=== PATIENT | male | born 1930 | race Caucasian/White ===

== ENCOUNTER 2016-05-08 03:44 | Inpatient (IN) | payer BC, OTHER ==
--- NOTE | 2016-05-08 03:56 | PDOC ---
History of Present Illness - General History Source: Patient Exam Limitations: No Limitations - History of Present Illness Initial Comments: 05/08/16 04:12 The patient is an 86 year old male with history of hypertension, hyperlipidemia , CHF, prostate CA, who presents to the ED complaining of chronic left lateral chest pain, worse with positional changes and deep inspiration. He states he has had this worked up in the past and told in was likely arthritis and not related his heart. In the past few days he has had cough and shortness of breath. He was seen by his doctor who started him on a 5 day course of Azithromycin (he has completed 3 days) but he is considered he has pneumonia. He also complains of intermittent suprapubic pain, now worsening. He states his oncologist recently changed his medications because they "were not working". No fever or chills. No midsternal chest pain, lightheadedness, or worsening peripheral edema. No nausea, vomiting, or diarrhea. PCP: Dr. Chava Chavarria Range Manager: Dr. Mishra <Laurie Workman - Last Filed: 05/08/16 06:55> <Oscar Mark - Last Filed: 05/08/16 07:45> <Radha Hall - Last Filed: 05/08/16 08:45> <Cristopher Doss - Last Filed: 05/08/16 09:37> - General Stated Complaint: PAIN Time Seen by Provider: 05/08/16 03:55 Past History <Laurie Workman - Last Filed: 05/08/16 06:55> - Past Medical History Anemia: No Asthma: No Cancer: Yes (prostate & colon) Cardiac Disorders: Yes CVA: No COPD: No CHF: No Dementia: No Diabetes: No GI Disorders: No Disorders: No HTN: Yes Hypercholesterolemia: Yes Liver Disease: No Seizures: No Thyroid Disease: No - Surgical History Abdominal Surgery: Yes (colon resection) Appendectomy: No Cardiac Surgery: Yes (cath) Cholecystectomy: No Lung Surgery: No Neurologic Surgery: No Orthopedic Surgery: No - Immunization History Immunization Up to Date: Yes - Psycho/Social/Smoking Cessation Hx Anxiety: No Suicidal Ideation: No Smoking History: Never smoked Have you smoked in the past 12 months: No Number of Cigarettes Smoked Daily: 0 If you are a former smoker, when did you quit?: 20 years ago Hx Alcohol Use: No Drug/Substance Use Hx: No Substance Use Type: None Hx Substance Use Treatment: No <Oscar Mark - Last Filed: 05/08/16 07:45> <Radha Hall - Last Filed: 05/08/16 08:45> <Cristopher Doss - Last Filed: 05/08/16 09:37> - Past Medical History Allergies/Adverse Reactions: Allergies Allergy/AdvReac Type Severity Reaction Status Date / Time No Known Allergies Allergy Verified 05/08/16 04:21 Home Medications: Ambulatory Orders Aspirin [ASA -] 81 mg PO DAILY 01/17/15 Atorvastatin Ca [Lipitor] 20 mg PO HS 01/17/15 Furosemide [Lasix -] 20 mg PO ASDIR 01/17/15 Tamsulosin HCl [Flomax -] 0.4 mg PO DAILY 01/17/15 Lisinopril [Prinivil] 2.5 mg PO DAILY #30 tablet 01/18/15 Review of Systems - Review of Systems Able to Perform ROS?: Yes Comments:: 05/08/16 04:16 GENERAL/CONSTITUTIONAL: No fever or chills. No weakness. HEAD, EYES, EARS, NOSE AND THROAT: No change in vision. No ear pain or discharge. No sore throat CARDIOVASCULAR: No chest pain or shortness of breath. RESPIRATORY: Left lateral chest wall pain. Cough, SOB. No wheezing, or hemoptysis. GASTROINTESTINAL: No nausea, vomiting, diarrhea or constipation. GENITOURINARY: Intermittent suprapubic pain. No dysuria, frequency, or change in urination. MUSCULOSKELETAL: No joint or muscle swelling or pain. No neck or back pain. SKIN: No rash NEUROLOGIC: No headache, vertigo, loss of consciousness, or change in strength/ sensation. ENDOCRINE: No increased thirst. No abnormal weight change. HEMATOLOGIC/LYMPHATIC: No anemia, easy bleeding, or history of blood clots. ALLERGIC/IMMUNOLOGIC: No hives or skin allergy. <Laurie Workman - Last Filed: 05/08/16 06:55> *Physical Exam - Physical Exam Comments: 05/08/16 04:17 GENERAL: Awake, alert, and fully oriented, in no acute distress HEAD: No signs of trauma EYES: PERRLA, EOMI, sclera anicteric, conjunctiva clear ENT: Auricles normal inspection, hearing grossly normal, nares patent, oropharynx clear without exudates. Moist mucosa NECK: Normal ROM, supple, no lymphadenopathy, JVD, or masses LUNGS: Left anterior chest wall tenderness to palpation. Breath sounds equal, clear to auscultation bilaterally. No wheezes, and no crackles HEART: Regular rate and rhythm, normal S1 and S2, no murmurs, rubs or gallops ABDOMEN: Suprapubic tenderness to palpation. Soft, normoactive bowel sounds. No guarding, no rebound. No masses EXTREMITIES: Normal range of motion, no edema. No clubbing or cyanosis. No cords, erythema, or tenderness NEUROLOGICAL: Cranial nerves II through XII grossly intact. Normal speech, gait deferred. SKIN: Warm, Dry, normal turgor, no rashes or lesions noted. <Laurie Workman - Last Filed: 05/08/16 06:55> - Vital Signs Last Vital Signs Temp Pulse Resp BP Pulse Ox 98.5 F 102 H 22 141/98 97 05/08/16 04:18 05/08/16 04:18 05/08/16 04:18 05/08/16 04:18 05/08/16 04:18 <Radha Hall - Last Filed: 05/08/16 08:45> - Vital Signs Last Vital Signs Temp Pulse Resp BP Pulse Ox 98.5 F 102 H 22 141/98 97 05/08/16 04:18 05/08/16 04:18 05/08/16 04:18 05/08/16 04:18 05/08/16 04:18 <Cristopher Doss - Last Filed: 05/08/16 09:37> Heart Score/ECG Review #1 05/08/16 04:25 EKG obtained 3:56. Sinus tachycardia with 1st degree AV block at 102 bpm. Left bundle branch block. Abnormal EKG> Left bundle branch block is not new, but QRS morphology is different when compared to previous EKGs. <Laurie Workman - Last Filed: 05/08/16 06:55> - History History: Moderately suspicious - Electrocardiogram EKG: Significant ST-depression - Age Age: >/= 65 - Risk Factors Risk Factors Heart Score: Yes Hx Hypercholesterolemia, Yes Hx Hypertension, Yes Positive family hx of cardiac disease Based on the list above the patient has:: >/=3 risk factors or Hx atherosclerotic disease - Troponin Troponin: </= normal limit - Score Heart Score - Total: 7 <Radha Hall - Last Filed: 05/08/16 08:45> ED Treatment Course - LABORATORY CBC & Chemistry Diagram: 05/08/16 04:30 05/08/16 04:30 <Laurie Workman - Last Filed: 05/08/16 06:55> - LABORATORY CBC & Chemistry Diagram: 05/08/16 04:30 05/08/16 04:30 <Oscar Mark - Last Filed: 05/08/16 07:45> - LABORATORY CBC & Chemistry Diagram: 05/08/16 04:30 05/08/16 04:30 - ADDITIONAL ORDERS Additional order review: Laboratory Results 05/08/16 05/08/16 04:30 04:30 INR 1.06 Sodium 140 Potassium 3.7 Chloride 99 Carbon Dioxide 32 Anion Gap 9 BUN 10 Creatinine 0.7 Creat Clearance w eGFR > 60 Random Glucose 162 H D Calcium 8.6 Total Bilirubin 1.0 D AST 22 D ALT 17 Alkaline Phosphatase 121 H Creatine Kinase 125 Troponin I 0.37 H D Total Protein 6.6 Albumin 3.1 L Lipase 72 L 05/08/16 04:30 RBC 4.02 MCV 87.8 MCHC 33.1 RDW 13.0 MPV 10.3 Neutrophils % 88.5 H D Lymphocytes % 4.1 L D Monocytes % 7.0 Eosinophils % 0.2 D Basophils % 0.2 <Radha Hall - Last Filed: 05/08/16 08:45> - LABORATORY CBC & Chemistry Diagram: 05/08/16 04:30 05/08/16 04:30 - ADDITIONAL ORDERS Additional order review: Laboratory Results 05/08/16 05/08/16 04:30 04:30 INR 1.06 Sodium 140 Potassium 3.7 Chloride 99 Carbon Dioxide 32 Anion Gap 9 BUN 10 Creatinine 0.7 Creat Clearance w eGFR > 60 Random Glucose 162 H D Calcium 8.6 Total Bilirubin 1.0 D AST 22 D ALT 17 Alkaline Phosphatase 121 H Creatine Kinase 125 Troponin I 0.37 H D Total Protein 6.6 Albumin 3.1 L Lipase 72 L 05/08/16 04:30 RBC 4.02 MCV 87.8 MCHC 33.1 RDW 13.0 MPV 10.3 Neutrophils % 88.5 H D Lymphocytes % 4.1 L D Monocytes % 7.0 Eosinophils % 0.2 D Basophils % 0.2 - RADIOLOGY Radiograph Interpretation: 05/08/16 09:36 Chest X-Ray Reviewed by: Dr. Isaiah Wise Impression: Motion artifact, large heart, sclerotic knob, prominent nell and there may be some congestive changes with questionable infiltrate at the left base. <Cristopher Doss - Last Filed: 05/08/16 09:37> Medical Decision Making - Medical Decision Making 05/08/16 04:24 Plan: CBC, CMP, PT/INR, Lipase CT chest, abdomen, pelvis EKG reviewed by myself. 05/08/16 06:42 CT of chest, abdomen, and pelvis, reviewed and interpreted by Imaging Engineering Document Control Clerk CHEST No pulmonary embolism. No aortic dissection or aneurysm. Small right greater than left pleural effusions. Nonspecific ground glass densities bilateral lungs. Biapical scarring. Mediastinal lymphadenopathy, indeterminate. Coronary artery disease. Possible chronic compression fractures T10 and T12. ABDOMEN/PELVIS No aortic dissection or aneurysm. No bowel obstruction, colitis, diverticulitis, free fluid or free air. Normal appendix. Unremarkable pancreas. Nodular thickening bilateral adrenal glands. Subcentimeter cortical hypodensities right kidney. Cholelithiasis. Prostatectomy clips versus brachytherapy seeds prostate. Retroperitoneal surgical clips. Small bilateral inguinal region hernias containing fat. THIS DOCUMENT HAS BEEN ELECTRONICALLY SIGNED Chelsy Saez M.D. 05/08/2016 06:35 EST 05/08/16 06:55 Patient noted to have elevated troponin. Placed call to patient's websphere commerce architect, Dr. Mishra at [phone]. Awaiting call back from covering physician Dr. Tamayo. <Laurie Workman - Last Filed: 05/08/16 06:55> - Medical Decision Making 05/08/16 07:45 discussed case with cardiology..... will come evaluate pateient in the ED. <Oscar Mark - Last Filed: 05/08/16 07:45> *DC/Admit/Observation/Transfer - Attestations Scribe Attestion: 01/02/17 04:18 Documentation prepared by Laurie Workman, acting as director medical for Oscar Mark DO. <Laurie Workman - Last Filed: 05/08/16 06:55> - Attestations Physician Attestion: 05/08/16 03:55 I, Dr. Oscar Mark, attest that this document has been prepared under my direction and personally reviewed by me in its entirety. I further attest, that it accurately reflects all work, treatment, procedures and medical decision -making performed by me. <Oscar Mark - Last Filed: 05/08/16 07:45> <Radha Hall - Last Filed: 05/08/16 08:45> <Cristopher Doss - Last Filed: 05/08/16 09:37> Diagnosis at time of Disposition: Elevated troponin, Bilateral pleural effusion, Shoulder blade pain, Chest pain at rest Back pain Qualifiers: Back pain location: thoracic back pain Chronicity: chronic Back pain laterality : left Qualified Code(s): M54.6 - Pain in thoracic spine Abdominal pain Qualifiers: Abdominal location: generalized Qualified Code(s): R10.84 - Generalized abdominal pain - Discharge Dispostion Condition at time of disposition: Stable - Referrals Referrals: Tyron Chavarria MD [Primary Care Provider] -
[2016-05-08 04:21] VITALS: BMI 28.5
[2016-05-08 04:47] LABS: BASOPHIL 0.2 % (0-2.0); EOSINOPHIL 0.2 % (0-4.5); MCHC 33.1 g/dl (32.0-35.9); MEAN CELL VOLUME 87.8 fl (80-96); MEAN PLT VOLUME 10.3 fl (7.5-11.1); NEUTROPHILS 88.5 % (42.8-82.8); PLATELET COUNT 154 K/MM3 (134-434); WHITE BLOOD COUNT 9.8 K/mm3 (4.0-10.0)
[2016-05-08 04:57] LABS: INR 1.06 (0.82-1.09); PROTHROMBIN TIME (PATIENT) 11.7 SEC (9.98-11.88)
[2016-05-08 05:08] LABS: ALBUMIN 3.1 g/dl (3.4-5.0); ANION GAP 9 (8-16); CALCIUM 8.6 mg/dL (8.5-10.1); CO2 32 mmol/L (21-32); CREATININE 0.7 mg/dL (0.7-1.3); GLUCOSE,RANDOM 162 mg/dL (74-106); SGOT/AST 22 U/L (15-37); SGPT/ALT 17 U/L (12-78); TOT PROT 6.6 g/dl (6.4-8.2)
[2016-05-08 05:11] LABS: ALK PHOS 121 U/L (45-117); TROPONIN I 0.37 ng/ml (0.00-0.05)
--- NOTE | 2016-05-08 07:23 | PDOC ---
*Physical Exam - Vital Signs Last Vital Signs Temp Pulse Resp BP Pulse Ox 98.5 F 102 H 22 141/98 97 05/08/16 04:18 05/08/16 04:18 05/08/16 04:18 05/08/16 04:18 05/08/16 04:18 ED Treatment Course - LABORATORY CBC & Chemistry Diagram: 05/08/16 04:30 05/08/16 04:30 - ADDITIONAL ORDERS Additional order review: Laboratory Results 05/08/16 05/08/16 04:30 04:30 INR 1.06 Sodium 140 Potassium 3.7 Chloride 99 Carbon Dioxide 32 Anion Gap 9 BUN 10 Creatinine 0.7 Creat Clearance w eGFR > 60 Random Glucose 162 H D Calcium 8.6 Total Bilirubin 1.0 D AST 22 D ALT 17 Alkaline Phosphatase 121 H Creatine Kinase 125 Troponin I 0.37 H D Total Protein 6.6 Albumin 3.1 L Lipase 72 L 05/08/16 04:30 RBC 4.02 MCV 87.8 MCHC 33.1 RDW 13.0 MPV 10.3 Neutrophils % 88.5 H D Lymphocytes % 4.1 L D Monocytes % 7.0 Eosinophils % 0.2 D Basophils % 0.2 Medical Decision Making - Medical Decision Making 05/08/16 08:[address] Tamayo. Recommended placement on obs, serial Wade. I will admit to hospitalist service. *DC/Admit/Observation/Transfer Diagnosis at time of Disposition: Elevated troponin, Bilateral pleural effusion, Shoulder blade pain, Chest pain at rest Back pain Qualifiers: Back pain location: thoracic back pain Chronicity: chronic Back pain laterality : left Qualified Code(s): M54.6 - Pain in thoracic spine Abdominal pain Qualifiers: Abdominal location: generalized Qualified Code(s): R10.84 - Generalized abdominal pain - Discharge Dispostion Condition at time of disposition: Stable Admit: Yes - Referrals
[2016-05-08] MEDS ORDERED: LOPERAMIDE HCL 2 MG CAPSULE ONE (07:33)
--- NOTE | 2016-05-08 08:48 | HP ---
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 c/o having left sided chest pain that at times he gets sharp pain but had this pain for over one year now. Recently was diagnosed with URI where he was given Zithromax that he is taking currently which helped with his runny nose. Also c/o having lower back pain L10-12 area and having pain suprapubic area with burning sensation. Denies having any fever or chills, Shortness of breath on and off. - Past Medical History Anemia: No Asthma: No Cancer: Yes (prostate & colon) Cardiac Disorders: Yes CVA: No COPD: No CHF: No Dementia: No Diabetes: No GI Disorders: No Disorders: No HTN: Yes Hypercholesterolemia: Yes Liver Disease: No Seizures: No Thyroid Disease: No - Surgical History Abdominal Surgery: Yes (colon resection) Appendectomy: No Cardiac Surgery: Yes (cath) Cholecystectomy: No Lung Surgery: No Neurologic Surgery: No Orthopedic Surgery: No - Immunization History Immunization Up to Date: Yes - Psycho/Social/Smoking Cessation Hx Anxiety: No Suicidal Ideation: No Smoking History: Never smoked Have you smoked in the past 12 months: No Number of Cigarettes Smoked Daily: 0 If you are a former smoker, when did you quit?: 20 years ago Hx Alcohol Use: No Drug/Substance Use Hx: No Substance Use Type: None Hx Substance Use Treatment: No Allergies No Known Allergies Allergy (Verified 05/08/16 04:21) HOME MEDICATIONS: Medication Instructions Recorded Aspirin [ASA -] 81 mg PO DAILY 01/17/15 Atorvastatin Ca [Lipitor] 20 mg PO HS 01/17/15 Furosemide [Lasix -] 20 mg PO ASDIR 01/17/15 Tamsulosin HCl [Flomax -] 0.4 mg PO DAILY 01/17/15 Lisinopril [Prinivil] 2.5 mg PO DAILY #30 tablet 01/18/15 REVIEW OF SYSTEMS CONSTITUTIONAL: Absent: fever, chills, diaphoresis, generalized weakness, malaise, loss of appetite, weight change HEENT: Absent: rhinorrhea, nasal congestion, throat pain, throat swelling, difficulty swallowing, mouth swelling, ear pain, eye pain, visual changes CARDIOVASCULAR: positive for chest pain, absent :syncope, palpitations, irregular heart rate, lightheadedness, peripheral edema RESPIRATORY: shortness of breath, dyspnea with exertion Absent: cough, , orthopnea, wheezing, stridor, hemoptysis GASTROINTESTINAL: positive for abdominal pain ;suprapubic area Absent: , abdominal distension, nausea, vomiting, diarrhea, constipation, melena, hematochezia GENITOURINARY: positive for burning sensation suprapubic area Absent: dysuria, frequency, urgency, hesitancy, hematuria, flank pain, genital pain MUSCULOSKELETAL: positive for back pain Absent: myalgia, arthralgia, joint swelling, , neck pain SKIN: Absent: rash, itching, pallor HEMATOLOGIC/IMMUNOLOGIC: Absent: easy bleeding, easy bruising, lymphadenopathy, frequent infections ENDOCRINE:Absent: unexplained weight gain, unexplained weight loss, heat intolerance, cold intolerance NEUROLOGIC: Absent: headache, focal weakness or paresthesias, dizziness, unsteady gait, seizure, mental status changes, bladder or bowel incontinence PSYCHIATRIC: Absent: anxiety, depression, suicidal or homicidal ideation, hallucinations. PHYSICAL EXAMINATION Vital Signs Temperature 98.5 F 05/08/16 04:18 Pulse Rate 81 05/08/16 10:59 Respiratory Rate 18 05/08/16 10:59 Blood Pressure 125/62 05/08/16 10:59 O2 Sat by Pulse Oximetry (%) 96 05/08/16 10:59 GENERAL: Awake, alert, and fully oriented, in no acute distress. HEAD: Normal with no signs of trauma. EYES: Pupils equal, round and reactive to light, extraocular movements intact, sclera anicteric, conjunctiva clear. No lid lag. EARS, NOSE, THROAT: Ears normal, nares patent, oropharynx clear without exudates. Moist mucous membranes. NECK: Normal range of motion, supple without lymphadenopathy, JVD, or masses. LUNGS: Breath sounds equal, clear to auscultation bilaterally. No wheezes, and no crackles. No accessory muscle use. HEART: Regular rate and rhythm, normal S1 and S2 , A[place]LA[place] 2/6 ABDOMEN: Soft, nontender, not distended, normoactive bowel sounds, no guarding, no rebound, no masses. No hepatomegaly or splenomegaly. MUSCULOSKELETAL: Normal range of motion at all joints. No bony deformities or tenderness. No CVA tenderness. EXTREMITIES: 2+ pulses, warm, well-perfused. No calf tenderness. No peripheral edema. NEUROLOGICAL: Cranial nerves II-XII intact. Normal speech. Normal gait. PSYCHIATRIC: Cooperative. Good eye contact. Appropriate mood and affect. SKIN: Warm, dry, normal turgor, no rashes or lesions noted. CBCD WBC 9.8 K/mm3 (4.0-10.0) D 05/08/16 04:30 RBC 4.02 M/mm3 (4.00-5.60) 05/08/16 04:30 Hgb 11.7 GM/dL (11.7-16.9) 05/08/16 04:30 Hct 35.3 % (35.4-49) L 05/08/16 04:30 MCV 87.8 fl (80-96) 05/08/16 04:30 MCHC 33.1 g/dl (32.0-35.9) 05/08/16 04:30 RDW 13.0 % (11.9-15.9) 05/08/16 04:30 Plt Count 154 K/MM3 (134-434) 05/08/16 04:30 MPV 10.3 fl (7.5-11.1) 05/08/16 04:30 CMP Sodium 140 mmol/L (136-145) 05/08/16 04:30 Potassium 3.7 mmol/L (3.5-5.1) 05/08/16 04:30 Chloride 99 mmol/L (98-107) 05/08/16 04:30 Carbon Dioxide 32 mmol/L (21-32) 05/08/16 04:30 Anion Gap 9 (8-16) 05/08/16 04:30 BUN 10 mg/dL (7-18) 05/08/16 04:30 Creatinine 0.7 mg/dL (0.7-1.3) 05/08/16 04:30 Creat Clearance w eGFR > 60 (>60) 05/08/16 04:30 Random Glucose 162 mg/dL (74-106) H D 05/08/16 04:30 Calcium 8.6 mg/dL (8.5-10.1) 05/08/16 04:30 Total Bilirubin 1.0 mg/dL (0.2-1.0) D 05/08/16 04:30 AST 22 U/L (15-37) D 05/08/16 04:30 ALT 17 U/L (12-78) 05/08/16 04:30 Alkaline Phosphatase 121 U/L (45-117) H 05/08/16 04:30 Total Protein 6.6 g/dl (6.4-8.2) 05/08/16 04:30 Albumin 3.1 g/dl (3.4-5.0) L 05/08/16 04:30 CARDIAC ENZYMES Creatine Kinase 125 IU/L (39-308) 05/08/16 04:30 Troponin I 0.37 ng/ml (0.00-0.05) H D 05/08/16 04:30 Current Medications Generic Name Dose Route Start Last Admin Trade Name Freq PRN Reason Stop Dose Admin Aspirin 81 mg 05/09/16 10:00 Asa - PO DAILY [facility] Atorvastatin Calcium 20 mg 05/08/16 22:00 Lipitor - PO HS [facility] Azithromycin 250 mg 05/08/16 10:30 05/08/16 10:46 Zithromax - PO 250 mg DAILY [facility] Administration Furosemide 20 mg 05/08/16 10:15 Lasix - PO ASDIR [facility] Heparin Sodium (Porcine) 5,000 unit 05/08/16 22:00 Heparin - SQ BID [facility] Lisinopril 2.5 mg 05/08/16 10:15 Prinivil PO DAILY [facility] Tamsulosin HCl 0.4 mg 05/09/16 08:30 Flomax - PO DAILY@0830 [facility] Medication Instructions Recorded Aspirin [ASA -] 81 mg PO DAILY 01/17/15 Atorvastatin Ca [Lipitor] 20 mg PO HS 01/17/15 Furosemide [Lasix -] 20 mg PO ASDIR 01/17/15 Tamsulosin HCl [Flomax -] 0.4 mg PO DAILY 01/17/15 Lisinopril [Prinivil] 2.5 mg PO DAILY #30 tablet 01/18/15 Ekg : LBBB which is chronic CT abd/pelvis with and without Contrast: NO PE, No aortic dissection or aneurysm. small right greater than left pleural effusions. Nonspecific ground glass densities bl lungs. 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 Today noted to have a rise in troponin level. # Elevated troponin: unclear etiology ; pt had a recent cardiac cath x 2 (2014 and 2015) that showed non-obstructive CAD, discussed with . His cardiac enzyme was positive last admission with a higher #, elevated troponin may be related to his chronic valvular heart disease. #Back pain-unclear etiology :pt does have chronic arthritis with cervical CJD with degenerative disc disease; Also CT of abdomen pelvis T10-T12 level positive for chronic compression fractures. # Suprapubic burning sensation with Lower back pain will get US renal and bladder/pelvis to r/o kidney stone also Ct abdomen and pelvis reports Subcentimeter cortical hypodensities right kidney. # SOB-Chronic diastolic HF secondary to Mitral regurgitation, Pulm HTN; cont. home dose Lasix 20mg po every daily cont Lisinopril 2.5mg po qd # HTN : Lisinopril ,lasix # Hx prostate cancer # Hx of urinary retention DVT ppx : Heparin sq Problem List - Problem (1) Abdominal pain Code(s): R10.9 - UNSPECIFIED ABDOMINAL PAIN Qualifiers: Abdominal location: generalized Qualified Code(s): R10.84 - Generalized abdominal pain (2) Back pain Code(s): M54.9 - DORSALGIA, UNSPECIFIED Qualifiers: Back pain location: thoracic back pain Chronicity: chronic Back pain laterality: left Qualified Code(s): M54.6 - Pain in thoracic spine (3) Bilateral pleural effusion Code(s): J90 - PLEURAL EFFUSION, NOT ELSEWHERE CLASSIFIED (4) Chest pain Code(s): R07.9 - CHEST PAIN, UNSPECIFIED Qualifiers: Chest pain type: unspecified Qualified Code(s): R07.9 - Chest pain, unspecified (5) Elevated troponin Code(s): R79.89 - OTHER SPECIFIED ABNORMAL FINDINGS OF BLOOD CHEMISTRY (6) Shortness of breath Code(s): R06.02 - SHORTNESS OF BREATH (7) HTN (hypertension) Code(s): I10 - ESSENTIAL (PRIMARY) HYPERTENSION (8) History of prostate cancer Code(s): Z85.46 - PERSONAL HISTORY OF MALIGNANT NEOPLASM OF PROSTATE (9) Mitral insufficiency Code(s): I34.0 - NONRHEUMATIC MITRAL (VALVE) INSUFFICIENCY (10) Mitral regurgitation and aortic stenosis Code(s): I08.0 - RHEUMATIC DISORDERS OF BOTH MITRAL AND AORTIC VALVES Visit type - Emergency Visit Emergency Visit: Yes ED Registration Date: 05/08/16 Care time: The patient presented to the Emergency Department on the above date and was hospitalized for further evaluation of their emergent condition. - New Patient This patient is new to me today: Yes Date on this admission: 05/08/16 - Critical Care Critical Care patient: No
[2016-05-08] MEDS ORDERED: FUROSEMIDE 40 MG TABLET (FP) PO SCH (10:15)
[2016-05-08] MEDS ORDERED: AZITHROMYCIN 250 MG TABLET (FP) ONE (10:34)
[2016-05-08] MEDS: AZITHROMYCIN 250 MG TABLET (FP) PO SCH (10:46)
[2016-05-08] MEDS: LISINOPRIL 5 MG TABLET (FP) PO SCH (12:14)
[2016-05-08] MEDS ORDERED: FUROSEMIDE 20 MG TABLET (FP) PO ONE (12:19)
[2016-05-08] MEDS ORDERED: FUROSEMIDE 40 MG TABLET (FP) ONE (12:21)
--- NOTE | 2016-05-08 12:41 | CONSULT ---
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 Pt. seen and examined this am in nad. Pt. has trouble communicating exactly what made him come to the ER but does note worsening suprapubic pain and mild worsening sob. Denies any chest pain. no pnd, orthopnea, or LE edema. no lightheadedness, dizziness, syncope, or near syncope. - History Source History Provided By: Patient, Medical Record Limitations to Obtaining History: Poor Historian - Past Medical History Cardio/Vascular: Yes: Aortic Stenosis, CAD (minimal non-obstructive disease), CHF, HTN, Hyperlipdemia, Mitral Insufficiency, Pulmonary Hypertension Gastrointestinal: Yes: Cancer Renal/: Yes: Cancer - Past Surgical History Past Surgical History: Yes: Colectomy - Alcohol/Substance Use Hx Alcohol Use: No - Smoking History Smoking history: Former smoker Have you smoked in the past 12 months: No Aproximately how many cigarettes per day: 0 If you are a former smoker, when did you quit?: 20 years ago - Social History ADL: Independent History of Recent Travel: No Home Medications - Allergies Allergies/Adverse Reactions: Allergies Allergy/AdvReac Type Severity Reaction Status Date / Time No Known Allergies Allergy Verified 05/08/16 04:21 - Home Medications Home Medications: Ambulatory Orders Aspirin [ASA -] 81 mg PO DAILY 01/17/15 Atorvastatin Ca [Lipitor] 20 mg PO HS 01/17/15 Furosemide [Lasix -] 20 mg PO ASDIR 01/17/15 Tamsulosin HCl [Flomax -] 0.4 mg PO DAILY 01/17/15 Lisinopril [Prinivil] 2.5 mg PO DAILY #30 tablet 01/18/15 Family Disease History - Family Disease History Family History: Denies Review of Systems - Review of Systems Constitutional: reports: Weakness. denies: No Symptoms, Chills, Diaphoresis, Fever, Lethargy, Loss of Appetite, Malaise, Night Sweats, Unintentional Wgt. Loss, Other Eyes: denies: No Symptoms, Blind Spots, Blurred Vision, Double Vision, Eye Pain , Floaters, Photophobia, Recent Change in Vision, Other HENT: denies: No Symptoms, Difficult Swallowing, Ear Discharge, Ear Pain, Epistaxis, Gingival Bleeding, Hearing Loss, Mouth Swelling, Nasal Congestion, Ocular Prosthesis, Throat Pain, Toothache, Ringing in Ears, Other Neck: denies: No Symptoms, Decreased ROM, Lumps, Pain on Movement, Stiffness, Swollen Glands, Tenderness, Other Cardiovascular: reports: Shortness of Breath. denies: No Symptoms, Chest Pain, Edema, Palpitations, Other Respiratory: reports: SOB. denies: No Symptoms, Cough, Exercise Intolerance, Hemoptysis, Orthopnea, PND, Snoring, SOB on Exertion, Wheezing, Other Gastrointestinal: reports: Abdominal Pain. denies: No Symptoms, Bloating, Constipation, Diarrhea, Dysphagia, Indigestion, Melena, Nausea, Rectal Bleeding , Vomiting, Vomiting Blood, Other Genitourinary: reports: Pain. denies: No Symptoms, Burning, Discharge, Dysuria , Flank Pain, Frequency, Hematuria, Incontinence, Lesions, Menses, Testicular Mass, Testicular Pain, Testicular Swelling, Urgency, Vaginal Bleeding, Other Breasts: denies: No Symptoms Reported, See HPI, Breast Implants, Discharge from Nipple, Lumps, Pain, Skin Changes, Other Musculoskeletal: reports: Back Pain. denies: No Symptoms, Crepitus, Decreased ROM, Extremity Pain, Joint Pain, Joint Swelling, Muscle Pain, Muscle Cramps, Muscle Weakness, Other Integumentary: denies: No Symptoms, Blister, Bruising, Change in Color, Eczema, Erythema, Incision, Lesions, Lump, Pallor, Pruritis, Rash, Wound, Other Neurological: denies: No Symptoms, Change in LOC, Change in Speech, Confusion, Dizziness, Headache, Incoordination, Numbness, Parasthesia, Pre-Existing Deficit , Seizure, Syncope, Tremors, Unsteady Gait, Weakness, Other Endocrine: denies: No Symptoms, Excessive Sweating, Flushing, Increased Hunger, Increased Thirst, Intolerance to Cold, Intolerance to Heat, Unexplained Weight Gain, Unexplained Weight Loss, Other Hematology/Lymphatic: denies: No Symptoms, Easily Bruised, Excessive Bleeding, Swollen Glands, Other Psychiatric: denies: No Symptoms, Altered Sleep Pattern, Anxiety, Depression, Hallucinations, Panic, Paranoia, Suicidal, Other - Risk Factors Known Risk Factors: Yes: Age, Hypercholesterolemia, Hypertension, Smoking Vital Signs: Vital Signs Temperature 98.5 F 05/08/16 04:18 Pulse Rate 81 05/08/16 10:59 Respiratory Rate 18 05/08/16 10:59 Blood Pressure 125/62 05/08/16 10:59 O2 Sat by Pulse Oximetry (%) 96 05/08/16 11:11 Constitutional: Yes: Well Nourished, No Distress, Anxious Eyes: Yes: WNL, Conjunctiva Clear, EOM Intact, PERRL HENT: Yes: WNL, Atraumatic, Normocephalic Neck: Yes: WNL, Supple, Trachea Midline Respiratory: Yes: Regular, Diminished, Rhonchi Gastrointestinal: Yes: Normal Bowel Sounds, Soft, Tenderness Cardiovascular: Yes: Regular Rate and Rhythm. No: Bradycardia, Tachycardia, Pulse Irregular, Gallop, Rub, Varicosities JVD: No Carotid Bruit: No PMI: Non-Displaced Heart Sounds: Yes: S1, S2. No: Split S2, S3, S4, Clicks, Gallop, Rub, Bruit Murmur: Yes: Systolic Murmur, Grade 3 Musculoskeletal: Yes: Back Pain Extremities: Yes: WNL Edema: No Peripheral Pulses WNL: Yes Peripheral Pulses: 2+ Left Doralis Pedis, 2+ Right Dorsalis Pedis Integumentary: Yes: WNL Neurological: Yes: Alert, Oriented Psychiatric: Yes: Alert, Oriented - Other Data Labs, Other Data: INR, PTT INR 1.06 (0.82-1.09) 05/08/16 04:30 ekg-nsr, LBBB Echo: Report Reviewed Prior Cardiac Procedures: Cardiac Catheterization Imaging - Results Chest X-ray: Report Reviewed, Image Reviewed Cat Scan: Report Reviewed EKG: Report Reviewed, Image Reviewed Other: Report Reviewed, Image Reviewed Problem List - Problems (1) Abdominal pain Code(s): R10.9 - UNSPECIFIED ABDOMINAL PAIN Qualifiers: Abdominal location: generalized Qualified Code(s): R10.84 - Generalized abdominal pain (2) Back pain Code(s): M54.9 - DORSALGIA, UNSPECIFIED Qualifiers: Back pain location: thoracic back pain Chronicity: chronic Back pain laterality: left Qualified Code(s): M54.6 - Pain in thoracic spine (3) Bilateral pleural effusion Code(s): J90 - PLEURAL EFFUSION, NOT ELSEWHERE CLASSIFIED (4) Chest pain Code(s): R07.9 - CHEST PAIN, UNSPECIFIED Qualifiers: Chest pain type: unspecified Qualified Code(s): R07.9 - Chest pain, unspecified (5) Shortness of breath Code(s): R06.02 - SHORTNESS OF BREATH (6) CAD (coronary artery disease) Code(s): I25.10 - ATHSCL HEART DISEASE OF [place] CORONARY ARTERY W/O ANG PCTRS (7) HTN (hypertension) Code(s): I10 - ESSENTIAL (PRIMARY) HYPERTENSION (8) History of prostate cancer Code(s): Z85.46 - PERSONAL HISTORY OF MALIGNANT NEOPLASM OF PROSTATE (9) Aortic stenosis Code(s): Q25.3 - SUPRAVALVULAR AORTIC STENOSIS (10) Hyperlipidemia Code(s): E78.5 - HYPERLIPIDEMIA, UNSPECIFIED (11) Mitral regurgitation and aortic stenosis Code(s): I08.0 - RHEUMATIC DISORDERS OF BOTH MITRAL AND AORTIC VALVES Assessment/Plan 86 year old man with a history of Prostate Ca s/p RT, Colon Ca s/p colectomy, HTN, HLD, Mod to severe MR, Mod , mod PAH, non-obstructive CAD on 2 recent cardiac caths, Chronic diastolic HF, 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 CAD-pt had 2 cardiac caths in the past year which showed non-obstructive CAD -his current presentation is similar to prior admissions -unlikely ACS -no PE and no Aortic dissection seen on CTA chest -slight elevation in troponin likely secondary to his mixed valvular heart disease and chronic diastolic CHF -ekg shows LBBB which is chronic -can monitor on observation, repeat cardiac enzymes -no additional ischemic work up planned at this point -cont home medical regimen ASA 81mg daily SOB-Chronic diastolic HF secondary to mitral regurgitation, aortic stenosis, Pulm HTN -cont lasix, lisinopril -previously on Imdur for PAH, clarify if taking it currently HTN-adequately controlled -cont current medical regimen
--- NOTE | 2016-05-08 13:14 | EKG ---
Test Reason : Blood Pressure : / mmHG Vent. Rate : 084 BPM Atrial Rate : 084 BPM P-R Int : 258 ms QRS Dur : 164 ms QT Int : 426 ms P-R-T Axes : 068 -11 112 degrees QTc Int : 503 ms SINUS RHYTHM WITH 1ST DEGREE A-V BLOCK LEFT BUNDLE BRANCH BLOCK ABNORMAL ECG WHEN COMPARED WITH ECG OF 08-MAY-2016 03:56, NO SIGNIFICANT CHANGE WAS FOUND Confirmed by TAMERA VALDOVINOS MD ([id number]) on 05/08/2016 1:13:27 PM Referred By: Overread By: TAMERA VALDOVINOS MD
[2016-05-08] MEDS ORDERED: amLODIPine BESYLATE 5 MG TABLET (FP) ONE (18:59)
[2016-05-08] MEDS: amLODIPine BESYLATE 10 MG TABLET (FP) PO SCH (19:25)
[2016-05-08] MEDS ORDERED: IBUPROFEN 400 MG TABLET (FP) PO ONE (21:09)
[2016-05-08] MEDS: ATORVASTATIN CA 20 MG TABLET (FP) PO SCH (21:18)
[2016-05-08] MEDS: HEPARIN NA (PORCINE) 5,000 UNITS/ML 1ML VIAL SQ SCH (21:22)
[2016-05-09 08:02] LABS: MAGNESIUM 2.4 mg/dL (1.8-2.4); PHOSPHOROUS 3.6 mg/dL (2.5-4.9)
[2016-05-09] MEDS: TAMSULOSIN HCL 0.4 MG CAP.ER.24H (FP) PO SCH (09:43)
[2016-05-09] MEDS: HEPARIN NA (PORCINE) 5,000 UNITS/ML 1ML VIAL SQ SCH ×2 (09:43→21:43)
[2016-05-09] MEDS: LISINOPRIL 5 MG TABLET (FP) PO SCH (09:43)
[2016-05-09] MEDS: amLODIPine BESYLATE 10 MG TABLET (FP) PO SCH (09:44)
[2016-05-09] MEDS: AZITHROMYCIN 250 MG TABLET (FP) PO SCH ×2 (09:44→21:44)
[2016-05-09] MEDS: ASPIRIN 81 MG CHEWABLE TABLETS PO SCH (09:44)
[2016-05-09] MEDS: FUROSEMIDE 40 MG TABLET (FP) PO SCH (09:44)
--- NOTE | 2016-05-09 10:09 | PN ---
Progress Note, Physician Chief Complaint: no new complaints - Current Medication List Current Medications: Active Medications Amlodipine Besylate (Norvasc -) 10 mg PO DAILY [facility] Last Admin: 05/09/16 09:44 Dose: 10 mg Aspirin (Asa -) 81 mg PO DAILY [facility] Last Admin: 05/09/16 09:44 Dose: 81 mg Atorvastatin Calcium (Lipitor -) 20 mg PO HS [facility] Last Admin: 05/08/16 21:18 Dose: 20 mg Azithromycin (Zithromax -) 250 mg PO DAILY [facility] Last Admin: 05/09/16 09:44 Dose: Not Given Furosemide (Lasix -) 20 mg PO DAILY [facility] Last Admin: 05/09/16 09:44 Dose: 20 mg Heparin Sodium (Porcine) (Heparin -) 5,000 unit SQ BID [facility] Last Admin: 05/09/16 09:43 Dose: 5,000 unit Lisinopril (Prinivil) 2.5 mg PO DAILY [facility] Last Admin: 05/09/16 09:43 Dose: 2.5 mg Non-Formulary Medication (Enzalutamide [Xtandi]) 160 mg PO DAILY [facility] Tamsulosin HCl (Flomax -) 0.4 mg PO DAILY@0830 [facility] Last Admin: 05/09/16 09:43 Dose: 0.4 mg - Objective Vital Signs: Vital Signs Temperature 98.0 F 05/09/16 04:00 Pulse Rate 95 H 05/09/16 05:00 Respiratory Rate 20 05/09/16 05:00 Blood Pressure 135/64 05/09/16 05:00 O2 Sat by Pulse Oximetry (%) 94 L 05/08/16 20:30 Constitutional: Yes: No Distress Eyes: Yes: Conjunctiva Clear Cardiovascular: Yes: Regular Rate and Rhythm Respiratory: Yes: CTA Bilaterally Gastrointestinal: Yes: Soft Edema: No Neurological: Yes: Alert Labs: INR, PTT INR 1.06 (0.82-1.09) 05/08/16 04:30 Laboratory Tests 05/08/16 05/08/16 05/08/16 04:30 04:30 13:05 WBC 9.8 D Hgb 11.7 Plt Count 154 Sodium 140 Potassium 3.7 Creatinine 0.7 Troponin I 0.37 H D 0.38 H 05/08/16 18:47 WBC Hgb Plt Count Sodium Potassium Creatinine Troponin I 0.32 H - ....Imaging EKG: Image Reviewed (TELE: NSR w/ LBBB (chronic)) Assessment/Plan Assessment/Plan 86 year old man with a history of Prostate Ca s/p RT, Colon Ca s/p colectomy, HTN, HLD, Mod to severe MR, Mod , mod PAH, non-obstructive CAD on 2 recent cardiac caths, Chronic diastolic HF, 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 CAD-pt had 2 cardiac caths in the past year which showed non-obstructive CAD -his current presentation is similar to prior admissions -unlikely ACS -no PE and no Aortic dissection seen on CTA chest -slight elevation in troponin likely secondary to his mixed valvular heart disease and chronic diastolic CHF -ekg shows LBBB which is chronic -no additional ischemic work up planned at this point -cont home medical regimen ASA 81mg daily SOB-Chronic diastolic HF secondary to mitral regurgitation, aortic stenosis, Pulm HTN -cont lasix, lisinopril HTN-adequately controlled -cont current medical regimen Chronic left ribcage pain- -?neuropathic -Neuro consult
--- NOTE | 2016-05-09 13:09 | PN ---
Progress Note (short form) - Note Progress Note: Subjective: The patient was seen and examined at the bedside, he has complaints of feeling warm (temp 99.3). He also complains on chronic left flank pain Neurology consulted Current Medications Generic Name Dose Route Start Last Admin Trade Name Robin PRN Reason Stop Dose Admin Amlodipine Besylate 10 mg 05/08/16 17:45 05/09/16 09:44 Norvasc - PO 10 mg DAILY [facility] Administration Aspirin 81 mg 05/09/16 10:00 05/09/16 09:44 Asa - PO 81 mg DAILY [facility] Administration Atorvastatin Calcium 20 mg 05/08/16 22:00 05/08/16 21:18 Lipitor - PO 20 mg HS [facility] Administration Azithromycin 250 mg 05/08/16 10:30 05/09/16 09:44 Zithromax - PO Not Given DAILY [facility] Furosemide 20 mg 05/09/16 10:00 05/09/16 09:44 Lasix - PO 20 mg DAILY [facility] Administration Heparin Sodium (Porcine) 5,000 unit 05/08/16 22:00 05/09/16 09:43 Heparin - SQ 5,000 unit BID [facility] Administration Lisinopril 2.5 mg 05/08/16 10:15 05/09/16 09:43 Prinivil PO 2.5 mg DAILY [facility] Administration Non-Formulary Medication 160 mg 05/08/16 17:45 Enzalutamide [Xtandi] PO DAILY [facility] Tamsulosin HCl 0.4 mg 05/09/16 08:30 05/09/16 09:43 Flomax - PO 0.4 mg DAILY@0830 [facility] Administration Objective: Vital Signs Period Temp Pulse Resp BP Sys/Sanchez Pulse Ox Last 24 Hr 97.4 F-98.1 F 81-109 16-20 120-138/57-81 94-95 Physical Exam: General: NAD, A&Ox3 Lungs: CTA bilaterally Heart: RRR, S1S2 Abd: Soft, non-tender, non-distended. Normoactive bowel sounds Ext: Warm, well-perfused. 2+ DP/PT bilaterally Neuro: CN 2-12 intact CBCD WBC 9.8 K/mm3 (4.0-10.0) D 05/08/16 04:30 RBC 4.02 M/mm3 (4.00-5.60) 05/08/16 04:30 Hgb 11.7 GM/dL (11.7-16.9) 05/08/16 04:30 Hct 35.3 % (35.4-49) L 05/08/16 04:30 MCV 87.8 fl (80-96) 05/08/16 04:30 MCHC 33.1 g/dl (32.0-35.9) 05/08/16 04:30 RDW 13.0 % (11.9-15.9) 05/08/16 04:30 Plt Count 154 K/MM3 (134-434) 05/08/16 04:30 MPV 10.3 fl (7.5-11.1) 05/08/16 04:30 CMP Sodium 140 mmol/L (136-145) 05/08/16 04:30 Potassium 3.7 mmol/L (3.5-5.1) 05/08/16 04:30 Chloride 99 mmol/L (98-107) 05/08/16 04:30 Carbon Dioxide 32 mmol/L (21-32) 05/08/16 04:30 Anion Gap 9 (8-16) 05/08/16 04:30 BUN 10 mg/dL (7-18) 05/08/16 04:30 Creatinine 0.7 mg/dL (0.7-1.3) 05/08/16 04:30 Creat Clearance w eGFR > 60 (>60) 05/08/16 04:30 Random Glucose 162 mg/dL (74-106) H D 05/08/16 04:30 Calcium 8.6 mg/dL (8.5-10.1) 05/08/16 04:30 Total Bilirubin 1.0 mg/dL (0.2-1.0) D 05/08/16 04:30 AST 22 U/L (15-37) D 05/08/16 04:30 ALT 17 U/L (12-78) 05/08/16 04:30 Alkaline Phosphatase 121 U/L (45-117) H 05/08/16 04:30 Total Protein 6.6 g/dl (6.4-8.2) 05/08/16 04:30 Albumin 3.1 g/dl (3.4-5.0) L 05/08/16 04:30 CARDIAC ENZYMES Creatine Kinase 125 IU/L (39-308) 05/08/16 04:30 Troponin I 0.32 ng/ml (0.00-0.05) H 05/08/16 18:47 Assessment: This is an 86 year old male with PMHx of prostate cancer s/p radiation therapy, colon cancer s/p colectomy, HTN, hyperlipidemia, moderate to severe MR, moderate , moderate PAH, non-obstructive CAD with cardiac cath x2, chronic diastolic heart failure, chronic arthritis with cervical spine disc disease, who presented to the ED with harp, left sided chest pain, b/l shoulder pain, back pain, suprapubic pain, and shortness of breath Plan: 1) Cardiology: CAD s/p cardiac cath x2 in the past year - Non-obstructive disease on cardiac caths - Elevation in troponins, trended down. per cardiology unlikely ACS - EKG with chronic LBBB - No additional ischemic workup per cards - Continue ASA Chronic diastolic heart failure - No evidence of heart failure on exam - Continue Lasix - Continue Lisinopril Chest pain - Chest/Abd/Pelvis CTA with no evidence of thoracic or abdominal aortic aneurysm or dissection - Discussed CTA chest with Dr. Schreiber, while PE protocol not followed ( dissection protocol performed), no PE was identified HTN - Continue Norvasc - Continue Lisinopril Hyperlipidemia: - Continue Lipitor 2) ID: Fever - Patient reports taking Azithromycin at home, today is day #4 - Will f/u UA, urine culture, blood cultures - Acetaminophen ordered 3) Neuro: Chronic left back pain - F/u neuro consult 4) Onc: Prostate cancer s/p radiation therapy, colon cancer s/p colectomy - Continue Enzalutamide - Continue Flomax - Brachytherapy seeds noted on CTAP - CT chest with slightly prominent lymph nodes throughout the mediastinal chains. Will need to follow-up with outpatient oncologist 5) F/E/N: - Monitor electrolytes - Sodium controlled diet 6) Prophylaxis: - OOB ambulating - PT - Continue Heparin 5,000u sq bid 7) Dispo: - Once condition improves CODE STATUS: FULL CODE Visit type - Emergency Visit Emergency Visit: Yes ED Registration Date: 05/08/16 Care time: The patient presented to the Emergency Department on the above date and was hospitalized for further evaluation of their emergent condition. - New Patient This patient is new to me today: Yes Date on this admission: 05/09/16 - Critical Care Critical Care patient: No
[2016-05-09] MEDS ORDERED: ACETAMINOPHEN 325 MG TABLET (FP) PO ONE (15:01)
--- NOTE | 2016-05-09 21:31 | CONSULT ---
Consult - text type - Consultation Consultation Note: NEUROLOGY CONSULTATION is greatly appreciated: This 86 yo man claims he does not live with his or 6 children. PMH sig for HTN, Chol, BPH on ASA, tamsulosin, lasix, atorvastatin, amlodipine, lisinopril. Pt c/o 2-3 years of Left side flank pain radiating under the left breast with intermittent dyspnea. Extensive cardiac evaluation apparently has revealed mild valvulopathy, not felt to explain the left chest complaints. Much worst, for the patient, is one year of severe "Burning heat" that arises from the mid- to low back and radiates into both legs, worse at night, making sleep impossible. In fact, patient begs "for a few hours of sleep" and claims that otherwise he "wants to go to [facility]." He denies a suicide plan. Labs sig for mild anemia. H/H+ 11.7/35.3. PAWEL: No bruits. No head trauma. No spinal palpation tenderness. No scoliosis or spinal deformity. Neg SLR> 90. NEURO: Depressed, withdrawn but probably normal MS and Speech. CN II-XII: Normal Motor: No drift or tremor. Normal strength and tone. No cogwheeling. Reduced but symmetrical reflexes. Toes downgoing. Coord: No FTN dystaxia Sensory: Normal. Romberg - Gait: Normal IMP: Essentialy normal neurological exam. Depression. R/O thoracic radiculopathy and myelopathy. Severe insomnia possible related to Restless Legs Syndrome (RLS) as etiology of burning pains at night. Suggest: MRI of thoracic spine (C-). Check B12, ESR, CRP, Fe++, TIBC. Start with amitriptyline 24 mg PO q HS. May benefit from trial of low-dose pramipexole for burning at night. If treatment of depression is desired would start bupropion XL 150 mg PO q AM. Neuro f/u as out patient for EMG/NCS of legs and continued Rx. Thank you very much, Luis A Dubois MD
[2016-05-09] MEDS: AMITRIPTYLINE HCL 25 MG TABLET (FP) PO SCH (21:43)
[2016-05-09] MEDS: ATORVASTATIN CA 20 MG TABLET (FP) PO SCH (21:43)
[2016-05-10] MEDS: IBUPROFEN 600 MG TABLET (FP) PO PRN (06:52)
[2016-05-10 07:45] LABS: MCH 30.1 pg (25.7-33.7); MCHC 34.3 g/dl (32.0-35.9); MEAN CELL VOLUME 87.8 fl (80-96); MEAN PLT VOLUME 10.5 fl (7.5-11.1); PLATELET COUNT 202 K/MM3 (134-434); RDW 12.8 % (11.9-15.9)
[2016-05-10 08:27] LABS: ALBUMIN 2.7 g/dl (3.4-5.0); ANION GAP 4 (8-16); CALCIUM 8.5 mg/dL (8.5-10.1); CO2 30 mmol/L (21-32); GLUCOSE,RANDOM 131 mg/dL (74-106)
[2016-05-10 08:29] LABS: ALK PHOS 113 U/L (45-117); BILIRUBIN,TOTAL 1.1 mg/dL (0.2-1.0); CREATININE 0.6 mg/dL (0.7-1.3); SGOT/AST 17 U/L (15-37); SGPT/ALT 14 U/L (12-78); TOT PROT 6.2 g/dl (6.4-8.2)
[2016-05-10] MEDS ORDERED: POTASSIUM CHLORIDE TABS 20 MEQ TABLET.ER (FP) PO ONE (09:15)
--- NOTE | 2016-05-10 09:33 | PN ---
Progress Note, Physician Chief Complaint: appreciate neuro consult History of Present Illness: TELE: Sinus, sinus tach, LBBB - Current Medication List Current Medications: Active Medications Amitriptyline HCl (Elavil -) 25 mg PO HS [facility] Last Admin: 05/09/16 21:43 Dose: 25 mg Amlodipine Besylate (Norvasc -) 10 mg PO DAILY [facility] Last Admin: 05/09/16 09:44 Dose: 10 mg Aspirin (Asa -) 81 mg PO DAILY [facility] Last Admin: 05/09/16 09:44 Dose: 81 mg Atorvastatin Calcium (Lipitor -) 20 mg PO HS [facility] Last Admin: 05/09/16 21:43 Dose: 20 mg Azithromycin (Zithromax -) 250 mg PO DAILY [facility] Last Admin: 05/09/16 21:44 Dose: 250 mg Furosemide (Lasix -) 20 mg PO DAILY [facility] Last Admin: 05/09/16 09:44 Dose: 20 mg Heparin Sodium (Porcine) (Heparin -) 5,000 unit SQ BID [facility] Last Admin: 05/09/16 21:43 Dose: 5,000 unit Ibuprofen (Motrin -) 600 mg PO Q6H PRN PRN Reason: FEVER Last Admin: 05/10/16 06:52 Dose: 600 mg Lisinopril (Prinivil) 2.5 mg PO DAILY [facility] Last Admin: 05/09/16 09:43 Dose: 2.5 mg Non-Formulary Medication (Enzalutamide [Xtandi]) 160 mg PO DAILY [facility] Tamsulosin HCl (Flomax -) 0.4 mg PO DAILY@0830 [facility] Last Admin: 05/09/16 09:43 Dose: 0.4 mg - Objective Vital Signs: Vital Signs Temperature 98 F 05/10/16 05:00 Pulse Rate 100 H 05/10/16 05:00 Respiratory Rate 20 05/10/16 05:00 Blood Pressure 124/60 05/10/16 05:00 O2 Sat by Pulse Oximetry (%) 96 05/09/16 20:00 Constitutional: Yes: No Distress Eyes: Yes: Conjunctiva Clear Cardiovascular: Yes: Regular Rate and Rhythm Respiratory: Yes: CTA Bilaterally Gastrointestinal: Yes: Soft Edema: No Neurological: Yes: Alert Labs: CBC, BMP 05/10/16 05:35 05/10/16 05:35 INR, PTT INR 1.06 (0.82-1.09) 05/08/16 04:30 Laboratory Tests 05/08/16 05/10/16 05/10/16 04:30 05:35 05:35 WBC 9.0 Hgb 11.6 L Hct 33.8 L Plt Count 202 D INR 1.06 Potassium 3.3 L Creatinine 0.6 L - ....Imaging EKG: Image Reviewed Assessment/Plan Assessment/Plan 86 year old man with a history of Prostate Ca s/p RT, Colon Ca s/p colectomy, HTN, HLD, Mod to severe MR, Mod , mod PAH, non-obstructive CAD on 2 recent cardiac caths, Chronic diastolic HF, 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 CAD-pt had 2 cardiac caths in the past year which showed non-obstructive CAD -his current presentation is similar to prior admissions -unlikely ACS -no PE and no Aortic dissection seen on CTA chest -slight elevation in troponin likely secondary to his mixed valvular heart disease and chronic diastolic CHF -ekg shows LBBB which is chronic -no additional ischemic work up planned at this point -cont home medical regimen ASA 81mg daily -Can d/c tele SOB-Chronic diastolic HF secondary to mitral regurgitation, aortic stenosis, Pulm HTN -cont lasix, lisinopril HTN-adequately controlled -cont current medical regimen Chronic left ribcage pain- -?neuropathic -Neuro consult appreciated
[2016-05-10] MEDS: ASPIRIN 81 MG CHEWABLE TABLETS PO SCH (10:32)
[2016-05-10] MEDS: AZITHROMYCIN 250 MG TABLET (FP) PO SCH (10:32)
[2016-05-10] MEDS: amLODIPine BESYLATE 10 MG TABLET (FP) PO SCH (10:32)
[2016-05-10] MEDS: LISINOPRIL 5 MG TABLET (FP) PO SCH ×2 (10:33→16:02)
[2016-05-10] MEDS: HEPARIN NA (PORCINE) 5,000 UNITS/ML 1ML VIAL SQ SCH ×2 (10:34→22:47)
[2016-05-10] MEDS: TAMSULOSIN HCL 0.4 MG CAP.ER.24H (FP) PO SCH ×3 (10:34→22:46)
[2016-05-10] MEDS: FUROSEMIDE 40 MG TABLET (FP) PO SCH (10:34)
[2016-05-10] MEDS ORDERED: ALPRAZolam 0.25 MG TABLET PO ONE ×2 (11:26→20:49)
[2016-05-10] MEDS: ENZALUTAMIDE PO SCH (15:00)
[2016-05-10 16:08] LABS: CALCIUM 8.3 mg/dL (8.5-10.1); CREATININE 0.7 mg/dL (0.7-1.3)
[2016-05-10] MEDS ORDERED: ALBUTEROL SO4 2.5/IPRATROPIUM 0.5 INH SOL 3 ML VIAL.NEB. NEB SCH (16:30)
[2016-05-10] MEDS ORDERED: methylPREDNISolone NA SUCC 125 MG/2 ML VIAL IVPB SCH (16:30)
--- NOTE | 2016-05-10 16:41 | PN ---
Progress Note (short form) - Note Progress Note: Subjective: The patient was seen and examined at the bedside, he states he does not want to have the MRI because he is claustrophobic. Informed the patient that I have ordered Xanax prior to MRI. The patient is refusing Hyponatremia, recheck this PM Current Medications Generic Name Dose Route Start Last Admin Trade Name Freq PRN Reason Stop Dose Admin Alprazolam 0.5 mg 05/10/16 11:26 Xanax - PO 05/10/16 11:27 ONCE ONE Amitriptyline HCl 25 mg 05/09/16 22:00 05/09/16 21:43 Elavil - PO 25 mg HS THALIA Administration Amlodipine Besylate 10 mg 05/08/16 17:45 05/10/16 10:32 Norvasc - PO 10 mg DAILY THALIA Administration Aspirin 81 mg 05/09/16 10:00 05/10/16 10:32 Asa - PO 81 mg DAILY THALIA Administration Atorvastatin Calcium 20 mg 05/08/16 22:00 05/09/16 21:43 Lipitor - PO 20 mg HS THALIA Administration Azithromycin 250 mg 05/08/16 10:30 05/10/16 10:32 Zithromax - PO 250 mg DAILY THALIA Administration Furosemide 20 mg 05/09/16 10:00 05/10/16 10:34 Lasix - PO 20 mg DAILY THALIA Administration Heparin Sodium (Porcine) 5,000 unit 05/08/16 22:00 05/10/16 10:34 Heparin - SQ 5,000 unit BID THALIA Administration Ibuprofen 600 mg 05/10/16 03:22 05/10/16 06:52 Motrin - PO 600 mg Q6H PRN Administration FEVER Lisinopril 2.5 mg 05/08/16 10:15 05/10/16 10:33 Prinivil PO 2.5 mg DAILY THALIA Administration Enzalutamide [Xtandi 160 mg 05/10/16 13:00 ] 40 Mga Capsule (Pt PO 's Own) DAILY@1300 THALIA Tamsulosin HCl 0.4 mg 05/09/16 08:30 05/10/16 10:34 Flomax - PO 0.4 mg DAILY@0830 THALIA Administration Objective: Vital Signs Period Temp Pulse Resp BP Sys/Sanchez Pulse Ox Last 24 Hr 97.4 F-98.5 F 84-100 20-24 102-144/47-73 96 Physical Exam: General: NAD, A&Ox3 Lungs: CTA bilaterally Heart: RRR, S1S2 Abd: Soft, non-tender, non-distended. Normoactive bowel sounds Ext: Warm, well-perfused. 2+ DP/PT bilaterally Neuro: CN 2-12 intact CBCD WBC 9.0 K/mm3 (4.0-10.0) 05/10/16 05:35 RBC 3.85 M/mm3 (4.00-5.60) L 05/10/16 05:35 Hgb 11.6 GM/dL (11.7-16.9) L 05/10/16 05:35 Hct 33.8 % (35.4-49) L 05/10/16 05:35 MCV 87.8 fl (80-96) 05/10/16 05:35 MCHC 34.3 g/dl (32.0-35.9) 05/10/16 05:35 RDW 12.8 % (11.9-15.9) 05/10/16 05:35 Plt Count 202 K/MM3 (134-434) D 05/10/16 05:35 MPV 10.5 fl (7.5-11.1) 05/10/16 05:35 CMP Sodium 130 mmol/L (136-145) L 05/10/16 05:35 Potassium 3.3 mmol/L (3.5-5.1) L 05/10/16 05:35 Chloride 96 mmol/L (98-107) L 05/10/16 05:35 Carbon Dioxide 30 mmol/L (21-32) 05/10/16 05:35 Anion Gap 4 (8-16) L 05/10/16 05:35 BUN 15 mg/dL (7-18) D 05/10/16 05:35 Creatinine 0.6 mg/dL (0.7-1.3) L 05/10/16 05:35 Creat Clearance w eGFR > 60 (>60) 05/10/16 05:35 Random Glucose 131 mg/dL (74-106) H 05/10/16 05:35 Calcium 8.5 mg/dL (8.5-10.1) 05/10/16 05:35 Total Bilirubin 1.1 mg/dL (0.2-1.0) H 05/10/16 05:35 AST 17 U/L (15-37) D 05/10/16 05:35 ALT 14 U/L (12-78) 05/10/16 05:35 Alkaline Phosphatase 113 U/L (45-117) 05/10/16 05:35 Total Protein 6.2 g/dl (6.4-8.2) L 05/10/16 05:35 Albumin 2.7 g/dl (3.4-5.0) L 05/10/16 05:35 CARDIAC ENZYMES Creatine Kinase 125 IU/L (39-308) 05/08/16 04:30 Troponin I 0.32 ng/ml (0.00-0.05) H 05/08/16 18:47 Assessment: This is an 86 year old male with PMHx of prostate cancer s/p radiation therapy, colon cancer s/p colectomy, HTN, hyperlipidemia, moderate to severe MR, moderate , moderate PAH, non-obstructive CAD with cardiac cath x2, chronic diastolic heart failure, chronic arthritis with cervical spine disc disease, who presented to the ED with harp, left sided chest pain, b/l shoulder pain, back pain, suprapubic pain, and shortness of breath Plan: 1) Cardiology: CAD s/p cardiac cath x2 in the past year - Non-obstructive disease on cardiac caths - Elevation in troponins, trended down. per cardiology unlikely ACS - EKG with chronic LBBB - No additional ischemic workup per cards - Continue ASA Chronic diastolic heart failure - No evidence of heart failure on exam - Continue Lasix - Continue Lisinopril Chest pain - Chest/Abd/Pelvis CTA with no evidence of thoracic or abdominal aortic aneurysm or dissection - Discussed CTA chest with Dr. Schreiber, while PE protocol not followed ( dissection protocol performed), no PE was identified HTN - Continue Norvasc - Continue Lisinopril Hyperlipidemia: - Continue Lipitor 2) Pulmonary: hypoxia, shortness of breath - F/u ABG - Solu-medrol - Duonebs - Discussed with Dr. Chawla, f/u consult 3) ID: Fever - Patient reports taking Azithromycin at home, today is day #5 - Will f/u UA, urine culture, blood cultures - Acetaminophen ordered 4) Neuro: Chronic left back pain - F/u MRI thoracic spine - F/u B12, ESR, CRP, Fe, TIBC - Will need outpatient EMG/NCS of legs - Appreciate neuro consult 5) Onc: Prostate cancer s/p radiation therapy, colon cancer s/p colectomy - Continue Enzalutamide - Continue Flomax - Brachytherapy seeds noted on CTAP - CT chest with slightly prominent lymph nodes throughout the mediastinal chains. Will need to follow-up with outpatient oncologist 6) F/E/N: - Monitor electrolytes - Sodium controlled diet 7) Prophylaxis: - OOB ambulating - PT - Continue Heparin 5,000u sq bid 8) Dispo: - Requires continued inpatient care CODE STATUS: FULL CODE Visit type - Emergency Visit Emergency Visit: Yes ED Registration Date: 05/08/16 Care time: The patient presented to the Emergency Department on the above date and was hospitalized for further evaluation of their emergent condition. - New Patient This patient is new to me today: No - Critical Care Critical Care patient: No
[2016-05-10] MEDS ORDERED: methylPREDNISolone NA SUCC 125 MG/2 ML VIAL IVPB ONE (16:49)
[2016-05-10 16:58] LABS: ARTERIAL BLD GAS O2 SATURATION 79.4 % (90-98.9); ARTERIAL BLOOD GAS BASE EXCESS 3.9 meq/l (-2-2); ARTERIAL BLOOD GAS HCO3 26.3 meq/L (22-26); ARTERIAL BLOOD GAS pH 7.51 (7.35-7.45)
[2016-05-10 16:59] LABS: ALLENS TEST POSITIVE; ART PUNCT SITE RIGHT RADIAL; LPM/O2% ROOM AIR; PT. ON O2? NO
[2016-05-10 17:01] LABS: ARTERIAL BLOOD GAS PO2 43.7 mmHg (68-100)
[2016-05-10] MEDS ORDERED: FUROSEMIDE 40 MG/4 ML INJECTABLE VIAL IVPB ONE (17:27)
--- NOTE | 2016-05-10 17:41 | PN ---
Progress Note (short form) - Note Progress Note: PULMONARY CONSULTATION DICTATED 05/10/16 IMP ACUTE HYPOXEMIC RESPIRATORY FAILURE DECOMPENSATED CHF VALVULAR HD ? PNEUMONIA H/O COLON CA H/O PROSTATE CA PLAN IV LASIX ANTIBIOTICS SUPPLEMENTAL O2 CHEST X-RAY BNP TRANSFER TO TELEMETRY DR ANDREWS Problem List - Problems (1) Bilateral pleural effusion Code(s): J90 - PLEURAL EFFUSION, NOT ELSEWHERE CLASSIFIED (2) Chest pain Code(s): R07.9 - CHEST PAIN, UNSPECIFIED Qualifiers: Chest pain type: unspecified Qualified Code(s): R07.9 - Chest pain, unspecified (3) Chest pain at rest Code(s): R07.9 - CHEST PAIN, UNSPECIFIED (4) Shortness of breath Code(s): R06.02 - SHORTNESS OF BREATH (5) Prostate cancer Code(s): C61 - MALIGNANT NEOPLASM OF PROSTATE (6) HTN (hypertension) Code(s): I10 - ESSENTIAL (PRIMARY) HYPERTENSION (7) History of prostate cancer Code(s): Z85.46 - PERSONAL HISTORY OF MALIGNANT NEOPLASM OF PROSTATE (8) Chest wall pain Code(s): R07.89 - OTHER CHEST PAIN (9) Aortic stenosis Code(s): Q25.3 - SUPRAVALVULAR AORTIC STENOSIS (10) Acute hypoxemic respiratory failure Code(s): J96.01 - ACUTE RESPIRATORY FAILURE WITH HYPOXIA (11) CHF (congestive heart failure) Code(s): I50.9 - HEART FAILURE, UNSPECIFIED
[2016-05-10] MEDS: PIPERACILLIN/TAZOB 3.375 GM/50 ML PRE-DOCKED IVPB SCH (18:26)
--- NOTE | 2016-05-10 18:39 | CONS ---
DATE OF CONSULTATION: 05/10/2016 PULMONARY CONSULTATION REFERRING PHYSICIAN: Kimberly Cyr N.P. HISTORY OF PRESENT ILLNESS: The patient is an 86-year-old white male with past medical history of prostate CA status post RT, colon CA status post colectomy, hypertension, hyperlipidemia, moderate to severe mitral regurgitation, moderate aortic stenosis, moderate pulmonary hypertension, nonobstructive cardiac disease status post recent stent, cardiac catheterizations, chronic diastolic heart failure, arthritis, cervical disk disease, nonsmoker, history of post prior vertebral fractures, admitted to [facility] with complaint of increasing shortness of breath, back pain, suprapubic pain, and bilateral shoulder pain. Patient was admitted with the above. On admission, he underwent an extensive workup which includes CT of the abdomen and chest with contrast. CTA was negative for abdominal aortic aneurysm. There was evidence of cholelithiasis, no acute pathology, and there was cardiomegaly and evidence of chronic lung disease and mild congestion. CT of the chest revealed pulmonary vascular congestion as well as bilateral pleural effusions. Patient apparently today was initially treated with Lasix, with good clinical response. Early this evening apparently when ambulating, patient noted to be markedly hypoxemic. Blood gases performed on room air reveals a pO2 of intermittent 40s at rest. Patient has complaints of back pain throughout the exam, it is very difficult to get a history. He states he occasionally has PND, he does complain of shortness of breath over the past few months with exertion. Denies any fevers, weight loss, or night sweats. Denies any chronic cough or hemoptysis. PAST MEDICAL HISTORY: Again includes diastolic heart failure, moderate severe mitral regurgitation, moderate pulmonary hypertension, prostate CA status post RT, CA status post colectomy, nonobstructive cardiac disease status post catheterization, chronic diastolic CHF, chronic arthritis, bilateral shoulder pain. SOCIAL HISTORY: Born in [place], moved to the [place] in the 50s. 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 Nonsmoker. REVIEW OF SYSTEMS: Positive orthopnea. Positive dyspnea. No cough. Positive back pain. No abdominal pain. No lower extremity edema. PHYSICAL EXAMINATION: General: The patient is a well-developed, well-nourished male awake, alert, dyspneic. Vital signs: Blood pressure is 138/63, respiratory rate 26-28, blood pressure 138/63, O2 saturation is 93 on 4 L, is 80s on room air. HEENT: Head is normocephalic, atraumatic. Neck: Supple. Heart: Tachycardic. Regular. Normal S1, S2. Chest: Bilateral crackles . Abdomen: Soft. Bowel sounds positive. Extremities: No cyanosis, edema. LABORATORY: Sodium 134, BUN 16, creatinine 0.7. Blood gas: pH 7.51, pCO2 of 33, pO2 of 43, bicarbonate of 26, and saturation is 79.4. INR is 1.06. Chest CT as noted earlier shows bilateral pulmonary vascular congestion, small bilateral pleural effusion, no evidence of pulmonary embolism. IMPRESSION: 1. Acute hypoxemic respiratory failure, most likely secondary to mild decompensated congestive heart failure. 2. Valvular heart disease. 3. Pulmonary hypertension. 4. Chronic back pain. 5. History of prostate carcinoma. 6. History of colon carcinoma. PLAN: Transfer telemetry. IV Lasix. Supplemental O2. Stat chest x-ray followed by arterial blood gases. Check . Cardiology followup. ELTON ANDREWS M.D. [id number]
--- NOTE | 2016-05-10 19:18 | PN ---
Progress Note (short form) - Note Progress Note: ID consult dictted imp/reccd hypoxemic respiratory failure possible pneumonia (hap)- completed 5 days zithromax possible chf cultures- blood, sputum legionella urinary antigen influenza screen zosyn vanco one dose d/w Dr Chawla Problem List - Problems (1) Acute hypoxemic respiratory failure Code(s): J96.01 - ACUTE RESPIRATORY FAILURE WITH HYPOXIA (2) Pneumonia Code(s): J18.9 - PNEUMONIA, UNSPECIFIED ORGANISM (3) CHF (congestive heart failure) Code(s): I50.9 - HEART FAILURE, UNSPECIFIED
[2016-05-10] MEDS ORDERED: VANCOMYCIN 1 GRAM (PRE-DOCKED) 250 ML IVPB ONE (20:15)
--- NOTE | 2016-05-10 20:22 | CONS ---
DATE OF CONSULTATION: DATE OF DICTATION: 05/10/2016 INFECTIOUS DISEASE CONSULTATION REQUESTING PHYSICIAN: The hospitalist service CONSULTING PHYSICIAN: Kavin Key M.D. HISTORY OF PRESENT ILLNESS: This is an 86-year-old man who was admitted by the emergency room on May 08. He presented at that time with severe left lateral chest pain and cough and shortness of breath. He had been started on a 5-day course of Zithromax which he was completing. He denied any fevers or chills. He had a CTA of his chest and abdomen done in the emergency room that was negative for aneurysm that revealed cardiomegaly and some chronic lung disease. He was continued on his Zithromax which he completed today. He was seen by cardiology as well as neurology for his pain. Neurology recommended possible thoracic radiculopathy and myelopathy and recommended an MRI which he was not able to have today because he had sudden onset of worsening of shortness of breath. He was seen by pulmonary earlier today and felt to have possible congestive heart failure. Stat ABG was done that revealed hypoxemia. X-ray was done that reveals worsening bilateral infiltrates and appeared to have both air space and interstitial disease right greater than left. To me he reported no productive cough. He has no fevers. He had been transferred to the normal floor from telemetry but was sent back to telemetry this evening. I am asked to see him for possible pneumonia. PAST MEDICAL HISTORY: Notable for history of prostate cancer status post RT. He has a history of colon cancer status post colectomy, coronary artery disease. He has nonobstructive disease. He has had a recent cardiac catheterization. He has moderate to severe MR, moderate aortic stenosis, moderate pulmonary hypertension, chronic diastolic heart failure, chronic arthritis, cervical spine disease. He has had a colon resection in the past. He has no known drug allergies. MEDICATION: Include aspirin, Lipitor, Lasix, Flomax, and Prinivil. He just completed today a 5-day course of Zithromax. SOCIAL HISTORY: He lives at home with his family. He quit smoking 20 years ago. There is no history of any substance use. Born in [place]. Moved to the in the 50s. 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 REVIEW OF SYSTEMS: He continues to complain of his left upper back discomfort, which he has had since admission. He denies any productive cough. He denies nausea, vomiting. He denies any dysuria. PHYSICAL EXAMINATION: Vital signs: His T-max is 100.1 from yesterday. Current temperature is 97.4, pulse of 97, blood pressure 138/69, respiratory rate 26. He is saturating 94% on 4 L. HEENT: Normocephalic. Eyes are anicteric. Neck: Supple. Lungs: Bilateral rhonchi with some crackles at the bases. Heart: Regular rate and rhythm. Abdomen: Soft, nontender. Extremities: Without edema. LABORATORY: His white count is 9000, hemoglobin 11.6, platelets of 202, INR is 1. ABG reveals a pO2 of 43.7. BUN and creatinine are 16 and 0.7. Glucose of 171. Urinalysis is negative. Blood cultures drawn yesterday are negative. Chest x-ray reveals bilateral infiltrates that have markedly worsened. IMPRESSION: In summary, this is an elderly man with hypoxemic respiratory failure, possible pneumonia. I suspect decompensated congestive heart failure, history of colon cancer, history of prostate cancer. Given that he has been in the hospital and that he has completed a course of Zithromax, would suggest we treat him with Zosyn, will give him 1 dose of vancomycin as well for hospital acquired pneumonia. Would suggest repeat blood cultures, legionella urinary antigens, sputum culture, and influenza screen. He has been transferred back to telemetry. The case was discussed with Dr. Chawla. KAVIN KEY M.D. [id number]
[2016-05-10 20:42] LABS: ARTERIAL BLOOD GAS HCO3 24.9 meq/L (22-26); ARTERIAL BLOOD GAS pH 7.47 (7.35-7.45)
[2016-05-10 20:43] LABS: ALLENS TEST POSITIVE; ART PUNCT SITE RIGHT RADIAL; LPM/O2% 4 LPM; PT. ON O2? YES; TYPE OF O2 NASAL CANNULA
[2016-05-10 20:45] LABS: ARTERIAL BLOOD GAS PO2 59.3 mmHg (68-100)
[2016-05-10] MEDS: ATORVASTATIN CA 20 MG TABLET (FP) PO SCH (22:46)
[2016-05-10] MEDS: AMITRIPTYLINE HCL 25 MG TABLET (FP) PO SCH (22:55)
[2016-05-10 23:56] LABS: URINE APPEARANCE CLEAR; URINE BILIRUBIN NEGATIVE (NEGATIVE); URINE BLOOD NEGATIVE (NEGATIVE); URINE COLOR STRAW; URINE GLUCOSE (UA) NEGATIVE (NEGATIVE); URINE KETONE NEGATIVE (NEGATIVE); URINE LEUK ESTERASE NEGATIVE (NEGATIVE); URINE NITRITE NEGATIVE (NEGATIVE); URINE PROTEIN NEGATIVE (NEGATIVE); URINE UROBILINOGEN NEGATIVE E.U./dl (0.2-1.0)
[2016-05-11] MEDS: PIPERACILLIN/TAZOB 3.375 GM/50 ML PRE-DOCKED IVPB SCH ×3 (01:40→17:40)
[2016-05-11] MEDS: IBUPROFEN 600 MG TABLET (FP) PO PRN ×2 (01:50→19:30)
--- NOTE | 2016-05-11 01:56 | HOSP ---
Subjective - Review of Symptoms Events since last encounter: chest pain Subjective: c/o of midsternal dull chest pain, nonradiating, lasted 5 min, resolved when i arrived. mild sob, unchanged from before. no palpitations. Pulmonary: Yes: Dyspnea, Cough Cardiovascular: Yes: Chest Pain Physical Examination Vital Signs: Vital Signs Temperature 98.1 F 05/10/16 21:34 Pulse Rate 102 H 05/10/16 21:34 Respiratory Rate 20 05/10/16 21:34 Blood Pressure 137/65 05/10/16 21:34 O2 Sat by Pulse Oximetry (%) 95 05/10/16 16:10 Constitutional: Yes: Well Nourished, No Distress, Anxious Eyes: Yes: Conjunctiva Clear HENT: Yes: Normocephalic Cardiovascular: Yes: Regular Rate and Rhythm, S1, S2 Respiratory: Yes: Rhonchi (mild bibasilar) Edema: LLE: Trace, RLE: Trace Peripheral Pulses: Left Radial: 2+, Right Radial: 2+ Hospitalist Encounter Assessment: atypical chest pain -likely musculoskeletal from sleeping or coughing -resolved -ekg unchanged -f/u trop Outcome: pain resolved Visit type - Emergency Visit Emergency Visit: No - New Patient This patient is new to me today: Yes Date on this admission: 05/11/16 - Critical Care Critical Care patient: No
[2016-05-11 07:37] LABS: ALBUMIN 2.6 g/dl (3.4-5.0); ANION GAP 10 (8-16); BASOPHIL 0.2 % (0-2.0); BILIRUBIN,TOTAL 0.7 mg/dL (0.2-1.0); CALCIUM 8.8 mg/dL (8.5-10.1); CO2 31 mmol/L (21-32); CREATININE 0.7 mg/dL (0.7-1.3); GLUCOSE,RANDOM 171 mg/dL (74-106); MCH 29.8 pg (25.7-33.7); MCHC 34.1 g/dl (32.0-35.9); MEAN CELL VOLUME 87.3 fl (80-96); MEAN PLT VOLUME 10.3 fl (7.5-11.1); NEUTROPHILS 78.5 % (42.8-82.8); PLATELET COUNT 232 K/MM3 (134-434); RDW 12.9 % (11.9-15.9); SGOT/AST 13 U/L (15-37); SGPT/ALT 14 U/L (12-78); TOT PROT 6.4 g/dl (6.4-8.2); WHITE BLOOD COUNT 5.7 K/mm3 (4.0-10.0)
[2016-05-11 07:44] LABS: ALK PHOS 114 U/L (45-117); C-REACTIVE PROTEIN 18.4 MG/DL (0.00-0.3)
[2016-05-11 08:07] LABS: SERUM IRON 26 ug/dL (38-169); TOTAL IRON BINDING CAPACITY 286 ug/dL (250-450); UIBC 260 ug/dL (111-343)
--- NOTE | 2016-05-11 08:30 | PN ---
[id number] bedside, he denies any shortness of breath today stating he is feeling "much better" Acute hypoxia yesterday, chest x-ray reviewed. Started on Zosyn and given Vancomycin Lasix 40mg IVPB given Solu-medrol ordered Inhaled bronchodilators Transferred to telemetry Had episodes of paroxysmal a.fib, start Eliquis Current Medications Generic Name Dose Route Start Last Admin Trade Name Freq PRN Reason Stop Dose Admin Alprazolam 0.5 mg 05/10/16 11:26 Xanax - PO 05/10/16 11:27 ONCE ONE Amitriptyline HCl 25 mg 05/09/16 22:00 05/10/16 22:55 Elavil - PO 25 mg HS THALIA Administration Amlodipine Besylate 10 mg 05/08/16 17:45 05/11/16 09:44 Norvasc - PO 10 mg DAILY THALIA Administration Apixaban 5 mg 05/11/16 10:00 Eliquis - PO BID THALIA Atorvastatin Calcium 20 mg 05/08/16 22:00 05/10/16 22:46 Lipitor - PO 20 mg HS THALIA Administration Furosemide 40 mg 05/11/16 10:00 05/11/16 09:42 Lasix Injection - IVPB 40 mg DAILY THALIA Administration Ibuprofen 600 mg 05/10/16 03:22 05/11/16 01:50 Motrin - PO 600 mg Q6H PRN Administration FEVER Lisinopril 2.5 mg 05/08/16 10:15 05/11/16 09:44 Prinivil PO 2.5 mg DAILY THALIA Administration Enzalutamide [Xtandi 160 mg 05/10/16 13:00 05/10/16 15:00 ] 40 Mga Capsule (Pt PO Not Given 's Own) DAILY@1300 THALIA Piperacillin Sod/Tazobactam Sod 3.375 gm 05/10/16 18:00 05/11/16 09:41 Zosyn 3.375gm Ivpb (Pre-Docked) IVPB 3.375 gm Q8H-IV THALIA Administration Tamsulosin HCl 0.4 mg 05/10/16 22:00 05/10/16 22:46 Flomax - PO 0.4 mg HS THALIA Administration Objective: Vital Signs Period Temp Pulse Resp BP Sys/Sanchez Pulse Ox Last 24 Hr 97.4 F-98.1 F 88-102 20-32 117-144/51-85 90-95 Physical Exam: General: NAD, A&Ox3 Lungs: Decrease breath sounds b/l Heart: RRR, S1S2 Abd: Soft, non-tender, non-distended. Normoactive bowel sounds Ext: Warm, well-perfused. 2+ DP/PT bilaterally Neuro: CN 2-12 intact CBCD WBC 5.7 K/mm3 (4.0-10.0) D 05/11/16 06:00 RBC 3.95 M/mm3 (4.00-5.60) L 05/11/16 06:00 Hgb 11.8 GM/dL (11.7-16.9) 05/11/16 06:00 Hct 34.5 % (35.4-49) L 05/11/16 06:00 MCV 87.3 fl (80-96) 05/11/16 06:00 MCHC 34.1 g/dl (32.0-35.9) 05/11/16 06:00 RDW 12.9 % (11.9-15.9) 05/11/16 06:00 Plt Count 232 K/MM3 (134-434) 05/11/16 06:00 MPV 10.3 fl (7.5-11.1) 05/11/16 06:00 CMP Sodium 136 mmol/L (136-145) 05/11/16 06:00 Potassium 4.5 mmol/L (3.5-5.1) 05/11/16 06:00 Chloride 95 mmol/L (98-107) L 05/11/16 06:00 Carbon Dioxide 31 mmol/L (21-32) 05/11/16 06:00 Anion Gap 10 (8-16) 05/11/16 06:00 BUN 16 mg/dL (7-18) 05/11/16 06:00 Creatinine 0.7 mg/dL (0.7-1.3) 05/11/16 06:00 Creat Clearance w eGFR > 60 (>60) 05/11/16 06:00 Random Glucose 171 mg/dL (74-106) H 05/11/16 06:00 Calcium 8.8 mg/dL (8.5-10.1) 05/11/16 06:00 Total Bilirubin 0.7 mg/dL (0.2-1.0) D 05/11/16 06:00 AST 13 U/L (15-37) L D 05/11/16 06:00 ALT 14 U/L (12-78) 05/11/16 06:00 Alkaline Phosphatase 114 U/L (45-117) 05/11/16 06:00 Total Protein 6.4 g/dl (6.4-8.2) 05/11/16 06:00 Albumin 2.6 g/dl (3.4-5.0) L 05/11/16 06:00 CARDIAC ENZYMES Creatine Kinase 125 IU/L (39-308) 05/08/16 04:30 Troponin I 0.12 ng/ml (0.00-0.05) H D 05/11/16 02:30 Microbiology 05/10/16 20:00 Nasopharyngeal Swab Influenza Types A,B Antigen (ROCIO) - Final 05/10/16 20:00 Nasopharyngeal Swab - Final 05/09/16 16:15 Blood - Peripheral Venous Blood Culture - Preliminary NO GROWTH OBTAINED AFTER 24 HOURS, INCUBATION TO CONTINUE FOR 4 DAYS. 05/09/16 16:10 Blood - Peripheral Venous Blood Culture - Preliminary NO GROWTH OBTAINED AFTER 24 HOURS, INCUBATION TO CONTINUE FOR 4 DAYS. Assessment: This is an 86 year old male with PMHx of prostate cancer s/p radiation therapy, colon cancer s/p colectomy, HTN, hyperlipidemia, moderate to severe MR, moderate , moderate PAH, non-obstructive CAD with cardiac cath x2, chronic diastolic heart failure, chronic arthritis with cervical spine disc disease, who presented to the ED with harp, left sided chest pain, b/l shoulder pain, back pain, suprapubic pain, and shortness of breath Plan: 1) Pulmonary: Acute hypoxic respiratory failure - Acute diastolic chf vs. worsening pna - ABG with hypoxia - Influenza A&B negative - F/u urine legionella Ag - UA negative, f/u urine culture - Blood culture 05/09 with NGTD - F/u blood culture 05/10 - Had completed course of azithromycin (05/10/16) - Started on Zosyn (05/10) - Given one dose of Vancomycin - Remains afebrile, WBC wnl - Received IV Lasix - Appreciate pulmonary consult - Appreciate ID consult 1) Cardiology: Chest pain, CAD s/p cardiac cath x2 in the past year - Complaints of chest pain last night - Trop 0.12, trended down. Per cardiology unlikely ACS - Chest/Abd/Pelvis CTA with no evidence of thoracic or abdominal aortic aneurysm or dissection - Discussed CTA chest with Dr. Schreiber, while PE protocol not followed ( dissection protocol performed), no PE was identified - Non-obstructive disease on cardiac caths - EKG with chronic LBBB - No additional ischemic workup per cards Paroxysmal a.fib - Start Eliquis - F/u ECHO Acute on chronic diastolic heart failure - Continue Lasix IV - Continue Lisinopril (patient has been refusing because the pills look different, informed patient this medication is on his home medication list) HTN - Continue Norvasc - Continue Lisinopril Hyperlipidemia: - Continue Lipitor 3) ID: Fever - Patient reports taking Azithromycin at home, today is day #5 - Will f/u UA, urine culture, blood cultures - Acetaminophen ordered 4) Neuro: Chronic left back pain - F/u MRI thoracic spine - F/u B12, ESR, CRP, Fe, TIBC - Will need outpatient EMG/NCS of legs - Appreciate neuro consult 5) Onc: Prostate cancer s/p radiation therapy, colon cancer s/p colectomy - Continue Enzalutamide - Continue Flomax - Brachytherapy seeds noted on CTAP - CT chest with slightly prominent lymph nodes throughout the mediastinal chains. Will need to follow-up with outpatient oncologist 6) F/E/N: - Monitor electrolytes - Sodium controlled diet 7) Prophylaxis: - OOB ambulating - PT - Continue Heparin 5,000u sq bid 8) Dispo: - Requires continued inpatient care CODE STATUS: FULL CODE Visit type - Emergency Visit Emergency Visit: Yes ED Registration Date: 05/10/16 Care time: The patient presented to the Emergency Department on the above date and was hospitalized for further evaluation of their emergent condition. - New Patient This patient is new to me today: No - Critical Care Critical Care patient: No
[2016-05-11] MEDS: amLODIPine BESYLATE 10 MG TABLET (FP) PO SCH (09:44)
[2016-05-11] MEDS: HEPARIN NA (PORCINE) 5,000 UNITS/ML 1ML VIAL SQ SCH (09:44)
[2016-05-11] MEDS: ASPIRIN 81 MG CHEWABLE TABLETS PO SCH (09:44)
[2016-05-11] MEDS: LISINOPRIL 5 MG TABLET (FP) PO SCH (09:44)
--- NOTE | 2016-05-11 09:53 | PN ---
Progress Note, Physician Chief Complaint: went into pulmonary edema, transferred back to [facility] Tele: episodes PAF - Current Medication List Current Medications: Active Medications Alprazolam (Xanax -) 0.5 mg PO ONCE ONE Stop: 05/10/16 11:27 Amitriptyline HCl (Elavil -) 25 mg PO HS COUNT INCLUDES [facility] Last Admin: 05/10/16 22:55 Dose: 25 mg Amlodipine Besylate (Norvasc -) 10 mg PO DAILY COUNT INCLUDES [facility] Last Admin: 05/11/16 09:44 Dose: 10 mg Aspirin (Asa -) 81 mg PO DAILY COUNT INCLUDES [facility] Last Admin: 05/11/16 09:44 Dose: 81 mg Atorvastatin Calcium (Lipitor -) 20 mg PO HS COUNT INCLUDES [facility] Last Admin: 05/10/16 22:46 Dose: 20 mg Furosemide (Lasix Injection -) 40 mg IVPB DAILY COUNT INCLUDES [facility] Last Admin: 05/11/16 09:42 Dose: 40 mg Heparin Sodium (Porcine) (Heparin -) 5,000 unit SQ BID COUNT INCLUDES [facility] Last Admin: 05/11/16 09:44 Dose: 5,000 unit Ibuprofen (Motrin -) 600 mg PO Q6H PRN PRN Reason: FEVER Last Admin: 05/11/16 01:50 Dose: 600 mg Lisinopril (Prinivil) 2.5 mg PO DAILY COUNT [facility]CLUDES [facility] Last Admin: 05/11/16 09:44 Dose: 2.5 mg Enzalutamide [Xtandi ] 40 Mga Capsule (Pt 's Own) 160 mg PO DAILY@1300 [facility] Last Admin: 05/10/16 15:00 Dose: Not Given Piperacillin Sod/Tazobactam Sod (Zosyn 3.375gm Ivpb (Pre-Docked)) 3.375 gm IVPB Q8H-IV COUNT INCLUDES [facility] Last Admin: 05/11/16 09:41 Dose: 3.375 gm Tamsulosin HCl (Flomax -) 0.4 mg PO HS COUNT INCLUDES [facility] Last Admin: 05/10/16 22:46 Dose: 0.4 mg - Objective Vital Signs: Vital Signs Temperature 97.9 F 05/11/16 06:00 Pulse Rate 102 H 05/11/16 06:00 Respiratory Rate 20 05/11/16 06:00 Blood Pressure 117/51 05/11/16 06:00 O2 Sat by Pulse Oximetry (%) 90 L 05/10/16 21:00 Constitutional: Yes: No Distress Cardiovascular: Yes: Regular Rate and Rhythm Respiratory: Yes: Other (bibasilar rales) Gastrointestinal: Yes: Soft Edema: Yes Edema: LLE: 1+, RLE: 1+ Neurological: Yes: Alert, Oriented Labs: CBC, BMP 05/11/16 06:00 05/11/16 06:00 INR, PTT INR 1.06 (0.82-1.09) 05/08/16 04:30 Laboratory Tests 05/11/16 05/11/16 06:00 06:00 WBC 5.7 D Hgb 11.8 Plt Count 232 Sodium 136 Chloride 95 L BUN 16 Creatinine 0.7 Assessment/Plan IMP: NICM 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
[2016-05-11] MEDS ORDERED: FUROSEMIDE 40 MG/4 ML INJECTABLE VIAL IVPB SCH (10:00)
[2016-05-11] MEDS: APIXABAN 5 MG TABLET PO SCH ×2 (11:42→22:17)
[2016-05-11] MEDS: ENZALUTAMIDE PO SCH (12:47)
--- NOTE | 2016-05-11 14:16 | PN ---
Progress Note (short form) - Note Progress Note: Breathing feels better today compared to yesterday. No CP. Intake & Output 05/08/16 05/09/16 05/10/16 05/11/16 23:59 23:59 23:59 23:59 Intake Total 550 1010 830 Output Total 840 300 Balance 550 170 530 Weight 177 lb 0.005 oz Last Vital Signs Temp Pulse Resp BP Pulse Ox 98.2 F 56 L 18 127/62 92 L 05/11/16 10:00 05/11/16 10:41 05/11/16 10:00 05/11/16 10:00 05/11/16 10:41 Active Medications Alprazolam (Xanax -) 0.5 mg PO ONCE ONE Stop: 05/10/16 11:27 Amitriptyline HCl (Elavil -) 25 mg PO [facility] Last Admin: 05/10/16 22:55 Dose: 25 mg Amlodipine Besylate (Norvasc -) 10 mg PO DAILY [facility] Last Admin: 05/11/16 09:44 Dose: 10 mg Apixaban (Eliquis -) 5 mg PO BID [facility] Last Admin: 05/11/16 11:42 Dose: 5 mg Atorvastatin Calcium (Lipitor -) 20 mg PO [facility] Last Admin: 05/10/16 22:46 Dose: 20 mg Furosemide (Lasix Injection -) 40 mg IVPB DAILY [facility] Last Admin: 05/11/16 09:42 Dose: 40 mg Ibuprofen (Motrin -) 600 mg PO Q6H PRN PRN Reason: FEVER Last Admin: 05/11/16 01:50 Dose: 600 mg Lisinopril (Prinivil) 2.5 mg PO DAILY [facility] Last Admin: 05/11/16 09:44 Dose: 2.5 mg Enzalutamide [Xtandi ] 40 Mga Capsule (Pt 's Own) 160 mg PO DAILY@1300 [facility] Last Admin: 05/11/16 12:47 Dose: Not Given Piperacillin Sod/Tazobactam Sod (Zosyn 3.375gm Ivpb (Pre-Docked)) 3.375 gm IVPB Q8H-IV [facility] Last Admin: 05/11/16 09:41 Dose: 3.375 gm Tamsulosin HCl (Flomax -) 0.4 mg PO [facility] Last Admin: 05/10/16 22:46 Dose: 0.4 mg Constitutional: Yes: No acute Distress Cardiovascular: Yes: Regular Rate and Rhythm Respiratory: Yes: Bibasilar rales, no wheezing Gastrointestinal: Yes: Soft Edema: Yes Edema: LLE: 1+, RLE: 1+ Neurological: Yes: Alert, Oriented Labs: Laboratory Results - last 24 hr 05/09/16 05/10/16 05/10/16 21:30 15:15 16:47 WBC RBC Hgb Hct MCV MCHC RDW Plt Count MPV Neutrophils % Lymphocytes % Monocytes % Eosinophils % Basophils % ESR Puncture Site Right radial ABG pH 7.51 H ABG pCO2 at Pt Temp 33.4 L ABG pO2 at Pt Temp 43.7 L* ABG HCO3 26.3 H ABG O2 Sat (Measured) 79.4 L ABG O2 Content 15.5 ABG Base Excess 3.9 H Jonathan Test Positive O2 Delivery Device Oxygen Flow Rate Room air PEEP 0.0 Sodium 134 L Potassium 4.0 D Chloride 93 L Carbon Dioxide 31 Anion Gap 10 BUN 16 Creatinine 0.7 Creat Clearance w eGFR Random Glucose 171 H D Calcium 8.3 L Iron 26 L TIBC 286 Iron Saturation 9 L Total Bilirubin AST ALT Alkaline Phosphatase Troponin I C-Reactive Protein Total Protein Albumin Urine Color Urine Appearance Urine pH Ur Specific [place] Urine Protein Urine Glucose (UA) Urine Ketones Urine Blood Urine Nitrite Urine Bilirubin Urine Urobilinogen Ur Leukocyte Esterase 05/10/16 05/10/16 05/11/16 20:32 22:20 02:30 WBC RBC Hgb Hct MCV MCHC RDW Plt Count MPV Neutrophils % Lymphocytes % Monocytes % Eosinophils % Basophils % ESR Puncture Site Right radial ABG pH 7.47 H ABG pCO2 at Pt Temp 34.2 L ABG pO2 at Pt Temp 59.3 L D ABG HCO3 24.9 ABG O2 Sat (Measured) 90.0 ABG O2 Content 14.5 L ABG Base Excess 2.0 Jonathan Test Positive O2 Delivery Device Nasal cannula Oxygen Flow Rate 4 lpm PEEP 0.0 Sodium Potassium Chloride Carbon Dioxide Anion Gap BUN Creatinine Creat Clearance w eGFR Random Glucose Calcium Iron TIBC Iron Saturation Total Bilirubin AST ALT Alkaline Phosphatase Troponin I 0.12 H D C-Reactive Protein Total Protein Albumin Urine Color Straw Urine Appearance Clear Urine pH 5.0 D Ur Specific [place] 1.009 Urine Protein Negative Urine Glucose (UA) Negative Urine Ketones Negative Urine Blood Negative Urine Nitrite Negative Urine Bilirubin Negative Urine Urobilinogen Negative Ur Leukocyte Esterase Negative 05/11/16 05/11/16 05/11/16 06:00 06:00 06:00 WBC 5.7 D RBC 3.95 L Hgb 11.8 Hct 34.5 L MCV 87.3 MCHC 34.1 RDW 12.9 Plt Count 232 MPV 10.3 Neutrophils % 78.5 Lymphocytes % 10.3 D Monocytes % 11.0 H Eosinophils % 0.0 D Basophils % 0.2 ESR 113 H Puncture Site ABG pH ABG pCO2 at Pt Temp ABG pO2 at Pt Temp ABG HCO3 ABG O2 Sat (Measured) ABG O2 Content ABG Base Excess Jonathan Test O2 Delivery Device Oxygen Flow Rate PEEP Sodium 136 Potassium 4.5 Chloride 95 L Carbon Dioxide 31 Anion Gap 10 BUN 16 Creatinine 0.7 Creat Clearance w eGFR > 60 Random Glucose 171 H Calcium 8.8 Iron TIBC Iron Saturation Total Bilirubin 0.7 D AST 13 L D ALT 14 Alkaline Phosphatase 114 Troponin I C-Reactive Protein 18.4 H Total Protein 6.4 Albumin 2.6 L Urine Color Urine Appearance Urine pH Ur Specific [place] Urine Protein Urine Glucose (UA) Urine Ketones Urine Blood Urine Nitrite Urine Bilirubin Urine Urobilinogen Ur Leukocyte Esterase Problem List - Problems (1) Bilateral pleural effusion Code(s): J90 - PLEURAL EFFUSION, NOT ELSEWHERE CLASSIFIED (2) Chest pain Code(s): R07.9 - CHEST PAIN, UNSPECIFIED Qualifiers: Chest pain type: unspecified Qualified Code(s): R07.9 - Chest pain, unspecified (3) Chest pain at rest Code(s): R07.9 - CHEST PAIN, UNSPECIFIED (4) Shortness of breath Code(s): R06.02 - SHORTNESS OF BREATH (5) Prostate cancer Code(s): C61 - MALIGNANT NEOPLASM OF PROSTATE (6) HTN (hypertension) Code(s): I10 - ESSENTIAL (PRIMARY) HYPERTENSION (7) History of prostate cancer Code(s): Z85.46 - PERSONAL HISTORY OF MALIGNANT NEOPLASM OF PROSTATE (8) Chest wall pain Code(s): R07.89 - OTHER CHEST PAIN (9) Aortic stenosis Code(s): Q25.3 - SUPRAVALVULAR AORTIC STENOSIS (10) Acute hypoxemic respiratory failure Code(s): J96.01 - ACUTE RESPIRATORY FAILURE WITH HYPOXIA (11) CHF (congestive heart failure) Code(s): I50.9 - HEART FAILURE, UNSPECIFIED PLAN: Lasix IV ABX per ID for possible HAP O2 as needed If needed -> can order NIPPV, today clinically improved Brooks Muñoz
--- NOTE | 2016-05-11 16:29 | EKG ---
Test Reason : Blood Pressure : / mmHG Vent. Rate : 102 BPM Atrial Rate : 102 BPM P-R Int : 272 ms QRS Dur : 162 ms QT Int : 348 ms P-R-T Axes : 009 -27 117 degrees QTc Int : 453 ms SINUS TACHYCARDIA WITH 1ST DEGREE A-V BLOCK LEFT BUNDLE BRANCH BLOCK ABNORMAL ECG WHEN COMPARED WITH ECG OF 03-DEC-2015 14:55, LA INTERVAL HAS INCREASED VENT. RATE HAS INCREASED BY 45 BPM LEFT BUNDLE BRANCH BLOCK IS NOW PRESENT Confirmed by KUN SCHUMACHER MD ([id number]) on 05/11/2016 4:28:57 PM Referred By: Confirmed By:KUN CSHUMACHER MD
--- NOTE | 2016-05-11 17:06 | PN ---
Progress Note (short form) - Note Progress Note: feels lousy no appetite left side of upper chest pain unchanged breathing unchanged (he looks more comfortable) Vital Signs Period Temp Pulse Resp BP Sys/Sanchez Pulse Ox Last 24 Hr 97.2 F-98.2 F 56-102 18-28 117-138/51-85 90-94 cor-rrr lungs bibasilar crackles abd softlnt ext trace edema CBC, BMP 05/11/16 06:00 05/11/16 06:00 Microbiology 05/09/16 16:15 Blood - Peripheral Venous Blood Culture - Preliminary NO GROWTH OBTAINED AFTER 48 HOURS, INCUBATION TO CONTINUE FOR 3 DAYS. 05/09/16 16:10 Blood - Peripheral Venous Blood Culture - Preliminary NO GROWTH OBTAINED AFTER 48 HOURS, INCUBATION TO CONTINUE FOR 3 DAYS. 05/10/16 20:00 Nasopharyngeal Swab Respiratory Virus Panel - Preliminary 05/10/16 22:20 Urine For Antigen Detection Legionella Antigen - Final 05/10/16 22:20 Urine For Antigen Detection Streptococcus pneumoniae Antigen (M - Final 05/10/16 20:00 Nasopharyngeal Swab Influenza Types A,B Antigen (ROCIO) - Final 05/10/16 20:00 Nasopharyngeal Swab - Final a/p CHF/PAF possible HAP prostate cancer back pain zosyn day #1/diuretics repeat cxray Problem List - Problems (1) Acute hypoxemic respiratory failure Code(s): J96.01 - ACUTE RESPIRATORY FAILURE WITH HYPOXIA (2) Pneumonia Code(s): J18.9 - PNEUMONIA, UNSPECIFIED ORGANISM (3) CHF (congestive heart failure) Code(s): I50.9 - HEART FAILURE, UNSPECIFIED
[2016-05-11] MEDS ORDERED: ALBUTEROL SO4 2.5/IPRATROPIUM 0.5 INH SOL 3 ML VIAL.NEB. NEB ONE (20:20)
[2016-05-11] MEDS ORDERED: ALPRAZolam 0.25 MG TABLET PO ONE (20:22)
--- NOTE | 2016-05-11 20:39 | HOSP ---
Subjective - Review of Symptoms Events since last encounter: patient complaining of pain Subjective: patient agitated, diaphoretic, tachypneic, saying that he feels like he is dying. Afebrile and hemodynamically stable. O2 sat 79% but possibly malfunctioning probe. Known to have anxiety/panic issues Pulmonary: Yes: Dyspnea. No: Cough, Pleuritic Chest Pain, Other Cardiovascular: No: Chest Pain, Palpitations, Orthopnea, Paroxysmal Noc. Dyspnea , Edema, Light Headedness Gastrointestinal: No: Nausea, Vomiting Physical Examination Vital Signs: Vital Signs Temperature 97.9 F 05/11/16 16:30 Pulse Rate 96 H 05/11/16 16:30 Respiratory Rate 22 05/11/16 16:30 Blood Pressure 135/74 05/11/16 16:30 O2 Sat by Pulse Oximetry (%) 92 L 05/11/16 10:41 Findings/Remarks: patient tachycardic low 100's, tachypneic, diahoretic, but able to scream that he is dying. Constitutional: Yes: Well Nourished, Anxious, Diaphoresis, Moderate Distress Eyes: Yes: Conjunctiva Clear, EOM Intact HENT: Yes: Atraumatic, Normocephalic Neck: Yes: Supple Cardiovascular: Yes: Tachycardia, S1, S2, Other (regular rythm) Respiratory: Yes: Wheezes (mild diffuse wheezes) Gastrointestinal: Yes: Normal Bowel Sounds, Soft Labs: CBC, BMP 05/11/16 06:00 05/11/16 06:00 Hospitalist Encounter Assessment: panic attack with subjective respiratory distress vs hypoxia -r/o asthma exacerbation/airway inflammation in setting of PNA, low O2 sat ( real vs malfunction of device) and mild wheezing -nonrebreather mask 50% -albuterol nebs -xanax -change O2 sat probe -reassess in 15 min -if no improvement, get abg. Visit type - Emergency Visit Emergency Visit: No - New Patient This patient is new to me today: No - Critical Care Critical Care patient: No
[2016-05-11] MEDS ORDERED: FUROSEMIDE 40 MG/4 ML INJECTABLE VIAL IVPUSH ONE (21:23)
[2016-05-11] MEDS ORDERED: NITROGLYCERIN 2% OINTMENT - 1GM PACKET TD ONE (21:24)
--- NOTE | 2016-05-11 21:30 | HOSP ---
Subjective - Review of Symptoms Events since last encounter: Called by nurse to see pt. Pt tachycardic, tachypneic despite xanax and nebulizer treatment. Ox sat 96% on NRB now. Was 76% on 4LNC with good pleth waveform. Subjective: Pt c/o sob, denies midsternal chest pain. c/o left lower rib pain and back pain. given motrin without relief. Physical Examination Vital Signs: Vital Signs Temperature 97.9 F 05/11/16 16:30 Pulse Rate 96 H 05/11/16 16:30 Respiratory Rate 22 05/11/16 16:30 Blood Pressure 135/74 05/11/16 16:30 O2 Sat by Pulse Oximetry (%) 92 L 05/11/16 10:41 Constitutional: Yes: Diaphoresis, Moderate Distress Cardiovascular: Yes: Regular Rate and Rhythm, S1, S2. No: Murmur, Rub Respiratory: Yes: Other (crackles 1/[address] way up) Gastrointestinal: Yes: Normal Bowel Sounds, Soft. No: Tenderness Edema: No Labs: CBC, BMP 05/11/16 06:00 05/11/16 06:00 05/11/15 7:59PM: CXR: Impression: Worsening congestion Hospitalist Encounter Assessment: CHF/pulmonary edema - lasix 40mg IVP now - morphine 1mg - NTP 1 inch - reassess in one hour 1120PM: Pt feeling a little better, P104, R22, SPO2 93% on NRB, Attempted to change to 50%venti mask but sat dropped into low 80s. NRB replaced. Pt has not voided since lasix given. Bladder scan with 0mL. Ponce catheter placed. just over 100cc obtained. ABG ordered. Cont FC. Labs ordered: CBC, BMP, cardiac profile. 1150PM: ABG Results 3 ABG pH 7.44 (7.35-7.45) 05/11/16 23:28 ABG pCO2 at Pt Temp 39.0 mmHg (35-45) 05/11/16 23:28 ABG pO2 at Pt Temp 68.6 mmHg (68-100) 05/11/16 23:28 ABG HCO3 26.3 meq/L (22-26) H 05/11/16 23:28 ABG O2 Sat (Measured) 93.1 % (90-98.9) 05/11/16 23:28 ABG O2 Content 14.4 % vol (15-22) L 05/11/16 23:28 ABG Base Excess 2.5 meq/l (-2-2) H 05/11/16 23:28 Awaiting venous labs. Will start bipap given pO2 on 100%NRB. Will order echo for AM. 2AM CBCD 3 WBC 18.3 K/mm3 (4.0-10.0) H D 05/11/16 23:26 RBC 3.93 M/mm3 (4.00-5.60) L 05/11/16 23:26 Hgb 11.2 GM/dL (11.7-16.9) L 05/11/16 23:26 Hct 34.3 % (35.4-49) L 05/11/16 23:26 MCV 87.5 fl (80-96) 05/11/16 23:26 MCHC 32.5 g/dl (32.0-35.9) 05/11/16 23:26 RDW 12.9 % (11.9-15.9) 05/11/16 23:26 Plt Count 336 K/MM3 (134-434) D 05/11/16 23:26 MPV 9.8 fl (7.5-11.1) 05/11/16 23:26 CMP 3 Sodium 134 mmol/L (136-145) L 05/11/16 23:26 Potassium 4.2 mmol/L (3.5-5.1) 05/11/16 23:26 Chloride 92 mmol/L (98-107) L 05/11/16 23:26 Carbon Dioxide 31 mmol/L (21-32) 05/11/16 23:26 Anion Gap 11 (8-16) 05/11/16 23:26 BUN 24 mg/dL (7-18) H D 05/11/16 23:26 Creatinine 1.0 mg/dL (0.7-1.3) D 05/11/16 23:26 Creat Clearance w eGFR > 60 (>60) 05/11/16 06:00 Calcium 8.5 mg/dL (8.5-10.1) 05/11/16 23:26 Total Bilirubin 0.7 mg/dL (0.2-1.0) D 05/11/16 06:00 AST 13 U/L (15-37) L D 05/11/16 06:00 ALT 14 U/L (12-78) 05/11/16 06:00 Alkaline Phosphatase 114 U/L (45-117) 05/11/16 06:00 Total Protein 6.4 g/dl (6.4-8.2) 05/11/16 06:00 Albumin 2.6 g/dl (3.4-5.0) L 05/11/16 06:00 Pt feeling better. Sleeping comfortably on bipap on approach. Ox sat 100%. Will decrease oxygen to 70% and monitor. Cont to decrease oxygen on bipap machine Q hour to maintain oxygen sat above 92.
[2016-05-11] MEDS ORDERED: PT OWN MED DRAWER 7, Y5N ONE (21:41)
[2016-05-11] MEDS ORDERED: morphine CARPU-JECT 2 MG/1 ML DISP.SYRIN IVPUSH ONE (21:45)
[2016-05-11] MEDS ORDERED: ALPRAZolam 0.25 MG TABLET PO PRN (22:00)
[2016-05-11] MEDS: ALBUTEROL SO4 0.083% IH SOL 2.5 MG/3 ML VIAL.NEB. NEB PRN (22:05)
[2016-05-11] MEDS: TAMSULOSIN HCL 0.4 MG CAP.ER.24H (FP) PO SCH (22:17)
[2016-05-11] MEDS: ATORVASTATIN CA 20 MG TABLET (FP) PO SCH (22:17)
[2016-05-11] MEDS: AMITRIPTYLINE HCL 25 MG TABLET (FP) PO SCH (22:18)
[2016-05-11 23:38] LABS: ARTERIAL BLD GAS O2 SATURATION 93.1 % (90-98.9); ARTERIAL BLOOD GAS BASE EXCESS 2.5 meq/l (-2-2); ARTERIAL BLOOD GAS HCO3 26.3 meq/L (22-26); ARTERIAL BLOOD GAS pH 7.44 (7.35-7.45)
[2016-05-11 23:39] LABS: ALLENS TEST POSITIVE; ART PUNCT SITE RIGHT RADIAL; ARTERIAL BLOOD GAS PO2 68.6 mmHg (68-100); LPM/O2% 100%; PT. ON O2? YES; TYPE OF O2 NONREBREATHER MASK
[2016-05-11 23:51] LABS: MCH 28.5 pg (25.7-33.7); MCHC 32.5 g/dl (32.0-35.9); MEAN CELL VOLUME 87.5 fl (80-96); MEAN PLT VOLUME 9.8 fl (7.5-11.1); PLATELET COUNT 336 K/MM3 (134-434); RDW 12.9 % (11.9-15.9); WHITE BLOOD COUNT 18.3 K/mm3 (4.0-10.0)
[2016-05-12 00:17] LABS: CALCIUM 8.5 mg/dL (8.5-10.1)
[2016-05-12 00:27] LABS: TROPONIN I 0.25 ng/ml (0.00-0.05)
[2016-05-12 03:55] LABS: PLATELET ESTIMATE ADEQUATE (NORMAL)
[2016-05-12] MEDS: PIPERACILLIN/TAZOB 3.375 GM/50 ML PRE-DOCKED IVPB SCH ×3 (03:55→17:55)
[2016-05-12 06:46] LABS: CALCIUM 8.2 mg/dL (8.5-10.1); CREATININE 0.8 mg/dL (0.7-1.3)
[2016-05-12 06:47] LABS: MCH 29.5 pg (25.7-33.7); MCHC 33.9 g/dl (32.0-35.9); PLATELET COUNT 302 K/MM3 (134-434); RDW 12.7 % (11.9-15.9); WHITE BLOOD COUNT 13.3 K/mm3 (4.0-10.0)
--- NOTE | 2016-05-12 09:20 | PN ---
Progress Note, Physician Chief Complaint: episode last evening noted Now saying he has blood tinged sputum Comfortable thus AM TELE: no UMM noted - Current Medication List Current Medications: Active Medications Albuterol Sulfate (Ventolin 0.083% Nebulizer Soln -) 1 amp NEB Q4H PRN PRN Reason: SHORT OF BREATH/WHEEZING Last Admin: 05/11/16 22:05 Dose: 1 amp Alprazolam (Xanax -) 0.5 mg PO ONCE ONE Stop: 05/10/16 11:27 Alprazolam (Xanax -) 0.5 mg PO ONCE PRN PRN Reason: ANXIETY Stop: 05/12/16 21:59 Amitriptyline HCl (Elavil -) 25 mg PO [facility] Last Admin: 05/11/16 22:18 Dose: 25 mg Amlodipine Besylate (Norvasc -) 10 mg PO DAILY [facility] Last Admin: 05/11/16 09:44 Dose: 10 mg Apixaban (Eliquis -) 5 mg PO BID [facility] Last Admin: 05/11/16 22:17 Dose: 5 mg Atorvastatin Calcium (Lipitor -) 20 mg PO [facility] Last Admin: 05/11/16 22:17 Dose: 20 mg Furosemide (Lasix Injection -) 40 mg IVPB DAILY [facility] Last Admin: 05/11/16 09:42 Dose: 40 mg Ibuprofen (Motrin -) 600 mg PO Q6H PRN PRN Reason: FEVER Last Admin: 05/11/16 19:30 Dose: 600 mg Lisinopril (Prinivil) 2.5 mg PO DAILY [facility] Last Admin: 05/11/16 09:44 Dose: 2.5 mg Enzalutamide [Xtandi ] 40 Mga Capsule (Pt 's Own) 160 mg PO DAILY@1300 [facility] Last Admin: 05/11/16 12:47 Dose: Not Given Piperacillin Sod/Tazobactam Sod (Zosyn 3.375gm Ivpb (Pre-Docked)) 3.375 gm IVPB Q8H-IV [facility] Last Admin: 05/12/16 03:55 Dose: 3.375 gm Tamsulosin HCl (Flomax -) 0.4 mg PO [facility] Last Admin: 05/11/16 22:17 Dose: 0.4 mg - Objective Vital Signs: Vital Signs Temperature 98.1 F 05/12/16 06:00 Pulse Rate 92 H 05/12/16 06:00 Respiratory Rate 22 05/12/16 06:00 Blood Pressure 132/71 05/12/16 06:00 O2 Sat by Pulse Oximetry (%) 95 05/12/16 06:25 Constitutional: Yes: No Distress Cardiovascular: Yes: Regular Rate and Rhythm Respiratory: Yes: Other (decreased breath sounds at bases) Edema: No Neurological: Yes: Alert Labs: CBC, BMP 05/12/16 05:35 05/12/16 05:35 INR, PTT INR 1.06 (0.82-1.09) 05/08/16 04:30 Laboratory Tests 05/11/16 05/11/16 05/12/16 02:30 23:26 05:35 WBC 13.3 H Hgb 11.0 L Plt Count 302 Sodium Potassium Creatine Kinase 70 Troponin I 0.12 H D 0.25 H D 05/12/16 05:35 WBC Hgb Plt Count Sodium 134 L Potassium 4.0 Creatine Kinase Troponin I - ....Imaging Chest X-ray: Image Reviewed Assessment/Plan Assessment/Plan IMP: NICM 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 Patient having blood tinged sputum, not eric hemoptysis, will monitor. Pulmonary following Repeat echo with moderate LV dysfx, moderate , moderate to severe MR and PHTN. Was cathed twice last year, no sig CAD. Suspect low level TnI from CHF
[2016-05-12] MEDS: amLODIPine BESYLATE 10 MG TABLET (FP) PO SCH (11:06)
[2016-05-12] MEDS: APIXABAN 5 MG TABLET PO SCH ×2 (11:06→21:50)
[2016-05-12] MEDS: FUROSEMIDE 40 MG/4 ML INJECTABLE VIAL IVPUSH SCH ×2 (11:06→15:02)
[2016-05-12] MEDS: LISINOPRIL 5 MG TABLET (FP) PO SCH (11:07)
[2016-05-12] MEDS: ENZALUTAMIDE PO SCH (12:48)
--- NOTE | 2016-05-12 14:23 | PN ---
Progress Note, Physician History of Present Illness: pulmonary alert,feeling better,less dyspneic,less cp. pt will trace hemoptysis - Current Medication List Current Medications: Active Medications Albuterol Sulfate (Ventolin 0.083% Nebulizer Soln -) 1 amp NEB Q4H PRN PRN Reason: SHORT OF BREATH/WHEEZING Last Admin: 05/11/16 22:05 Dose: 1 amp Alprazolam (Xanax -) 0.5 mg PO ONCE ONE Stop: 05/10/16 11:27 Alprazolam (Xanax -) 0.5 mg PO ONCE PRN PRN Reason: ANXIETY Stop: 05/12/16 21:59 Amitriptyline HCl (Elavil -) 25 mg PO [facility] Last Admin: 05/11/16 22:18 Dose: 25 mg Amlodipine Besylate (Norvasc -) 10 mg PO DAILY [facility] Last Admin: 05/12/16 11:06 Dose: 10 mg Apixaban (Eliquis -) 5 mg PO BID [facility] Last Admin: 05/12/16 11:06 Dose: 5 mg Atorvastatin Calcium (Lipitor -) 20 mg PO [facility] Last Admin: 05/11/16 22:17 Dose: 20 mg Furosemide (Lasix Injection -) 40 mg IVPUSH BID@0600,1400 [facility] Last Admin: 05/12/16 11:06 Dose: 40 mg Ibuprofen (Motrin -) 600 mg PO Q6H PRN PRN Reason: FEVER Last Admin: 05/11/16 19:30 Dose: 600 mg Lisinopril (Prinivil) 2.5 mg PO DAILY [facility] Last Admin: 05/12/16 11:07 Dose: 2.5 mg Enzalutamide [Xtandi ] 40 Mga Capsule (Pt 's Own) 160 mg PO DAILY@1300 [facility] Last Admin: 05/12/16 12:48 Dose: Not Given Piperacillin Sod/Tazobactam Sod (Zosyn 3.375gm Ivpb (Pre-Docked)) 3.375 gm IVPB Q8H-IV [facility] Last Admin: 05/12/16 11:07 Dose: 3.375 gm Tamsulosin HCl (Flomax -) 0.4 mg PO [facility] Last Admin: 05/11/16 22:17 Dose: 0.4 mg - Objective Vital Signs: Vital Signs Temperature 98 F 05/12/16 11:28 Pulse Rate 104 H 05/12/16 11:28 Respiratory Rate 20 05/12/16 11:28 Blood Pressure 130/80 05/12/16 11:28 O2 Sat by Pulse Oximetry (%) 99 05/12/16 09:26 Constitutional: Yes: Well Nourished, Calm Eyes: Yes: WNL HENT: Yes: WNL Neck: Yes: WNL Cardiovascular: Yes: Pulse Irregular, S1, S2 Respiratory: Yes: Rales (bilateral rales 1/3 up) Gastrointestinal: Yes: Normal Bowel Sounds, Soft Extremities: Yes: WNL Edema: No Labs: CBC, BMP 05/12/16 05:35 05/12/16 05:35 INR, PTT INR 1.06 (0.82-1.09) 05/08/16 04:30 Problem List - Problems (1) Bilateral pleural effusion Code(s): J90 - PLEURAL EFFUSION, NOT ELSEWHERE CLASSIFIED (2) Chest pain Code(s): R07.9 - CHEST PAIN, UNSPECIFIED Qualifiers: Chest pain type: unspecified Qualified Code(s): R07.9 - Chest pain, unspecified (3) Chest pain at rest Code(s): R07.9 - CHEST PAIN, UNSPECIFIED (4) Shortness of breath Code(s): R06.02 - SHORTNESS OF BREATH (5) Prostate cancer Code(s): C61 - MALIGNANT NEOPLASM OF PROSTATE (6) HTN (hypertension) Code(s): I10 - ESSENTIAL (PRIMARY) HYPERTENSION (7) History of prostate cancer Code(s): Z85.46 - PERSONAL HISTORY OF MALIGNANT NEOPLASM OF PROSTATE (8) Chest wall pain Code(s): R07.89 - OTHER CHEST PAIN (9) Aortic stenosis Code(s): Q25.3 - SUPRAVALVULAR AORTIC STENOSIS (10) Acute hypoxemic respiratory failure Code(s): J96.01 - ACUTE RESPIRATORY FAILURE WITH HYPOXIA (11) CHF (congestive heart failure) Code(s): I50.9 - HEART FAILURE, UNSPECIFIED Assessment/Plan IMP ACUTE HYPOXEMIC RESPIRATORY FAILURE IMOROVING DECOMPENSATED CHF VALVULAR HD ? PNEUMONIA H/O COLON CA H/O PROSTATE CA PLAN CONTINUE IV LASIX ANTIBIOTICS SUPPLEMENTAL O2 CHEST X-RAY AM D/C BABITA ANDREWS Problem List - Problems (1) Bilateral pleural effusion Code(s): J90 - PLEURAL EFFUSION, NOT ELSEWHERE CLASSIFIED (2) Chest pain Code(s): R07.9 - CHEST PAIN, UNSPECIFIED Qualifiers: Chest pain type: unspecified Qualified Code(s): R07.9 - Chest pain, unspecified (3) Chest pain at rest Code(s): R07.9 - CHEST PAIN, UNSPECIFIED (4) Shortness of breath Code(s): R06.02 - SHORTNESS OF BREATH (5) Prostate cancer Code(s): C61 - MALIGNANT NEOPLASM OF PROSTATE (6) HTN (hypertension) Code(s): I10 - ESSENTIAL (PRIMARY) HYPERTENSION (7) History of prostate cancer Code(s): Z85.46 - PERSONAL HISTORY OF MALIGNANT NEOPLASM OF PROSTATE (8) Chest wall pain Code(s): R07.89 - OTHER CHEST PAIN (9) Aortic stenosis Code(s): Q25.3 - SUPRAVALVULAR AORTIC STENOSIS (10) Acute hypoxemic respiratory failure Code(s): J96.01 - ACUTE RESPIRATORY FAILURE WITH HYPOXIA (11) CHF (congestive heart failure) Code(s): I50.9 - HEART FAILURE, UNSPECIFIED
--- NOTE | 2016-05-12 17:56 | PN ---
Progress Note (short form) - Note Progress Note: feels lousy no appetite left side of upper chest pain unchanged had a rough night, now with borrego and increased diuretic Vital Signs Period Temp Pulse Resp BP Sys/Sanchez Pulse Ox Last 24 Hr 98 F-98.1 F 91-108 20-22 110-132/68-83 92-99 cor-rrr lungs decreased bs at bases abd soft,nt ext no edema CBC, BMP 05/12/16 05:35 05/12/16 05:35 cxray bilateral infiltrates a/p CHF/PAF possible HAP prostate cancer back pain zosyn day #2/diuretics repeat cxray unchanged Problem List - Problems (1) Acute hypoxemic respiratory failure Code(s): J96.01 - ACUTE RESPIRATORY FAILURE WITH HYPOXIA (2) Pneumonia Code(s): J18.9 - PNEUMONIA, UNSPECIFIED ORGANISM (3) CHF (congestive heart failure) Code(s): I50.9 - HEART FAILURE, UNSPECIFIED
[2016-05-12] MEDS: TAMSULOSIN HCL 0.4 MG CAP.ER.24H (FP) PO SCH (21:50)
[2016-05-12] MEDS: AMITRIPTYLINE HCL 25 MG TABLET (FP) PO SCH (21:50)
[2016-05-12] MEDS: ATORVASTATIN CA 20 MG TABLET (FP) PO SCH (21:51)
[2016-05-13] MEDS: PIPERACILLIN/TAZOB 3.375 GM/50 ML PRE-DOCKED IVPB SCH ×3 (01:39→18:25)
[2016-05-13] MEDS: FUROSEMIDE 40 MG/4 ML INJECTABLE VIAL IVPUSH SCH ×2 (05:51→14:27)
[2016-05-13 08:34] LABS: MCH 30.1 pg (25.7-33.7); MCHC 34.1 g/dl (32.0-35.9); MEAN CELL VOLUME 88.2 fl (80-96); MEAN PLT VOLUME 9.9 fl (7.5-11.1); PLATELET COUNT 286 K/MM3 (134-434); WHITE BLOOD COUNT 12.1 K/mm3 (4.0-10.0)
[2016-05-13 08:53] LABS: ALBUMIN 2.7 g/dl (3.4-5.0); ANION GAP 7 (8-16); BILIRUBIN,TOTAL 0.9 mg/dL (0.2-1.0); CALCIUM 8.7 mg/dL (8.5-10.1); CO2 36 mmol/L (21-32); CREATININE 0.7 mg/dL (0.7-1.3); GLUCOSE,RANDOM 135 mg/dL (74-106); SGOT/AST 18 U/L (15-37); SGPT/ALT 16 U/L (12-78); TOT PROT 6.3 g/dl (6.4-8.2)
[2016-05-13 08:54] LABS: ALK PHOS 111 U/L (45-117)
--- NOTE | 2016-05-13 09:31 | PN ---
Progress Note, Physician Chief Complaint: nad - Current Medication List Current Medications: Active Medications Albuterol Sulfate (Ventolin 0.083% Nebulizer Soln -) 1 amp NEB Q4H PRN PRN Reason: SHORT OF BREATH/WHEEZING Last Admin: 05/11/16 22:05 Dose: 1 amp Alprazolam (Xanax -) 0.5 mg PO ONCE ONE Stop: 05/10/16 11:27 Amitriptyline HCl (Elavil -) 25 mg PO [facility] Last Admin: 05/12/16 21:50 Dose: 25 mg Amlodipine Besylate (Norvasc -) 10 mg PO DAILY [facility] Last Admin: 05/12/16 11:06 Dose: 10 mg Apixaban (Eliquis -) 5 mg PO BID [facility] Last Admin: 05/12/16 21:50 Dose: 5 mg Atorvastatin Calcium (Lipitor -) 20 mg PO [facility] Last Admin: 05/12/16 21:51 Dose: 20 mg Furosemide (Lasix Injection -) 40 mg IVPUSH BID@0600,1400 [facility] Last Admin: 05/13/16 05:51 Dose: 40 mg Lisinopril (Prinivil) 2.5 mg PO DAILY [facility] Last Admin: 05/12/16 11:07 Dose: 2.5 mg Enzalutamide [Xtandi ] 40 Mga Capsule (Pt 's Own) 160 mg PO DAILY@1300 [facility] Last Admin: 05/12/16 12:48 Dose: Not Given Piperacillin Sod/Tazobactam Sod (Zosyn 3.375gm Ivpb (Pre-Docked)) 3.375 gm IVPB Q8H-IV [facility] Last Admin: 05/13/16 01:39 Dose: 3.375 gm Tamsulosin HCl (Flomax -) 0.4 mg PO [facility] Last Admin: 05/12/16 21:50 Dose: 0.4 mg - Objective Vital Signs: Vital Signs Temperature 97.9 F 05/13/16 06:00 Pulse Rate 91 H 05/13/16 06:00 Respiratory Rate 20 05/13/16 06:00 Blood Pressure 127/59 05/13/16 06:00 O2 Sat by Pulse Oximetry (%) 94 L 05/12/16 21:00 Eyes: Yes: WNL, Conjunctiva Clear, EOM Intact HENT: Yes: WNL, Atraumatic, Normocephalic Neck: Yes: WNL, Supple, Trachea Midline Cardiovascular: Yes: WNL, Regular Rate and Rhythm Respiratory: Yes: WNL, Regular, CTA Bilaterally Gastrointestinal: Yes: WNL, Normal Bowel Sounds Genitourinary: Yes: WNL Musculoskeletal: Yes: WNL Extremities: Yes: WNL Edema: No Integumentary: Yes: WNL Neurological: Yes: WNL, Alert, Oriented ...Motor Strength: WNL Psychiatric: Yes: WNL Labs: CBC, BMP 05/13/16 07:20 05/13/16 07:20 INR, PTT INR 1.06 (0.82-1.09) 05/08/16 04:30 Assessment/Plan IMP: NICM 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 Patient having blood tinged sputum, not eric hemoptysis, will monitor. Pulmonary following Repeat echo with moderate LV dysfx, moderate , moderate to severe MR and PHTN. Was cathed twice last year, no sig CAD. Suspect low level TnI from CHF
[2016-05-13] MEDS: LISINOPRIL 5 MG TABLET (FP) PO SCH (10:02)
[2016-05-13] MEDS: amLODIPine BESYLATE 10 MG TABLET (FP) PO SCH (10:02)
[2016-05-13] MEDS: APIXABAN 5 MG TABLET PO SCH ×2 (10:03→21:39)
--- NOTE | 2016-05-13 11:06 | PN ---
Progress Note, Physician History of Present Illness: pulmonary alert,still dyspneic,+cough (dark heme).+ left sided cp - Current Medication List Current Medications: Active Medications Albuterol Sulfate (Ventolin 0.083% Nebulizer Soln -) 1 amp NEB Q4H PRN PRN Reason: SHORT OF BREATH/WHEEZING Last Admin: 05/11/16 22:05 Dose: 1 amp Alprazolam (Xanax -) 0.5 mg PO ONCE ONE Stop: 05/10/16 11:27 Amitriptyline HCl (Elavil -) 25 mg PO [facility] Last Admin: 05/12/16 21:50 Dose: 25 mg Amlodipine Besylate (Norvasc -) 10 mg PO DAILY [facility] Last Admin: 05/13/16 10:02 Dose: 10 mg Apixaban (Eliquis -) 5 mg PO BID [facility] Last Admin: 05/13/16 10:03 Dose: 5 mg Atorvastatin Calcium (Lipitor -) 20 mg PO [facility] Last Admin: 05/12/16 21:51 Dose: 20 mg Furosemide (Lasix Injection -) 40 mg IVPUSH BID@0600,1400 [facility] Last Admin: 05/13/16 05:51 Dose: 40 mg Lisinopril (Prinivil) 2.5 mg PO DAILY [facility] Last Admin: 05/13/16 10:02 Dose: 2.5 mg Enzalutamide [Xtandi ] 40 Mga Capsule (Pt 's Own) 160 mg PO DAILY@1300 [facility] Last Admin: 05/12/16 12:48 Dose: Not Given Piperacillin Sod/Tazobactam Sod (Zosyn 3.375gm Ivpb (Pre-Docked)) 3.375 gm IVPB Q8H-IV [facility] Last Admin: 05/13/16 10:07 Dose: 3.375 gm Tamsulosin HCl (Flomax -) 0.4 mg PO [facility] Last Admin: 05/12/16 21:50 Dose: 0.4 mg - Objective Vital Signs: Vital Signs Temperature 98.7 F 05/13/16 10:07 Pulse Rate 91 H 05/13/16 10:07 Respiratory Rate 22 05/13/16 10:07 Blood Pressure 132/61 05/13/16 10:07 O2 Sat by Pulse Oximetry (%) 94 L 05/12/16 21:00 Constitutional: Yes: Well Nourished, Calm Eyes: Yes: WNL HENT: Yes: WNL Neck: Yes: WNL Cardiovascular: Yes: Regular Rate and Rhythm, S1, S2 Respiratory: Yes: Rales (bilateral rales1/2 rales) Gastrointestinal: Yes: Normal Bowel Sounds, Soft Extremities: Yes: WNL Edema: No Labs: CBC, BMP 05/13/16 07:20 05/13/16 07:20 INR, PTT INR 1.06 (0.82-1.09) 05/08/16 04:30 Problem List - Problems (1) Bilateral pleural effusion Code(s): J90 - PLEURAL EFFUSION, NOT ELSEWHERE CLASSIFIED (2) Chest pain Code(s): R07.9 - CHEST PAIN, UNSPECIFIED Qualifiers: Chest pain type: unspecified Qualified Code(s): R07.9 - Chest pain, unspecified (3) Chest pain at rest Code(s): R07.9 - CHEST PAIN, UNSPECIFIED (4) Shortness of breath Code(s): R06.02 - SHORTNESS OF BREATH (5) Prostate cancer Code(s): C61 - MALIGNANT NEOPLASM OF PROSTATE (6) HTN (hypertension) Code(s): I10 - ESSENTIAL (PRIMARY) HYPERTENSION (7) History of prostate cancer Code(s): Z85.46 - PERSONAL HISTORY OF MALIGNANT NEOPLASM OF PROSTATE (8) Chest wall pain Code(s): R07.89 - OTHER CHEST PAIN (9) Aortic stenosis Code(s): Q25.3 - SUPRAVALVULAR AORTIC STENOSIS (10) Acute hypoxemic respiratory failure Code(s): J96.01 - ACUTE RESPIRATORY FAILURE WITH HYPOXIA (11) CHF (congestive heart failure) Code(s): I50.9 - HEART FAILURE, UNSPECIFIED Assessment/Plan IMP ACUTE HYPOXEMIC RESPIRATORY FAILURE IMPROVING DECOMPENSATED CHF VALVULAR HD ? PNEUMONIA H/O COLON CA H/O PROSTATE CA PLAN CONTINUE IV LASIX ANTIBIOTICS SUPPLEMENTAL O2 CHEST X-RAY AM D/C BABITA ANDREWS Problem List - Problems (1) Bilateral pleural effusion Code(s): J90 - PLEURAL EFFUSION, NOT ELSEWHERE CLASSIFIED (2) Chest pain Code(s): R07.9 - CHEST PAIN, UNSPECIFIED Qualifiers: Chest pain type: unspecified Qualified Code(s): R07.9 - Chest pain, unspecified (3) Chest pain at rest Code(s): R07.9 - CHEST PAIN, UNSPECIFIED (4) Shortness of breath Code(s): R06.02 - SHORTNESS OF BREATH (5) Prostate cancer Code(s): C61 - MALIGNANT NEOPLASM OF PROSTATE (6) HTN (hypertension) Code(s): I10 - ESSENTIAL (PRIMARY) HYPERTENSION (7) History of prostate cancer Code(s): Z85.46 - PERSONAL HISTORY OF MALIGNANT NEOPLASM OF PROSTATE (8) Chest wall pain Code(s): R07.89 - OTHER CHEST PAIN (9) Aortic stenosis Code(s): Q25.3 - SUPRAVALVULAR AORTIC STENOSIS (10) Acute hypoxemic respiratory failure Code(s): J96.01 - ACUTE RESPIRATORY FAILURE WITH HYPOXIA (11) CHF (congestive heart failure) Code(s): I50.9 - HEART FAILURE, UNSPECIFIED
--- NOTE | 2016-05-13 12:58 | PN ---
Physical Exam: SUBJECTIVE: Patient seen and examined at bedside. Complaining of lower abdominal , left-sided rib and chest, and shoulder pain, all of which is chronic. OBJECTIVE: Vital Signs Period Temp Pulse Resp BP Sys/Sanchez Pulse Ox Last 24 Hr 97.9 F-98.9 F 68-103 20-22 106-132/39-68 93-94 GENERAL: The patient is awake, alert, and fully oriented, in no acute distress. HEAD: Normal with no signs of trauma. EYES: PERRL, extraocular movements intact, sclera anicteric, conjunctiva clear. No ptosis. LUNGS: Bibasilar crackles L>R HEART: Regular rate and rhythm, S1, S2 without murmur, rub or gallop. ABDOMEN: Soft, nontender, nondistended, normoactive bowel sounds, no guarding, no rebound EXTREMITIES: 2+ pulses, warm, well-perfused, no edema. NEUROLOGICAL: Cranial nerves II through XII grossly intact. Normal speech, gait not observed. Laboratory Results - last 24 hr 05/13/16 05/13/16 07:20 07:20 WBC 12.1 H RBC 3.77 L Hgb 11.3 L Hct 33.3 L MCV 88.2 MCHC 34.1 RDW 13.0 Plt Count 286 MPV 9.9 Sodium 137 Potassium 3.9 Chloride 94 L Carbon Dioxide 36 H Anion Gap 7 L BUN 20 H Creatinine 0.7 Creat Clearance w eGFR > 60 Random Glucose 135 H Calcium 8.7 Total Bilirubin 0.9 D AST 18 D ALT 16 Alkaline Phosphatase 111 Total Protein 6.3 L Albumin 2.7 L Active Medications Generic Name Dose Route Start Last Admin Trade Name Rollyq PRN Reason Stop Dose Admin Albuterol Sulfate 1 amp 05/11/16 20:22 05/11/16 22:05 Ventolin 0.083% Nebulizer Soln - NEB 1 amp Q4H PRN Administration SHORT OF BREATH/WHEEZING Alprazolam 0.5 mg 05/10/16 11:26 Xanax - PO 05/10/16 11:27 ONCE ONE Amlodipine Besylate 10 mg 05/08/16 17:45 05/13/16 10:02 Norvasc - PO 10 mg DAILY [facility] Administration Apixaban 5 mg 05/11/16 10:00 05/13/16 10:03 Eliquis - PO 5 mg BID [facility] Administration Atorvastatin Calcium 20 mg 05/08/16 22:00 05/12/16 21:51 Lipitor - PO 20 mg HS [facility] Administration Furosemide 40 mg 05/12/16 10:00 05/13/16 05:51 Lasix Injection - IVPUSH 40 mg BID@0600,1400 [facility] Administration Lisinopril 2.5 mg 05/08/16 10:15 05/13/16 10:02 Prinivil PO 2.5 mg DAILY [facility] Administration Enzalutamide [Xtandi 160 mg 05/10/16 13:00 05/12/16 12:48 ] 40 Mga Capsule (Pt PO Not Given 's Own) DAILY@1300 [facility] Piperacillin Sod/Tazobactam Sod 3.375 gm 05/10/16 18:00 05/13/16 10:07 Zosyn 3.375gm Ivpb (Pre-Docked) IVPB 3.375 gm Q8H-IV [facility] Administration Tamsulosin HCl 0.4 mg 05/10/16 22:00 05/12/16 21:50 Flomax - PO 0.4 mg HS [facility] Administration ASSESSMENT/PLAN 86 year-old male with a PMH of HTN, HLD, CAD, diastolic heart failure, degenerative disc disease, prostate cancer s/p RT presently on chemo, colon cancer s/p colectomy. Chronic diastolic heart failure Pulmonary hypertension --05/11 Echo: LV function moderately reduced, moderate global hypokinesis; RV normal; LAE; moderate to severe MR; moderate TR; pHTN --05/11 CXR: worsening congestion, bilateral crackles on exam --increase Lasix IV 40mg to BID --continue lisinopril, amlodipine CAD --two cardiac caths in past year, unobstructed coronaries --flat trending troponins, unlikely ACS per cardiology --continue lisinopril, amlodipine, Lipitor, ASA Paroxysmal afib --ECG today sinus rhythm @ 98 bpm --rate 90's --continue Eliquis Chest pain --CT Chest/Abd/Pelvis CTA with no evidence of thoracic or abdominal aortic aneurysm or dissection --no PE identified Hypertension --continue lisinopril and amlodipine Hyperlipidemia --continue Lipitor Pneumonia --afebrile, WBC trending down but still elevated 12.1k --continue Zosyn (day #4) --albuterol nebs PRN --cultures negative to date Prostate cancer --continue Enzalutamide; patient has been refusing, discussed with him today , now amenable --continue Flomax --d/c amitriptyline as urinary retention is side effect Degenerative disc disease F/E/N Fluids: PO intake adequate Electrolytes: replete as indicated Nutrition: low sodium DVT prophylaxis: on Eliquis; oob, ambulation Dispo: continues to require inpatient care. Full Code. Visit type - Emergency Visit Emergency Visit: Yes ED Registration Date: 05/10/16 Care time: The patient presented to the Emergency Department on the above date and was hospitalized for further evaluation of their emergent condition. - New Patient This patient is new to me today: Yes Date on this admission: 05/13/16 - Critical Care Critical Care patient: No
[2016-05-13] MEDS ORDERED: PT OWN MED DRAWER 7, Y5N ONE ×2 (13:11→14:29)
[2016-05-13] MEDS: ENZALUTAMIDE PO SCH ×2 (13:22→14:27)
[2016-05-13] MEDS: ASPIRIN COATED 81 MG TABLET.EC PO SCH (21:38)
[2016-05-13] MEDS: TAMSULOSIN HCL 0.4 MG CAP.ER.24H (FP) PO SCH (21:39)
[2016-05-13] MEDS: ATORVASTATIN CA 20 MG TABLET (FP) PO SCH (21:39)
[2016-05-14] MEDS: PIPERACILLIN/TAZOB 3.375 GM/50 ML PRE-DOCKED IVPB SCH ×3 (02:22→17:38)
[2016-05-14] MEDS: FUROSEMIDE 40 MG/4 ML INJECTABLE VIAL IVPUSH SCH ×2 (05:03→14:19)
[2016-05-14] MEDS: ALBUTEROL SO4 0.083% IH SOL 2.5 MG/3 ML VIAL.NEB. NEB PRN ×2 (05:29→12:03)
[2016-05-14 08:59] LABS: BASOPHIL 0.5 % (0-2.0); MCH 29.4 pg (25.7-33.7); MCHC 33.5 g/dl (32.0-35.9); MEAN CELL VOLUME 87.7 fl (80-96); MEAN PLT VOLUME 9.3 fl (7.5-11.1); NEUTROPHILS 85.1 % (42.8-82.8); PLATELET COUNT 331 K/MM3 (134-434)
--- NOTE | 2016-05-14 09:08 | PN ---
Progress Note, Physician Chief Complaint: nad - Current Medication List Current Medications: Active Medications Albuterol Sulfate (Ventolin 0.083% Nebulizer Soln -) 1 amp NEB Q4H PRN PRN Reason: SHORT OF BREATH/WHEEZING Last Admin: 05/14/16 05:29 Dose: 1 amp Alprazolam (Xanax -) 0.5 mg PO ONCE ONE Stop: 05/10/16 11:27 Amlodipine Besylate (Norvasc -) 10 mg PO DAILY [facility] Last Admin: 05/13/16 10:02 Dose: 10 mg Apixaban (Eliquis -) 5 mg PO BID [facility] Last Admin: 05/13/16 21:39 Dose: 5 mg Aspirin (Ecotrin -) 81 mg PO DAILY [facility] Last Admin: 05/13/16 21:38 Dose: 81 mg Atorvastatin Calcium (Lipitor -) 20 mg PO [facility] Last Admin: 05/13/16 21:39 Dose: 20 mg Furosemide (Lasix Injection -) 40 mg IVPUSH BID@0600,1400 [facility] Last Admin: 05/14/16 05:03 Dose: 40 mg Lisinopril (Prinivil) 2.5 mg PO DAILY [facility] Last Admin: 05/13/16 10:02 Dose: 2.5 mg Enzalutamide [Xtandi ] 40 Mga Capsule (Pt 's Own) 160 mg PO DAILY@1300 [facility] Last Admin: 05/13/16 14:27 Dose: 160 mg Piperacillin Sod/Tazobactam Sod (Zosyn 3.375gm Ivpb (Pre-Docked)) 3.375 gm IVPB Q8H-IV [facility] Last Admin: 05/14/16 02:22 Dose: 3.375 gm Tamsulosin HCl (Flomax -) 0.4 mg PO [facility] Last Admin: 05/13/16 21:39 Dose: 0.4 mg - Objective Vital Signs: Vital Signs Temperature 98.2 F 05/14/16 06:00 Pulse Rate 84 05/14/16 06:00 Respiratory Rate 20 05/14/16 06:00 Blood Pressure 104/58 05/14/16 06:00 O2 Sat by Pulse Oximetry (%) 95 05/13/16 21:13 Eyes: Yes: WNL, Conjunctiva Clear, EOM Intact HENT: Yes: WNL, Atraumatic, Normocephalic Neck: Yes: WNL, Supple, Trachea Midline Cardiovascular: Yes: WNL, Regular Rate and Rhythm Respiratory: Yes: WNL, Regular, CTA Bilaterally Gastrointestinal: Yes: WNL, Normal Bowel Sounds Genitourinary: Yes: WNL Musculoskeletal: Yes: WNL Extremities: Yes: WNL Edema: No Integumentary: Yes: WNL Neurological: Yes: WNL, Alert, Oriented ...Motor Strength: WNL Psychiatric: Yes: WNL Labs: CBC, BMP 05/14/16 08:30 INR, PTT INR 1.06 (0.82-1.09) 05/08/16 04:30 Assessment/Plan IMP: NICM 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 Patient having blood tinged sputum, not eric hemoptysis, will monitor. Pulmonary following Repeat echo with moderate LV dysfx, moderate , moderate to severe MR and PHTN. Was cathed twice last year, no sig CAD. Suspect low level TnI from CHF
[2016-05-14 09:19] LABS: ALBUMIN 2.7 g/dl (3.4-5.0); ANION GAP 8 (8-16); CALCIUM 8.9 mg/dL (8.5-10.1); CO2 36 mmol/L (21-32); CREATININE 0.8 mg/dL (0.7-1.3); GLUCOSE,RANDOM 175 mg/dL (74-106); MAGNESIUM 2.6 mg/dL (1.8-2.4); SGOT/AST 14 U/L (15-37); SGPT/ALT 16 U/L (12-78)
[2016-05-14 09:21] LABS: ALK PHOS 117 U/L (45-117); BILIRUBIN,TOTAL 0.6 mg/dL (0.2-1.0); TOT PROT 6.5 g/dl (6.4-8.2)
[2016-05-14] MEDS ORDERED: PT OWN MED DRAWER 7, Y5N ONE ×2 (09:52→18:52)
[2016-05-14] MEDS: LISINOPRIL 5 MG TABLET (FP) PO SCH (10:02)
[2016-05-14] MEDS: amLODIPine BESYLATE 10 MG TABLET (FP) PO SCH (10:02)
[2016-05-14] MEDS: APIXABAN 5 MG TABLET PO SCH ×2 (10:03→21:28)
[2016-05-14] MEDS: ASPIRIN COATED 81 MG TABLET.EC PO SCH (10:03)
--- NOTE | 2016-05-14 11:22 | EKG ---
Test Reason : Blood Pressure : / mmHG Vent. Rate : 098 BPM Atrial Rate : 098 BPM P-R Int : 196 ms QRS Dur : 160 ms QT Int : 406 ms P-R-T Axes : 071 007 165 degrees QTc Int : 518 ms NORMAL SINUS RHYTHM LEFT BUNDLE BRANCH BLOCK ABNORMAL ECG WHEN COMPARED WITH ECG OF 11-MAY-2016 20:56, SINUS RHYTHM HAS REPLACED WIDE QRS TACHYCARDIA Confirmed by ENDY MICHELE, KUN ([id number]) on 05/14/2016 11:21:42 AM Referred By: MIRYAM XIONG Confirmed By:KUN SCHUMACHER MD
--- NOTE | 2016-05-14 11:24 | EKG ---
Test Reason : Blood Pressure : / mmHG Vent. Rate : 131 BPM Atrial Rate : 074 BPM P-R Int : 000 ms QRS Dur : 156 ms QT Int : 366 ms P-R-T Axes : 000 -05 147 degrees QTc Int : 540 ms POOR DATA QUALITY, INTERPRETATION MAY BE ADVERSELY AFFECTED WIDE QRS TACHYCARDIA LEFT BUNDLE BRANCH BLOCK ABNORMAL ECG WHEN COMPARED WITH ECG OF 08-MAY-2016 06:48, WIDE QRS TACHYCARDIA HAS REPLACED SINUS RHYTHM VENT. RATE HAS INCREASED BY 47 BPM Confirmed by KUN SCHUMACHER MD ([id number]) on 05/14/2016 11:23:38 AM Referred By: Confirmed By:KUN SCHUMACHER MD
--- NOTE | 2016-05-14 11:26 | EKG ---
Test Reason : Blood Pressure : / mmHG Vent. Rate : 089 BPM Atrial Rate : 089 BPM P-R Int : 202 ms QRS Dur : 162 ms QT Int : 424 ms P-R-T Axes : 065 031 177 degrees QTc Int : 515 ms NORMAL SINUS RHYTHM POSSIBLE LEFT ATRIAL ENLARGEMENT LEFT BUNDLE BRANCH BLOCK ABNORMAL ECG WHEN COMPARED WITH ECG OF 13-MAY-2016 13:39, NO SIGNIFICANT CHANGE WAS FOUND Confirmed by ENDY MICHELE, KUN ([id number]) on 05/14/2016 11:25:48 AM Referred By: MIRYAM XIONG Confirmed By:KUN SCHUMACHER MD
--- NOTE | 2016-05-14 12:28 | PN ---
Progress Note, Physician History of Present Illness: pulmonary alert,feeling better,less dyspneic - Current Medication List Current Medications: Active Medications Albuterol Sulfate (Ventolin 0.083% Nebulizer Soln -) 1 amp NEB Q4H PRN PRN Reason: SHORT OF BREATH/WHEEZING Last Admin: 05/14/16 12:03 Dose: 1 amp Alprazolam (Xanax -) 0.5 mg PO ONCE ONE Stop: 05/10/16 11:27 Amlodipine Besylate (Norvasc -) 10 mg PO DAILY [facility] Last Admin: 05/14/16 10:02 Dose: 10 mg Apixaban (Eliquis -) 5 mg PO BID [facility] Last Admin: 05/14/16 10:03 Dose: 5 mg Aspirin (Ecotrin -) 81 mg PO DAILY [facility] Last Admin: 05/14/16 10:03 Dose: 81 mg Atorvastatin Calcium (Lipitor -) 20 mg PO [facility] Last Admin: 05/13/16 21:39 Dose: 20 mg Furosemide (Lasix Injection -) 40 mg IVPUSH BID@0600,1400 [facility] Last Admin: 05/14/16 05:03 Dose: 40 mg Lisinopril (Prinivil) 2.5 mg PO DAILY [facility] Last Admin: 05/14/16 10:02 Dose: 2.5 mg Enzalutamide [Xtandi ] 40 Mga Capsule (Pt 's Own) 160 mg PO DAILY@1300 [facility] Last Admin: 05/13/16 14:27 Dose: 160 mg Piperacillin Sod/Tazobactam Sod (Zosyn 3.375gm Ivpb (Pre-Docked)) 3.375 gm IVPB Q8H-IV [facility] Last Admin: 05/14/16 10:02 Dose: 3.375 gm Tamsulosin HCl (Flomax -) 0.4 mg PO HS [facility] Last Admin: 05/13/16 21:39 Dose: 0.4 mg - Objective Vital Signs: Vital Signs Temperature 98.2 F 05/14/16 06:00 Pulse Rate 84 05/14/16 12:02 Respiratory Rate 20 05/14/16 10:08 Blood Pressure 125/55 05/14/16 10:08 O2 Sat by Pulse Oximetry (%) 95 05/14/16 12:02 Constitutional: Yes: Well Nourished, Calm Eyes: Yes: WNL HENT: Yes: WNL, Tonsillar Exudate Cardiovascular: Yes: Pulse Irregular, S1, S2 Respiratory: Yes: Rales (bibasilar rales) Gastrointestinal: Yes: Normal Bowel Sounds, Soft Extremities: Yes: WNL Edema: No Labs: CBC, BMP 05/14/16 08:30 05/14/16 08:30 INR, PTT INR 1.06 (0.82-1.09) 05/08/16 04:30 - ....Imaging Chest X-ray: Report Reviewed, Image Reviewed (less congestion) Problem List - Problems (1) Bilateral pleural effusion Code(s): J90 - PLEURAL EFFUSION, NOT ELSEWHERE CLASSIFIED (2) Chest pain Code(s): R07.9 - CHEST PAIN, UNSPECIFIED Qualifiers: Chest pain type: unspecified Qualified Code(s): R07.9 - Chest pain, unspecified (3) Chest pain at rest Code(s): R07.9 - CHEST PAIN, UNSPECIFIED (4) Shortness of breath Code(s): R06.02 - SHORTNESS OF BREATH (5) Prostate cancer Code(s): C61 - MALIGNANT NEOPLASM OF PROSTATE (6) HTN (hypertension) Code(s): I10 - ESSENTIAL (PRIMARY) HYPERTENSION (7) History of prostate cancer Code(s): Z85.46 - PERSONAL HISTORY OF MALIGNANT NEOPLASM OF PROSTATE (8) Chest wall pain Code(s): R07.89 - OTHER CHEST PAIN (9) Aortic stenosis Code(s): Q25.3 - SUPRAVALVULAR AORTIC STENOSIS (10) Acute hypoxemic respiratory failure Code(s): J96.01 - ACUTE RESPIRATORY FAILURE WITH HYPOXIA (11) CHF (congestive heart failure) Code(s): I50.9 - HEART FAILURE, UNSPECIFIED Assessment/Plan IMP ACUTE HYPOXEMIC RESPIRATORY FAILURE IMPROVING DECOMPENSATED CHF VALVULAR HD ? PNEUMONIA H/O COLON CA H/O PROSTATE CA PLAN CONTINUE IV LASIX ANTIBIOTICS SUPPLEMENTAL O2 CHEST X-RAY D/C BABITA ANDREWS Problem List - Problems (1) Bilateral pleural effusion Code(s): J90 - PLEURAL EFFUSION, NOT ELSEWHERE CLASSIFIED (2) Chest pain Code(s): R07.9 - CHEST PAIN, UNSPECIFIED Qualifiers: Chest pain type: unspecified Qualified Code(s): R07.9 - Chest pain, unspecified (3) Chest pain at rest Code(s): R07.9 - CHEST PAIN, UNSPECIFIED (4) Shortness of breath Code(s): R06.02 - SHORTNESS OF BREATH (5) Prostate cancer Code(s): C61 - MALIGNANT NEOPLASM OF PROSTATE (6) HTN (hypertension) Code(s): I10 - ESSENTIAL (PRIMARY) HYPERTENSION (7) History of prostate cancer Code(s): Z85.46 - PERSONAL HISTORY OF MALIGNANT NEOPLASM OF PROSTATE (8) Chest wall pain Code(s): R07.89 - OTHER CHEST PAIN (9) Aortic stenosis Code(s): Q25.3 - SUPRAVALVULAR AORTIC STENOSIS (10) Acute hypoxemic respiratory failure Code(s): J96.01 - ACUTE RESPIRATORY FAILURE WITH HYPOXIA (11) CHF (congestive heart failure) Code(s): I50.9 - HEART FAILURE, UNSPECIFIED
[2016-05-14] MEDS: ENZALUTAMIDE PO SCH (12:58)
--- NOTE | 2016-05-14 16:53 | PN ---
Physical Exam: SUBJECTIVE: Patient seen and examined. OBJECTIVE: Vital Signs Period Temp Pulse Resp BP Sys/Sanchez Pulse Ox Last 24 Hr 97.3 F-98.7 F 84-93 20-20 104-125/40-58 95-97 GENERAL: The patient is awake, alert, and fully oriented, in no acute distress. HEAD: Normal with no signs of trauma. EYES: PERRL, extraocular movements intact, sclera anicteric, conjunctiva clear. No ptosis. LUNGS: Bibasilar crackles L>R HEART: Regular rate and rhythm, S1, S2 without murmur, rub or gallop. ABDOMEN: Soft, nontender, nondistended, normoactive bowel sounds, no guarding, no rebound EXTREMITIES: 2+ pulses, warm, well-perfused, no edema. NEUROLOGICAL: Cranial nerves II through XII grossly intact. Normal speech, gait not observed. Laboratory Results - last 24 hr 05/14/16 05/14/16 08:30 08:30 WBC 12.0 H RBC 3.77 L Hgb 11.1 L Hct 33.1 L MCV 87.7 MCHC 33.5 RDW 13.0 Plt Count 331 MPV 9.3 Neutrophils % 85.1 H Lymphocytes % 6.1 L D Monocytes % 6.3 Eosinophils % 2.0 D Basophils % 0.5 Sodium 137 Potassium 3.7 Chloride 93 L Carbon Dioxide 36 H Anion Gap 8 BUN 21 H Creatinine 0.8 Creat Clearance w eGFR > 60 Random Glucose 175 H D Calcium 8.9 Magnesium 2.6 H Total Bilirubin 0.6 D AST 14 L D ALT 16 Alkaline Phosphatase 117 Total Protein 6.5 Albumin 2.7 L Active Medications Generic Name Dose Route Start Last Admin Trade Name Freq PRN Reason Stop Dose Admin Albuterol Sulfate 1 amp 05/11/16 20:22 05/14/16 12:03 Ventolin 0.083% Nebulizer Soln - NEB 1 amp Q4H PRN Administration SHORT OF BREATH/WHEEZING Alprazolam 0.5 mg 05/10/16 11:26 Xanax - PO 05/10/16 11:27 ONCE ONE Amlodipine Besylate 10 mg 05/08/16 17:45 05/14/16 10:02 Norvasc - PO 10 mg DAILY [facility] Administration Apixaban 5 mg 05/11/16 10:00 05/14/16 10:03 Eliquis - PO 5 mg BID [facility] Administration Aspirin 81 mg 05/13/16 19:00 05/14/16 10:03 Ecotrin - PO 81 mg DAILY [facility] Administration Atorvastatin Calcium 20 mg 05/08/16 22:00 05/13/16 21:39 Lipitor - PO 20 mg HS [facility] Administration Furosemide 40 mg 05/12/16 10:00 05/14/16 14:19 Lasix Injection - IVPUSH 40 mg BID@0600,1400 [facility] Administration Lisinopril 2.5 mg 05/08/16 10:15 05/14/16 10:02 Prinivil PO 2.5 mg DAILY [facility] Administration Enzalutamide [Xtandi 160 mg 05/10/16 13:00 05/14/16 12:58 ] 40 Mga Capsule (Pt PO 160 mg 's Own) DAILY@1300 [facility] Administration Piperacillin Sod/Tazobactam Sod 3.375 gm 05/10/16 18:00 05/14/16 10:02 Zosyn 3.375gm Ivpb (Pre-Docked) IVPB 3.375 gm Q8H-IV [facility] Administration Tamsulosin HCl 0.4 mg 05/10/16 22:00 05/13/16 21:39 Flomax - PO 0.4 mg HS [facility] Administration ASSESSMENT/PLAN 86 year-old male with a PMH of HTN, HLD, CAD, diastolic heart failure, degenerative disc disease, prostate cancer s/p RT presently on chemo, colon cancer s/p colectomy. Chronic diastolic heart failure Pulmonary hypertension --05/11 Echo: LV function moderately reduced, moderate global hypokinesis; RV normal; LAE; moderate to severe MR; moderate TR; pHTN --05/14 CXR: better aeration, decreased congestion --continue Lasix IV 40mg to BID, Cr stable --continue lisinopril, amlodipine CAD --two cardiac caths in past year, unobstructed coronaries --flat trending troponins, unlikely ACS per cardiology --continue lisinopril, amlodipine, Lipitor, ASA Paroxysmal afib --ECG today sinus rhythm @ 98 bpm --rate 90's --continue Eliquis Chest pain --CT Chest/Abd/Pelvis CTA with no evidence of thoracic or abdominal aortic aneurysm or dissection --no PE identified Hypertension --continue lisinopril and amlodipine Hyperlipidemia --continue Lipitor Pneumonia --afebrile, WBC trending down --continue Zosyn (day #5) --albuterol nebs PRN --cultures negative to date Prostate cancer --continue Enzalutamide; patient has been refusing, discussed with him today , now amenable --continue Flomax --d/c amitriptyline as urinary retention is side effect Degenerative disc disease F/E/N Fluids: PO intake adequate Electrolytes: replete as indicated Nutrition: low sodium DVT prophylaxis: on Eliquis; oob, ambulation Dispo: continues to require inpatient care. Full Code. Visit type - Emergency Visit Emergency Visit: Yes ED Registration Date: 05/10/16 Care time: The patient presented to the Emergency Department on the above date and was hospitalized for further evaluation of their emergent condition. - New Patient This patient is new to me today: No - Critical Care Critical Care patient: No
[2016-05-14] MEDS: ATORVASTATIN CA 20 MG TABLET (FP) PO SCH (21:28)
[2016-05-14] MEDS: TAMSULOSIN HCL 0.4 MG CAP.ER.24H (FP) PO SCH (21:28)
[2016-05-15] MEDS: PIPERACILLIN/TAZOB 3.375 GM/50 ML PRE-DOCKED IVPB SCH ×2 (02:03→09:26)
[2016-05-15] MEDS: FUROSEMIDE 40 MG/4 ML INJECTABLE VIAL IVPUSH SCH ×2 (06:07→14:00)
[2016-05-15] MEDS ORDERED: PT OWN MED DRAWER 7, Y5N ONE (09:20)
[2016-05-15] MEDS: LISINOPRIL 5 MG TABLET (FP) PO SCH (09:26)
[2016-05-15] MEDS: amLODIPine BESYLATE 10 MG TABLET (FP) PO SCH (09:26)
[2016-05-15] MEDS: ASPIRIN COATED 81 MG TABLET.EC PO SCH (09:26)
[2016-05-15] MEDS: APIXABAN 5 MG TABLET PO SCH ×2 (09:26→21:24)
[2016-05-15] MEDS: ALBUTEROL SO4 0.083% IH SOL 2.5 MG/3 ML VIAL.NEB. NEB PRN (11:10)
--- NOTE | 2016-05-15 11:10 | PN ---
Progress Note, Physician History of Present Illness: seen and examined today in nad. still c/o chronic issues, left flank pain, b/l shoulder pain, sob. - Current Medication List Current Medications: Active Medications Albuterol Sulfate (Ventolin 0.083% Nebulizer Soln -) 1 amp NEB Q4H PRN PRN Reason: SHORT OF BREATH/WHEEZING Last Admin: 05/14/16 12:03 Dose: 1 amp Alprazolam (Xanax -) 0.5 mg PO ONCE ONE Stop: 05/10/16 11:27 Amlodipine Besylate (Norvasc -) 10 mg PO DAILY [facility] Last Admin: 05/15/16 09:26 Dose: 10 mg Apixaban (Eliquis -) 5 mg PO BID [facility] Last Admin: 05/15/16 09:26 Dose: 5 mg Aspirin (Ecotrin -) 81 mg PO DAILY [facility] Last Admin: 05/15/16 09:26 Dose: 81 mg Atorvastatin Calcium (Lipitor -) 20 mg PO [facility] Last Admin: 05/14/16 21:28 Dose: 20 mg Furosemide (Lasix Injection -) 40 mg IVPUSH BID@0600,1400 [facility] Last Admin: 05/15/16 06:07 Dose: 40 mg Lisinopril (Prinivil) 2.5 mg PO DAILY [facility] Last Admin: 05/15/16 09:26 Dose: 2.5 mg Enzalutamide [Xtandi ] 40 Mga Capsule (Pt 's Own) 160 mg PO DAILY@1300 [facility] Last Admin: 05/14/16 12:58 Dose: 160 mg Piperacillin Sod/Tazobactam Sod (Zosyn 3.375gm Ivpb (Pre-Docked)) 3.375 gm IVPB Q8H-IV [facility] Last Admin: 05/15/16 09:26 Dose: 3.375 gm Tamsulosin HCl (Flomax -) 0.4 mg PO [facility] Last Admin: 05/14/16 21:28 Dose: 0.4 mg - Objective Vital Signs: Vital Signs Temperature 97.7 F 05/15/16 06:00 Pulse Rate 79 05/15/16 06:00 Respiratory Rate 20 05/15/16 06:00 Blood Pressure 122/62 05/15/16 06:00 O2 Sat by Pulse Oximetry (%) 95 05/14/16 21:00 Constitutional: Yes: Well Nourished, No Distress, Calm Eyes: Yes: WNL, Conjunctiva Clear, EOM Intact, PERRL HENT: Yes: WNL, Atraumatic, Normocephalic Neck: Yes: WNL, Supple, Trachea Midline Cardiovascular: Yes: Regular Rate and Rhythm, Murmur, S1, S2. No: Bradycardia, Tachycardia, Pulse Irregular, Bruit, JVD, Gallop, Rub, S3, S4, Varicosities Respiratory: Yes: Regular, Diminished, On Nasal O2, Rales. No: CTA Bilaterally , Rhonchi, Wheezes Gastrointestinal: Yes: WNL, Normal Bowel Sounds, Soft. No: Distention, Tenderness Musculoskeletal: Yes: Back Pain Extremities: Yes: WNL Edema: No Peripheral Pulses WNL: Yes Peripheral Pulses: Left Doralis Pedis: 2+, Right Dorsalis Pedis: 2+ Integumentary: Yes: WNL Neurological: Yes: WNL, Alert, Oriented, Cran Nerves II-XII Intact Psychiatric: Yes: WNL, Alert, Oriented Labs: CBC, BMP 05/14/16 08:30 05/14/16 08:30 INR, PTT INR 1.06 (0.82-1.09) 05/08/16 04:30 - ....Imaging Chest X-ray: Report Reviewed, Image Reviewed EKG: Report Reviewed, Image Reviewed Other: Report Reviewed, Image Reviewed (tele-nsr, sinus tach, apcs, pvcs, occ vent couplets) Problem List - Problems (1) Abdominal pain Code(s): R10.9 - UNSPECIFIED ABDOMINAL PAIN Qualifiers: Abdominal location: generalized Qualified Code(s): R10.84 - Generalized abdominal pain (2) Back pain Code(s): M54.9 - DORSALGIA, UNSPECIFIED Qualifiers: Back pain location: thoracic back pain Chronicity: chronic Back pain laterality: left Qualified Code(s): M54.6 - Pain in thoracic spine (3) Bilateral pleural effusion Code(s): J90 - PLEURAL EFFUSION, NOT ELSEWHERE CLASSIFIED (4) Chest pain Code(s): R07.9 - CHEST PAIN, UNSPECIFIED Qualifiers: Chest pain type: unspecified Qualified Code(s): R07.9 - Chest pain, unspecified (5) Shortness of breath Code(s): R06.02 - SHORTNESS OF BREATH (6) CAD (coronary artery disease) Code(s): I25.10 - ATHSCL HEART DISEASE OF [place] CORONARY ARTERY W/O ANG PCTRS (7) HTN (hypertension) Code(s): I10 - ESSENTIAL (PRIMARY) HYPERTENSION (8) History of prostate cancer Code(s): Z85.46 - PERSONAL HISTORY OF MALIGNANT NEOPLASM OF PROSTATE (9) Aortic stenosis Code(s): Q25.3 - SUPRAVALVULAR AORTIC STENOSIS (10) Hyperlipidemia Code(s): E78.5 - HYPERLIPIDEMIA, UNSPECIFIED (11) Mitral regurgitation and aortic stenosis Code(s): I08.0 - RHEUMATIC DISORDERS OF BOTH MITRAL AND AORTIC VALVES Assessment/Plan IMP: NICM 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 Pulmonary following Repeat echo showed moderate LV dysfx, moderate , moderate to severe MR and PHTN. Had cardiac cath twice last year, no sig CAD. Suspect low level TnI from CHF, no further ischemic work up planned at this point L flank/rib pain/B/l shoulder pain chronic, not cardiac in origin
--- NOTE | 2016-05-15 11:14 | PN ---
Progress Note (short form) - Note Progress Note: less SOB still eating poorly Vital Signs Period Temp Pulse Resp BP Sys/Sanchez Pulse Ox Last 24 Hr 97.3 F-98.0 F 79-92 20-20 113-131/55-62 95-98 cor-rrr lungs decreased bs at bases abd soft,nt +borrego ext no edema CBC, BMP 05/14/16 08:30 05/14/16 08:30 Microbiology 05/10/16 19:30 Blood - Peripheral Venous Blood Culture - Preliminary NO GROWTH OBTAINED AFTER 96 HOURS, INCUBATION TO CONTINUE FOR 1 DAYS. 05/10/16 19:25 Blood - Peripheral Venous Blood Culture - Preliminary NO GROWTH OBTAINED AFTER 96 HOURS, INCUBATION TO CONTINUE FOR 1 DAYS. 05/09/16 16:15 Blood - Peripheral Venous Blood Culture - Final NO GROWTH AFTER 5 DAYS INCUBATION 05/09/16 16:10 Blood - Peripheral Venous Blood Culture - Final NO GROWTH AFTER 5 DAYS INCUBATION 05/12/16 20:30 Urine - Urine Borrego Urine Culture - Final NO GROWTH OBTAINED 05/11/16 06:00 Sputum - Expectorated Gram Stain - Final 05/11/16 06:00 Sputum - Expectorated Sputum Culture - Final NORMAL RESPIRATORY ROSS 05/10/16 22:20 Urine - Urine Clean Catch Urine Culture - Final Contaminated: Please Repeat 05/10/16 20:00 Nasopharyngeal Swab Respiratory Virus Panel - Preliminary 05/10/16 22:20 Urine For Antigen Detection Legionella Antigen - Final 05/10/16 22:20 Urine For Antigen Detection Streptococcus pneumoniae Antigen (M - Final 05/10/16 20:00 Nasopharyngeal Swab Influenza Types A,B Antigen (ROCIO) - Final 05/10/16 20:00 Nasopharyngeal Swab - Final cxray improved Current Medications Albuterol Sulfate (Ventolin 0.083% Nebulizer Soln -) 1 amp NEB Q4H PRN PRN Reason: SHORT OF BREATH/WHEEZING Last Admin: 05/15/16 11:10 Dose: 1 amp Alprazolam (Xanax -) 0.5 mg PO ONCE ONE Stop: 05/10/16 11:27 Amlodipine Besylate (Norvasc -) 10 mg PO DAILY [facility] Last Admin: 05/15/16 09:26 Dose: 10 mg Apixaban (Eliquis -) 5 mg PO BID [facility] Last Admin: 05/15/16 09:26 Dose: 5 mg Aspirin (Ecotrin -) 81 mg PO DAILY [facility] Last Admin: 05/15/16 09:26 Dose: 81 mg Atorvastatin Calcium (Lipitor -) 20 mg PO [facility] Last Admin: 05/14/16 21:28 Dose: 20 mg Furosemide (Lasix Injection -) 40 mg IVPUSH BID@0600,1400 [facility] Last Admin: 05/15/16 06:07 Dose: 40 mg Lisinopril (Prinivil) 2.5 mg PO DAILY [facility] Last Admin: 05/15/16 09:26 Dose: 2.5 mg Enzalutamide [Xtandi ] 40 Mga Capsule (Pt 's Own) 160 mg PO DAILY@1300 [facility] Last Admin: 05/14/16 12:58 Dose: 160 mg Piperacillin Sod/Tazobactam Sod (Zosyn 3.375gm Ivpb (Pre-Docked)) 3.375 gm IVPB Q8H-IV [facility] Last Admin: 05/15/16 09:26 Dose: 3.375 gm Tamsulosin HCl (Flomax -) 0.4 mg PO [facility] Last Admin: 05/14/16 21:28 Dose: 0.4 mg a/p CHF improved day #5 zosyn- will d/c antibiotics to continue diuresis per cardiology ?d/c borrego catheter d/w hospitalist Problem List - Problems (1) Acute hypoxemic respiratory failure Code(s): J96.01 - ACUTE RESPIRATORY FAILURE WITH HYPOXIA (2) Pneumonia Code(s): J18.9 - PNEUMONIA, UNSPECIFIED ORGANISM (3) CHF (congestive heart failure) Code(s): I50.9 - HEART FAILURE, UNSPECIFIED
--- NOTE | 2016-05-15 11:23 | PN ---
Physical Exam: SUBJECTIVE: Patient seen and examined at bedside. OBJECTIVE: Vital Signs Period Temp Pulse Resp BP Sys/Sanchez Pulse Ox Last 24 Hr 97.3 F-98.0 F 79-92 20-20 113-131/55-62 95-98 GENERAL: The patient is awake, alert, and fully oriented, in no acute distress. HEAD: Normal with no signs of trauma. EYES: PERRL, extraocular movements intact, sclera anicteric, conjunctiva clear. No ptosis. LUNGS: Bibasilar crackles L>R HEART: Regular rate and rhythm, S1, S2 without murmur, rub or gallop. ABDOMEN: Soft, nontender, nondistended, normoactive bowel sounds, no guarding, no rebound EXTREMITIES: 2+ pulses, warm, well-perfused, no edema. NEUROLOGICAL: Cranial nerves II through XII grossly intact. Normal speech, gait not observed. Active Medications Generic Name Dose Route Start Last Admin Trade Name Freq PRN Reason Stop Dose Admin Albuterol Sulfate 1 amp 05/11/16 20:22 05/15/16 11:10 Ventolin 0.083% Nebulizer Soln - NEB 1 amp Q4H PRN Administration SHORT OF BREATH/WHEEZING Alprazolam 0.5 mg 05/10/16 11:26 Xanax - PO 05/10/16 11:27 ONCE ONE Amlodipine Besylate 10 mg 05/08/16 17:45 05/15/16 09:26 Norvasc - PO 10 mg DAILY [facility] Administration Apixaban 5 mg 05/11/16 10:00 05/15/16 09:26 Eliquis - PO 5 mg BID [facility] Administration Aspirin 81 mg 05/13/16 19:00 05/15/16 09:26 Ecotrin - PO 81 mg DAILY [facility] Administration Atorvastatin Calcium 20 mg 05/08/16 22:00 05/14/16 21:28 Lipitor - PO 20 mg HS [facility] Administration Furosemide 40 mg 05/12/16 10:00 05/15/16 06:07 Lasix Injection - IVPUSH 40 mg BID@0600,1400 [facility] Administration Lisinopril 2.5 mg 05/08/16 10:15 05/15/16 09:26 Prinivil PO 2.5 mg DAILY [facility] Administration Enzalutamide [Xtandi 160 mg 05/10/16 13:00 05/14/16 12:58 ] 40 Mga Capsule (Pt PO 160 mg 's Own) DAILY@1300 [facility] Administration Tamsulosin HCl 0.4 mg 05/10/16 22:00 05/14/16 21:28 Flomax - PO 0.4 mg HS [facility] Administration ASSESSMENT/PLAN: 86 year-old male with a PMH of HTN, HLD, CAD, diastolic heart failure, degenerative disc disease, prostate cancer s/p RT presently on chemo, colon cancer s/p colectomy. Chronic diastolic heart failure Pulmonary hypertension --05/11 Echo: LV function moderately reduced, moderate global hypokinesis; RV normal; LAE; moderate to severe MR; moderate TR; pHTN --05/14 CXR: better aeration, decreased congestion --continue Lasix IV 40mg to BID, Cr stable --continue lisinopril, amlodipine --d/c borrego, voiding trial CAD --two cardiac caths in past year, unobstructed coronaries --flat trending troponins, unlikely ACS per cardiology --continue lisinopril, amlodipine, Lipitor, ASA Paroxysmal afib --rate well-controlled --continue Eliquis Chest pain --CT Chest/Abd/Pelvis CTA with no evidence of thoracic or abdominal aortic aneurysm or dissection --no PE identified Hypertension --continue lisinopril and amlodipine Hyperlipidemia --continue Lipitor Pneumonia --afebrile, WBC trending down --cultures negative to date --completed course of Zosyn --albuterol nebs PRN Prostate cancer --continue Enzalutamide; patient has been refusing, discussed with him today , now amenable --continue Flomax --d/c amitriptyline as urinary retention is side effect Degenerative disc disease F/E/N Fluids: PO intake adequate Electrolytes: replete as indicated Nutrition: low sodium DVT prophylaxis: on Eliquis; oob, ambulation Dispo: continues to require inpatient care. Full Code. Visit type - Emergency Visit Emergency Visit: Yes ED Registration Date: 05/10/16 Care time: The patient presented to the Emergency Department on the above date and was hospitalized for further evaluation of their emergent condition. - New Patient This patient is new to me today: No - Critical Care Critical Care patient: No
--- NOTE | 2016-05-15 12:39 | PN ---
Progress Note, Physician History of Present Illness: pulmonary alert,nad,less dyspneic,+left sided cp - Current Medication List Current Medications: Active Medications Albuterol Sulfate (Ventolin 0.083% Nebulizer Soln -) 1 amp NEB Q4H PRN PRN Reason: SHORT OF BREATH/WHEEZING Last Admin: 05/15/16 11:10 Dose: 1 amp Alprazolam (Xanax -) 0.5 mg PO ONCE ONE Stop: 05/10/16 11:27 Amlodipine Besylate (Norvasc -) 10 mg PO DAILY [facility] Last Admin: 05/15/16 09:26 Dose: 10 mg Apixaban (Eliquis -) 5 mg PO BID [facility] Last Admin: 05/15/16 09:26 Dose: 5 mg Aspirin (Ecotrin -) 81 mg PO DAILY [facility] Last Admin: 05/15/16 09:26 Dose: 81 mg Atorvastatin Calcium (Lipitor -) 20 mg PO [facility] Last Admin: 05/14/16 21:28 Dose: 20 mg Furosemide (Lasix Injection -) 40 mg IVPUSH BID@0600,1400 [facility] Last Admin: 05/15/16 06:07 Dose: 40 mg Lisinopril (Prinivil) 2.5 mg PO DAILY [facility] Last Admin: 05/15/16 09:26 Dose: 2.5 mg Enzalutamide [Xtandi ] 40 Mga Capsule (Pt 's Own) 160 mg PO DAILY@1300 [facility] Last Admin: 05/14/16 12:58 Dose: 160 mg Tamsulosin HCl (Flomax -) 0.4 mg PO [facility] Last Admin: 05/14/16 21:28 Dose: 0.4 mg - Objective Vital Signs: Vital Signs Temperature 97.7 F 05/15/16 06:00 Pulse Rate 92 H 05/15/16 11:10 Respiratory Rate 20 05/15/16 06:00 Blood Pressure 122/62 05/15/16 06:00 O2 Sat by Pulse Oximetry (%) 98 05/15/16 11:10 Constitutional: Yes: Well Nourished, Calm Eyes: Yes: WNL HENT: Yes: WNL Neck: Yes: WNL Cardiovascular: Yes: Pulse Irregular, S1, S2 (few bibasilar crackles) Gastrointestinal: Yes: Normal Bowel Sounds, Soft Extremities: Yes: WNL Edema: No Labs: CBC, BMP - ....Imaging Chest X-ray: Report Reviewed, Image Reviewed (less congestion) Problem List - Problems (1) Bilateral pleural effusion Code(s): J90 - PLEURAL EFFUSION, NOT ELSEWHERE CLASSIFIED (2) Chest pain Code(s): R07.9 - CHEST PAIN, UNSPECIFIED Qualifiers: Chest pain type: unspecified Qualified Code(s): R07.9 - Chest pain, unspecified (3) Chest pain at rest Code(s): R07.9 - CHEST PAIN, UNSPECIFIED (4) Shortness of breath Code(s): R06.02 - SHORTNESS OF BREATH (5) Prostate cancer Code(s): C61 - MALIGNANT NEOPLASM OF PROSTATE (6) HTN (hypertension) Code(s): I10 - ESSENTIAL (PRIMARY) HYPERTENSION (7) History of prostate cancer Code(s): Z85.46 - PERSONAL HISTORY OF MALIGNANT NEOPLASM OF PROSTATE (8) Chest wall pain Code(s): R07.89 - OTHER CHEST PAIN (9) Aortic stenosis Code(s): Q25.3 - SUPRAVALVULAR AORTIC STENOSIS (10) Acute hypoxemic respiratory failure Code(s): J96.01 - ACUTE RESPIRATORY FAILURE WITH HYPOXIA (11) CHF (congestive heart failure) Code(s): I50.9 - HEART FAILURE, UNSPECIFIED Assessment/Plan IMP ACUTE HYPOXEMIC RESPIRATORY FAILURE IMPROVING DECOMPENSATED CHF VALVULAR HD ? PNEUMONIA H/O COLON CA H/O PROSTATE CA PLAN CONTINUE LASIX ANTIBIOTICS SUPPLEMENTAL O2 F/U CHEST X-RAYS DR ANDREWS Problem List - Problems (1) Bilateral pleural effusion Code(s): J90 - PLEURAL EFFUSION, NOT ELSEWHERE CLASSIFIED (2) Chest pain Code(s): R07.9 - CHEST PAIN, UNSPECIFIED Qualifiers: Chest pain type: unspecified Qualified Code(s): R07.9 - Chest pain, unspecified (3) Chest pain at rest Code(s): R07.9 - CHEST PAIN, UNSPECIFIED (4) Shortness of breath Code(s): R06.02 - SHORTNESS OF BREATH (5) Prostate cancer Code(s): C61 - MALIGNANT NEOPLASM OF PROSTATE (6) HTN (hypertension) Code(s): I10 - ESSENTIAL (PRIMARY) HYPERTENSION (7) History of prostate cancer Code(s): Z85.46 - PERSONAL HISTORY OF MALIGNANT NEOPLASM OF PROSTATE (8) Chest wall pain Code(s): R07.89 - OTHER CHEST PAIN (9) Aortic stenosis Code(s): Q25.3 - SUPRAVALVULAR AORTIC STENOSIS (10) Acute hypoxemic respiratory failure Code(s): J96.01 - ACUTE RESPIRATORY FAILURE WITH HYPOXIA (11) CHF (congestive heart failure) Code(s): I50.9 - HEART FAILURE, UNSPECIFIED
[2016-05-15] MEDS: ENZALUTAMIDE PO SCH (13:30)
--- NOTE | 2016-05-15 17:06 | EKG ---
Test Reason : Blood Pressure : / mmHG Vent. Rate : 099 BPM Atrial Rate : 099 BPM P-R Int : 196 ms QRS Dur : 160 ms QT Int : 406 ms P-R-T Axes : 052 003 155 degrees QTc Int : 521 ms NORMAL SINUS RHYTHM POSSIBLE LEFT ATRIAL ENLARGEMENT LEFT BUNDLE BRANCH BLOCK ABNORMAL ECG WHEN COMPARED WITH ECG OF 08-MAY-2016 06:48, NO SIGNIFICANT CHANGE WAS FOUND Confirmed by TAMERA VALDOVINOS MD ([id number]) on 05/15/2016 5:05:36 PM Referred By: ROMI Confirmed By:TAMERA VALDOVINOS MD
[2016-05-15] MEDS: ATORVASTATIN CA 20 MG TABLET (FP) PO SCH (21:24)
[2016-05-15] MEDS: TAMSULOSIN HCL 0.4 MG CAP.ER.24H (FP) PO SCH (21:24)
[2016-05-16] MEDS: FUROSEMIDE 40 MG/4 ML INJECTABLE VIAL IVPUSH SCH (06:37)
[2016-05-16 07:28] LABS: BASOPHIL 0.5 % (0-2.0); EOSINOPHIL 3.1 % (0-4.5); MCH 29.7 pg (25.7-33.7); MCHC 33.5 g/dl (32.0-35.9); MEAN CELL VOLUME 88.5 fl (80-96); MEAN PLT VOLUME 9.1 fl (7.5-11.1); NEUTROPHILS 81.9 % (42.8-82.8); PLATELET COUNT 370 K/MM3 (134-434); RDW 12.6 % (11.9-15.9); WHITE BLOOD COUNT 14.1 K/mm3 (4.0-10.0)
[2016-05-16 08:09] LABS: ALBUMIN 2.6 g/dl (3.4-5.0); ALK PHOS 114 U/L (45-117); ANION GAP 7 (8-16); BILIRUBIN,TOTAL 0.5 mg/dL (0.2-1.0); CALCIUM 8.9 mg/dL (8.5-10.1); CO2 36 mmol/L (21-32); CREATININE 0.7 mg/dL (0.7-1.3); GLUCOSE,RANDOM 134 mg/dL (74-106); MAGNESIUM 2.8 mg/dL (1.8-2.4); SGOT/AST 11 U/L (15-37); SGPT/ALT 14 U/L (12-78); TOT PROT 6.2 g/dl (6.4-8.2)
--- NOTE | 2016-05-16 08:19 | PN ---
Physical Exam: SUBJECTIVE: Patient seen and examined OBJECTIVE: Vital Signs Period Temp Pulse Resp BP Sys/Sanchez Pulse Ox Last 24 Hr 97.6 F-98.2 F 77-93 20-20 103-132/53-66 94-100 Laboratory Results - last 24 hr 05/16/16 06:00 WBC 14.1 H RBC 3.45 L Hgb 10.2 L Hct 30.5 L MCV 88.5 MCHC 33.5 RDW 12.6 Plt Count 370 MPV 9.1 Neutrophils % 81.9 Lymphocytes % 7.6 L D Monocytes % 6.9 Eosinophils % 3.1 Basophils % 0.5 Active Medications Generic Name Dose Route Start Last Admin Trade Name Freq PRN Reason Stop Dose Admin Albuterol Sulfate 1 amp 05/11/16 20:22 05/15/16 11:10 Ventolin 0.083% Nebulizer Soln - NEB 1 amp Q4H PRN Administration SHORT OF BREATH/WHEEZING Amlodipine Besylate 10 mg 05/08/16 17:45 05/15/16 09:26 Norvasc - PO 10 mg DAILY [facility] Administration Apixaban 5 mg 05/11/16 10:00 05/15/16 21:24 Eliquis - PO 5 mg BID [facility] Administration Aspirin 81 mg 05/13/16 19:00 05/15/16 09:26 Ecotrin - PO 81 mg DAILY [facility] Administration Atorvastatin Calcium 20 mg 05/08/16 22:00 05/15/16 21:24 Lipitor - PO 20 mg HS [facility] Administration Furosemide 40 mg 05/12/16 10:00 05/16/16 06:37 Lasix Injection - IVPUSH 40 mg BID@0600,1400 [facility] Administration Lisinopril 2.5 mg 05/08/16 10:15 05/15/16 09:26 Prinivil PO 2.5 mg DAILY [facility] Administration Enzalutamide [Xtandi 160 mg 05/10/16 13:00 05/15/16 13:30 ] 40 Mga Capsule (Pt PO 160 mg 's Own) DAILY@1300 [facility] Administration Tamsulosin HCl 0.4 mg 05/10/16 22:00 05/15/16 21:24 Flomax - PO 0.4 mg HS [facility] Administration ASSESSMENT/PLAN:
--- NOTE | 2016-05-16 09:25 | PN ---
Progress Note, Physician Chief Complaint: sitting up eating breakfast no distress According to Is/Os: net negative fluid balance last several days TELE: NSR w/ chronic LBBB - Current Medication List Current Medications: Active Medications Albuterol Sulfate (Ventolin 0.083% Nebulizer Soln -) 1 amp NEB Q4H PRN PRN Reason: SHORT OF BREATH/WHEEZING Last Admin: 05/15/16 11:10 Dose: 1 amp Amlodipine Besylate (Norvasc -) 10 mg PO DAILY [facility] Last Admin: 05/15/16 09:26 Dose: 10 mg Apixaban (Eliquis -) 5 mg PO BID [facility] Last Admin: 05/15/16 21:24 Dose: 5 mg Aspirin (Ecotrin -) 81 mg PO DAILY [facility] Last Admin: 05/15/16 09:26 Dose: 81 mg Atorvastatin Calcium (Lipitor -) 20 mg PO HS [facility] Last Admin: 05/15/16 21:24 Dose: 20 mg Furosemide (Lasix Injection -) 40 mg IVPUSH BID@0600,1400 [facility] Last Admin: 05/16/16 06:37 Dose: 40 mg Lisinopril (Prinivil) 2.5 mg PO DAILY [facility] Last Admin: 05/15/16 09:26 Dose: 2.5 mg Enzalutamide [Xtandi ] 40 Mga Capsule (Pt 's Own) 160 mg PO DAILY@1300 [facility] Last Admin: 05/15/16 13:30 Dose: 160 mg Tamsulosin HCl (Flomax -) 0.[address] [facility] Last Admin: 05/15/16 21:24 Dose: 0.4 mg - Objective Vital Signs: Vital Signs Temperature 97.9 F 05/16/16 06:00 Pulse Rate 80 05/16/16 06:00 Respiratory Rate 20 05/16/16 06:00 Blood Pressure 132/60 05/16/16 06:00 O2 Sat by Pulse Oximetry (%) 100 05/15/16 21:00 Constitutional: Yes: No Distress Eyes: Yes: Conjunctiva Clear Cardiovascular: Yes: Regular Rate and Rhythm Respiratory: Yes: CTA Bilaterally Gastrointestinal: Yes: Soft Edema: No Neurological: Yes: Alert, Oriented ...Motor Strength: WNL Labs: CBC, BMP 05/16/16 06:00 05/16/16 06:00 INR, PTT INR 1.06 (0.82-1.09) 05/08/16 04:30 Laboratory Tests 05/16/16 05/16/16 06:00 06:00 WBC 14.1 H Hgb 10.2 L Plt Count 370 Sodium 138 Potassium 4.8 D BUN 20 H Creatinine 0.7 - ....Imaging EKG: Image Reviewed Assessment/Plan IMP: NICM Moderate AR/MR/ PAF Chronic LBBB Prostate CA REC: Volume status improving cont IV Lasix bid for one more day, then transition to 80mg PO daily (AM) starting tomorrow Monitor I/Os, daily weights, replete electrolytes No sig arrhythmia or afib on tele Cont Eliquis, monitor slight blood tinged sputum. Pulmonary following Repeat echo showed moderate LV dysfx, moderate , moderate to severe MR and PHTN. Had cardiac cath twice last year, no sig CAD. Suspect low level TnI from CHF, no further ischemic work up planned at this point L flank/rib pain/B/l shoulder pain chronic, not cardiac in origin- also chronic and ongoing for several years.
[2016-05-16] MEDS: APIXABAN 5 MG TABLET PO SCH (09:34)
[2016-05-16] MEDS: amLODIPine BESYLATE 10 MG TABLET (FP) PO SCH (09:34)
[2016-05-16] MEDS: ASPIRIN COATED 81 MG TABLET.EC PO SCH (09:34)
[2016-05-16] MEDS: LISINOPRIL 5 MG TABLET (FP) PO SCH (09:34)
[2016-05-16 11:57] VITALS: BP 127/81; TEMP 97.3
[2016-05-16 12:13] VITALS: PULSE 107
--- NOTE | 2016-05-16 12:28 | DS ---
Physical Exam: SUBJECTIVE: Patient seen and examined OBJECTIVE: Vital Signs Period Temp Pulse Resp BP Sys/Sanchez Pulse Ox Last 24 Hr 97.3 F-98.2 F 75-107 20-20 103-132/53-81 94-100 PHYSICAL EXAM GENERAL: The patient is awake, alert, and fully oriented, in no acute distress. HEAD: Normal with no signs of trauma. EYES: PERRL, extraocular movements intact, sclera anicteric, conjunctiva clear. No ptosis. LUNGS: Bibasilar crackles L>R HEART: Regular rate and rhythm, S1, S2 without murmur, rub or gallop. ABDOMEN: Soft, nontender, nondistended, normoactive bowel sounds, no guarding, no rebound EXTREMITIES: 2+ pulses, warm, well-perfused, no edema. NEUROLOGICAL: Cranial nerves II through XII grossly intact. Normal speech, gait not observed. Laboratory Results - last 24 hr 05/16/16 05/16/16 06:00 06:00 WBC 14.1 H RBC 3.45 L Hgb 10.2 L Hct 30.5 L MCV 88.5 MCHC 33.5 RDW 12.6 Plt Count 370 MPV 9.1 Neutrophils % 81.9 Lymphocytes % 7.6 L D Monocytes % 6.9 Eosinophils % 3.1 Basophils % 0.5 Sodium 138 Potassium 4.8 D Chloride 95 L Carbon Dioxide 36 H Anion Gap 7 L BUN 20 H Creatinine 0.7 Creat Clearance w eGFR > 60 Random Glucose 134 H D Calcium 8.9 Magnesium 2.8 H Total Bilirubin 0.5 AST 11 L D ALT 14 Alkaline Phosphatase 114 Total Protein 6.2 L Albumin 2.6 L HOSPITAL COURSE: Date of Admission:05/10/16 Date of Discharge: 05/16/16 86 year-old male with a PMH of HTN, HLD, CAD, diastolic heart failure, degenerative disc disease, prostate cancer s/p RT presently on chemo, colon cancer s/p colectomy. Chronic diastolic heart failure Pulmonary hypertension --05/11 Echo: LV function moderately reduced, moderate global hypokinesis; RV normal; LAE; moderate to severe MR; moderate TR; pHTN --05/14 CXR: better aeration, decreased congestion --continued Lasix IV 40mg to BID, Cr stable --continued lisinopril, amlodipine --d/c borrego, successfully voided CAD --two cardiac caths in past year, unobstructed coronaries --flat trending troponins, unlikely ACS per cardiology --continued lisinopril, amlodipine, Lipitor, ASA Paroxysmal afib --rate well-controlled --continued Eliquis Chest pain --CT Chest/Abd/Pelvis CTA with no evidence of thoracic or abdominal aortic aneurysm or dissection --no PE identified Hypertension --continued lisinopril and amlodipine Hyperlipidemia --continued Lipitor Pneumonia --afebrile, WBC trending down --cultures negative to date --completed course of Zosyn --albuterol nebs PRN Prostate cancer --continue Enzalutamide; patient has been refusing, discussed with him today , now amenable --continue Flomax --d/c amitriptyline as urinary retention is side effect Degenerative disc disease Minutes to complete discharge: 35 Discharge Summary Reason For Visit: ELEVATED TROPONIN, BILATERAL PLUERAL EFFUSION Current Active Problems Abdominal pain (Acute) Acute hypoxemic respiratory failure (Acute) Back pain (Acute) Bilateral pleural effusion (Acute) CHF (congestive heart failure) (Acute) Chest pain (Acute) Chest pain at rest (Acute) Elevated troponin (Acute) Pneumonia (Acute) Shortness of breath (Acute) Shoulder blade pain (Acute) Condition: Improved - Instructions Diet, Activity, Other Instructions: Prescriptions have been sent to your pharmacy for an increased dose of lasix and for potassium supplements. You should take these medications as directed. It is important you follow up with your primary care provider within 72 hours of your discharge to have your blood levels checked. It is also important you follow up with your oncologist, Dr. Salter, in [place]. Return to the emergency department for any new or worsening symptoms. Referrals: Tyron Chavarria MD [Primary Care Provider] - Disposition: HOME - Home Medications Comprehensive Discharge Medication List: Ambulatory Orders Aspirin [ASA -] 81 mg PO DAILY 01/17/15 Atorvastatin Ca [Lipitor] 20 mg PO HS 01/17/15 Tamsulosin HCl [Flomax -] 0.4 mg PO DAILY 01/17/15 Lisinopril [Prinivil] 2.5 mg PO DAILY #30 tablet 01/18/15 Amlodipine Besylate 10 mg PO DAILY 05/08/16 Enzalutamide [Xtandi] 160 mg PO DAILY 05/08/16 Apixaban [Eliquis -] 5 mg PO BID tablet 05/16/16 Aspirin Coated [Ecotrin -] 81 mg PO DAILY tablet.ec 05/16/16 Furosemide [Lasix] 40 mg PO DAILY #30 tablet 05/16/16 Potassium Chloride [K-Dur -] 10 meq PO DAILY #30 tablet.er 05/16/16 This patient is new to me today: No Emergency Visit: No Critical Care patient: No - Discharge Referral Referred to [facility] Med P.C.: No
[2016-05-16] MEDS ORDERED: PT OWN MED DRAWER 7, Y5N ONE (13:24)
[2016-05-16] MEDS: ENZALUTAMIDE PO SCH (13:52)
== END 2016-05-16 13:57 | disposition home or self-care (01) | DRG 193 ==
LOC: SUPCPDRO 03:44 → JER 03:44 → UNDOADMOB 09:25 → JERBED 09:25 → J4W 20:41 → J5S 05-10 09:55 → OBSVTOIN 05-10 16:43 → J4S 05-10 18:43
PROVIDERS: ADMIT Internal Medicine; ATTEND Nurse Practitioner Acute Care
PROC: 3E0F7GC Introduction of Other Therapeutic Substance into Respiratory Tract, Via Natural or Artificial Opening (ICD-10-PCS; principal; 2016-05-08)
PROC: 5A09457 Assistance with Respiratory Ventilation, 24-96 Consecutive Hours, Continuous Positive Airway Pressure (ICD-10-PCS; 2016-05-11)
DX: J18.9 Pneumonia, unspecified organism (principal); J96.01 Acute respiratory failure with hypoxia; I50.33 Acute on chronic diastolic (congestive) heart failure; Q25.3 Supravalvular aortic stenosis; E87.1 Hypo-osmolality and hyponatremia; I42.9 Cardiomyopathy, unspecified; R07.89 Other chest pain; E78.5 Hyperlipidemia, unspecified; I11.0 Hypertensive heart disease with heart failure; Z85.038 Personal history of other malignant neoplasm of large intestine; Z85.46 Personal history of malignant neoplasm of prostate; M54.6 Pain in thoracic spine; Z87.891 Personal history of nicotine dependence; M50.30 Other cervical disc degeneration, unspecified cervical region; I25.10 Atherosclerotic heart disease of native coronary artery without angina pectoris; Z98.61 Coronary angioplasty status; I27.2 Other secondary pulmonary hypertension; M46.92 Unspecified inflammatory spondylopathy, cervical region; F32.9 Major depressive disorder, single episode, unspecified; N40.0 Benign prostatic hyperplasia without lower urinary tract symptoms; D64.9 Anemia, unspecified; G47.00 Insomnia, unspecified; I34.0 Nonrheumatic mitral (valve) insufficiency; I48.0 Paroxysmal atrial fibrillation; I44.7 Left bundle-branch block, unspecified; F41.0 Panic disorder [episodic paroxysmal anxiety]; R00.0 Tachycardia, unspecified; M84.48XS Pathological fracture, other site, sequela
CPT/HCPCS: 36415; 36600; 71010-TC; 71275-TC; 74174-TC; 76775-TC; 76856-TC; 80048; 80053; 81003; 82550; 82607; 82803; 83540; 83550; 83690; 83735; 84100; 84484; 85025; 85027; 85610; 85651; 86140; 87040; 87070; 87086; 87205; 87254; 87804; 87899; 93005; 93010; 93306-TC; 94640; 94660; 94761; 97116-GP; 97163-GP; 99283-25; G0378; J1644

== ENCOUNTER 2016-06-06 14:43 | Inpatient (IN) | payer BC, OTHER ==
[2016-06-06 14:52] VITALS: BMI 24.8
--- NOTE | 2016-06-06 15:32 | PDOC ---
History of Present Illness - General History Source: Patient, Old Records Exam Limitations: No Limitations - History of Present Illness Initial Comments: 06/06/16 16:23 The patient is a 86 year old male, with a significant past medical history of Prostate CA, Colon CA s/p colon resection, chronic AFIB (Eliquis), HTN and HLD, who presents to the emergency department with tarry stool and abnormal lab work. The patient states that he is experiencing generalized weakness along with his tarry stool. The patient denies chest pain, shortness of breath, headache and dizziness. Denies fever, chills, nausea, vomit and constipation. Denies dysuria, frequency , urgency and hematuria. Allergies: None Past surgical history: Colon resection, cardiac catheterization Social history: No alcohol, tobacco or drug use reported PMD: Dr. Chavarria <Cristopher Doss - Last Filed: 06/06/16 16:22> <Rashel Christian - Last Filed: 06/09/16 16:19> - General Chief Complaint: Weakness Stated Complaint: SENT BY PCP Past History <Cristopher Doss - Last Filed: 06/06/16 16:22> - Past Medical History Anemia: No Asthma: No Cancer: Yes (colon , prostate) Cardiac Disorders: Yes (on eliquis ? why) CVA: No COPD: No CHF: No Dementia: No Diabetes: No GI Disorders: No Disorders: No HTN: Yes Hypercholesterolemia: Yes Liver Disease: No Seizures: No Thyroid Disease: No - Surgical History Abdominal Surgery: Yes (colon resection) Appendectomy: No Cardiac Surgery: Yes (cath) Cholecystectomy: No Lung Surgery: No Neurologic Surgery: No Orthopedic Surgery: No - Immunization History Immunization Up to Date: Yes - Psycho/Social/Smoking Cessation Hx Anxiety: No Suicidal Ideation: No Smoking History: Never smoked Have you smoked in the past 12 months: No Number of Cigarettes Smoked Daily: 0 If you are a former smoker, when did you quit?: 20 years ago Information on smoking cessation initiated: No Hx Alcohol Use: No Drug/Substance Use Hx: No Substance Use Type: None Hx Substance Use Treatment: No <Rashel Christian - Last Filed: 06/09/16 16:19> - Past Medical History Allergies/Adverse Reactions: Allergies Allergy/AdvReac Type Severity Reaction Status Date / Time No Known Allergies Allergy Verified 06/06/16 14:46 Home Medications: Ambulatory Orders Aspirin [ASA -] 81 mg PO DAILY 01/17/15 Atorvastatin Ca [Lipitor] 20 mg PO HS 01/17/15 Tamsulosin HCl [Flomax -] 0.4 mg PO DAILY 01/17/15 Lisinopril [Prinivil] 2.5 mg PO DAILY #30 tablet 01/18/15 Amlodipine Besylate 10 mg PO DAILY 05/08/16 Enzalutamide [Xtandi] 160 mg PO DAILY 05/08/16 Apixaban [Eliquis -] 5 mg PO BID tablet 05/16/16 Furosemide [Lasix] 40 mg PO DAILY #30 tablet 05/16/16 FENTANYL 12mcg PATCH [DURAGESIC 12mcg PATCH -] 12 mcg TD Q72H 06/06/16 Review of Systems - Review of Systems Able to Perform ROS?: Yes Comments:: 06/06/16 16:23 GENERAL/CONSTITUTIONAL: +Generalized weakness. No fever or chills. HEAD, EYES, EARS, NOSE AND THROAT: No change in vision. No ear pain or discharge. No sore throat. CARDIOVASCULAR: No chest pain or shortness of breath RESPIRATORY: No cough, wheezing, or hemoptysis. GASTROINTESTINAL: +Tarry stools. No nausea, vomiting, diarrhea or constipation. GENITOURINARY: No dysuria, frequency, or change in urination. MUSCULOSKELETAL: No joint or muscle swelling or pain. No neck or back pain. SKIN: No rash NEUROLOGIC: No headache, vertigo, loss of consciousness, or change in strength/ sensation. ENDOCRINE: No increased thirst. No abnormal weight change HEMATOLOGIC/LYMPHATIC: No anemia, easy bleeding, or history of blood clots. ALLERGIC/IMMUNOLOGIC: No hives or skin allergy. <Cristopher Doss - Last Filed: 06/06/16 16:22> *Physical Exam - Vital Signs Last Vital Signs Temp Pulse Resp BP Pulse Ox 97.6 F 95 H 16 103/47 99 06/06/16 15:32 06/06/16 15:32 06/06/16 15:32 06/06/16 15:32 06/06/16 15:32 - Physical Exam Comments: 06/06/16 16:23 GENERAL: Awake, alert, and fully oriented, in no acute distress HEAD: No signs of trauma, normocephalic, atraumatic EYES: PERRLA, EOMI, sclera anicteric, conjunctiva clear ENT: Auricles normal inspection, hearing grossly normal, nares patent, oropharynx clear without exudates. Moist mucosa NECK: Normal ROM, supple, no lymphadenopathy, JVD, or masses LUNGS: No distress, speaks full sentences, clear to auscultation bilaterally HEART: Regular rate and rhythm, normal S1 and S2, no murmurs, rubs or gallops, peripheral pulses normal and equal bilaterally. ABDOMEN: Soft, nontender, normoactive bowel sounds. No guarding, no rebound. No masses EXTREMITIES: Normal inspection, Normal range of motion, no edema. No clubbing or cyanosis. NEUROLOGICAL: Cranial nerves II through XII grossly intact. Normal speech, no focal sensorimotor deficits SKIN: Warm, Dry, normal turgor, no rashes or lesions noted. <Cristopher Doss - Last Filed: 06/06/16 16:22> - Vital Signs Last Vital Signs Temp Pulse Resp BP Pulse Ox 97.4 F L 132/47 06/06/16 14:46 06/06/16 14:46 <Rashel Christian - Last Filed: 06/09/16 16:19> ED Treatment Course - LABORATORY CBC & Chemistry Diagram: 06/06/16 14:10 06/06/16 14:10 - ADDITIONAL ORDERS Additional order review: Laboratory Results 06/06/16 14:10 Crossmatch See Detail - RADIOLOGY Radiograph Interpretation: 06/06/16 16:24 Chest X-Ray Reviewed by: Dr. Isaiah Arroyo Impression: Cardiomegaly with congestive heart failure and small bibasilar effusions. <Cristopher Doss - Last Filed: 06/06/16 16:22> - LABORATORY CBC & Chemistry Diagram: 06/09/16 06:00 06/09/16 06:00 <Rashel Christian - Last Filed: 06/09/16 16:19> *DC/Admit/Observation/Transfer - Attestations Scribe Attestion: 06/06/16 16:22 Documentation prepared by Cristopher Doss, acting as medical laboratory technicians for Rashel Christian MD. <Cristopher Doss Last Filed: 06/06/16 16:22> - Discharge Dispostion Admit: Yes <Rashel Christian - Last Filed: 06/09/16 16:19> Diagnosis at time of Disposition: Melena, Chronic atrial fibrillation - Discharge Dispostion Condition at time of disposition: Stable
[2016-06-06 16:20] LABS: BASOPHIL 0.6 % (0-2.0); MCH 26.7 pg (25.7-33.7); MCHC 32.2 g/dl (32.0-35.9); MEAN PLT VOLUME 9.8 fl (7.5-11.1); NEUTROPHILS 89.1 % (42.8-82.8); PLATELET COUNT 222 K/MM3 (134-434); RDW 15.1 % (11.9-15.9); WHITE BLOOD COUNT 8.4 K/mm3 (4.0-10.0)
[2016-06-06 16:38] LABS: INR 1.74 (0.82-1.09); PROTHROMBIN TIME (PATIENT) 19.4 SEC (9.98-11.88)
[2016-06-06 16:41] LABS: ACTIVATED PTT 33.8 SECONDS (26.9-34.4)
--- NOTE | 2016-06-06 16:42 | HP ---
CHIEF COMPLAINT: Generalized weakness PCP: Dr. Chavarria Cardiology: Dr. Mishra Oncology: [facility] HISTORY OF PRESENT ILLNESS: 86 year-old male with a PMH of HTN, HLD, CAD, systolic heart failure, degenerative disc disease, prostate cancer s/p RT presently on Enzalutamide, and colon cancer s/p colectomy. Recently hospitalized 1/2-05/16/16 for decompensated heart failure and found to have PAF and started on Eliquis. Outpatient labs yesterday showed drop in Hgb from 10.2-->8.0. 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 Patient reports generalized weakness and tarry stools. ER course was notable for: (1) Hgb 8.0, was 10.2 on 05/16/16 (2) Afebrile, WBC 10.2, BP 104/60, p93 (3) Transfused one unit PRBC, Lasix IV 40mg x 1 Recent Travel: No PAST MEDICAL HISTORY: Hypertension Hyperlipidemia CAD Diastolic heart failure Degenerative disc disease Prostate cancer s/p radiation therapy on Enzalutamide PAST SURGICAL HISTORY: Colon resection Social History: Smoking: quit 20 years ago Alcohol: no Drugs: no Family History: Non-contributory Allergies No Known Allergies Allergy (Verified 06/06/16 14:46) HOME MEDICATIONS: Medication Instructions Recorded Aspirin [ASA -] 81 mg PO DAILY 01/17/15 Atorvastatin Ca [Lipitor] 20 mg PO HS 01/17/15 Tamsulosin HCl [Flomax -] 0.4 mg PO DAILY 01/17/15 Lisinopril [Prinivil] 2.5 mg PO DAILY #30 tablet 01/18/15 Amlodipine Besylate 10 mg PO DAILY 05/08/16 Enzalutamide [Xtandi] 160 mg PO DAILY 05/08/16 Apixaban [Eliquis -] 5 mg PO BID tablet 05/16/16 Furosemide [Lasix] 40 mg PO DAILY #30 tablet 05/16/16 REVIEW OF SYSTEMS CONSTITUTIONAL: Present: generalized weakness Absent: fever, chills, diaphoresis, generalized weakness, malaise, loss of appetite, weight change HEENT: Absent: rhinorrhea, nasal congestion, throat pain, throat swelling, difficulty swallowing, mouth swelling, ear pain, eye pain, visual changes CARDIOVASCULAR: Absent: chest pain, syncope, palpitations, irregular heart rate, lightheadedness , peripheral edema RESPIRATORY: Absent: cough, shortness of breath, dyspnea with exertion, orthopnea, wheezing, stridor, hemoptysis GASTROINTESTINAL: Absent: abdominal pain, abdominal distension, nausea, vomiting, diarrhea, constipation, melena, hematochezia GENITOURINARY: Absent: dysuria, frequency, urgency, hesitancy, hematuria, flank pain, genital pain MUSCULOSKELETAL: Present: severe back pain and left-sided rib/flank pain Absent: myalgia, arthralgia, joint swelling, neck pain SKIN: Absent: rash, itching, pallor HEMATOLOGIC/IMMUNOLOGIC: Absent: easy bleeding, easy bruising, lymphadenopathy, frequent infections ENDOCRINE: Absent: unexplained weight gain, unexplained weight loss, heat intolerance, cold intolerance NEUROLOGIC: Absent: headache, focal weakness or paresthesias, dizziness, unsteady gait, seizure, mental status changes, bladder or bowel incontinence PSYCHIATRIC: Absent: anxiety, depression, suicidal or homicidal ideation, hallucinations. PHYSICAL EXAMINATION Vital Signs - 24 hr 06/06/16 06/06/16 14:46 15:32 Temperature 97.4 F L 97.6 F Pulse Rate [ 95 H Apical] Respiratory 16 Rate Blood Pressure 132/47 Blood Pressure 103/47 [Right] O2 Sat by Pulse 99 Oximetry (%) GENERAL: Awake, alert, and fully oriented; in mild distress secondary to back and left flank/rib pain HEAD: Normal with no signs of trauma. EYES: Pupils equal, round and reactive to light, extraocular movements intact, sclera anicteric, conjunctiva clear. No ptosis. LUNGS: Crackles care home up bilaterally HEART: Regular rate and rhythm, normal S1 and S2 without murmur, rub or gallop. ABDOMEN: Soft, nontender, not distended, normoactive bowel sounds, no guarding, no rebound, no masses. MUSCULOSKELETAL: Normal range of motion at all joints. No bony deformities or tenderness. No CVA tenderness. UPPER EXTREMITIES: 2+ pulses, warm, well-perfused. No cyanosis. No clubbing. Cap refill <2 seconds. No peripheral edema. LOWER EXTREMITIES: 2+ pulses, warm, well-perfused. No calf tenderness. No peripheral edema. NEUROLOGICAL: Cranial nerves II-XII intact. Normal speech. Gait not observed. Laboratory Results - last 24 hr 06/06/16 06/06/16 14:10 14:10 WBC 8.4 D RBC 2.99 L Hgb 8.0 L D Hct 24.8 L D MCV 83.0 MCHC 32.2 RDW 15.1 D Plt Count 222 D MPV 9.8 Neutrophils % 89.1 H Lymphocytes % 5.5 L D Monocytes % 4.8 Eosinophils % 0.0 D Basophils % 0.6 Crossmatch See Detail ASSESSMENT/PLAN: 86 year-old male with a PMH of HTN, HLD, CAD, diastolic heart failure, degenerative disc disease, prostate cancer s/p RT presently on chemo, colon cancer s/p colectomy. Acute blood loss anemia --drop in Hgb on Eliquis --patient reports tarry stools --transfused one unit PRBC in ED followed by Lasix IV 40mg x 1 --stop Eliquis --occult stool pending --GI consult requested Chronic systolic heart failure Pulmonary hypertension --05/11 Echo: LV function moderately reduced, moderate global hypokinesis; RV normal; LAE; moderate to severe MR; moderate TR; pHTN --bilateral crackles on exam --Lasix x 1 after transfusion --hold lisinopril, amlodipine for now --place borrego CAD --two cardiac caths in past year, unobstructed coronaries --hold lisinopril, amlodipine secondary to hypotension, hold ASA secondary to possible bleed --continue Lipitor, ASA Paroxysmal afib --rate well-controlled --hold anti-coagulation Hypertension --hold lisinopril and amlodipine Hyperlipidemia --continue Lipitor Prostate cancer --on fentanyl patch --patient refusing to take Enzalutamide as it causes severe GI distress --hold Flomax Degenerative disc disease F/E/N Fluids: PO intake adequate Electrolytes: replete as indicated Nutrition: low sodium diet DVT prophylaxis: hold chemical prophylaxis due to bleeding issue Dispo: continues to require inpatient care. Full Code. Sons: Elias Abernathy [phone]; Russ Abernathy [phone] (more familiar with father's medical history and wishes). Visit type - Emergency Visit Emergency Visit: Yes ED Registration Date: 06/06/16 Care time: The patient presented to the Emergency Department on the above date and was hospitalized for further evaluation of their emergent condition. - New Patient This patient is new to me today: Yes Date on this admission: 06/09/16 - Critical Care Critical Care patient: No
[2016-06-06] MEDS: SODIUM CHLORIDE 1,000 ML IV SCH (16:48)
[2016-06-06 17:12] LABS: ALBUMIN 3.4 g/dl (3.4-5.0); ANION GAP 14 (8-16); BILIRUBIN,TOTAL 0.7 mg/dL (0.2-1.0); CALCIUM 8.7 mg/dL (8.5-10.1); CO2 26 mmol/L (21-32); CREATININE 0.9 mg/dL (0.7-1.3); GLUCOSE,RANDOM 146 mg/dL (74-106); SGOT/AST 24 U/L (15-37); SGPT/ALT 15 U/L (12-78); TOT PROT 6.6 g/dl (6.4-8.2)
[2016-06-06 17:13] LABS: ALK PHOS 134 U/L (45-117)
--- NOTE | 2016-06-06 18:04 | PDOC ---
*Physical Exam - Vital Signs Last Vital Signs Temp Pulse Resp BP Pulse Ox 98.0 F 93 H 14 104/60 100 06/06/16 17:49 06/06/16 17:49 06/06/16 17:49 06/06/16 17:49 06/06/16 17:49 <Madeline Vance - Last Filed: 06/06/16 18:10> - Vital Signs Last Vital Signs Temp Pulse Resp BP Pulse Ox 98.0 F 93 H 14 104/60 100 06/06/16 17:49 06/06/16 17:49 06/06/16 17:49 06/06/16 17:49 06/06/16 17:49 <Soraya Ackerman - Last Filed: 06/06/16 18:24> ED Treatment Course - LABORATORY CBC & Chemistry Diagram: 06/06/16 14:10 06/06/16 14:10 - ADDITIONAL ORDERS Additional order review: Laboratory Results 06/06/16 06/06/16 06/06/16 14:10 14:10 14:10 INR PTT (Actin FS) Sodium 137 Potassium 4.6 Chloride 97 L Carbon Dioxide 26 D Anion Gap 14 BUN 29 H D Creatinine 0.9 D Creat Clearance w eGFR > 60 Random Glucose 146 H Calcium 8.7 Total Bilirubin 0.7 D AST 24 D ALT 15 Alkaline Phosphatase 134 H Total Protein 6.6 Albumin 3.4 D Blood Type Cancelled O POSITIVE Antibody Screen Cancelled Negative Crossmatch See Detail See Detail Spec Expiration Date Cancelled 06/06/16 14:10 INR 1.74 H D PTT (Actin FS) 33.8 Sodium Potassium Chloride Carbon Dioxide Anion Gap BUN Creatinine Creat Clearance w eGFR Random Glucose Calcium Total Bilirubin AST ALT Alkaline Phosphatase Total Protein Albumin Blood Type Antibody Screen Crossmatch Spec Expiration Date 06/06/16 14:10 RBC 2.99 L MCV 83.0 MCHC 32.2 RDW 15.1 D MPV 9.8 Neutrophils % 89.1 H Lymphocytes % 5.5 L D Monocytes % 4.8 Eosinophils % 0.0 D Basophils % 0.6 <Madeline Vance - Last Filed: 06/06/16 18:10> - LABORATORY CBC & Chemistry Diagram: 06/06/16 14:10 06/06/16 14:10 - ADDITIONAL ORDERS Additional order review: Laboratory Results 06/06/16 06/06/16 06/06/16 14:10 14:10 14:10 INR PTT (Actin FS) Sodium 137 Potassium 4.6 Chloride 97 L Carbon Dioxide 26 D Anion Gap 14 BUN 29 H D Creatinine 0.9 D Creat Clearance w eGFR > 60 Random Glucose 146 H Calcium 8.7 Total Bilirubin 0.7 D AST 24 D ALT 15 Alkaline Phosphatase 134 H Total Protein 6.6 Albumin 3.4 D Blood Type Cancelled O POSITIVE Antibody Screen Cancelled Negative Crossmatch See Detail See Detail Spec Expiration Date Cancelled 06/06/16 14:10 INR 1.74 H D PTT (Actin FS) 33.8 Sodium Potassium Chloride Carbon Dioxide Anion Gap BUN Creatinine Creat Clearance w eGFR Random Glucose Calcium Total Bilirubin AST ALT Alkaline Phosphatase Total Protein Albumin Blood Type Antibody Screen Crossmatch Spec Expiration Date 06/06/16 14:10 RBC 2.99 L MCV 83.0 MCHC 32.2 RDW 15.1 D MPV 9.8 Neutrophils % 89.1 H Lymphocytes % 5.5 L D Monocytes % 4.8 Eosinophils % 0.0 D Basophils % 0.6 <Soraya Ackerman - Last Filed: 06/06/16 18:24> Medical Decision Making - Medical Decision Making 06/06/16 18:10 I have spoke with Dr. Caldwell about this patient who reports discussing the patient's case with Dr. Mishra (Cardiology). Dr. Caldwell reports the patient has CHF as per Dr. Mishra and will require Lasix between blood transfusions. <Madeline Vance - Last Filed: 06/06/16 18:10> *DC/Admit/Observation/Transfer - Attestations Scribe Attestion: 06/06/16 18:12 Documentation prepared by Madeline Vance, acting as biomedical instrument technician for Rashel Christian MD, MD <Madeline Vance - Last Filed: 06/06/16 18:10> - Discharge Dispostion Admit: Yes <Soraya Ackerman - Last Filed: 06/06/16 18:24> Diagnosis at time of Disposition: Melena, Chronic atrial fibrillation - Referrals Referrals: Tyron Chavarria MD [Primary Care Provider] - - Patient Instructions - Post Discharge Activity
[2016-06-06] MEDS ORDERED: FUROSEMIDE 40 MG/4 ML INJECTABLE VIAL IVPUSH ONE ×2 (18:39→22:45)
[2016-06-06] MEDS ORDERED: PANTOPRAZOLE SODIUM 100 ML IVPB ONE (18:53)
[2016-06-06] MEDS ORDERED: PANTOPRAZOLE SODIUM 40 MG VIAL ONE (18:58)
[2016-06-06] MEDS ORDERED: morphine CARPU-JECT 4 MG/1 ML DISP.SYRIN IVPUSH PRN (19:00)
--- NOTE | 2016-06-06 19:38 | PN ---
Progress Note (short form) - Note Progress Note: Cardiology Clinical Summary Sent to ER for admission after outpatient labs yesterday showed new anemia from recent discharge w/ sig. drop in H/H. PMH: Prostate Ca under hormonal Rx Non-obstructive CAD (s/p cath x 2 in 2016) Moderate LV dysfunction with chronic systolic CHF Chronic LBBB PAF Moderate , Moderate MR HTN Recently admitted w. decompensated systolic CHF and found to have PAF, started on Eliquis. Discharged 05/16 w/ Hb 10, now down to 8. Instructed to come to ER. REC: Stop Eliquis. Check stool guaiac. Follow H/H. GI evaluation if stool guaiac +. Consider PRBCs if Hb < 8.
[2016-06-06] MEDS: PANTOPRAZOLE SODIUM 80 MG in SODIUM CHLORIDE 100 ML IVPB SCH (19:46)
[2016-06-06] MEDS ORDERED: morphine CARPU-JECT 2 MG/1 ML DISP.SYRIN ONE (19:48)
[2016-06-06] MEDS: morphine CARPU-JECT 2 MG/1 ML DISP.SYRIN IVPUSH PRN (19:50)
[2016-06-06] MEDS ORDERED: fentaNYL 12mcg/hr PATCH.TD72 TD SCH (20:00)
[2016-06-06] MEDS ORDERED: FENTANYL PATCH WASTE TD PRN (21:31)
[2016-06-06] MEDS ORDERED: morphine CARPU-JECT 2 MG/1 ML DISP.SYRIN IVPUSH ONE (22:20)
--- NOTE | 2016-06-06 23:11 | EKG ---
Test Reason : Blood Pressure : / mmHG Vent. Rate : 093 BPM Atrial Rate : 093 BPM P-R Int : 236 ms QRS Dur : 164 ms QT Int : 414 ms P-R-T Axes : 055 -14 151 degrees QTc Int : 514 ms SINUS RHYTHM WITH 1ST DEGREE A-V BLOCK POSSIBLE LEFT ATRIAL ENLARGEMENT LEFT BUNDLE BRANCH BLOCK ABNORMAL ECG WHEN COMPARED WITH ECG OF 14-MAY-2016 09:31, NO SIGNIFICANT CHANGE WAS FOUND Confirmed by BONIFACIO MICHELE, TAMERA ([id number]) on 06/06/2016 11:10:39 PM Referred By: Confirmed By:TAMERA VALDOVINOS MD
[2016-06-07] MEDS: morphine CARPU-JECT 2 MG/1 ML DISP.SYRIN IVPUSH PRN ×2 (01:34→08:14)
[2016-06-07] MEDS: PANTOPRAZOLE SODIUM 80 MG in SODIUM CHLORIDE 100 ML IVPB SCH (04:19)
[2016-06-07 07:27] LABS: BASOPHIL 0.5 % (0-2.0); EOSINOPHIL 0.3 % (0-4.5); MCH 27.6 pg (25.7-33.7); MCHC 32.9 g/dl (32.0-35.9); MEAN PLT VOLUME 10.2 fl (7.5-11.1); NEUTROPHILS 81.1 % (42.8-82.8); PLATELET COUNT 196 K/MM3 (134-434); RDW 14.7 % (11.9-15.9); WHITE BLOOD COUNT 9.6 K/mm3 (4.0-10.0)
[2016-06-07 07:41] LABS: INR 1.43 (0.82-1.09); PROTHROMBIN TIME (PATIENT) 15.9 SEC (9.98-11.88)
[2016-06-07 07:43] LABS: ACTIVATED PTT 32.5 SECONDS (26.9-34.4)
[2016-06-07 08:07] LABS: ALK PHOS 113 U/L (45-117); ANION GAP 13 (8-16); BILIRUBIN,TOTAL 1.3 mg/dL (0.2-1.0); CALCIUM 8.4 mg/dL (8.5-10.1); CO2 27 mmol/L (21-32); CREATININE 0.9 mg/dL (0.7-1.3); GLUCOSE,RANDOM 119 mg/dL (74-106); MAGNESIUM 2.4 mg/dL (1.8-2.4); SGOT/AST 20 U/L (15-37); SGPT/ALT 12 U/L (12-78); TOT PROT 6.2 g/dl (6.4-8.2)
--- NOTE | 2016-06-07 09:20 | PN ---
Progress Note (short form) - Note Progress Note: Cardiology Consult Dictated 1. Holding Eliquis and ASA -appropriate bump in H/H -Follow H/H -Protonix -GI to evaluate 2. Re. Chronic Left Ribcage parasthesia/pain -Suspect neuropathic -Could this be bone mets? -Have asked for Dr. Dubois to re-evaluate him and specifically if he would benefit from Neurontin or Lyrica as opposed to chronic opiates. 3. 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 -Would benefit from AF standpoint (rate control) and CHF standpoint (re- synchronization)
--- NOTE | 2016-06-07 09:22 | CONS ---
DATE OF CONSULTATION: 06/07/2016 REQUESTING PHYSICIAN: Nino Caldwell MD CHIEF COMPLAINT: Weakness and tarry stools. HISTORY OF PRESENT ILLNESS: The patient is an 86-year-old male, my office patient, that I referred to the emergency department yesterday for admission for new onset of anemia with hemoglobin of 8. The patient had been hospitalized here in early May with acute on chronic systolic CHF at which time he was found to have new onset of paroxysmal atrial fibrillation and was started on Eliquis 5 mg b.i.d. at which time his hemoglobin was 10. Over the subsequent 1 to 2 weeks at home, he describes weight loss, some loss of appetite, generalized weakness, and hemoglobin in the office was 8. In the emergency department yesterday, he endorsed tarry stools for about 1 week. He was transfused 1 unit of blood, with an appropriate increase in his hemoglobin. He denies chest pain but has chronic dyspnea on exertion. He was given IV Lasix after the transfusion. He denies palpitation, syncope, PND, or orthopnea. He has chronic left-sided rib pain for years, it seems to be neuropathic, and he has not been able to derive any relief from outpatient medications, including fentanyl. PAST MEDICAL HISTORY: Moderate aortic stenosis, moderate to severe mitral regurgitation. Moderate chronic LV dysfunction; nonobstructive coronary disease on 2 catheterizations in 2016, chronic left bundle branch block, paroxysmal atrial fibrillation, prostate cancer, receiving hormonal therapy, hypertension. ALLERGIES: None. MEDICATIONS AT HOME: Include: 1. Lasix 80 mg daily. 2. Lisinopril 2.5 daily. 3. Flomax 0.4 daily. 4. Aspirin 81 daily. 5. Lipitor 20 at bedtime. 6. Amlodipine 10 daily. 7. Eliquis 5 b.i.d. 8. Enzalutamide 160 daily. 9. A fentanyl 12-mcg patch every 72 hours. FAMILY HISTORY: Noncontributory. SOCIAL HISTORY: Nonsmoker. PHYSICAL EXAMINATION: Vital Signs: Afebrile, temperature 97.9, pulse 112, blood pressure 106/58, O2 100 on room air. Neck: No bruits. Heart: S1, 2. Regular rate and rhythm. A 2/6 systolic murmur, right sternal border. Chest: With bibasilar rales 1/3 up. Extremities: No edema. LABORATORIES: White count 9.6, hemoglobin 8.9, platelets 196. INR 1.4. Sodium 136, potassium 4.4, BUN 28, creatinine 0.9, calcium 8.4, magnesium 2.4. Chest x-ray showed cardiomegaly and increased interstitial markings. EKG showed sinus, 93 beats per minute, left bundle branch block, chronic. ASSESSMENT:1. Suspected upper gastrointestinal bleed. 2. Paroxysmal atrial fibrillation, was on Eliquis. 3. Moderate mixed valve disease with moderate aortic stenosis and moderate mitral regurgitation. 4. Chronic systolic congestive heart failure with moderate left ventricular dysfunction, nonischemic. 5. Nonobstructive coronary disease. PLAN: 1. Discontinue Eliquis. 2. Hold aspirin. 3. Protonix drip. 4. GI evaluation. 5. Continue Lasix 40 mg IV daily. 6. Continue lisinopril at the lower dose of 2.5 daily with hold parameters. 7. Continue telemetry. 8. Further recommendations regarding future anticoagulation pending clinical course. Michelle [id number]
[2016-06-07] MEDS: FUROSEMIDE 40 MG/4 ML INJECTABLE VIAL IVPB SCH (10:00)
[2016-06-07] MEDS: LISINOPRIL 5 MG TABLET (FP) PO SCH (12:00)
[2016-06-07] MEDS ORDERED: FENTANYL PATCH WASTE TD PRN (12:22)
--- NOTE | 2016-06-07 12:25 | PN ---
Physical Exam: SUBJECTIVE: Patient seen and examined at bedside. Complaining of severe right sided flank pain and back pain; lack of appetite; sleeplessness. No bleeding, melena, no hematuria, no hematochezia OBJECTIVE: Vital Signs Period Temp Pulse Resp BP Sys/Sanchez Pulse Ox Last 24 Hr 97.2 F-97.9 F 99-112 14-20 92-118/47-66 100-100 GENERAL: Awake, alert, and fully oriented; in moderate distress secondary to back and left flank/rib pain HEAD: Normal with no signs of trauma. EYES: Pupils equal, round and reactive to light, extraocular movements intact, sclera anicteric, conjunctiva clear. No ptosis. LUNGS: Crackles prison up bilaterally HEART: Regular rate and rhythm, normal S1 and S2 without murmur, rub or gallop. ABDOMEN: Soft, nontender, not distended, normoactive bowel sounds, no guarding, no rebound, no masses. MUSCULOSKELETAL: Normal range of motion at all joints. No bony deformities or tenderness. No CVA tenderness. UPPER EXTREMITIES: 2+ pulses, warm, well-perfused. No cyanosis. No clubbing. Cap refill <2 seconds. No peripheral edema. LOWER EXTREMITIES: 2+ pulses, warm, well-perfused. No calf tenderness. No peripheral edema. NEUROLOGICAL: Cranial nerves II-XII intact. Normal speech. Gait not observed. Laboratory Results - last 24 hr 06/07/16 06/07/16 06/07/16 05:35 05:35 05:35 WBC 9.6 RBC 3.24 L Hgb 8.9 L D Hct 27.2 L MCV 84.0 MCHC 32.9 RDW 14.7 Plt Count 196 MPV 10.2 Neutrophils % 81.1 Lymphocytes % 10.5 D Monocytes % 7.6 Eosinophils % 0.3 D Basophils % 0.5 INR 1.43 H PTT (Actin FS) 32.5 Sodium 136 Potassium 4.4 Chloride 96 L Carbon Dioxide 27 Anion Gap 13 BUN 28 H Creatinine 0.9 Creat Clearance w eGFR > 60 Random Glucose 119 H Calcium 8.4 L Magnesium 2.4 Total Bilirubin 1.3 H D AST 20 ALT 12 Alkaline Phosphatase 113 Total Protein 6.2 L Albumin 3.0 L Active Medications Generic Name Dose Route Start Last Admin Trade Name Freq PRN Reason Stop Dose Admin Docusate Sodium 300 mg 06/07/16 22:00 Colace - PO HS THALIA Fentanyl 1 patch 06/07/16 12:30 Duragesic 25mcg Patch - TD 06/14/16 12:22 Q72H THALIA Furosemide 40 mg 06/07/16 10:00 Lasix Injection - IVPB DAILY THALIA Hydromorphone HCl 1 mg 06/07/16 12:24 Dilaudid Injection - IVPUSH Q4H PRN PAIN Sodium Chloride 1,000 mls @ 125 mls/hr 06/06/16 15:45 06/06/16 16:48 Normal Saline - IV 125 mls/hr ASDIR THALIA Administration Pantoprazole Sodium 80 mg/ 100 mls @ 10 mls/hr 06/06/16 18:45 06/07/16 04:19 Sodium Chloride IVPB 10 mls/hr Q10H THALIA Administration 8 MG/HR Lisinopril 2.5 mg 06/07/16 10:00 Prinivil PO DAILY THALIA Miscellaneous 1 each 06/06/16 21:31 Duragesic Patch Waste TD PRN PRN Miscellaneous 1 each 06/07/16 12:22 Duragesic Patch Waste MC PRN PRN PAIN Non-Formulary Medication 160 mg 06/07/16 10:00 Enzalutamide [Xtandi] PO DAILY THALIA ASSESSMENT/PLAN: 86 year-old male with a PMH of HTN, HLD, CAD, diastolic heart failure, degenerative disc disease, prostate cancer s/p RT presently on chemo, colon cancer s/p colectomy. Admitted for acute blood loss anemia. Lengthy discussion today with PCP Dr. Ford. Patient has had intractable left chest and back pain for 1 1/2 years. He has undergone extensive workups with no specific findings. There is no obvious lesion, no obvious metastases. He does have cervical and lumbar compression fractures. Patient has not responded to conservative pain management including opioids and gabapentin. The family has an appointment with the Palliative Care team as [place] this week. [phone] #3 (Director: Rachel Rapp RN Elena Saini). Acute blood loss anemia --d/c'd Eliquis --transfused one unit PRBC on 06/06 with good response 8.0-->10.2 --occult stool positive --GI discussed postive occult finding with family, they are discussing goals of care; no intervention at this time Chronic systolic heart failure Pulmonary hypertension, chronic --05/11 Echo: LV function moderately reduced, moderate global hypokinesis; RV normal; LAE; moderate to severe MR; moderate TR; pHTN CAD --two cardiac caths in past year, unobstructed coronaries --tachycardic today to 100s, restart lisinopril --continue Lipitor, ASA Paroxysmal afib --per cardiology hold amlodipine, beta blockers --hold anti-coagulation Hypertension --restart lisinopril Hyperlipidemia --continue Lipitor Prostate cancer Colon cancer --patient refusing to take Enzalutamide as it causes severe GI distress --restart flomax Severe pain --increased fentanyl patch to 25mcg Degenerative disc disease/compression fractures F/E/N Fluids: PO intake adequate Electrolytes: replete as indicated Nutrition: low sodium diet DVT prophylaxis: hold chemical prophylaxis due to bleeding issue Dispo: continues to require inpatient care. Full Code. Sons: Elias Abernathy [phone]; Russ Abernathy [phone] (more familiar with father's medical history and wishes). Palliative care consult requested. Visit type - Emergency Visit Emergency Visit: Yes ED Registration Date: 06/06/16 Care time: The patient presented to the Emergency Department on the above date and was hospitalized for further evaluation of their emergent condition. - New Patient This patient is new to me today: No - Critical Care Critical Care patient: No
[2016-06-07] MEDS: HYDROmorphone HCL CARPU-JECT 1 MG/1 ML DISP.SYRIN IVPUSH PRN ×2 (13:14→18:00)
--- NOTE | 2016-06-07 14:39 | CON.ENT ---
Consult Referred by:: Radha Rice Reason for Consultation:: Blood Loss, Anemia - History of Present Illness Chief Complaint: Black stool History of Present Illness: 86 year old male with pmh of Prostate Cancer s/p Radiation therapy on Enzalutamide, Colon Ca s/p colon ressection 21-22 years ago [facility], chronic AFIB recently started on Eliquis, on ASA, Multiple SBO presented to the ED sent by his gis engineer for low hgb. His hgb on 05/16/16 was 10.2, in the ED it was 8, after 1 unit of PRBC it went up to 8.9. Pt also complained of generalized weakness, black tarry stool for 1 month. No bright red blood per rectum. Pt also complained of pain in left upper chest/flank/back. Pt denies abdominal pain , no change in stool caliber, frequency, no diarrhea or constipation. Denies dizziness, shortness of breath, palpitation, no fever or chills, no n/v, no hemoptysis, hematemesis, no hematuria. his last EGD, colonoscopy is unknown. Pt is a poor historian . - History Source History Provided By: Patient Limitations to Obtaining History: Poor Historian - Past Medical History Cardio/Vascular: Yes: Aortic Stenosis, CAD (minimal non-obstructive disease), CHF, HTN, Hyperlipdemia, Mitral Insufficiency, Pulmonary Hypertension Gastrointestinal: Yes: Cancer Renal/: Yes: Cancer - Past Surgical History Past Surgical History: Yes: Colectomy - Alcohol/Substance Use Hx Alcohol Use: No - Smoking History Smoking history: Never smoked Have you smoked in the past 12 months: No Aproximately how many cigarettes per day: 0 If you are a former smoker, when did you quit?: 20 years ago - Social History ADL: Independent History of Recent Travel: No Home Medications - Allergies Allergies/Adverse Reactions: Allergies Allergy/AdvReac Type Severity Reaction Status Date / Time No Known Allergies Allergy Verified 06/06/16 14:46 - Home Medications Home Medications: Ambulatory Orders Aspirin [ASA -] 81 mg PO DAILY 01/17/15 Atorvastatin Ca [Lipitor] 20 mg PO HS 01/17/15 Tamsulosin HCl [Flomax -] 0.4 mg PO DAILY 01/17/15 Lisinopril [Prinivil] 2.5 mg PO DAILY #30 tablet 01/18/15 Amlodipine Besylate 10 mg PO DAILY 05/08/16 Enzalutamide [Xtandi] 160 mg PO DAILY 05/08/16 Apixaban [Eliquis -] 5 mg PO BID tablet 05/16/16 Furosemide [Lasix] 40 mg PO DAILY #30 tablet 05/16/16 FENTANYL 12mcg PATCH [DURAGESIC 12mcg PATCH -] 12 mcg TD Q72H 06/06/16 Family Disease History - Family Disease History Family History: Unable to Obtain Review of Systems - Review of Systems Cardiovascular: reports: Shortness of Breath Respiratory: reports: SOB Gastrointestinal: reports: Melena Musculoskeletal: reports: Back Pain Physical Exam-ENT Vital Signs: Vital Signs Temperature 97.9 F 06/07/16 04:00 Pulse Rate 112 H 06/07/16 04:00 Respiratory Rate 20 06/07/16 04:00 Blood Pressure 106/58 06/07/16 04:00 O2 Sat by Pulse Oximetry (%) 100 06/06/16 21:30 Constitutional: Yes: Anxious Head: Yes: WNL Respiratory: Yes: Regular, CTA Bilaterally Gastrointestinal: Yes: Normal Bowel Sounds, Soft, Abdomen, Obese Edema: No Neurological: Yes: Alert, Oriented, Confusion
--- NOTE | 2016-06-07 15:22 | CON.GI ---
Consult Referred by:: Radha Rice Reason for Consultation:: Blood loss, Anemia - History of Present Illness Chief Complaint: Black Tarry Stool History of Present Illness: 86 year old male with pmh of Prostate Cancer s/p Radiation therapy on Enzalutamide, Colon Ca s/p colon ressection 21-22 years ago [facility], chronic AFIB recently started on Eliquis, on ASA, Multiple SBO presented to the ED sent by his retirement sales consultant for low hgb. His hgb on 05/16/16 was 10.2, in the ED it was 8, after 1 unit of PRBC it went up to 8.9. Pt also complained of generalized weakness, black tarry stool for 1 month. No bright red blood per rectum. Pt also complained of pain in left upper chest/flank/back. Pt denies abdominal pain , no change in stool caliber, frequency, no diarrhea or constipation. Denies dizziness, shortness of breath, palpitation, no fever or chills, no n/v, no hemoptysis, hematemesis, no hematuria. his last EGD, colonoscopy is unknown. Pt is a poor historian . - History Source History Provided By: Patient Limitations to Obtaining History: Poor Historian - Past Medical History Cardio/Vascular: Yes: Aortic Stenosis, CAD (minimal non-obstructive disease), CHF, HTN, Hyperlipdemia, Mitral Insufficiency, Pulmonary Hypertension Gastrointestinal: Yes: Cancer Renal/: Yes: Cancer - Past Surgical History Past Surgical History: Yes: Colectomy - Alcohol/Substance Use Hx Alcohol Use: No - Smoking History Smoking history: Never smoked Have you smoked in the past 12 months: No Aproximately how many cigarettes per day: 0 If you are a former smoker, when did you quit?: 20 years ago - Social History ADL: Independent History of Recent Travel: No Home Medications - Allergies Allergies/Adverse Reactions: Allergies Allergy/AdvReac Type Severity Reaction Status Date / Time No Known Allergies Allergy Verified 06/06/16 14:46 - Home Medications Home Medications: Ambulatory Orders Aspirin [ASA -] 81 mg PO DAILY 01/17/15 Atorvastatin Ca [Lipitor] 20 mg PO HS 01/17/15 Tamsulosin HCl [Flomax -] 0.4 mg PO DAILY 01/17/15 Lisinopril [Prinivil] 2.5 mg PO DAILY #30 tablet 01/18/15 Amlodipine Besylate 10 mg PO DAILY 05/08/16 Enzalutamide [Xtandi] 160 mg PO DAILY 05/08/16 Apixaban [Eliquis -] 5 mg PO BID tablet 05/16/16 Furosemide [Lasix] 40 mg PO DAILY #30 tablet 05/16/16 FENTANYL 12mcg PATCH [DURAGESIC 12mcg PATCH -] 12 mcg TD Q72H 06/06/16 Family Disease History - Family Disease History Family History: Unable to Obtain Review of Systems - Review of Systems Constitutional: reports: Weakness Eyes: reports: No Symptoms HENT: reports: No Symptoms Gastrointestinal: reports: Melena Genitourinary: reports: Incontinence Musculoskeletal: reports: Back Pain Psychiatric: reports: Anxiety Pain Intensity: 7 (left back/flank pain ) Physical Exam-GI Vital Signs: Vital Signs Temperature 97.9 F 06/07/16 04:00 Pulse Rate 112 H 06/07/16 04:00 Respiratory Rate 20 06/07/16 04:00 Blood Pressure 106/58 06/07/16 04:00 O2 Sat by Pulse Oximetry (%) 100 06/06/16 21:30 Constitutional: Yes: Anxious Eyes: Yes: Conjunctiva Clear HENT: Yes: Atraumatic Neck: Yes: Supple Cardiovascular: Yes: Regular Rate and Rhythm, S1, S2 Respiratory: Yes: Regular, Cough, SOB Gastrointestinal Inspection: Yes: Scars (vertical midline abdominal scar) ...Auscultate: Yes: Normoactive Bowel Sounds ...Palpate: Yes: Soft. No: Tenderness ...Percussion: Yes: Tympanitic ...Rectal Exam: Yes: Guaiac Positive, Guaiac Trace Edema: No Neurological: Yes: Alert, Confusion Labs: CBC, BMP 06/07/16 05:35 06/07/16 05:35 INR, PTT INR 1.43 (0.82-1.09) H 06/07/16 05:35 Assessment/Plan 86 year old male with worsening anemia on Eliquis and Aspirin, who report back stool, not seen on physical exam. Differential diagnoses are numerous but includes PUD, Gastritis, AVM, also should consider recurrence of colon cancer. Left sided and Lower GI bleed such as diverticular, hemorrhoids, fissure are unlikely. Pt would benefit from colonoscopy and upper endoscopy if desired by family and patient Consider avoiding use of anticoagulants/Antiplatelets due to the increased risk of bleeding. Protonix 40mg PO daily Consider reducing IV fluid now that pt has a diet Case was discussed with son, family to decide the next step of action.
[2016-06-07] MEDS: SODIUM CHLORIDE 1,000 ML IV SCH ×2 (16:00→23:14)
--- NOTE | 2016-06-07 16:17 | PN ---
Teaching Attending Note Name of Resident: Dick Apodaca ATTENDING PHYSICIAN STATEMENT I saw and evaluated the patient. I reviewed the resident's note and discussed the case with the resident. I agree with the resident's findings and plan as documented. SUBJECTIVE: 86M admitted for worsening of chronic anemia. s/p 1 U PRBC. Dark bowel movements described No abdominal pain but complains of diffuse body pain OBJECTIVE: P: 116 Agitated at times Anicteric Hrt: tachycardic rate Lungs: diminisjhed at bases with poor insp effort Abd: + deep vertical midline surgical scar, non tender Ext: no LE edema LEONARDO: light brown stool in rectal vault tracely guaiac + ASSESSMENT AND PLAN: 86M with acute on chronic anemia: recently started on AC/ASA and guaiac + on exam Had d/w THERESA Rice. She states that family heading towards palliative care in terms of goals for Mr. Abernathy Had d/w Elias Mr. Abernathy's son. Discussed findings of worsened anemia and guaiac + stool. Discussed options of upper endoscopy / colonscopy to evaluate for a potential source of GI blood loss once cleared from a medical standpoint, including recurrence of colon cancer, given their father's history. We discussed potential risks of the procedures like but not limited to bleeding, perforation requiring surgery to repair infection,sedation medication effects all of which could be potentially life threatening. Elias said that he would be discussing things with Dr. Chavarria and the remainder of his family in terms of the ultimte goals of care for Mr. Abernathy. I explained that if they choose to proceed with the procedures that they call my office. I gave him my office number,
[2016-06-07] MEDS: fentaNYL 25mcg/hr PATCH.TD72 TD SCH (17:00)
[2016-06-07 22:57] LABS: URINE APPEARANCE CLEAR; URINE BILIRUBIN NEGATIVE (NEGATIVE); URINE BLOOD NEGATIVE (NEGATIVE); URINE COLOR YELLOW; URINE GLUCOSE (UA) NEGATIVE (NEGATIVE); URINE KETONE NEGATIVE (NEGATIVE); URINE LEUK ESTERASE 2+ (NEGATIVE); URINE NITRITE NEGATIVE (NEGATIVE); URINE PROTEIN NEGATIVE (NEGATIVE); URINE UROBILINOGEN NEGATIVE E.U./dl (0.2-1.0)
[2016-06-07 23:03] LABS: CALCIUM OXALATE CRYSTALS RARE /hpf (NONE SEEN); URINE MUCUS FEW; URINE RBC 1 /hpf (0-3); URINE WBC 8 /hpf (3-5)
[2016-06-07] MEDS: DOCUSATE SODIUM 100 MG CAPSULE (FP) PO SCH (23:13)
[2016-06-07] MEDS: PRAMIPEXOLE DIHYDROCHLORIDE 0.125 MG TABLET PO SCH (23:14)
[2016-06-08] MEDS: HYDROmorphone HCL CARPU-JECT 1 MG/1 ML DISP.SYRIN IVPUSH PRN (06:43)
[2016-06-08] MEDS: SODIUM CHLORIDE 1,000 ML IV SCH (06:48)
[2016-06-08 07:05] LABS: BASOPHIL 0.3 % (0-2.0); MCH 27.3 pg (25.7-33.7); MCHC 32.7 g/dl (32.0-35.9); MEAN CELL VOLUME 83.4 fl (80-96); MEAN PLT VOLUME 9.9 fl (7.5-11.1); PLATELET COUNT 214 K/MM3 (134-434); RDW 15.4 % (11.9-15.9)
[2016-06-08 07:40] LABS: CALCIUM 8.4 mg/dL (8.5-10.1); MAGNESIUM 2.3 mg/dL (1.8-2.4)
[2016-06-08] MEDS: TAMSULOSIN HCL 0.4 MG CAP.ER.24H (FP) PO SCH (08:36)
[2016-06-08 09:28] LABS: ERYTHROCYTE SEDIMENTATION RATE 85 mm/hr (0-20)
[2016-06-08] MEDS: FUROSEMIDE 40 MG/4 ML INJECTABLE VIAL IVPB SCH (10:12)
[2016-06-08] MEDS: PANTOPRAZOLE 40 MG TABLET (FP) PO SCH (10:12)
[2016-06-08] MEDS: LISINOPRIL 5 MG TABLET (FP) PO SCH (10:12)
--- NOTE | 2016-06-08 10:31 | PN ---
Progress Note, Physician Chief Complaint: still with chronic Left ribcage pain - Current Medication List Current Medications: Active Medications Docusate Sodium (Colace -) 300 mg PO [facility] Last Admin: 06/07/16 23:13 Dose: 300 mg Fentanyl (Duragesic 25mcg Patch -) 1 patch TD Q72H [facility] Stop: 06/14/16 12:22 Last Admin: 06/07/16 17:00 Dose: 1 patch Furosemide (Lasix Injection -) 40 mg IVPB DAILY [facility] Last Admin: 06/08/16 10:12 Dose: 40 mg Hydromorphone HCl (Dilaudid Injection -) 1 mg IVPUSH Q4H PRN PRN Reason: PAIN Last Admin: 06/08/16 06:43 Dose: 1 mg Lisinopril (Prinivil) 2.5 mg PO DAILY [facility] Last Admin: 06/08/16 10:12 Dose: 2.5 mg Lorazepam (Ativan -) 0.5 mg PO Q8H PRN PRN Reason: ANXIETY Miscellaneous (Duragesic Patch Waste) 1 each TD PRN PRN PRN Reason: PAIN Non-Formulary Medication (Enzalutamide [Xtandi]) 160 mg PO DAILY [facility] Pantoprazole Sodium (Protonix -) 40 mg PO DAILY [facility] Last Admin: 06/08/16 10:12 Dose: 40 mg Pramipexole Dihydrochloride (Mirapex -) 0.125 mg PO [facility] Last Admin: 06/07/16 23:14 Dose: 0.125 mg Tamsulosin HCl (Flomax -) 0.4 mg PO DAILY@0830 [facility] Last Admin: 06/08/16 08:36 Dose: 0.4 mg - Objective Vital Signs: Vital Signs Temperature 97.3 F L 06/08/16 09:45 Pulse Rate 106 H 06/08/16 09:45 Respiratory Rate 18 06/08/16 09:45 Blood Pressure 130/70 06/08/16 09:45 O2 Sat by Pulse Oximetry (%) 92 L 06/07/16 21:00 Constitutional: Yes: No Distress Cardiovascular: Yes: Pulse Irregular Respiratory: Yes: Other (rales at bases 1/3 b/l) Gastrointestinal: Yes: Soft Edema: Yes Edema: LLE: 1+, RLE: 1+ Neurological: Yes: Alert Labs: CBC, BMP 06/08/16 06:00 06/08/16 06:00 INR, PTT INR 1.43 (0.82-1.09) H 06/07/16 05:35 Laboratory Tests 06/08/16 06/08/16 06:00 06:00 WBC 12.0 H Hgb 8.8 L Hct 26.9 L Sodium 132 L Potassium 4.4 BUN 37 H D Creatinine 1.0 Magnesium 2.3 Assessment/Plan GI Bleed Chronic systolic CHF, NICM Moderate / MR PAF Chronic pain left flank, ribs REC: 1. Holding Eliquis and ASA -appropriate bump in H/H -Follow H/H -Protonix -GI evaluating for possible EGD. 2. Re. Chronic Left Ribcage parasthesia/pain -Suspect neuropathic -Could this be bone mets? -Discussed with Dr. Dubois, consult pending. 3. 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 -Would benefit from AF standpoint (rate control) and CHF standpoint (re- synchronization)
--- NOTE | 2016-06-08 13:13 | PN ---
Physical Exam: SUBJECTIVE: Patient seen and examined at bedside. States he has been sleeping lightly. He needs dilaudid every 4 hours. OBJECTIVE: Vital Signs Period Temp Pulse Resp BP Sys/Sanchez Pulse Ox Last 24 Hr 97.0 F-97.9 F 99-114 18-20 113-130/56-70 92 GENERAL: Awake, alert, and fully oriented; in no acute distress today. Dozing, easily arousable. Calmer. HEAD: Normal with no signs of trauma. EYES: Pupils equal, round and reactive to light, extraocular movements intact, sclera anicteric, conjunctiva clear. No ptosis. LUNGS: Crackles fci up bilaterally HEART: Regular rate and rhythm, normal S1 and S2 without murmur, rub or gallop. ABDOMEN: Soft, nontender, not distended, normoactive bowel sounds, no guarding, no rebound, no masses. MUSCULOSKELETAL: Normal range of motion at all joints. No bony deformities or tenderness. No CVA tenderness. UPPER EXTREMITIES: 2+ pulses, warm, well-perfused. No cyanosis. No clubbing. Cap refill <2 seconds. No peripheral edema. LOWER EXTREMITIES: 2+ pulses, warm, well-perfused. No calf tenderness. No peripheral edema. NEUROLOGICAL: Cranial nerves II-XII intact. Normal speech. Gait not observed. Laboratory Results - last 24 hr 06/07/16 06/08/16 06/08/16 22:45 06:00 06:00 WBC 12.0 H RBC 3.23 L Hgb 8.8 L Hct 26.9 L MCV 83.4 MCHC 32.7 RDW 15.4 Plt Count 214 MPV 9.9 Neutrophils % 86.0 H Lymphocytes % 6.2 L D Monocytes % 7.5 Eosinophils % 0.0 D Basophils % 0.3 ESR 85 H Sodium 132 L Potassium 4.4 Chloride 94 L Carbon Dioxide 25 Anion Gap 13 BUN 37 H D Creatinine 1.0 Random Glucose 143 H D Calcium 8.4 L Magnesium 2.3 Urine Color Yellow Urine Appearance Clear Urine pH 5.0 Ur Specific Francis 1.014 Urine Protein Negative Urine Glucose (UA) Negative Urine Ketones Negative Urine Blood Negative Urine Nitrite Negative Urine Bilirubin Negative Urine Urobilinogen Negative Ur Leukocyte Esterase 2+ H Urine RBC 1 Urine WBC 8 Calcium Oxalate Crystal Rare Urine Mucus Few Current Medications Generic Name Dose Route Start Last Admin Trade Name Freq PRN Reason Stop Dose Admin Docusate Sodium 300 mg 06/07/16 22:00 06/07/16 23:13 Colace - PO 300 mg HS THALIA Administration Fentanyl 1 patch 06/07/16 12:30 06/07/16 17:00 Duragesic 25mcg Patch - TD 06/14/16 12:22 1 patch Q72H THALIA Administration Furosemide 40 mg 06/07/16 10:00 06/08/16 10:12 Lasix Injection - IVPB 40 mg DAILY THALIA Administration Hydromorphone HCl 1 mg 06/07/16 12:24 06/08/16 06:43 Dilaudid Injection - IVPUSH 1 mg Q4H PRN Administration PAIN Lisinopril 2.5 mg 06/07/16 10:00 06/08/16 10:12 Prinivil PO 2.5 mg DAILY THALIA Administration Lorazepam 0.5 mg 06/07/16 19:03 Ativan - PO Q8H PRN ANXIETY Miscellaneous 1 each 06/07/16 12:22 Duragesic Patch Waste TD PRN PRN PAIN Non-Formulary Medication 160 mg 06/07/16 10:00 Enzalutamide [Xtandi] PO DAILY THALIA Pantoprazole Sodium 40 mg 06/08/16 10:00 06/08/16 10:12 Protonix - PO 40 mg DAILY THALIA Administration Pramipexole Dihydrochloride 0.125 mg 06/07/16 22:00 06/07/16 23:14 Mirapex - PO 0.125 mg HS THALIA Administration Tamsulosin HCl 0.4 mg 06/08/16 08:30 06/08/16 08:36 Flomax - PO 0.4 mg DAILY@0830 THALIA Administration ASSESSMENT/PLAN: 86 year-old male with a PMH of HTN, HLD, CAD, diastolic heart failure, degenerative disc disease, prostate cancer s/p RT presently on chemo, colon cancer s/p colectomy. Admitted for acute blood loss anemia. Lengthy discussion on 06/[address] Ford. Patient has had intractable left chest and back pain for 1 1/2 years. He has undergone extensive workups with no specific findings. There is no obvious lesion, no obvious metastases. He does have cervical and lumbar compression fractures. Patient has not responded to conservative pain management including opioids and gabapentin. Acute blood loss anemia --d/c'd Eliquis --transfused one unit PRBC on 06/06 with good response 8.0-->10.2 --occult stool positive --GI discussed postive occult finding with family, they are discussing goals of care; no intervention at this time Chronic systolic heart failure Pulmonary hypertension, chronic --05/11 Echo: LV function moderately reduced, moderate global hypokinesis; RV normal; LAE; moderate to severe MR; moderate TR; pHTN CAD --two cardiac caths in past year, unobstructed coronaries --tachycardic today to 100s, restart lisinopril --continue Lipitor, ASA Paroxysmal afib --per cardiology hold amlodipine, beta blockers --hold anti-coagulation Hypertension --restart lisinopril Hyperlipidemia --continue Lipitor Prostate cancer Colon cancer --patient refusing to take Enzalutamide as it causes severe GI distress --restart flomax Severe pain --increased fentanyl patch to 25mcg Degenerative disc disease/compression fractures F/E/N Fluids: PO intake adequate Electrolytes: replete as indicated Nutrition: low sodium diet DVT prophylaxis: hold chemical prophylaxis due to bleeding issue Dispo: Family meeting today with Marsha Tate, the patient, sons Elias ) and Russ ([phone]), and daughter Giovana ([phone]). Patient does not want to go to [place]. Decision to send to SNF. DNR/DNI executed. Visit type - Emergency Visit Emergency Visit: Yes ED Registration Date: 06/06/16 Care time: The patient presented to the Emergency Department on the above date and was hospitalized for further evaluation of their emergent condition. - New Patient This patient is new to me today: No - Critical Care Critical Care patient: No
[2016-06-08] MEDS: LORazepam 0.5 MG TABLET PO PRN ×2 (13:29→21:28)
[2016-06-08] MEDS ORDERED: PT OWN MED DRAWER 7, Y5N ONE (21:22)
[2016-06-08] MEDS: PRAMIPEXOLE DIHYDROCHLORIDE 0.125 MG TABLET PO SCH (21:28)
[2016-06-08] MEDS: POLYETHYLENE GLYCOL 3350 119 GM BTL PO SCH ×2 (21:29→21:32)
[2016-06-08] MEDS: DOCUSATE SODIUM 100 MG CAPSULE (FP) PO SCH ×2 (21:29→21:32)
--- NOTE | 2016-06-08 22:48 | CONSULT ---
Consult - text type - Consultation Consultation Note: NEUROLOGY CONSULTATION is greatly appreciated: This 86 yo man with h/o HTN, Chol, ASHD and AFib was recently started on Eliquis. H/O Prostatic Ca and colectomy for Colonic Ca. Maintained on lisinopril, furosamine, pantoprazole, atorvastatin and tamsulosin. Seen by me on 05/09/16 with chronic complaints of burning pains arising in the mid -thoracic region and spreading down into both legs at night interrupting sleep. At that time had H/H of 11.7/35.3. Now readmitted with diffuse weakness and dizziness after one month of dark, melanotic stools with H/H =8/25. S/P transfusion of 1 unit PRBC's but remains anemic with GI w/u in progress. PAWEL: Normal NEURO: Awakened from sleep for the exam. Notes decreased "burning" and improved sleep last night (and so far tonight) after pramipexole. Remains depressed. CN: II-XII: Normal Motor: No drift. Normal strength. No cogwheeling. Depressed reflexes. Coord: No FTN dystaxia Sensory: Normal Gait: deferred. IMP: Normal neurological exam R/O LS and thoracic stenosis. 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 Depression. SUGGEST: Continue eval of anaemia and GI work-up. Check Fe++, TIBC, Ferritin Increase Pramipexole to .25 mg PO qHS. Check orthostatic BP's Begin Bupropion XR 150 mg PO q AM Neuro F/U as outpatient. Thank you very much, Luis A Dubois MD
[2016-06-09 06:06] LABS: SERUM IRON 12 ug/dL (38-169); TOTAL IRON BINDING CAPACITY 408 ug/dL (250-450); UIBC 396 ug/dL (111-343)
[2016-06-09 06:52] LABS: BASOPHIL 0.2 % (0-2.0); EOSINOPHIL 0.9 % (0-4.5); MCH 26.7 pg (25.7-33.7); MCHC 31.9 g/dl (32.0-35.9); MEAN CELL VOLUME 83.8 fl (80-96); MEAN PLT VOLUME 9.4 fl (7.5-11.1); NEUTROPHILS 79.9 % (42.8-82.8); PLATELET COUNT 164 K/MM3 (134-434); RDW 15.6 % (11.9-15.9); WHITE BLOOD COUNT 8.2 K/mm3 (4.0-10.0)
[2016-06-09 07:15] LABS: ALBUMIN 2.7 g/dl (3.4-5.0); ANION GAP 10 (8-16); BILIRUBIN,TOTAL 0.6 mg/dL (0.2-1.0); CALCIUM 8.3 mg/dL (8.5-10.1); CO2 28 mmol/L (21-32); CREATININE 0.8 mg/dL (0.7-1.3); GLUCOSE,RANDOM 108 mg/dL (74-106); MAGNESIUM 2.4 mg/dL (1.8-2.4); PHOSPHOROUS 2.5 mg/dL (2.5-4.9); SGOT/AST 15 U/L (15-37); SGPT/ALT 16 U/L (12-78); TOT PROT 5.4 g/dl (6.4-8.2)
[2016-06-09 07:16] LABS: ALK PHOS 106 U/L (45-117)
[2016-06-09] MEDS: LORazepam 0.5 MG TABLET PO PRN (09:47)
[2016-06-09] MEDS: PANTOPRAZOLE 40 MG TABLET (FP) PO SCH (09:47)
[2016-06-09] MEDS: LISINOPRIL 5 MG TABLET (FP) PO SCH (09:47)
[2016-06-09] MEDS: TAMSULOSIN HCL 0.4 MG CAP.ER.24H (FP) PO SCH (09:47)
[2016-06-09] MEDS: FUROSEMIDE 40 MG/4 ML INJECTABLE VIAL IVPB SCH (09:47)
--- NOTE | 2016-06-09 09:48 | PN ---
Progress Note, Physician History of Present Illness: seen and examined today in nad. remains fixated on his left ribcage pain. difficult to obtain any other history from him regarding other symptoms. denies sob or chest pain. - Current Medication List Current Medications: Active Medications Bupropion HCl (Wellbutrin Xl -) 150 mg PO DAILY [facility] Docusate Sodium (Colace -) 300 mg PO HS [facility] Last Admin: 06/08/16 21:32 Dose: Not Given Fentanyl (Duragesic 25mcg Patch -) 1 patch TD Q72H [facility] Stop: 06/14/16 12:22 Last Admin: 06/07/16 17:00 Dose: 1 patch Furosemide (Lasix Injection -) 40 mg IVPB DAILY [facility] Last Admin: 06/08/16 10:12 Dose: 40 mg Hydromorphone HCl (Dilaudid Injection -) 1 mg IVPUSH Q4H PRN PRN Reason: PAIN Last Admin: 06/08/16 06:43 Dose: 1 mg Lisinopril (Prinivil) 2.5 mg PO DAILY [facility] Last Admin: 06/08/16 10:12 Dose: 2.5 mg Lorazepam (Ativan -) 0.5 mg PO Q8H PRN PRN Reason: ANXIETY Last Admin: 06/08/16 21:28 Dose: 0.5 mg Miscellaneous (Duragesic Patch Waste) 1 each TD PRN PRN PRN Reason: PAIN Pantoprazole Sodium (Protonix -) 40 mg PO DAILY [facility] Last Admin: 06/08/16 10:12 Dose: 40 mg Polyethylene Glycol (Miralax (For Daily Use) -) 17 gm PO BID [facility] Last Admin: 06/08/16 21:32 Dose: Not Given Pramipexole Dihydrochloride (Mirapex -) 0.25 mg PO HS [facility] Tamsulosin HCl (Flomax -) 0.4 mg PO DAILY@0830 [facility] Last Admin: 06/08/16 08:36 Dose: 0.4 mg - Objective Vital Signs: Vital Signs Temperature 97.9 F 06/09/16 05:58 Pulse Rate 92 H 06/09/16 05:58 Respiratory Rate 20 06/09/16 05:58 Blood Pressure 109/61 06/09/16 05:58 O2 Sat by Pulse Oximetry (%) 100 06/08/16 21:00 Constitutional: Yes: Well Nourished, No Distress, Calm Eyes: Yes: WNL, Conjunctiva Clear, EOM Intact, PERRL HENT: Yes: WNL, Atraumatic, Normocephalic Neck: Yes: WNL, Supple, Trachea Midline Cardiovascular: Yes: Pulse Irregular, Murmur, S1, S2. No: Bradycardia, Tachycardia, Bruit, JVD, Gallop, Rub, S3, S4, Varicosities Respiratory: Yes: Regular, Diminished, On Nasal O2. No: Rales, Rhonchi, SOB, Wheezes Gastrointestinal: Yes: Normal Bowel Sounds, Tenderness. No: Distention Musculoskeletal: Yes: Muscle Weakness, Other (Left ribcage pain) Edema: No Peripheral Pulses WNL: Yes Peripheral Pulses: Left Doralis Pedis: 2+, Right Dorsalis Pedis: 2+ Integumentary: Yes: WNL Neurological: Yes: Alert, Oriented Psychiatric: Yes: Alert, Oriented Labs: CBC, BMP 06/09/16 06:00 06/09/16 06:00 INR, PTT INR 1.43 (0.82-1.09) H 06/07/16 05:35 - ....Imaging Chest X-ray: Report Reviewed, Image Reviewed EKG: Report Reviewed, Image Reviewed Other: Report Reviewed, Image Reviewed Problem List - Problems (1) Abdominal pain Code(s): R10.9 - UNSPECIFIED ABDOMINAL PAIN Qualifiers: Abdominal location: generalized Qualified Code(s): R10.84 - Generalized abdominal pain (2) Acute hypoxemic respiratory failure Code(s): J96.01 - ACUTE RESPIRATORY FAILURE WITH HYPOXIA (3) Bilateral pleural effusion Code(s): J90 - PLEURAL EFFUSION, NOT ELSEWHERE CLASSIFIED (4) Chronic atrial fibrillation Code(s): I48.2 - CHRONIC ATRIAL FIBRILLATION (5) Shortness of breath Code(s): R06.02 - SHORTNESS OF BREATH (6) Prostate cancer Code(s): C61 - MALIGNANT NEOPLASM OF PROSTATE (7) CAD (coronary artery disease) Code(s): I25.10 - ATHSCL HEART DISEASE OF [place] CORONARY ARTERY W/O ANG PCTRS (8) HTN (hypertension) Code(s): I10 - ESSENTIAL (PRIMARY) HYPERTENSION (9) Chest wall pain Code(s): R07.89 - OTHER CHEST PAIN (10) Aortic stenosis Code(s): Q25.3 - SUPRAVALVULAR AORTIC STENOSIS (11) Hyperlipidemia Code(s): E78.5 - HYPERLIPIDEMIA, UNSPECIFIED (12) Mitral regurgitation and aortic stenosis Code(s): I08.0 - RHEUMATIC DISORDERS OF BOTH MITRAL AND AORTIC VALVES Assessment/Plan GI Bleed Anemia Acute onChronic systolic CHF, NICM Moderate / MR PAFib Chronic pain left flank, ribs REC: Anemia-GI bleed -Hold Eliquis and ASA -H/H increased with PRBC but trended back down, could be due to further bleed or volume overload -GI evaluation appreciated, as per 06/07 plan was for pts family to consider endoscopy and make a decision on whether or not to proceed, would follow up pts wishes Chronic Left Ribcage parasthesia/pain -unclear etiology, possible neuropathic -neurology consult appreciated -no sign of bone metastatis has been discovered as per Dr. 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 -Would benefit from AF standpoint (rate control) and CHF standpoint (re- synchronization) -close outpatient follow up
[2016-06-09] MEDS: POLYETHYLENE GLYCOL 3350 119 GM BTL PO SCH ×2 (09:59→21:36)
[2016-06-09] MEDS ORDERED: FUROSEMIDE 40 MG/4 ML INJECTABLE VIAL IVPUSH SCH (12:45)
--- NOTE | 2016-06-09 13:46 | PN ---
Progress Note (short form) - Note Progress Note: had long discussion with Mr. Abernathy's 4 children and Mr. Abernathy himself. Apparently the plan is no longer for palliation and he was going to be placed in SNF. Family now wanted to discuss EGD/Colonoscopy. They wanted a summary of my assessment. i explained that there was microscopic blood found in his stool and that I did not note black stool or obvious blood. I explained that since his blood counts seemed to worsen when ASA/Eliquis was initiated, they could have precipitated bleeding from a GI source such as PUD (given the ? h/o black BM's prior to admission), bleeding blood vessels, polyps and cancers of the GI tract such as colon cancer (Mr. Clarke believes that his last colonoscopy was about 4-5 years ago at [facility]). They wanted to discuss options. We discussed performing EGD/Colonoscopy for further evauation. We discussed potential risks of the procedure like but not limited to bleeding, perforation requiring surgery to repair, infection, sedation medication effects all of which could be potentially life threatening. I explained that prior to these procedures, cardiology would have to weight in regarding his cardiac risk / timing of PPM ? prior to invasive testing (PPM mentioned in today's cardiology note) and that they should discuss cardiac risks with Dr. Tamayo / Danica. We also discussed that the option of not doing procedures, taking into consideration his age and multiple other medical problems with stopping of his anticoagulation. I did briefly explain that with history of a. fib off A/C there is an increased risk of stroke and that they should discuss this further with cardiology. After discussion, Mr. Clarke stated that he would think about things although he seems to be apprehensive. Please try to obtain previous endoscopic records from [facility] (patient's family named Dr. Roberson as the telehealth case manager) Monitor H/H and for signs of active GI bleeding PPI
[2016-06-09] MEDS ORDERED: FUROSEMIDE 40 MG/4 ML INJECTABLE VIAL IVPUSH ONE (14:00)
--- NOTE | 2016-06-09 15:02 | PN ---
Physical Exam: SUBJECTIVE: Patient seen and examined at bedside. Walked with PT today. OBJECTIVE: Vital Signs Period Temp Pulse Resp BP Sys/Sanchez Pulse Ox Last 24 Hr 97.4 F-97.9 F 92-102 18-20 91-115/51-71 100 GENERAL: Awake, alert, and fully oriented; in no acute distress today. Sleeping. Easily arousable. HEAD: Normal with no signs of trauma. EYES: Pupils equal, round and reactive to light, extraocular movements intact, sclera anicteric, conjunctiva clear. No ptosis. LUNGS: Crackles [facility] up bilaterally HEART: Regular rate and rhythm, normal S1 and S2 without murmur, rub or gallop. ABDOMEN: Soft, nontender, not distended, normoactive bowel sounds, no guarding, no rebound, no masses. MUSCULOSKELETAL: Normal range of motion at all joints. No bony deformities or tenderness. No CVA tenderness. UPPER EXTREMITIES: 2+ pulses, warm, well-perfused. No cyanosis. No clubbing. Cap refill <2 seconds. No peripheral edema. LOWER EXTREMITIES: 2+ pulses, warm, well-perfused. No calf tenderness. No peripheral edema. NEUROLOGICAL: Cranial nerves II-XII intact. Normal speech. Gait not observed. Laboratory Results - last 24 hr 06/07/16 06/08/16 06/09/16 20:20 06:00 06:00 WBC 8.2 D RBC 2.96 L Hgb 7.9 L D Hct 24.8 L MCV 83.8 MCHC 31.9 L RDW 15.6 Plt Count 164 D MPV 9.4 Neutrophils % 79.9 Lymphocytes % 10.0 D Monocytes % 9.0 Eosinophils % 0.9 D Basophils % 0.2 Sodium Potassium Chloride Carbon Dioxide Anion Gap BUN Creatinine Creat Clearance w eGFR Random Glucose Calcium Phosphorus Magnesium Iron 12 L TIBC 408 Iron Saturation 3 L Total Bilirubin AST ALT Alkaline Phosphatase Total Protein Albumin Prostate Specific Ag 0.60 06/09/16 06:00 WBC RBC Hgb Hct MCV MCHC RDW Plt Count MPV Neutrophils % Lymphocytes % Monocytes % Eosinophils % Basophils % Sodium 133 L Potassium 4.1 Chloride 95 L Carbon Dioxide 28 Anion Gap 10 BUN 34 H Creatinine 0.8 Creat Clearance w eGFR > 60 Random Glucose 108 H D Calcium 8.3 L Phosphorus 2.5 D Magnesium 2.4 Iron TIBC Iron Saturation Total Bilirubin 0.6 D AST 15 D ALT 16 D Alkaline Phosphatase 106 Total Protein 5.4 L Albumin 2.7 L Prostate Specific Ag Active Medications Generic Name Dose Route Start Last Admin Trade Name Freq PRN Reason Stop Dose Admin Bupropion HCl 150 mg 06/09/16 10:00 06/09/16 09:47 Wellbutrin Xl - PO 150 mg DAILY THALIA Administration Docusate Sodium 300 mg 06/07/16 22:00 06/08/16 21:32 Colace - PO Not Given HS THALIA Fentanyl 1 patch 06/07/16 12:30 06/07/16 17:00 Duragesic 25mcg Patch - TD 06/14/16 12:22 1 patch Q72H THALIA Administration Ferrous Sulfate 325 mg 06/09/16 12:30 Feosol - PO BID THALIA Furosemide 40 mg 06/07/16 10:00 06/09/16 09:47 Lasix Injection - IVPB 40 mg DAILY THALIA Administration Hydromorphone HCl 1 mg 06/07/16 12:24 06/08/16 06:43 Dilaudid Injection - IVPUSH 1 mg Q4H PRN Administration PAIN Lisinopril 2.5 mg 06/07/16 10:00 06/09/16 09:47 Prinivil PO 2.5 mg DAILY THALIA Administration Lorazepam 0.5 mg 06/07/16 19:03 06/09/16 09:47 Ativan - PO 0.5 mg Q8H PRN Administration ANXIETY Miscellaneous 1 each 06/07/16 12:22 Duragesic Patch Waste TD PRN PRN PAIN Pantoprazole Sodium 40 mg 06/08/16 10:00 06/09/16 09:47 Protonix - PO 40 mg DAILY THALIA Administration Polyethylene Glycol 17 gm 06/08/16 22:00 06/09/16 09:59 Miralax (For Daily Use) - PO 17 gm BID THALIA Administration Pramipexole Dihydrochloride 0.25 mg 06/09/16 22:00 Mirapex - PO HS THALIA Tamsulosin HCl 0.4 mg 06/08/16 08:30 06/09/16 09:47 Flomax - PO 0.4 mg DAILY@0830 THALIA Administration ASSESSMENT/PLAN: 86 year-old male with a PMH of HTN, HLD, CAD, diastolic heart failure, degenerative disc disease, prostate cancer s/p RT presently on chemo, colon cancer s/p colectomy. Admitted for acute blood loss anemia. Acute blood loss anemia, resolved --hold all anticoagulation --transfused one unit PRBC on 06/06 --Hgb 7.9 today, may be dilutional as I&Os are positive and weight is up 3kg ; stopped IV fluids --no bleeding episodes --GI again discussed EGD/colonoscopy with family, see Dr. Burton's note --patient will need outpatient followup with his private GI provider, Dr. Roberson at [facility] --patient is not medically cleared fro EGD/colonoscopy at this time; needs cardiology intervention prior to any non-emergent invasive procedure (see below) Chronic systolic heart failure Pulmonary hypertension, chronic --05/11 Echo: LV function moderately reduced, moderate global hypokinesis; RV normal; LAE; moderate to severe MR; moderate TR; pHTN --continue Lasix --per cardiology, patient may benefit from BiV pacing and AV node ablation --patient will need outpatient followup with his designer/writer Dr. Mishra Nonobstructive CAD --two cardiac caths in past year, unobstructed coronaries --continue lisinopril, Lipitor, ASA Paroxysmal afib --rate in 's --per cardiology hold amlodipine, beta blockers --hold anti-coagulation Hypertension --continue lisinopril Hyperlipidemia --continue Lipitor Prostate cancer Colon cancer --patient refusing to take Enzalutamide as it causes severe GI distress --continue flomax Severe pain --increased fentanyl patch to 50mcg with very good results; patient has not asked for PRN breakthrough meds for past 24 hours; he is sleeping more, agitation is much improved --low-dose lorazepam PRN Degenerative disc disease/compression fractures F/E/N Fluids: PO intake adequate Electrolytes: replete as indicated Nutrition: low sodium diet DVT prophylaxis: hold chemical prophylaxis due to bleeding issue Dispo: Family meeting yesterday with Marsha Tate. The patient, sons Elias ) and Russ ([phone]), and daughter Giovana ([phone]) were present. I was present in the room when Marsha Tate asked the patient if he wanted to be resuscitated with compressions, or be intubated. I witnessed the patient say clearly and firmly no. Patient was A&Ox3, fully competent. Working on SNF placement. DNR/DNI. Visit type - Emergency Visit Emergency Visit: Yes ED Registration Date: 06/06/16 Care time: The patient presented to the Emergency Department on the above date and was hospitalized for further evaluation of their emergent condition. - New Patient This patient is new to me today: No - Critical Care Critical Care patient: No
--- NOTE | 2016-06-09 18:26 | PN ---
Progress Note (short form) - Note Progress Note: Cardiology Addendum Multiple discussions today with daughter and son- sounds like Mr. Abernathy has now agreed to have EGD and colonoscopy; however, he is not optimized from the CHF standpoint. Case d/w GI Dr. Burton. We have agreed that he should continue to be optimized medically and probably best to have the biV PPM placed in effort to improved his symptoms and volume status. It will also allow for rate control. Plan for transfer to [facility] on Sunday evening or Sunday AM if family agrees. We planned to touch base again on Sunday. He can be seen by GI there as well.
[2016-06-09] MEDS: FERROUS SO4 325 MG TABLET (FP) PO SCH ×2 (19:14→21:34)
[2016-06-09] MEDS ORDERED: PT OWN MED DRAWER 7, Y5N ONE (21:25)
[2016-06-09] MEDS: DOCUSATE SODIUM 100 MG CAPSULE (FP) PO SCH (21:34)
[2016-06-09] MEDS: HYDROmorphone HCL CARPU-JECT 1 MG/1 ML DISP.SYRIN IVPUSH PRN (21:37)
[2016-06-09] MEDS ORDERED: PRAMIPEXOLE DIHYDROCHLORIDE 0.25 MG TABLET PO SCH (22:00)
[2016-06-10] MEDS: LORazepam 0.5 MG TABLET PO PRN (00:31)
[2016-06-10] MEDS: TAMSULOSIN HCL 0.4 MG CAP.ER.24H (FP) PO SCH (08:12)
[2016-06-10] MEDS: PATIENT'S OWN MEDICATION (NON-FORMULARY) (Enzalutamide [Xtandi] 160 MG) PO SCH (08:27)
[2016-06-10] MEDS: PANTOPRAZOLE SODIUM 80 MG in SODIUM CHLORIDE 100 ML IVPB SCH (08:28)
--- NOTE | 2016-06-10 09:49 | PN ---
Progress Note, Physician - Current Medication List Current Medications: Active Medications Bupropion HCl (Wellbutrin Xl -) 150 mg PO DAILY [facility] Last Admin: 06/09/16 09:47 Dose: 150 mg Docusate Sodium (Colace -) 300 mg PO HS [facility] Last Admin: 06/09/16 21:34 Dose: 300 mg Fentanyl (Duragesic 25mcg Patch -) 1 patch TD Q72H [facility] Stop: 06/14/16 12:22 Last Admin: 06/07/16 17:00 Dose: 1 patch Ferrous Sulfate (Feosol -) 325 mg PO BID [facility] Last Admin: 06/09/16 21:34 Dose: 325 mg Furosemide (Lasix Injection -) 40 mg IVPB DAILY [facility] Last Admin: 06/09/16 09:47 Dose: 40 mg Hydromorphone HCl (Dilaudid Injection -) 1 mg IVPUSH Q4H PRN PRN Reason: PAIN Last Admin: 06/09/16 21:37 Dose: 1 mg Lisinopril (Prinivil) 2.5 mg PO DAILY [facility] Last Admin: 06/09/16 09:47 Dose: 2.5 mg Lorazepam (Ativan -) 0.5 mg PO Q8H PRN PRN Reason: ANXIETY Last Admin: 06/10/16 00:31 Dose: 0.5 mg Miscellaneous (Duragesic Patch Waste) 1 each TD PRN PRN PRN Reason: PAIN Pantoprazole Sodium (Protonix -) 40 mg PO DAILY [facility] Last Admin: 06/09/16 09:47 Dose: 40 mg Polyethylene Glycol (Miralax (For Daily Use) -) 17 gm PO BID [facility] Last Admin: 06/09/16 21:36 Dose: 17 gm Pramipexole Dihydrochloride (Mirapex -) 0.25 mg PO HS [facility] Last Admin: 06/09/16 21:35 Dose: 0.25 mg Tamsulosin HCl (Flomax -) 0.4 mg PO DAILY@0830 [facility] Last Admin: 06/10/16 08:12 Dose: 0.4 mg - Objective Vital Signs: Vital Signs Temperature 97.6 F 06/10/16 09:00 Pulse Rate 102 H 06/10/16 09:00 Respiratory Rate 18 06/10/16 09:00 Blood Pressure 111/66 06/10/16 09:00 O2 Sat by Pulse Oximetry (%) 100 06/09/16 21:00 Eyes: Yes: WNL, Conjunctiva Clear, EOM Intact HENT: Yes: WNL, Atraumatic, Normocephalic Neck: Yes: WNL, Supple, Trachea Midline Cardiovascular: Yes: Pulse Irregular Respiratory: Yes: WNL, Regular, CTA Bilaterally Gastrointestinal: Yes: WNL, Normal Bowel Sounds Genitourinary: Yes: WNL Musculoskeletal: Yes: WNL Extremities: Yes: WNL Edema: No Integumentary: Yes: WNL Neurological: Yes: WNL, Alert, Oriented ...Motor Strength: WNL Psychiatric: Yes: WNL Labs: CBC, BMP 06/09/16 06:00 06/09/16 06:00 INR, PTT INR 1.43 (0.82-1.09) H 06/07/16 05:35 Assessment/Plan GI Bleed Anemia Acute onChronic systolic CHF, NICM Moderate / MR PAFib Chronic pain left flank, ribs REC: Anemia-GI bleed -Hold Eliquis and ASA -H/H increased with PRBC but trended back down, could be due to further bleed or volume overload -GI evaluation appreciated, as per 06/07 plan was for pts family to consider endoscopy and make a decision on whether or not to proceed, would follow up pts wishes Chronic Left Ribcage parasthesia/pain -unclear etiology, possible neuropathic -neurology consult appreciated -no sign of bone metastatis has been discovered as per Dr. 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 -Would benefit from AF standpoint (rate control) and CHF standpoint (re- synchronization) -close outpatient follow up awaiting transfer to [facility] for bivipacemaker placement prior to colonoscopy
[2016-06-10] MEDS: HYDROmorphone HCL CARPU-JECT 1 MG/1 ML DISP.SYRIN IVPUSH PRN (10:22)
[2016-06-10] MEDS: PANTOPRAZOLE 40 MG TABLET (FP) PO SCH (10:22)
[2016-06-10] MEDS: FERROUS SO4 325 MG TABLET (FP) PO SCH ×2 (10:22→21:21)
[2016-06-10] MEDS: LISINOPRIL 5 MG TABLET (FP) PO SCH (10:23)
[2016-06-10] MEDS: FUROSEMIDE 40 MG/4 ML INJECTABLE VIAL IVPB SCH (10:24)
[2016-06-10] MEDS: POLYETHYLENE GLYCOL 3350 119 GM BTL PO SCH ×2 (10:24→21:23)
[2016-06-10 11:21] LABS: BASOPHIL 0.2 % (0-2.0); EOSINOPHIL 0.7 % (0-4.5); MCH 26.6 pg (25.7-33.7); MCHC 32.1 g/dl (32.0-35.9); MEAN CELL VOLUME 82.8 fl (80-96); MEAN PLT VOLUME 9.7 fl (7.5-11.1); NEUTROPHILS 84.7 % (42.8-82.8); PLATELET COUNT 196 K/MM3 (134-434); RDW 15.5 % (11.9-15.9); WHITE BLOOD COUNT 7.5 K/mm3 (4.0-10.0)
--- NOTE | 2016-06-10 11:52 | PN ---
Physical Exam: SUBJECTIVE: Patient seen and examined. Feels slightly SOB. OBJECTIVE: Vital Signs Period Temp Pulse Resp BP Sys/Sanchez Pulse Ox Last 24 Hr 97.4 F-98.2 F 96-103 16-20 96-115/40-70 100-100 GENERAL: Awake, alert, and fully oriented; in no acute distress today. Conversational. HEAD: Normal with no signs of trauma. EYES: Pupils equal, round and reactive to light, extraocular movements intact, sclera anicteric, conjunctiva clear. No ptosis. LUNGS: Crackles intermediate up bilaterally; no wheezing, no rhonchi HEART: Regular rate and rhythm, normal S1 and S2 without murmur, rub or gallop. ABDOMEN: Soft, nontender, not distended, normoactive bowel sounds, no guarding, no rebound, no masses. MUSCULOSKELETAL: Normal range of motion at all joints. No bony deformities or tenderness. No CVA tenderness. UPPER EXTREMITIES: 2+ pulses, warm, well-perfused. No cyanosis. No clubbing. Cap refill <2 seconds. No peripheral edema. LOWER EXTREMITIES: 2+ pulses, warm, well-perfused. No calf tenderness. No peripheral edema. NEUROLOGICAL: Cranial nerves II-XII intact. Normal speech. Gait not observed. PSYCH: Depressed. Laboratory Results - last 24 hr 06/10/16 10:55 WBC 7.5 RBC 3.20 L Hgb 8.5 L Hct 26.5 L MCV 82.8 MCHC 32.1 RDW 15.5 Plt Count 196 MPV 9.7 Neutrophils % 84.7 H Lymphocytes % 6.3 L D Monocytes % 8.1 Eosinophils % 0.7 Basophils % 0.2 Active Medications Generic Name Dose Route Start Last Admin Trade Name Rollyq PRN Reason Stop Dose Admin Bupropion HCl 150 mg 06/09/16 10:00 06/10/16 10:22 Wellbutrin Xl - PO 150 mg DAILY [facility] Administration Docusate Sodium 300 mg 06/07/16 22:00 06/09/16 21:34 Colace - PO 300 mg HS [facility] Administration Fentanyl 1 patch 06/07/16 12:30 06/07/16 17:00 Duragesic 25mcg Patch - TD 06/14/16 12:22 1 patch Q72H [facility] Administration Ferrous Sulfate 325 mg 06/09/16 12:30 06/10/16 10:22 Feosol - PO 325 mg BID [facility] Administration Furosemide 40 mg 06/07/16 10:00 06/10/16 10:24 Lasix Injection - IVPB 40 mg DAILY [facility] Administration Hydromorphone HCl 1 mg 06/07/16 12:24 06/10/16 10:22 Dilaudid Injection - IVPUSH 1 mg Q4H PRN Administration PAIN Lisinopril 2.5 mg 06/07/16 10:00 06/10/16 10:23 Prinivil PO 2.5 mg DAILY [facility] Administration Lorazepam 0.5 mg 06/07/16 19:03 06/10/16 00:31 Ativan - PO 0.5 mg Q8H PRN Administration ANXIETY Miscellaneous 1 each 06/07/16 12:22 Duragesic Patch Waste TD PRN PRN PAIN Pantoprazole Sodium 40 mg 06/08/16 10:00 06/10/16 10:22 Protonix - PO 40 mg DAILY [facility] Administration Polyethylene Glycol 17 gm 06/08/16 22:00 06/10/16 10:24 Miralax (For Daily Use) - PO 17 gm BID [facility] Administration Pramipexole Dihydrochloride 0.25 mg 06/09/16 22:00 06/09/16 21:35 Mirapex - PO 0.25 mg HS [facility] Administration Tamsulosin HCl 0.4 mg 06/08/16 08:30 06/10/16 08:12 Flomax - PO 0.4 mg DAILY@0830 [facility] Administration ASSESSMENT/PLAN 86 year-old male with a PMH of HTN, HLD, CAD, diastolic heart failure, degenerative disc disease, prostate cancer s/p RT presently on chemo, colon cancer s/p colectomy. Admitted for acute blood loss anemia. Acute blood loss anemia, resolved --hold all anticoagulation --transfused one unit PRBC on 06/06 --Hgb 8.5 today --no bleeding episodes --GI again discussed EGD/colonoscopy with family, see Dr. Burton's note --patient is not medically cleared for EGD/colonoscopy at this time; needs cardiology intervention prior to any non-emergent invasive procedure (see below) Chronic systolic heart failure Pulmonary hypertension, chronic --05/11 Echo: LV function moderately reduced, moderate global hypokinesis; RV normal; LAE; moderate to severe MR; moderate TR; pHTN --persistent rales and feels mildly SOB, will increase Lasix --per cardiology, patient may benefit from BiV pacing and AV node ablation; plan is to transfer to [facility] on Monday 06/12 Nonobstructive CAD --two cardiac caths in past year, unobstructed coronaries --continue lisinopril, Lipitor, ASA Paroxysmal afib --rate 90's to 100 --per cardiology hold amlodipine, beta blockers --hold anti-coagulation Hypertension --BP is well-controlled --continue lisinopril Hyperlipidemia --continue Lipitor Prostate cancer Colon cancer --patient refusing to take Enzalutamide as it causes severe GI distress --continue flomax Degenerative disc disease/compression fractures Severe pain syndrome Anxiety/agitation --increased fentanyl patch to 50mcg with very good results --low-dose lorazepam PRN --patient is much calmer, less anxious, but remains interactive with staff and family F/E/N Fluids: PO intake adequate Electrolytes: replete as indicated Nutrition: low sodium diet DVT prophylaxis: hold chemical prophylaxis due to bleeding issue Dispo: Discussed goals of care at length today with patient, 1 on . He is fully competent. He understands the difference between opting for hospice and continuing to puruse medical interventions like a pacemaker and a full GI workup. We discussed the risks involved (bleeding, pain, infection, ) but also the possible benefits. We spoke for about 20 minutes. At the end of the conversation he said he wants to go to [facility] to pursue further treatment. He remains DNR/DNI. Visit type - Emergency Visit Emergency Visit: Yes ED Registration Date: 06/06/16 Care time: The patient presented to the Emergency Department on the above date and was hospitalized for further evaluation of their emergent condition. - New Patient This patient is new to me today: No - Critical Care Critical Care patient: No
[2016-06-10 11:54] LABS: ALK PHOS 137 U/L (45-117); ANION GAP 11 (8-16); BILIRUBIN,TOTAL 0.5 mg/dL (0.2-1.0); CALCIUM 8.4 mg/dL (8.5-10.1); CO2 29 mmol/L (21-32); CREATININE 0.7 mg/dL (0.7-1.3); GLUCOSE,RANDOM 160 mg/dL (74-106); MAGNESIUM 2.3 mg/dL (1.8-2.4); SGOT/AST 15 U/L (15-37); SGPT/ALT 20 U/L (12-78); TOT PROT 6.3 g/dl (6.4-8.2)
[2016-06-10] MEDS: fentaNYL 25mcg/hr PATCH.TD72 TD SCH (12:08)
[2016-06-10] MEDS ORDERED: HYDROmorphone HCL CARPU-JECT 1 MG/1 ML DISP.SYRIN IVPB PRN (12:57)
[2016-06-10] MEDS ORDERED: FUROSEMIDE 40 MG/4 ML INJECTABLE VIAL IVPUSH ONE (14:00)
[2016-06-10] MEDS ORDERED: OXYCODONE/APAP 5/325MG COMBO TABLET PO PRN (15:32)
[2016-06-10] MEDS ORDERED: fentaNYL 12mcg/hr PATCH.TD72 TD SCH (15:45)
--- NOTE | 2016-06-10 15:59 | PN ---
Progress Note (short form) - Note Progress Note: NEUROLOGY FOLLOW-UP: Events reviewed, patient examined. Fe++= 12 !!, Fe++ Sat = 3%!! Remains anemic. ESR = 85 mm/hr Pt c/o belly pain, No appetite and No BM. Sleeping better at night but also "all day long." Notes decreased pains in his arms and legs. On fentanyl 25 ug /72 hrs and Dilaudid .5 mg IVP. EXAM: Confused. Ox "in BED". Not [facility] or Feb. CH II- XII: Normal Motor: Normal strength. no muscle palpation tenderness. Coord: No FTN dystaxia Sensory: Normal IMP: Confused today, possibly due to pain meds. Chronic pain is better on current regimen now including Pramipexole for RLS. Severe Iron deficiency will cause and/or increase RLS Elevated ESR. R/O Polymyalgia rheumatica (PMR). SUGGEST: Increase pramipexole to .25 mg after breakfast and .5 after dinner. D/C IV Dilaudid. Try oxycodone/ APAP (5/325) q 6 hrs PRN. Decrease fentanyl to 12 ug q 72 hrs. Repeat ESR and check CRP. Check B12, TSH. Laxative regimen. Mobilize patient OOB to chair and ambulate with assistance. Keep well-hydrated. Consider Iron supplementation (even IV if necessary) which may improve RLS and chronic pain. Thank you very much, Luis A Dubois MD
[2016-06-10] MEDS: FENTANYL PATCH WASTE TD PRN (16:38)
[2016-06-10] MEDS ORDERED: PT OWN MED DRAWER 7, Y5N ONE (21:20)
[2016-06-10] MEDS: DOCUSATE SODIUM 100 MG CAPSULE (FP) PO SCH (21:21)
[2016-06-10] MEDS: PRAMIPEXOLE DIHYDROCHLORIDE 0.25 MG TABLET PO SCH (21:22)
[2016-06-10] MEDS: ACETAMINOPHEN 325 MG TABLET (FP) PO PRN (21:24)
[2016-06-11] MEDS: ACETAMINOPHEN 325 MG TABLET (FP) PO PRN (03:31)
[2016-06-11] MEDS: oxyCODONE HCL 5 MG TABLET PO PRN (03:32)
[2016-06-11] MEDS: PRAMIPEXOLE DIHYDROCHLORIDE 0.25 MG TABLET PO SCH ×3 (06:10→21:09)
[2016-06-11] MEDS: TAMSULOSIN HCL 0.4 MG CAP.ER.24H (FP) PO SCH (09:23)
[2016-06-11] MEDS: FERROUS SO4 325 MG TABLET (FP) PO SCH ×2 (09:23→21:08)
[2016-06-11] MEDS: LISINOPRIL 5 MG TABLET (FP) PO SCH (09:23)
[2016-06-11] MEDS: FUROSEMIDE 40 MG/4 ML INJECTABLE VIAL IVPB SCH (09:23)
[2016-06-11] MEDS: PANTOPRAZOLE 40 MG TABLET (FP) PO SCH (09:23)
[2016-06-11] MEDS: POLYETHYLENE GLYCOL 3350 119 GM BTL PO SCH ×2 (09:24→21:08)
[2016-06-11] MEDS: LORazepam 0.5 MG TABLET PO PRN ×2 (10:10→21:09)
--- NOTE | 2016-06-11 10:48 | PN ---
Progress Note, Physician - Current Medication List Current Medications: Active Medications Acetaminophen (Tylenol -) 325 mg PO Q6H PRN PRN Reason: PAIN Last Admin: 06/11/16 03:31 Dose: 325 mg Bupropion HCl (Wellbutrin Xl -) 150 mg PO DAILY [facility] Last Admin: 06/11/16 09:23 Dose: 150 mg Docusate Sodium (Colace -) 300 mg PO HS [facility] Last Admin: 06/10/16 21:21 Dose: 300 mg Fentanyl (Duragesic 12mcg Patch -) 1 patch TD Q72H [facility] Stop: 06/17/16 15:40 Last Admin: 06/10/16 16:35 Dose: 1 patch Ferrous Sulfate (Feosol -) 325 mg PO BID [facility] Last Admin: 06/11/16 09:23 Dose: 325 mg Furosemide (Lasix Injection -) 40 mg IVPB DAILY [facility] Last Admin: 06/11/16 09:23 Dose: 40 mg Lisinopril (Prinivil) 2.5 mg PO DAILY [facility] Last Admin: 06/11/16 09:23 Dose: 2.5 mg Lorazepam (Ativan -) 0.5 mg PO Q8H PRN PRN Reason: ANXIETY Last Admin: 06/11/16 10:10 Dose: 0.5 mg Miscellaneous (Duragesic Patch Waste) 1 each TD PRN PRN PRN Reason: PAIN Last Admin: 06/10/16 16:38 Dose: 1 each Oxycodone HCl (Roxicodone -) 5 mg PO Q6H PRN PRN Reason: PAIN Last Admin: 06/11/16 03:32 Dose: 5 mg Pantoprazole Sodium (Protonix -) 40 mg PO DAILY [facility] Last Admin: 06/11/16 09:23 Dose: 40 mg Polyethylene Glycol (Miralax (For Daily Use) -) 17 gm PO BID [facility] Last Admin: 06/11/16 09:24 Dose: 17 gm Pramipexole Dihydrochloride (Mirapex -) 0.25 mg PO TID [facility] Last Admin: 06/11/16 06:10 Dose: 0.25 mg Tamsulosin HCl (Flomax -) 0.4 mg PO DAILY@0830 [facility] Last Admin: 06/11/16 09:23 Dose: 0.4 mg - Objective Vital Signs: Vital Signs Temperature 98.0 F 06/11/16 09:47 Pulse Rate 103 H 06/11/16 09:47 Respiratory Rate 20 06/11/16 09:47 Blood Pressure 107/61 06/11/16 09:47 O2 Sat by Pulse Oximetry (%) 100 06/11/16 09:00 Eyes: Yes: WNL, Conjunctiva Clear, EOM Intact HENT: Yes: WNL, Atraumatic, Normocephalic Neck: Yes: WNL, Supple, Trachea Midline Cardiovascular: Yes: WNL, Regular Rate and Rhythm Respiratory: Yes: WNL, Regular, CTA Bilaterally Gastrointestinal: Yes: WNL, Normal Bowel Sounds Genitourinary: Yes: WNL Musculoskeletal: Yes: WNL Extremities: Yes: WNL Edema: No Integumentary: Yes: WNL Neurological: Yes: WNL, Alert, Oriented ...Motor Strength: WNL Psychiatric: Yes: WNL Labs: CBC, BMP 06/10/16 10:55 06/10/16 10:55 INR, PTT INR 1.43 (0.82-1.09) H 06/07/16 05:35 Assessment/Plan GI Bleed Anemia Acute onChronic systolic CHF, NICM Moderate / MR PAFib Chronic pain left flank, ribs REC: Anemia-GI bleed -Hold Eliquis and ASA -H/H increased with PRBC but trended back down, could be due to further bleed or volume overload -GI evaluation appreciated, as per 06/07 plan was for pts family to consider endoscopy and make a decision on whether or not to proceed, would follow up pts wishes Chronic Left Ribcage parasthesia/pain -unclear etiology, possible neuropathic -neurology consult appreciated -no sign of bone metastatis has been discovered as per Dr. 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 -Would benefit from AF standpoint (rate control) and CHF standpoint (re- synchronization) -close outpatient follow up awaiting transfer to [facility] for bivipacemaker placement prior to colonoscopy
[2016-06-11] MEDS ORDERED: FENTANYL PATCH WASTE TD PRN (12:03)
--- NOTE | 2016-06-11 12:10 | PN ---
Physical Exam: SUBJECTIVE: Patient seen and examined at bedside. Daughter Giovana present. Patient is agitated, anxious, saying he can't breath and he's going to . OBJECTIVE: Vital Signs Period Temp Pulse Resp BP Sys/Sanchez Pulse Ox Last 24 Hr 97.4 F-98.6 F 95-103 18-20 107-121/54-94 100-100 GENERAL: The patient is awake, alert, and fully oriented. HEAD: Normal with no signs of trauma. EYES: PERRL, extraocular movements intact, sclera anicteric, conjunctiva clear. No ptosis. LUNGS: Diminished breath sounds at the bases; no wheezing, no rhonchi HEART: Regular rate and rhythm, S1, S2 without murmur, rub or gallop. ABDOMEN: Soft, nontender, nondistended, normoactive bowel sounds, no guarding, no rebound EXTREMITIES: 2+ pulses, warm, well-perfused, no edema NEUROLOGICAL: Cranial nerves II through XII grossly intact. Normal speech, gait not observed. PSYCH: Agitated. Anxious. SKIN: Warm, dry, normal turgor, no rashes or lesions noted Laboratory Results - last 24 hr 06/07/16 06/11/16 06/11/16 22:45 06:00 06:00 ESR 45 H C-Reactive Protein 1.7 H D Vitamin B12 Stool Occult Blood Cancelled 06/11/16 06:00 ESR C-Reactive Protein Vitamin B12 452 D Stool Occult Blood Current Medications Generic Name Dose Route Start Last Admin Trade Name Freq PRN Reason Stop Dose Admin Acetaminophen 325 mg 06/10/16 15:43 06/11/16 03:31 Tylenol - PO 325 mg Q6H PRN Administration PAIN Bupropion HCl 150 mg 06/09/16 10:00 06/11/16 09:23 Wellbutrin Xl - PO 150 mg DAILY [facility] Administration Docusate Sodium 300 mg 06/07/16 22:00 06/10/16 21:21 Colace - PO 300 mg HS [facility] Administration Fentanyl 1 patch 06/10/16 15:45 06/10/16 16:35 Duragesic 12mcg Patch - TD 06/17/16 15:40 1 patch Q72H [facility] Administration Fentanyl 1 patch 06/11/16 12:15 Duragesic 12mcg Patch - TD 06/12/16 12:14 Q72H [facility] Ferrous Sulfate 325 mg 06/09/16 12:30 06/11/16 09:23 Feosol - PO 325 mg BID [facility] Administration Furosemide 40 mg 06/07/16 10:00 06/11/16 09:23 Lasix Injection - IVPB 40 mg DAILY [facility] Administration Lidocaine 1 patch 06/11/16 12:45 Lidoderm Patch - TP DAILY [facility] Lisinopril 2.5 mg 06/07/16 10:00 06/11/16 09:23 Prinivil PO 2.5 mg DAILY [facility] Administration Lorazepam 0.5 mg 06/07/16 19:03 06/11/16 10:10 Ativan - PO 0.5 mg Q8H PRN Administration ANXIETY Miscellaneous 1 each 06/10/16 15:39 06/10/16 16:38 Duragesic Patch Waste TD 1 each PRN PRN Administration PAIN Miscellaneous 1 each 06/11/16 12:03 Duragesic Patch Waste TD PRN PRN PAIN Oxycodone HCl 5 mg 06/10/16 15:43 06/11/16 03:32 Roxicodone - PO 5 mg Q6H PRN Administration PAIN Pantoprazole Sodium 40 mg 06/08/16 10:00 06/11/16 09:23 Protonix - PO 40 mg DAILY [facility] Administration Polyethylene Glycol 17 gm 06/08/16 22:00 06/11/16 09:24 Miralax (For Daily Use) - PO 17 gm BID [facility] Administration Pramipexole Dihydrochloride 0.25 mg 06/10/16 22:00 06/11/16 06:10 Mirapex - PO 0.25 mg TID [facility] Administration Tamsulosin HCl 0.4 mg 06/08/16 08:30 06/11/16 09:23 Flomax - PO 0.4 mg DAILY@0830 [facility] Administration ASSESSMENT/PLAN: 86 year-old male with a PMH of HTN, HLD, CAD, diastolic heart failure, degenerative disc disease, prostate cancer s/p RT presently on chemo, colon cancer s/p colectomy. Admitted for acute blood loss anemia. Acute blood loss anemia, resolved --transfused one unit PRBC on 06/06 and has been stable since then --no bleeding episodes --concensus view of the treating team that patient could benefit from EGD/ colon studies but that he needs to be stabilized from cardiac perspective first (see below) ----hold all anticoagulation Chronic systolic heart failure Pulmonary hypertension, chronic Paroxysmal afib --Dr. Mishra in discussions with family regarding transfer to [facility] for PPM placement and possible ablation --family to decide tomorrow, 06/12 --continue telemetry monitoring --continue Lasix Nonobstructive CAD --two cardiac caths in past year, unobstructed coronaries --continue lisinopril, Lipitor, ASA Paroxysmal afib --rate in 90's --per cardiology hold amlodipine, beta blockers --hold anti-coagulation due to anemia Hypertension --continue lisinopril Hyperlipidemia --continue Lipitor Prostate cancer Colon cancer --patient refusing to take Enzalutamide as it causes severe GI distress --continue flomax Anxiety/agitation --continue pramipexole Severe pain --fentanyl decreased yesterday by neuro to 12mcg; this morning patient agitated, complaining of pain; will place another 12mcg patch for the next 18 hours and then replace with a single 25mcg patch --oxycodone for breakthrough pain PRN --low-dose lorazepam PRN --lidocaine patch to left ribs Degenerative disc disease/compression fractures F/E/N Fluids: PO intake adequate Electrolytes: replete as indicated Nutrition: low sodium diet DVT prophylaxis: hold chemical prophylaxis due to bleeding issue Dispo: Six siblings plan to convene on Sunday, 06/12 to decide on whether to transfer patient to [facility] for PPM and further GI workup. DNR/DNI. Visit type - Emergency Visit Emergency Visit: Yes ED Registration Date: 06/06/16 Care time: The patient presented to the Emergency Department on the above date and was hospitalized for further evaluation of their emergent condition. - New Patient This patient is new to me today: No - Critical Care Critical Care patient: No
[2016-06-11] MEDS ORDERED: fentaNYL 12mcg/hr PATCH.TD72 TD SCH (12:15)
[2016-06-11] MEDS ORDERED: PT OWN MED DRAWER 7, Y5N ONE ×2 (13:37→21:04)
[2016-06-11] MEDS: LIDOCAINE 5% TOPICAL PATCH TP SCH (13:39)
[2016-06-11] MEDS: DOCUSATE SODIUM 100 MG CAPSULE (FP) PO SCH (21:07)
[2016-06-12] MEDS ORDERED: PT OWN MED DRAWER 7, Y5N ONE (05:26)
[2016-06-12] MEDS: oxyCODONE HCL 5 MG TABLET PO PRN ×2 (05:40→12:10)
[2016-06-12] MEDS: ACETAMINOPHEN 325 MG TABLET (FP) PO PRN (05:41)
[2016-06-12] MEDS: PRAMIPEXOLE DIHYDROCHLORIDE 0.25 MG TABLET PO SCH (06:33)
[2016-06-12] MEDS: LORazepam 0.5 MG TABLET PO PRN (06:34)
[2016-06-12] MEDS ORDERED: FENTANYL PATCH WASTE TD PRN (10:14)
[2016-06-12] MEDS ORDERED: fentaNYL 25mcg/hr PATCH.TD72 TD SCH (10:15)
[2016-06-12] MEDS: LIDOCAINE 5% TOPICAL PATCH TP SCH (10:19)
[2016-06-12] MEDS: FUROSEMIDE 40 MG/4 ML INJECTABLE VIAL IVPB SCH (10:26)
[2016-06-12] MEDS: FERROUS SO4 325 MG TABLET (FP) PO SCH (10:26)
[2016-06-12] MEDS: TAMSULOSIN HCL 0.4 MG CAP.ER.24H (FP) PO SCH (10:27)
[2016-06-12] MEDS: LISINOPRIL 5 MG TABLET (FP) PO SCH (10:27)
[2016-06-12] MEDS: POLYETHYLENE GLYCOL 3350 119 GM BTL PO SCH (10:27)
[2016-06-12] MEDS: PANTOPRAZOLE 40 MG TABLET (FP) PO SCH (10:28)
[2016-06-12] MEDS: FENTANYL PATCH WASTE TD PRN (12:56)
--- NOTE | 2016-06-12 13:17 | DS ---
Physical Examination Vital Signs: Vital Signs Temperature 97.5 F L 06/12/16 10:00 Pulse Rate 99 H 06/12/16 10:00 Respiratory Rate 18 06/12/16 10:00 Blood Pressure 104/73 06/12/16 10:00 O2 Sat by Pulse Oximetry (%) 100 06/11/16 21:00 Findings/Remarks: GENERAL: The patient is awake, alert, and fully oriented. HEAD: Normal with no signs of trauma. EYES: PERRL, extraocular movements intact, sclera anicteric, conjunctiva clear. No ptosis. LUNGS: Diminished breath sounds at the bases; no wheezing, no rhonchi HEART: Regular rate and rhythm, S1, S2 without murmur, rub or gallop. ABDOMEN: Soft, nontender, nondistended, normoactive bowel sounds, no guarding, no rebound EXTREMITIES: 2+ pulses, warm, well-perfused, no edema NEUROLOGICAL: Cranial nerves II through XII grossly intact. Normal speech, gait not observed. PSYCH: Agitated. Anxious. SKIN: Warm, dry, normal turgor, no rashes or lesions noted Labs: CBC, BMP 06/10/16 10:55 06/10/16 10:55 Discharge Summary Reason For Visit: CHRONIC ATRIAL FIBRILLATION Current Active Problems Abdominal pain (Acute) Acute hypoxemic respiratory failure (Acute) Back pain (Acute) Bilateral pleural effusion (Acute) CHF (congestive heart failure) (Acute) Chest pain (Acute) Chest pain at rest (Acute) Chronic atrial fibrillation (Acute) Elevated troponin (Acute) Melena (Acute) Pneumonia (Acute) Shortness of breath (Acute) Shoulder blade pain (Acute) Hospital Course: This is an 86 year old male with PMHx of prostate cancer s/p radiation therapy, colon cancer s/p colectomy, HTN, hyperlipidemia, moderate to severe MR, moderate , moderate PAH, non-obstructive CAD with cardiac cath x2, chronic diastolic heart failure, 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 Mishra in discussions with family regarding transfer to [facility] for PPM placement and possible ablation -- for transfer to [facility] today --per cardiology hold amlodipine, beta blockers --hold anti-coagulation due to anemia Nonobstructive CAD --two cardiac caths in past year, unobstructed coronaries --continue lisinopril, Lipitor, ASA Hypertension --continue lisinopril Hyperlipidemia --continue Lipitor 3) Oncology: Prostate cancer Colon cancer --patient refusing to take Enzalutamide as it causes severe GI distress --continue flomax Anxiety/agitation --continue pramipexole Severe pain --Continue Fentanyl patch Degenerative disc disease/compression fractures F/E/N Fluids: PO intake adequate Electrolytes: replete as indicated Nutrition: low sodium diet DVT prophylaxis: hold chemical prophylaxis due to bleeding issue The patient was transferred to [facility] for Bi-V PPM This discharge took 35 minutes to complete. Condition: Stable - Instructions Diet, Activity, Other Instructions: You are being transferred to [facility]. Please follow-up with your discharge instructions from that hospital upon discharge. Hold Eliquis and ASA 2/2 GI bleeding Referrals: Tyron Chavarria MD [Primary Care Provider] - Mohan Tamayo MD [Staff Physician] - Disposition: TRANSFER ACUTE CARE/OTHER HOSP - Home Medications Comprehensive Discharge Medication List: Ambulatory Orders Aspirin [ASA -] 81 mg PO DAILY 01/17/15 Atorvastatin Ca [Lipitor] 20 mg PO HS 01/17/15 Tamsulosin HCl [Flomax -] 0.4 mg PO DAILY 01/17/15 Lisinopril [Prinivil] 2.5 mg PO DAILY #30 tablet 01/18/15 Amlodipine Besylate 10 mg PO DAILY 05/08/16 Enzalutamide [Xtandi] 160 mg PO DAILY 05/08/16 Apixaban [Eliquis -] 5 mg PO BID tablet 05/16/16 Furosemide [Lasix] 40 mg PO DAILY #30 tablet 05/16/16 FENTANYL 12mcg PATCH [DURAGESIC 12mcg PATCH -] 12 mcg TD Q72H 06/06/16 This patient is new to me today: Yes Date on this admission: 06/12/16 Emergency Visit: Yes ED Registration Date: 06/06/16 Care time: The patient presented to the Emergency Department on the above date and was hospitalized for further evaluation of their emergent condition. Critical Care patient: No - Discharge Referral Referred to [facility] Med P.C.: No
--- NOTE | 2016-06-12 13:17 | PN ---
Progress Note, Physician History of Present Illness: seen and examined today in nad. no overnight events. no new complaints. - Current Medication List Current Medications: Active Medications Acetaminophen (Tylenol -) 325 mg PO Q6H PRN PRN Reason: PAIN Last Admin: 06/12/16 05:41 Dose: 325 mg Bupropion HCl (Wellbutrin Xl -) 150 mg PO DAILY [facility] Last Admin: 06/12/16 10:28 Dose: 150 mg Docusate Sodium (Colace -) 300 mg PO HS [facility] Last Admin: 06/11/16 21:07 Dose: 300 mg Fentanyl (Duragesic 25mcg Patch -) 1 patch TD Q72H [facility] Stop: 06/19/16 10:14 Last Admin: 06/12/16 12:11 Dose: 1 patch Ferrous Sulfate (Feosol -) 325 mg PO BID [facility] Last Admin: 06/12/16 10:26 Dose: 325 mg Furosemide (Lasix Injection -) 40 mg IVPB DAILY [facility] Last Admin: 06/12/16 10:26 Dose: 40 mg Lidocaine (Lidoderm Patch -) 1 patch TP DAILY [facility] Last Admin: 06/12/16 10:19 Dose: 1 patch Lisinopril (Prinivil) 2.5 mg PO DAILY [facility] Last Admin: 06/12/16 10:27 Dose: 2.5 mg Lorazepam (Ativan -) 0.5 mg PO Q8H PRN PRN Reason: ANXIETY Last Admin: 06/12/16 06:34 Dose: 0.5 mg Miscellaneous (Duragesic Patch Waste) 1 each TD PRN PRN PRN Reason: PAIN Oxycodone HCl (Roxicodone -) 5 mg PO Q6H PRN PRN Reason: PAIN Last Admin: 06/12/16 12:10 Dose: 5 mg Pantoprazole Sodium (Protonix -) 40 mg PO DAILY [facility] Last Admin: 06/12/16 10:28 Dose: 40 mg Polyethylene Glycol (Miralax (For Daily Use) -) 17 gm PO BID [facility] Last Admin: 06/12/16 10:27 Dose: 17 gm Pramipexole Dihydrochloride (Mirapex -) 0.25 mg PO TID [facility] Last Admin: 06/12/16 06:33 Dose: Not Given Tamsulosin HCl (Flomax -) 0.4 mg PO DAILY@0830 [facility] Last Admin: 06/12/16 10:27 Dose: 0.4 mg - Objective Vital Signs: Vital Signs Temperature 97.5 F L 06/12/16 10:00 Pulse Rate 99 H 06/12/16 10:00 Respiratory Rate 18 06/12/16 10:00 Blood Pressure 104/73 06/12/16 10:00 O2 Sat by Pulse Oximetry (%) 100 06/11/16 21:00 Constitutional: Yes: Well Nourished, No Distress, Anxious Eyes: Yes: WNL, Conjunctiva Clear, EOM Intact, PERRL HENT: Yes: WNL, Atraumatic, Normocephalic Neck: Yes: WNL, Supple, Trachea Midline Cardiovascular: Yes: Pulse Irregular, Murmur, S1, S2. No: Regular Rate and Rhythm, Bradycardia, Tachycardia, Bruit, JVD, Gallop, Rub, S3, S4, Varicosities Respiratory: Yes: Regular, Diminished. No: Rales, Rhonchi, Wheezes Gastrointestinal: Yes: WNL, Normal Bowel Sounds, Soft. No: Distention, Tenderness Musculoskeletal: Yes: WNL Extremities: Yes: WNL Edema: No Peripheral Pulses WNL: Yes Peripheral Pulses: Left Doralis Pedis: 2+, Right Dorsalis Pedis: 2+ Integumentary: Yes: WNL Neurological: Yes: Alert, Oriented Psychiatric: Yes: Alert, Oriented Labs: CBC, BMP 06/10/16 10:55 06/10/16 10:55 INR, PTT INR 1.43 (0.82-1.09) H 06/07/16 05:35 - ....Imaging Chest X-ray: Report Reviewed, Image Reviewed EKG: Report Reviewed, Image Reviewed Other: Report Reviewed, Image Reviewed Problem List - Problems (1) Abdominal pain Code(s): R10.9 - UNSPECIFIED ABDOMINAL PAIN Qualifiers: Abdominal location: generalized Qualified Code(s): R10.84 - Generalized abdominal pain (2) Acute hypoxemic respiratory failure Code(s): J96.01 - ACUTE RESPIRATORY FAILURE WITH HYPOXIA (3) Bilateral pleural effusion Code(s): J90 - PLEURAL EFFUSION, NOT ELSEWHERE CLASSIFIED (4) Chronic atrial fibrillation Code(s): I48.2 - CHRONIC ATRIAL FIBRILLATION (5) Shortness of breath Code(s): R06.02 - SHORTNESS OF BREATH (6) Prostate cancer Code(s): C61 - MALIGNANT NEOPLASM OF PROSTATE (7) CAD (coronary artery disease) Code(s): I25.10 - ATHSCL HEART DISEASE OF [place] CORONARY ARTERY W/O ANG PCTRS (8) HTN (hypertension) Code(s): I10 - ESSENTIAL (PRIMARY) HYPERTENSION (9) Chest wall pain Code(s): R07.89 - OTHER CHEST PAIN (10) Aortic stenosis Code(s): Q25.3 - SUPRAVALVULAR AORTIC STENOSIS (11) Hyperlipidemia Code(s): E78.5 - HYPERLIPIDEMIA, UNSPECIFIED (12) Mitral regurgitation and aortic stenosis Code(s): I08.0 - RHEUMATIC DISORDERS OF BOTH MITRAL AND AORTIC VALVES Assessment/Plan GI Bleed Anemia Acute onChronic systolic CHF, NICM Moderate / MR PAFib Chronic pain left flank, ribs REC: Anemia-GI bleed -Holding Nini -met with family at bedside today, discussed case extensively with them and the patient. they have decided that they wish for transfer to [facility] for EP evaluation, possible AV node ablation and BI-V PPM implantation to allow for better control of AF followed by endoscopy -transfer has been arranged for today Chronic Left Ribcage parasthesia/pain -unclear etiology, possible neuropathic -neurology consult appreciated -no sign of bone metastatis has been discovered as per Dr. Avalos discussion with the Hospitalist Acute on chronic CHF w/ LBBB, PAF, Non-obstx CAD -volume status improving -on discharge transition to a higher po lasix dose -once ppm implantated can start bblocker -plan for BI-V PPM which should benefit from AF standpoint (rate control) and CHF standpoint (re-synchronization) -close outpatient follow up
[2016-06-12 14:42] VITALS: BP 104/66; PULSE 100; TEMP 97.8
[2016-06-12] MEDS ORDERED: PRAMIPEXOLE DIHYDROCHLORIDE 0.5 MG TABLET PO SCH (18:00)
[2016-06-13] MEDS ORDERED: PRAMIPEXOLE DIHYDROCHLORIDE 0.25 MG TABLET PO SCH (08:30)
== END 2016-06-12 15:32 | disposition short-term general hospital (02) | DRG 811 ==
LOC: JER 14:43 → UNDOADMIN 18:19 → JERBED 18:19 → J4W 21:07 → J7W 06-07 19:25
PROVIDERS: ADMIT Internal Medicine; ATTEND Registered Nurse
PROC: 30233N1 Transfusion of Nonautologous Red Blood Cells into Peripheral Vein, Percutaneous Approach (ICD-10-PCS; principal; 2016-06-06)
DX: D62 Acute posthemorrhagic anemia (principal); I50.23 Acute on chronic systolic (congestive) heart failure; M48.52XA Collapsed vertebra, not elsewhere classified, cervical region, initial encounter for fracture; M48.56XA Collapsed vertebra, not elsewhere classified, lumbar region, initial encounter for fracture; K92.2 Gastrointestinal hemorrhage, unspecified; I42.8 Other cardiomyopathies; I48.0 Paroxysmal atrial fibrillation; Z79.01 Long term (current) use of anticoagulants; Z85.038 Personal history of other malignant neoplasm of large intestine; E78.5 Hyperlipidemia, unspecified; I25.10 Atherosclerotic heart disease of native coronary artery without angina pectoris; I11.0 Hypertensive heart disease with heart failure; C61 Malignant neoplasm of prostate; Z87.891 Personal history of nicotine dependence; I27.2 Other secondary pulmonary hypertension; I44.7 Left bundle-branch block, unspecified; I35.0 Nonrheumatic aortic (valve) stenosis; I34.0 Nonrheumatic mitral (valve) insufficiency; F32.9 Major depressive disorder, single episode, unspecified; G89.4 Chronic pain syndrome; F41.9 Anxiety disorder, unspecified
CPT/HCPCS: 36415; 36430; 71010-TC; 80048; 80053; 81003; 81015; 82272; 82607; 83540; 83550; 83735; 84100; 84153; 85025; 85610; 85651; 85730; 86140; 86850; 86900; 86901; 86922; 93005; 93010; 97116-GP; 97161-GP; 99282-25; P9038; P9058

== ENCOUNTER 2016-06-25 15:49 | Inpatient (IN) | payer BC, OTHER ==
--- NOTE | 2016-06-25 16:39 | PDOC ---
History of Present Illness - General History Source: Patient Exam Limitations: No Limitations - History of Present Illness Initial Comments: 06/25/16 18:13 The patient is a 86 year-old male with a PMH of pacemaker implantation 06/16/16 at [facility], HTN, HLD, CAD, systolic heart failure, degenerative disc disease , prostate cancer s/p RT presently on Enzalutamide, and colon cancer s/p colectomy who presents to the ED with back pain and BLE edema. Patient was discharged on Sunday after the pacemaker placement at [facility] 06/16/16. Patient was initially admitted to [facility] for anemia and was transferred out to [facility] for pacemaker placement. Patient reports chronic back pain and degenerative disc disease and notes that he did not have kyphoplasty done because he is high risk. Patient returns to the ED today because he is in pain and his home health aid failed to place his fentanyl patch the right way. He also notes that he has BLE edema since yesterday. PCP - Dr Chavarria Cardiology - Dr Mishra GI - Dr De La Paz <Eulalia Gill - Last Filed: 06/25/16 18:33> <Oscar Mark - Last Filed: 06/25/16 18:52> - General Chief Complaint: Edema Stated Complaint: SWOLLEN FEET Time Seen by Provider: 06/25/16 16:38 Past History <Eulalia Gill - Last Filed: 06/25/16 18:33> - Past Medical History Anemia: No Asthma: No Cancer: Yes (colon , prostate) Cardiac Disorders: Yes (on eliquis ? why) CVA: No COPD: No CHF: No Dementia: No Diabetes: No GI Disorders: No Disorders: No HTN: Yes Hypercholesterolemia: Yes Liver Disease: No Seizures: No Thyroid Disease: No - Surgical History Abdominal Surgery: Yes (colon resection) Appendectomy: No Cardiac Surgery: Yes (cath) Cholecystectomy: No Lung Surgery: No Neurologic Surgery: No Orthopedic Surgery: No - Immunization History Immunization Up to Date: Yes - Psycho/Social/Smoking Cessation Hx Anxiety: No Suicidal Ideation: No Smoking History: Never smoked Have you smoked in the past 12 months: No Number of Cigarettes Smoked Daily: 0 If you are a former smoker, when did you quit?: 20 years ago Information on smoking cessation initiated: No Hx Alcohol Use: No Drug/Substance Use Hx: No Substance Use Type: None Hx Substance Use Treatment: No <DeedeeOscar - Last Filed: 06/25/16 18:52> - Past Medical History Allergies/Adverse Reactions: Allergies Allergy/AdvReac Type Severity Reaction Status Date / Time No Known Allergies Allergy Verified 06/25/16 15:55 Home Medications: Ambulatory Orders Tamsulosin HCl [Flomax -] 0.4 mg PO DAILY 01/17/15 Enzalutamide [Xtandi] 160 mg PO DAILY 05/08/16 Bupropion HCl [Wellbutrin Xl -] 150 mg PO DAILY tab.sr.24h 06/12/16 Docusate Sodium [Colace -] 300 mg PO HS capsule 06/12/16 FENTANYL 25mcg PATCH [DURAGESIC 25mcg PATCH -] 1 patch TD Q72H patch.td72 MDD 25mcg 06/12/16 Ferrous Sulfate [Feosol] 325 mg PO BID ud 06/12/16 Furosemide Injection [Lasix Injection -] 40 mg IVPB DAILY vial 06/12/16 Lidocaine 5% Patch [Lidoderm -] 1 patch TP DAILY patch 06/12/16 Lisinopril [Prinivil] 2.5 mg PO DAILY tablet 06/12/16 Lorazepam [Ativan] 0.5 mg PO Q8H PRN #0 tablet MDD 1.5mg 06/12/16 Pantoprazole Sodium [Protonix -] 40 mg PO DAILY tablet.ec 06/12/16 Polyethylene Glycol 3350 [Miralax 119 gm Btl -] 17 gm PO BID bottle 06/12/16 Pramipexole Dihydrochloride [Mirapex -] 0.25 mg PO DAILY@0830 tablet 06/12/16 Pramipexole Dihydrochloride [Mirapex -] 0.5 mg PO DAILY@1800 tablet 06/12/16 Review of Systems - Review of Systems Able to Perform ROS?: Yes Comments:: 06/25/16 18:15 GENERAL/CONSTITUTIONAL: No fever or chills. No weakness. HEAD, EYES, EARS, NOSE AND THROAT: No change in vision. No ear pain or discharge. No sore throat. CARDIOVASCULAR: No chest pain or shortness of breath. RESPIRATORY: No cough, wheezing, or hemoptysis. GASTROINTESTINAL: No nausea, vomiting, diarrhea or constipation. GENITOURINARY: No dysuria, frequency, or change in urination. MUSCULOSKELETAL: +BLE edema. +back pain. No joint or muscle swelling or pain. No neck. SKIN: No rash NEUROLOGIC: No headache, vertigo, loss of consciousness, or change in strength/ sensation. ENDOCRINE: No increased thirst. No abnormal weight change. HEMATOLOGIC/LYMPHATIC: No anemia, easy bleeding, or history of blood clots. ALLERGIC/IMMUNOLOGIC: No hives or skin allergy. <Eulalia Gill - Last Filed: 06/25/16 18:33> *Physical Exam - Vital Signs Last Vital Signs Temp Pulse Resp BP Pulse Ox 97.8 F 92 H 18 130/63 97 06/25/16 15:50 06/25/16 15:50 06/25/16 15:50 06/25/16 15:50 06/25/16 15:50 - Physical Exam Comments: 06/25/16 18:17 GENERAL: Awake, alert, and fully oriented, in no acute distress HEAD: No signs of trauma EYES: PERRLA, EOMI, sclera anicteric, conjunctiva clear ENT: Auricles normal inspection, hearing grossly normal, nares patent, oropharynx clear without exudates. Moist mucosa NECK: Normal ROM, supple, no lymphadenopathy, JVD, or masses LUNGS: +rales bilaterally. Breath sounds equal. No wheezes, and no crackles HEART: Regular rate and rhythm, normal S1 and S2, no murmurs, rubs or gallops ABDOMEN: Soft, nontender, normoactive bowel sounds. No guarding, no rebound. No masses EXTREMITIES: + 3+ pitting edema BLE. Normal range of motion. No clubbing or cyanosis. No cords, erythema, or tenderness NEUROLOGICAL: Cranial nerves II through XII grossly intact. Normal speech. SKIN: Warm, Dry, normal turgor, no rashes or lesions noted. <Eulalia Gill - Last Filed: 06/25/16 18:33> - Vital Signs Last Vital Signs Temp Pulse Resp BP Pulse Ox 97.8 F 92 H 18 130/63 97 06/25/16 15:50 06/25/16 15:50 06/25/16 15:50 06/25/16 15:50 06/25/16 15:50 <Oscar Mark - Last Filed: 06/25/16 18:52> Heart Score/ECG Review #1 06/25/16 18:33 ECG was reviewed by Dr. Mark Impression: sinus rhythm with requent ventricular paced complexes Possible left atrial enlargement Left bundle branch block Vent rate 81 bpm <Eulalia Gill - Last Filed: 06/25/16 18:33> ED Treatment Course - LABORATORY CBC & Chemistry Diagram: 06/25/16 17:55 06/25/16 17:44 <Eulalia Gill - Last Filed: 06/25/16 18:33> - LABORATORY CBC & Chemistry Diagram: 06/25/16 17:55 06/25/16 17:44 <Oscar Mark - Last Filed: 06/25/16 18:52> Medical Decision Making - Medical Decision Making 06/25/16 17:00 86 year-old male with a PMH of pacemaker implantation 06/16/16 at [facility], HTN , HLD, CAD, systolic heart failure, degenerative disc disease, prostate cancer s /p RT presently on Enzalutamide, and colon cancer s/p colectomy who presents to the ED with back pain and BLE edema. Labs reviewed. Patient will be admitted to hospitalist after case discussed with Dr. Chavarria. 06/25/16 17:43 A call was placed to Dr. Chavarria. Awaiting a call back. 06/25/16 18:[address] Chavarria. Patient will be admitted to the hospitalist. <Eulalia Gill - Last Filed: 06/25/16 18:33> *DC/Admit/Observation/Transfer - Attestations Scribe Attestion: 06/25/16 18:17 Documentation prepared by YOUNG Mckenzie, acting as emergency medical technician for Oscar Mark MD/. <Eulalia Gill - Last Filed: 06/25/16 18:33> - Discharge Dispostion Admit: Yes - Attestations Physician Attestion: 06/25/16 16:39 I, Dr. Oscar Mark, attest that this document has been prepared under my direction and personally reviewed by me in its entirety. I further attest, that it accurately reflects all work, treatment, procedures and medical decision -making performed by me. <Oscar Mark - Last Filed: 06/25/16 18:52> Diagnosis at time of Disposition: Narcotic withdrawal CHF (congestive heart failure) Qualifiers: Congestive heart failure type: combined Congestive heart failure chronicity: acute on chronic Qualified Code(s): I50.43 - Acute on chronic combined systolic (congestive) and diastolic (congestive) heart failure - Discharge Dispostion Condition at time of disposition: Improved - Referrals Referrals: Tyron Chavarria MD [Primary Care Provider] -
[2016-06-25] MEDS ORDERED: ONDANSETRON 4 MG/2 ML VIAL IVPUSH ONE (17:30)
[2016-06-25] MEDS ORDERED: HYDROmorphone HCL CARPU-JECT 2 MG/1 ML DISP.SYRIN IVPUSH ONE (17:30)
[2016-06-25] MEDS ORDERED: HYDROmorphone HCL CARPU-JECT 2 MG/1 ML DISP.SYRIN ONE (18:01)
[2016-06-25] MEDS ORDERED: ONDANSETRON 4 MG/2 ML VIAL ONE (18:02)
[2016-06-25 18:05] LABS: BASOPHIL 0.5 % (0-2.0); EOSINOPHIL 0.1 % (0-4.5); MCH 25.4 pg (25.7-33.7); MCHC 31.7 g/dl (32.0-35.9); MEAN CELL VOLUME 80.2 fl (80-96); NEUTROPHILS 80.8 % (42.8-82.8); RDW 17.7 % (11.9-15.9); WHITE BLOOD COUNT 8.2 K/mm3 (4.0-10.0)
[2016-06-25 18:17] LABS: INR 1.24 (0.82-1.09); PROTHROMBIN TIME (PATIENT) 13.7 SEC (9.98-11.88)
[2016-06-25 18:20] LABS: ACTIVATED PTT 31.8 SECONDS (26.9-34.4)
[2016-06-25 18:29] LABS: MEAN PLT VOLUME 9.8 fl (7.5-11.1); PLATELET COMMENT2 NO CLUMPING NOTED; PLATELET COMMENT3 NO CLOTTING DETECTED; PLATELET COUNT 119 K/MM3 (134-434); PLATELET ESTIMATE SLT DECREASED (NORMAL)
[2016-06-25 18:35] LABS: ALBUMIN 3.2 g/dl (3.4-5.0); ANION GAP 9 (8-16); BILIRUBIN,TOTAL 0.8 mg/dL (0.2-1.0); CALCIUM 7.7 mg/dL (8.5-10.1); CO2 27 mmol/L (21-32); CREATININE 0.7 mg/dL (0.7-1.3); GLUCOSE,RANDOM 94 mg/dL (74-106); SGOT/AST 12 U/L (15-37); SGPT/ALT 16 U/L (12-78); TOT PROT 6.3 g/dl (6.4-8.2)
[2016-06-25 18:50] LABS: ALK PHOS 116 U/L (45-117); TROPONIN I 0.04 ng/ml (0.00-0.05)
--- NOTE | 2016-06-25 19:21 | PN ---
<Jamel Love - Last Filed: 06/25/16 19:21> Teaching Attending Note Name of Resident: Omar Russ ATTENDING PHYSICIAN STATEMENT I saw and evaluated the patient. I reviewed the resident's note and discussed the case with the resident. I agree with the resident's findings and plan as documented. SUBJECTIVE: OBJECTIVE: ASSESSMENT AND PLAN: <Iwona Patel - Last Filed: 06/25/16 21:26> Teaching Attending Note ATTENDING PHYSICIAN STATEMENT I saw and evaluated the patient. I reviewed the resident's note and discussed the case with the resident. I agree with the resident's findings and plan as documented. SUBJECTIVE: Patient is a 86 yo M with a PMHx of pacemaker implantation 06/16/[address] [facility] , HTN, HLD, CAD, systolic heart failure, degenerative disc disease, prostate cancer s/p RT presently on Enzalutamide, and colon cancer s/p colectomy presents with back pain due to his home health aid not placing is fentanyl patch correctly also associated with bilateral lower extremity edema since yesterday. Patient was discharged on Sunday after the pacemaker placement at [facility] 06/16/16. Patient was initially admitted to [facility] for anemia and was transferred out to [facility] for pacemaker placement. Patient returned today due to increased pain and BLE edema that began today. OBJECTIVE: Last Vital Signs Temp Pulse Resp BP Pulse Ox 97.8 F 92 H 18 130/63 97 06/25/16 15:50 06/25/16 15:50 06/25/16 15:50 06/25/16 15:50 06/25/16 15:50 GENERAL: Awake, alert, and fully oriented, in no acute distress HEENT: Atraumatic. PERRLA, EOMI. Moist mucosa. No JVD LUNGS: No distress, speaks full sentences, Decreased breath sounds at bases HEART: Regular rate and rhythm, normal S1 and S2, 4/6 systolic ejection murmur, rubs or gallops, peripheral pulses normal and equal bilaterally. ABDOMEN: Soft, nontender, normoactive bowel sounds. No guarding, no rebound. No masses EXTREMITIES: Normal inspection, Normal range of motion, 3+ pitting edema bilateral LE equal. No clubbing or cyanosis. NEUROLOGICAL: Cranial nerves II through XII grossly intact. Normal speech, normal gait, no focal sensorimotor deficits SKIN: Warm, Dry, normal turgor, no rashes or lesions noted. CBCD WBC 8.2 K/mm3 (4.0-10.0) 06/25/16 17:55 RBC 3.92 M/mm3 (4.00-5.60) L D 06/25/16 17:55 Hgb 9.9 GM/dL (11.7-16.9) L D 06/25/16 17:55 Hct 31.4 % (35.4-49) L D 06/25/16 17:55 MCV 80.2 fl (80-96) 06/25/16 17:55 MCHC 31.7 g/dl (32.0-35.9) L 06/25/16 17:55 RDW 17.7 % (11.9-15.9) H D 06/25/16 17:55 Plt Count 119 K/MM3 (134-434) L D 06/25/16 17:55 MPV 9.8 fl (7.5-11.1) 06/25/16 17:55 CMP Sodium 137 mmol/L (136-145) 06/25/16 17:44 Potassium 4.2 mmol/L (3.5-5.1) 06/25/16 17:44 Chloride 101 mmol/L (98-107) 06/25/16 17:44 Carbon Dioxide 27 mmol/L (21-32) 06/25/16 17:44 Anion Gap 9 (8-16) 06/25/16 17:44 BUN 14 mg/dL (7-18) D 06/25/16 17:44 Creatinine 0.7 mg/dL (0.7-1.3) 06/25/16 17:44 Creat Clearance w eGFR > 60 (>60) 06/25/16 17:44 Calcium 7.7 mg/dL (8.5-10.1) L 06/25/16 17:44 Total Bilirubin 0.8 mg/dL (0.2-1.0) D 06/25/16 17:44 AST 12 U/L (15-37) L 06/25/16 17:44 ALT 16 U/L (12-78) 06/25/16 17:44 Alkaline Phosphatase 116 U/L (45-117) 06/25/16 17:44 Total Protein 6.3 g/dl (6.4-8.2) L 06/25/16 17:44 Albumin 3.2 g/dl (3.4-5.0) L 06/25/16 17:44 Chest X-Ray Impression: Mild congestion ASSESSMENT AND PLAN: Patient is a 86 yo M with a PMHx of pacemaker implantation 06/16/[address] [facility] , HTN, HLD, CAD, systolic heart failure, degenerative disc disease, prostate cancer s/p RT who presents with lower back pain and lower extremity edema. 1.) Chronic lower back pain -Compression fractures -Fentanyl patch 25 ug 2.) Acute on chronic systolic heart failure -Echo : EF 47 with moderate to severe MR, moderate TR, moderate -Lasix 40 IV -Strict Is and Os -Daily weights -Na restricted diet -Continue home meds: HÉCTOR and troperol in AM 3.) Bilateral LE edema -STAT duplex 4.) Normocytic anemia -Had prior transfusion on last hospitalization -Awaiting outpatient endoscopy/colonoscopy. 5.) HTN -Continue home meds 6.) HLD -Continue Lipitor 7.) DVt ppx -Hold for now due to prior GI bleed -SCDs -Admit to med Surg Documentation prepared by Iwona Patel, acting as medical imaging tech for Jamel Love D.O.
[2016-06-25] MEDS ORDERED: ONDANSETRON 4 MG/2 ML VIAL IVPB PRN (20:39)
[2016-06-25] MEDS ORDERED: ALBUTEROL SO4 0.083% IH SOL 2.5 MG/3 ML VIAL.NEB. NEB PRN (20:39)
[2016-06-25] MEDS ORDERED: FUROSEMIDE 40 MG/4 ML INJECTABLE VIAL IVPUSH ONE (20:50)
--- NOTE | 2016-06-25 20:55 | HP ---
CHIEF COMPLAINT:inintractable pain PCP:Dr Chavarria HISTORY OF PRESENT ILLNESS: 86 yo M with significant PMHx s/p pacemaker implantation 06/16/16 at [facility] , who presents to the ED with back pain and BLE edema.Admitted to [facility] for anemia and was transferred out to [facility] for pacemaker placement.Discharged on 06/23/16.Degenerative disc disease but not surgical candidate. Patient presents for intractabe pain because fentanyl patch hadn't been changed. He also notes that he has BLE edema since yesterday. Denies CP, OSCAR, SOB, abd. pain , nausea and vomiting. ER course was notable for: (1)EKG shows NSR with 1st degree block that is old. (2)LE US (-) for DVT (3)Elevated BNP - 40 I V lasix given Recent Travel: Denies PAST MEDICAL HISTORY: HTN, HLD, CAD, SHF, degenerative disc disease, prostate cancer s/p RT , and colon cancer s/p colectomy PAST SURGICAL HISTORY: PPM, Colectomy, cardiac cath. Social History: Smoking: Denies quit 20 yrs ago Alcohol: denies Drugs: denies Family History: Allergies No Known Allergies Allergy (Verified 06/25/16 15:55) HOME MEDICATIONS: Home Medications Medication Instructions Recorded Tamsulosin HCl [Flomax -] 0.4 mg PO DAILY 01/17/15 FENTANYL 25mcg PATCH [DURAGESIC 1 patch TD Q72H patch.td72 MDD 06/12/16 25mcg PATCH -] 25mcg Lidocaine 5% Patch [Lidoderm -] 1 patch TP DAILY patch 06/12/16 Lisinopril [Prinivil] 2.5 mg PO DAILY tablet 06/12/16 Lorazepam [Ativan] 0.5 mg PO Q8H PRN #0 tablet MDD 06/12/16 1.5mg Pantoprazole Sodium [Protonix -] 40 mg PO DAILY tablet.ec 06/12/16 Apixaban [Eliquis] 2.5 mg PO BID 06/25/16 Atorvastatin Ca [Lipitor] 20 mg PO HS 06/25/16 Calcium Carbonate [Calcium] 1,250 mg PO DAILY 06/25/16 Cholecalciferol (Vitamin D3) 2,000 unit PO DAILY 06/25/16 [D-2000] Furosemide [Lasix] 20 mg PO DAILY 06/25/16 Megestrol Acetate Oral Susp 400 mg PO DAILY 06/25/16 [Megace Liquid -] Metoprolol Succinate [Toprol Xl -] 25 mg PO DAILY 06/25/16 Multivitamins [Tab-A-Vit -] 1 tab PO DAILY 06/25/16 Potassium Chloride [Klor-Con] 20 meq PO DAILY 06/25/16 Trazodone HCl 50 mg PO HS 06/25/16 REVIEW OF SYSTEMS CONSTITUTIONAL: Absent: fever, chills, diaphoresis, generalized weakness, malaise, loss of appetite, weight change HEENT: Absent: rhinorrhea, nasal congestion, throat pain, throat swelling, difficulty swallowing, mouth swelling, ear pain, eye pain, visual changes CARDIOVASCULAR: (+)peripheral edema Absent: chest pain, syncope, palpitations, irregular heart rate, lightheadedness , RESPIRATORY: Absent: cough, shortness of breath, dyspnea with exertion, orthopnea, wheezing, stridor, hemoptysis GASTROINTESTINAL: Absent: abdominal pain, abdominal distension, nausea, vomiting, diarrhea, constipation, melena, hematochezia GENITOURINARY: Absent: dysuria, frequency, urgency, hesitancy, hematuria, flank pain, genital pain MUSCULOSKELETAL: (+) back pain Absent: myalgia, arthralgia, joint swelling,, neck pain SKIN:(+) rash coccyx region Absent: rash, itching, pallor HEMATOLOGIC/IMMUNOLOGIC: Absent: easy bleeding, easy bruising, lymphadenopathy, frequent infections ENDOCRINE: Absent: unexplained weight gain, unexplained weight loss, heat intolerance, cold intolerance NEUROLOGIC: Absent: headache, focal weakness or paresthesias, dizziness, unsteady gait, seizure, mental status changes, bladder or bowel incontinence PSYCHIATRIC: Absent: anxiety, depression, suicidal or homicidal ideation, hallucinations. PHYSICAL EXAMINATION GENERAL: Awake, alert, and fully oriented, in no acute distress. HEAD: Normal with no signs of trauma. EYES: Pupils equal, round and reactive to light, extraocular movements intact, sclera anicteric, conjunctiva clear. EARS, NOSE, THROAT: Ears normal, nares patent, oropharynx clear without exudates. Moist mucous membranes. NECK: Normal range of motion, supple without lymphadenopathy, JVD, or masses. LUNGS: Bilateral rhonchi, equal breath sounds. no wheezing HEART: Regular rate and rhythm, normal S1 and S2,2/6 systolic ejection mumur ABDOMEN: Soft, nontender, not distended, normoactive bowel sounds, no guarding, no rebound, no masses. Abdominal surgical scar from pubis to umbillicus. No hepatomegaly or splenomegaly. MUSCULOSKELETAL: Normal range of motion at all joints. No bony deformities or tenderness. No CVA tenderness. UPPER EXTREMITIES: 2+ pulses, warm, well-perfused. No cyanosis. No clubbing. . No peripheral edema. LOWER EXTREMITIES: 2+ pulses, warm, well-perfused. No calf tenderness. 2+ pitting edema. NEUROLOGICAL: Cranial nerves II-XII intact. Normal speech. gait not observed. PSYCHIATRIC: Cooperative. Good eye contact. Appropriate mood and affect. SKIN: Warm, dry, normal turgor, red rash noted on coccyx Laboratory Results - last 24 hr 06/25/16 06/25/16 06/25/16 17:44 17:44 17:55 WBC 8.2 RBC 3.92 L D Hgb 9.9 L D Hct 31.4 L D MCV 80.2 MCHC 31.7 L RDW 17.7 H D Plt Count 119 L D MPV 9.8 Neutrophils % 80.8 Lymphocytes % 7.6 L D Monocytes % 11.0 H Eosinophils % 0.1 D Basophils % 0.5 Differential Comment Slide scanned Platelet Estimate Slt decreased Platelet Comment No clumping noted INR 1.24 H PTT (Actin FS) 31.8 Sodium 137 Potassium 4.2 Chloride 101 Carbon Dioxide 27 Anion Gap 9 BUN 14 D Creatinine 0.7 Creat Clearance w eGFR > 60 Random Glucose 94 D Calcium 7.7 L Total Bilirubin 0.8 D AST 12 L ALT 16 Alkaline Phosphatase 116 Creatine Kinase 37 L Troponin I 0.04 D B-Natriuretic Peptide 50283.52 H Total Protein 6.3 L Albumin 3.2 L ASSESSMENT/PLAN: 86 yo M with significant PMHx HTN, HLD, CAD, Syst.HF, degenerative disc disease , prostate cancer s/p RT , and colon cancer s/p colectomy admitted for intractable pain and acute on chronic systolic HF. Problem List - Problem (1) Acute on chronic systolic (congestive) heart failure Assessment/Plan: * Echo : EF 47 with moderate to severe MR, moderate TR, moderate * Lasix 40mg IV push in ED- restart daily 20mg PO dailly * Daily weights. * Strict I/O's * Sodium restricted diet. * Continue * Lisinopril (Prinivil) 2.5 mg PO DAILY * Metoprolol Succinate (Toprol Xl -) 25 mg PO DAILY * Potassium Chloride (K-Dur -) 20 meq PO DAILY (2) Chronic lower back pain Assessment/Plan: * compression fractures * Pain control - restart Fentanyl patch 25mg TOP (3) Bilateral lower extremity edema Assessment/Plan: * LE duplex negative for DVT * Most likely CHF * continue lasix and monitor urine output. (4) Normocytic anemia Assessment/Plan: * prior transfusion last hospitalization May 2016 * outpatient endoscopy/colonoscopy pending * Anticoagulation held * seen by Dr. De La Paz in past. (5) HTN (hypertension) Assessment/Plan: * Continue * Furosemide (Lasix -) 20 mg PO DAILY * Lisinopril (Prinivil) 2.5 mg PO DAILY * Metoprolol Succinate (Toprol Xl -) 25 mg PO DAILY (6) Hyperlipidemia Assessment/Plan: * Continue Lipitor HS (7) DVT prophylaxis Assessment/Plan: * AC held for recent GIB * Bilat SCD. Visit type - Emergency Visit Emergency Visit: Yes ED Registration Date: 06/25/16 Care time: The patient presented to the Emergency Department on the above date and was hospitalized for further evaluation of their emergent condition. - New Patient This patient is new to me today: Yes Date on this admission: 06/27/16 - Critical Care Critical Care patient: No
[2016-06-25] MEDS ORDERED: FUROSEMIDE 40 MG/4 ML INJECTABLE VIAL ONE (21:18)
[2016-06-25] MEDS ORDERED: fentaNYL 25mcg/hr PATCH.TD72 ONE (21:19)
[2016-06-25] MEDS: fentaNYL 25mcg/hr PATCH.TD72 TD SCH (21:21)
[2016-06-25] MEDS ORDERED: HEPARIN NA (PORCINE) 5,000 UNITS/ML 1ML VIAL SQ SCH (22:00)
[2016-06-25 22:29] LABS: URINE APPEARANCE CLEAR; URINE BILIRUBIN NEGATIVE (NEGATIVE); URINE BLOOD NEGATIVE (NEGATIVE); URINE COLOR LTYELLOW; URINE GLUCOSE (UA) NEGATIVE (NEGATIVE); URINE KETONE NEGATIVE (NEGATIVE); URINE LEUK ESTERASE NEGATIVE (NEGATIVE); URINE NITRITE NEGATIVE (NEGATIVE); URINE PROTEIN NEGATIVE (NEGATIVE); URINE UROBILINOGEN NEGATIVE E.U./dl (0.2-1.0)
[2016-06-25] MEDS: ATORVASTATIN CA 20 MG TABLET (FP) PO SCH (23:29)
[2016-06-25] MEDS: traZODone HCL 50 MG TABLET (FP) PO SCH (23:30)
[2016-06-25 23:46] VITALS: BMI 25.4
[2016-06-25] MEDS: ALBUTEROL SO4 2.5/IPRATROPIUM 0.5 INH SOL 3 ML VIAL.NEB. NEB SCH (23:50)
[2016-06-26] MEDS: ALBUTEROL SO4 2.5/IPRATROPIUM 0.5 INH SOL 3 ML VIAL.NEB. NEB SCH ×3 (07:20→21:56)
[2016-06-26 08:37] LABS: BASOPHIL 0.6 % (0-2.0); EOSINOPHIL 0.7 % (0-4.5); MCH 25.4 pg (25.7-33.7); MCHC 31.5 g/dl (32.0-35.9); MEAN CELL VOLUME 80.7 fl (80-96); MEAN PLT VOLUME 10.2 fl (7.5-11.1); NEUTROPHILS 75.9 % (42.8-82.8); PLATELET COUNT 98 K/MM3 (134-434); RDW 18.2 % (11.9-15.9); WHITE BLOOD COUNT 6.3 K/mm3 (4.0-10.0)
[2016-06-26 09:20] LABS: ALBUMIN 2.8 g/dl (3.4-5.0); ALK PHOS 94 U/L (45-117); ANION GAP 8 (8-16); BILIRUBIN,TOTAL 0.8 mg/dL (0.2-1.0); CALCIUM 7.4 mg/dL (8.5-10.1); CO2 31 mmol/L (21-32); CREATININE 0.7 mg/dL (0.7-1.3); GLUCOSE,RANDOM 83 mg/dL (74-106); MAGNESIUM 2.5 mg/dL (1.8-2.4); PHOSPHOROUS 2.2 mg/dL (2.5-4.9); SGOT/AST 9 U/L (15-37); SGPT/ALT 10 U/L (12-78); TOT PROT 5.5 g/dl (6.4-8.2)
[2016-06-26] MEDS: TAMSULOSIN HCL 0.4 MG CAP.ER.24H (FP) PO SCH (09:55)
[2016-06-26] MEDS: CALCIUM (OYSTER SHELL) 500 MG TABLET (FP) PO SCH (09:55)
[2016-06-26] MEDS: POTASSIUM CHLORIDE TABS 20 MEQ TABLET.ER (FP) PO SCH (09:55)
[2016-06-26] MEDS: MULTIVITAMINS (DAILY MVI) TABLET (FP) PO SCH (09:55)
[2016-06-26] MEDS: CHOLECALCIFEROL (VITAMIN D3) 1,000 UNIT TABLET (FP) PO SCH (09:56)
[2016-06-26] MEDS: PANTOPRAZOLE 40 MG TABLET (FP) PO SCH (09:56)
[2016-06-26] MEDS: LISINOPRIL 5 MG TABLET (FP) PO SCH (09:56)
[2016-06-26] MEDS: LIDOCAINE 5% TOPICAL PATCH TP SCH (09:57)
[2016-06-26] MEDS: METOPROLOL SUCCINATE 25 MG TAB.SR.24H (FP) PO SCH (09:57)
[2016-06-26] MEDS: MEGESTROL ACETATE 400 MG/10 ML UNIT DOSE CUP PO SCH (09:57)
[2016-06-26] MEDS ORDERED: FUROSEMIDE 20 MG TABLET (FP) PO SCH (10:00)
[2016-06-26 15:13] LABS: TROPONIN I 0.03 ng/ml (0.00-0.05)
[2016-06-26] MEDS ORDERED: FUROSEMIDE 40 MG/4 ML INJECTABLE VIAL IVPUSH STA (15:48)
--- NOTE | 2016-06-26 16:20 | EKG ---
Test Reason : Blood Pressure : / mmHG Vent. Rate : 081 BPM Atrial Rate : 081 BPM P-R Int : 202 ms QRS Dur : 158 ms QT Int : 436 ms P-R-T Axes : 010 -21 148 degrees QTc Int : 506 ms Suspect unspecified pacemaker failure SINUS RHYTHM WITH FREQUENT ventricular-paced complexes ABNORMAL ECG WHEN COMPARED WITH ECG OF 06-JUN-2016 15:23, ELECTRONIC VENTRICULAR PACEMAKER Confirmed by TAMERA VALDOVINOS MD ([id number]) on 06/26/2016 4:20:41 PM Referred By: Confirmed By:TAMERA VALDOVINOS MD
--- NOTE | 2016-06-26 16:50 | PN ---
Physical Exam: SUBJECTIVE: Patient seen and examined oob to chair. Pain is well-managed with fentanyl patch and lidoderm patches. Eating better. Animated, conversational, smiling. OBJECTIVE: Vital Signs Period Temp Pulse Resp BP Sys/Sanchez Pulse Ox Last 24 Hr 97.8 F-98.6 F 71-89 18-22 107-128/41-62 96-99 GENERAL: The patient is awake, alert, and fully oriented, in no acute distress. HEAD: Normal with no signs of trauma. EYES: PERRL, extraocular movements intact, sclera anicteric, conjunctiva clear. No ptosis. LUNGS: Bibasilar crackles, no wheezes, no accessory muscle use. HEART: Regular rate and rhythm, S1, S2 without murmur, rub or gallop. ABDOMEN: Soft, nontender, nondistended, normoactive bowel sounds, no guarding, no rebound EXTREMITIES: 2+ pulses, warm, well-perfused, 2+ edema. NEUROLOGICAL: Cranial nerves II through XII grossly intact. Normal speech, gait not observed. Laboratory Results - last 24 hr 06/25/16 06/26/16 06/26/16 19:03 05:40 05:40 WBC 6.3 RBC 3.56 L Hgb 9.0 L Hct 28.7 L MCV 80.7 MCHC 31.5 L RDW 18.2 H Plt Count 98 L MPV 10.2 Neutrophils % 75.9 Lymphocytes % 10.4 D Monocytes % 12.4 H Eosinophils % 0.7 D Basophils % 0.6 Sodium 141 Potassium 4.7 Chloride 102 Carbon Dioxide 31 Anion Gap 8 BUN 15 Creatinine 0.7 Creat Clearance w eGFR > 60 Random Glucose 83 Calcium 7.4 L Phosphorus 2.2 L Magnesium 2.5 H Total Bilirubin 0.8 AST 9 L D ALT 10 L D Alkaline Phosphatase 94 Troponin I 0.03 Total Protein 5.5 L Albumin 2.8 L Urine Color Ltyellow Urine Appearance Clear Urine pH 6.0 Ur Specific Clyde 1.012 Urine Protein Negative Urine Glucose (UA) Negative Urine Ketones Negative Urine Blood Negative Urine Nitrite Negative Urine Bilirubin Negative Urine Urobilinogen Negative Ur Leukocyte Esterase Negative Active Medications Generic Name Dose Route Start Last Admin Trade Name Freq PRN Reason Stop Dose Admin Albuterol Sulfate 1 amp 06/25/16 20:39 Ventolin 0.083% Nebulizer Soln - NEB Q4H PRN SHORT OF BREATH/WHEEZING Albuterol/Ipratropium 1 amp 06/25/16 22:00 06/26/16 14:15 Duoneb - NEB 1 amp TIDR THALIA Administration Atorvastatin Calcium 20 mg 06/25/16 22:00 06/25/16 23:29 Lipitor - PO 20 mg HS THALIA Administration Calcium Carbonate 1,250 mg 06/26/16 10:00 06/26/16 09:55 Os-Abner 500mg - PO 1,250 mg DAILY THALIA Administration Cholecalciferol 2,000 unit 06/26/16 10:00 06/26/16 09:56 Vitamin D3 - PO 2,000 unit DAILY THALIA Administration Fentanyl 1 patch 06/25/16 20:45 06/25/16 21:21 Duragesic 25mcg Patch - TD 1 patch Q72H THALIA Administration Furosemide 20 mg 06/26/16 10:00 06/26/16 09:57 Lasix - PO 20 mg DAILY THALIA Administration Furosemide 40 mg 06/27/16 10:00 Lasix Injection - IVPUSH DAILY THALIA Lidocaine 1 patch 06/26/16 10:00 06/26/16 09:57 Lidoderm Patch - TP 1 patch DAILY THALIA Administration Lisinopril 2.5 mg 06/26/16 10:00 06/26/16 09:56 Prinivil PO 2.5 mg DAILY THALIA Administration Lorazepam 0.5 mg 06/25/16 20:43 Ativan - PO Q8H PRN ANXIETY Megestrol Acetate 400 mg 06/26/16 10:00 06/26/16 09:57 Megace Oral Suspension - PO 400 mg DAILY THALIA Administration Metoprolol Succinate 25 mg 06/26/16 10:00 06/26/16 09:57 Toprol Xl - PO 25 mg DAILY THALIA Administration Miscellaneous 1 each 06/25/16 20:53 Duragesic Patch Waste TD PRN PRN Multivitamins/Minerals/Vitamin C 1 tab 06/26/16 10:00 06/26/16 09:55 Tab-A-Vit - PO 1 tab DAILY THALIA Administration Nystatin 1 applic 06/26/16 21:59 Mycostatin Cream - TP Q6HPO THALIA Ondansetron HCl 4 mg 06/25/16 20:39 Zofran Injection IVPB Q6H PRN NAUSEA Pantoprazole Sodium 40 mg 06/26/16 10:00 06/26/16 09:56 Protonix - PO 40 mg DAILY THALIA Administration Potassium Chloride 20 meq 06/26/16 10:00 06/26/16 09:55 K-Dur - PO 20 meq DAILY THALIA Administration Tamsulosin HCl 0.4 mg 06/26/16 10:00 06/26/16 09:55 Flomax - PO 0.4 mg DAILY THALIA Administration Trazodone HCl 50 mg 06/25/16 22:00 06/25/16 23:30 Desyrel - PO 50 mg HS THALIA Administration ASSESSMENT/PLAN 86 year-old man with a PMH of HTN, HLD, nonobstructive CAD, systolic heart failure, paroxysmal afib, degenerative disc disease, prostate cancer s/p RT, colon cancer s/p colectomy. Recently hospitalized at [facility] 06/06-->06/12 for acute blood loss anemia and pain management. Patient was transferred to [facility] on 06/12 where he received a PPM. He also underwent endoscopy and colonoscopy which found no evidence of bleeding and patient was started on Eliquis. He was discharged from [facility] on 06/23. He was readmitted to [facility] on 06/25 for bilateral lower extremity edema and pain managment. Acute on chronic systolic heart failure s/p PPM Paroxysmal afib Volume overload --[employer] Model #[id number], Serial #[id number], implanted 06/16/16, Dr. Florian Hickman --on this admission, ECG paced rhythm @ 81bpm --signs of volume overload: congestion on CXR and b/l LE edema --IV Lasix 40mg daily --continue Eliquis Nonobstructive CAD --two cardiac caths in past year, unobstructed coronaries --continue lisinopril, Toprol XL, Lipitor Gastritis --per records from [facility]---> --EGD performed and no bleeding found. Duodenitis with scattered erosions , gastritis, submucosal gastric nodules --Colonoscopy found mild diverticulosis, nonbleeding rectal AVM, and internal hemorrhoids --continue protonix Hypertension --BP well-controlled --continue lisinopril, Toprol XL, lasix Hyperlipidemia --continue Lipitor Prostate cancer Colon cancer --patient refusing to take Enzalutamide as it causes severe GI distress --continue flomax Anxiety/agitation --previously on mirapex but now appears to be d/c'd; will check with primary Severe pain --placed on duragesic patch 25mcg with good pain relief and without over- narcotizing effect --lidocaine patch to left ribs Degenerative disc disease/compression fractures F/E/N Fluids: PO intake adequate Electrolytes: replete as indicated Nutrition: low sodium diet DVT prophylaxis: on Eliquis Dispo: plan to discharge tomorrow. Will need coordination with home services: aides, visiting nurse, PT. DNR/DNI. Visit type - Emergency Visit Emergency Visit: Yes ED Registration Date: 06/25/16 Care time: The patient presented to the Emergency Department on the above date and was hospitalized for further evaluation of their emergent condition. - New Patient This patient is new to me today: Yes Date on this admission: 06/26/16 - Critical Care Critical Care patient: No
[2016-06-26] MEDS: ATORVASTATIN CA 20 MG TABLET (FP) PO SCH (21:41)
[2016-06-26] MEDS: APIXABAN 2.5 MG TABLET PO SCH (21:42)
[2016-06-26] MEDS: traZODone HCL 50 MG TABLET (FP) PO SCH (21:42)
[2016-06-27] MEDS: NYSTATIN 100,000 UNIT/GM TOPICAL CREAM 15 GM TUBE TP SCH ×6 (03:03→23:33)
[2016-06-27] MEDS: ALBUTEROL SO4 2.5/IPRATROPIUM 0.5 INH SOL 3 ML VIAL.NEB. NEB SCH ×2 (06:59→22:45)
[2016-06-27 07:22] LABS: BASOPHIL 0.8 % (0-2.0); EOSINOPHIL 1.4 % (0-4.5); MCH 25.7 pg (25.7-33.7); MCHC 32.3 g/dl (32.0-35.9); MEAN CELL VOLUME 79.5 fl (80-96); MEAN PLT VOLUME 10.2 fl (7.5-11.1); NEUTROPHILS 71.6 % (42.8-82.8); PLATELET COUNT 99 K/MM3 (134-434); RDW 18.1 % (11.9-15.9); WHITE BLOOD COUNT 5.4 K/mm3 (4.0-10.0)
[2016-06-27 08:29] LABS: ALBUMIN 2.9 g/dl (3.4-5.0); ALK PHOS 98 U/L (45-117); ANION GAP 8 (8-16); BILIRUBIN,TOTAL 0.8 mg/dL (0.2-1.0); CALCIUM 7.1 mg/dL (8.5-10.1); CO2 30 mmol/L (21-32); CREATININE 0.6 mg/dL (0.7-1.3); GLUCOSE,RANDOM 101 mg/dL (74-106); MAGNESIUM 2.2 mg/dL (1.8-2.4); SGOT/AST 12 U/L (15-37); SGPT/ALT 12 U/L (12-78); TOT PROT 5.9 g/dl (6.4-8.2)
[2016-06-27] MEDS: FUROSEMIDE 40 MG/4 ML INJECTABLE VIAL IVPUSH SCH (09:54)
[2016-06-27] MEDS: LIDOCAINE 5% TOPICAL PATCH TP SCH (09:54)
[2016-06-27] MEDS: CALCIUM (OYSTER SHELL) 500 MG TABLET (FP) PO SCH (09:55)
[2016-06-27] MEDS: PANTOPRAZOLE 40 MG TABLET (FP) PO SCH (09:55)
[2016-06-27] MEDS: POTASSIUM CHLORIDE TABS 20 MEQ TABLET.ER (FP) PO SCH (09:55)
[2016-06-27] MEDS: METOPROLOL SUCCINATE 25 MG TAB.SR.24H (FP) PO SCH (09:57)
[2016-06-27] MEDS: LISINOPRIL 5 MG TABLET (FP) PO SCH (09:57)
[2016-06-27] MEDS: TAMSULOSIN HCL 0.4 MG CAP.ER.24H (FP) PO SCH (09:58)
[2016-06-27] MEDS: MULTIVITAMINS (DAILY MVI) TABLET (FP) PO SCH (09:58)
[2016-06-27] MEDS: CHOLECALCIFEROL (VITAMIN D3) 1,000 UNIT TABLET (FP) PO SCH (09:58)
[2016-06-27] MEDS: APIXABAN 2.5 MG TABLET PO SCH ×2 (09:59→21:30)
[2016-06-27] MEDS: MEGESTROL ACETATE 400 MG/10 ML UNIT DOSE CUP PO SCH (09:59)
--- NOTE | 2016-06-27 14:02 | PN ---
Physical Exam: SUBJECTIVE: Patient seen and examined oob to chair. Complaining of feeling overall weak but did walk 65 feet with PT today. No complaint of pain. OBJECTIVE: Vital Signs Period Temp Pulse Resp BP Sys/Sanchez Pulse Ox Last 24 Hr 98.3 F-99.2 F 75-110 16-20 107-132/41-58 93-99 GENERAL: The patient is awake, alert, and fully oriented, in no acute distress. HEAD: Normal with no signs of trauma. EYES: PERRL, extraocular movements intact, sclera anicteric, conjunctiva clear. No ptosis. LUNGS: Bibasilar crackles, no wheezes, no accessory muscle use. HEART: Regular rate and rhythm, S1, S2 without murmur, rub or gallop. ABDOMEN: Soft, nontender, nondistended, normoactive bowel sounds, no guarding, no rebound EXTREMITIES: 2+ pulses, warm, well-perfused, 2+ edema. NEUROLOGICAL: Cranial nerves II through XII grossly intact. Normal speech, gait not observed. Laboratory Results - last 24 hr 06/26/16 06/27/16 06/27/16 05:40 05:35 08:00 WBC 5.4 RBC 3.55 L Hgb 9.1 L Hct 28.2 L MCV 79.5 L MCHC 32.3 RDW 18.1 H Plt Count 99 L MPV 10.2 Neutrophils % 71.6 Lymphocytes % 14.3 D Monocytes % 11.9 H Eosinophils % 1.4 D Basophils % 0.8 Sodium 138 Potassium 4.0 Chloride 100 Carbon Dioxide 30 Anion Gap 8 BUN 17 Creatinine 0.6 L Creat Clearance w eGFR > 60 Random Glucose 101 D Calcium 7.1 L Magnesium 2.2 Total Bilirubin 0.8 AST 12 L D ALT 12 Alkaline Phosphatase 98 Troponin I 0.03 Total Protein 5.9 L Albumin 2.9 L Active Medications Generic Name Dose Route Start Last Admin Trade Name Freq PRN Reason Stop Dose Admin Albuterol Sulfate 1 amp 06/25/16 20:39 Ventolin 0.083% Nebulizer Soln - NEB Q4H PRN SHORT OF BREATH/WHEEZING Albuterol/Ipratropium 1 amp 06/25/16 22:00 06/27/16 06:59 Duoneb - NEB 1 amp TIDR THALIA Administration Apixaban 2.5 mg 06/26/16 22:00 06/27/16 09:59 Eliquis - PO 2.5 mg BID THALIA Administration Atorvastatin Calcium 20 mg 06/25/16 22:00 06/26/16 21:41 Lipitor - PO 20 mg HS THALIA Administration Calcium Carbonate 1,250 mg 06/26/16 10:00 06/27/16 09:55 Os-Abner 500mg - PO 1,250 mg DAILY THALIA Administration Cholecalciferol 2,000 unit 06/26/16 10:00 06/27/16 09:58 Vitamin D3 - PO 2,000 unit DAILY THALIA Administration Fentanyl 1 patch 06/25/16 20:45 06/25/16 21:21 Duragesic 25mcg Patch - TD 1 patch Q72H THALIA Administration Furosemide 40 mg 06/27/16 10:00 06/27/16 09:54 Lasix Injection - IVPUSH 40 mg DAILY THALIA Administration Lidocaine 1 patch 06/26/16 10:00 06/27/16 09:54 Lidoderm Patch - TP 1 patch DAILY THALIA Administration Lisinopril 2.5 mg 06/26/16 10:00 06/27/16 09:57 Prinivil PO 2.5 mg DAILY THALIA Administration Lorazepam 0.5 mg 06/25/16 20:43 Ativan - PO Q8H PRN ANXIETY Megestrol Acetate 400 mg 06/26/16 10:00 06/27/16 09:59 Megace Oral Suspension - PO 400 mg DAILY THALIA Administration Metoprolol Succinate 25 mg 06/26/16 10:00 06/27/16 09:57 Toprol Xl - PO 25 mg DAILY THALIA Administration Miscellaneous 1 each 06/25/16 20:53 Duragesic Patch Waste TD PRN PRN Multivitamins/Minerals/Vitamin C 1 tab 06/26/16 10:00 06/27/16 09:58 Tab-A-Vit - PO 1 tab DAILY THALIA Administration Nystatin 1 applic 06/26/16 21:59 06/27/16 12:05 Mycostatin Cream - TP 1 applic Q6HPO THALIA Administration Pantoprazole Sodium 40 mg 06/26/16 10:00 06/27/16 09:55 Protonix - PO 40 mg DAILY THALIA Administration Potassium Chloride 20 meq 06/26/16 10:00 06/27/16 09:55 K-Dur - PO 20 meq DAILY THALIA Administration Tamsulosin HCl 0.4 mg 06/26/16 10:00 06/27/16 09:58 Flomax - PO 0.4 mg DAILY THALIA Administration Trazodone HCl 50 mg 06/25/16 22:00 06/26/16 21:42 Desyrel - PO 50 mg HS THALIA Administration ASSESSMENT/PLAN 86 year-old man with a PMH of HTN, HLD, nonobstructive CAD, systolic heart failure, paroxysmal afib, degenerative disc disease, prostate cancer s/p RT, colon cancer s/p colectomy. Recently hospitalized at [facility] 06/06-->06/12 for acute blood loss anemia and pain management. Patient was transferred to [facility] on 06/12 where he received a PPM. He also underwent endoscopy and colonoscopy which found no evidence of bleeding and patient was started on Eliquis. He was discharged from [facility] on 06/23. He was readmitted to [facility] on 06/25 for bilateral lower extremity edema and pain managment. Acute on chronic systolic heart failure s/p PPM Paroxysmal afib Volume overload --[employer] Model #[id number], Serial #[id number], implanted 06/16/16, Dr. Florian Hickman --on this admission, ECG paced rhythm @ 81bpm --CXR today with persistent congestion, pleural effusions, possible infiltrates; ordered CT chest --IV Lasix 40mg daily --continue Eliquis Nonobstructive CAD --two cardiac caths in past year, unobstructed coronaries --continue lisinopril, Toprol XL, Lipitor Gastritis --per records from [facility]---> --EGD performed and no bleeding found. Duodenitis with scattered erosions , gastritis, submucosal gastric nodules --Colonoscopy found mild diverticulosis, nonbleeding rectal AVM, and internal hemorrhoids --continue protonix Hypertension --BP well-controlled --continue lisinopril, Toprol XL, lasix Hyperlipidemia --continue Lipitor Prostate cancer Colon cancer --patient refusing to take Enzalutamide as it causes severe GI distress --continue flomax Anxiety/agitation --previously on mirapex but now appears to be d/c'd; will check with primary Degenerative disc disease/compression fractures Severe pain syndrome, improved --placed on duragesic patch 25mcg with good pain relief and without over- narcotizing effect --lidocaine patch to left ribs F/E/N Fluids: PO intake adequate Electrolytes: replete as indicated Nutrition: low sodium diet DVT prophylaxis: on Eliquis Dispo: plan to discharge tomorrow. Will need coordination with home services: aides, visiting nurse, PT. DNR/DNI. Visit type - Emergency Visit Emergency Visit: Yes ED Registration Date: 06/25/16 Care time: The patient presented to the Emergency Department on the above date and was hospitalized for further evaluation of their emergent condition. - New Patient This patient is new to me today: No - Critical Care Critical Care patient: No
[2016-06-27] MEDS ORDERED: PT OWN MED DRAWER 7, Y5N ONE (21:09)
[2016-06-27] MEDS ORDERED: MAGNESIUM HYDROX 2400MG/30ML ORAL SUSPENSION 30 ML CUP PO STA (21:24)
[2016-06-27] MEDS: traZODone HCL 50 MG TABLET (FP) PO SCH (21:29)
[2016-06-27] MEDS: ATORVASTATIN CA 20 MG TABLET (FP) PO SCH (21:30)
--- NOTE | 2016-06-27 21:44 | HOSP ---
Subjective - Review of Symptoms Events since last encounter: pt reports nausea. Feels abdominal discomfort as if he needs to have a BM. Given MOM with no relief. Gastrointestinal: Yes: Nausea, Abdominal Pain, Constipation Physical Examination Vital Signs: Vital Signs Temperature 98.5 F 06/27/16 19:00 Pulse Rate 74 06/27/16 19:00 Respiratory Rate 20 06/27/16 19:00 Blood Pressure 116/52 06/27/16 19:00 O2 Sat by Pulse Oximetry (%) 93 L 06/27/16 11:00 Constitutional: Yes: Calm Cardiovascular: Yes: WNL Respiratory: Yes: CTA Bilaterally Gastrointestinal: Yes: Other (generalized tenderness, softly distended, hypertympanic) ...Rectal Exam: Yes: Other (+ formed fecal matter in rectal vault) Labs: CBC, BMP 06/27/16 05:35 06/27/16 08:00 Hospitalist Encounter Assessment: 945pm: Received TC from nurse pt c/o constipation and abdominal discomfort. Pt on duragesic patch but no laxatives or stool softeners. Will give MOM x 1 now, start miralax daily, titrate to regular BMs. 3am: pt with no improvement or BM with milk of magnesia. Pt examined. Constipation with nausea - reglan 10mg x 1 for nausea - fleet enema x 1 - miralax now (pt requesting as has worked well for him in past.) - monitor efficacy.
[2016-06-27] MEDS ORDERED: VANCOMYCIN 1 GRAM (PRE-DOCKED) 250 ML IVPB ONE (23:47)
[2016-06-28] MEDS: PIPERACILLIN/TAZOB 3.375 GM/50 ML PRE-DOCKED IVPB SCH ×2 (02:37→08:02)
[2016-06-28] MEDS ORDERED: METOCLOPRAMIDE HCL INJECTION 10 MG/2 ML VIAL IVPB ONE (03:11)
[2016-06-28] MEDS ORDERED: SODIUM PHOSPHATE/NA BIPHOS 133 ML ENEMA PR ONE (03:11)
[2016-06-28] MEDS ORDERED: POLYETHYLENE GLYCOL 3350 119 GM BTL PO ONE (03:11)
[2016-06-28] MEDS: NYSTATIN 100,000 UNIT/GM TOPICAL CREAM 15 GM TUBE TP SCH ×4 (05:50→23:06)
[2016-06-28] MEDS: ALBUTEROL SO4 2.5/IPRATROPIUM 0.5 INH SOL 3 ML VIAL.NEB. NEB SCH ×3 (06:50→22:09)
[2016-06-28] MEDS: LORazepam 0.5 MG TABLET PO PRN (07:59)
[2016-06-28] MEDS ORDERED: TRIMETHOBENZAMIDE HCL 200MG/2ML INJ IM ONE (09:28)
[2016-06-28 09:50] LABS: BASOPHIL 0.8 % (0-2.0); EOSINOPHIL 0.6 % (0-4.5); MCHC 31.1 g/dl (32.0-35.9); MEAN CELL VOLUME 80.4 fl (80-96); MEAN PLT VOLUME 10.2 fl (7.5-11.1); NEUTROPHILS 83.6 % (42.8-82.8); PLATELET COUNT 122 K/MM3 (134-434); RDW 18.7 % (11.9-15.9); WHITE BLOOD COUNT 6.7 K/mm3 (4.0-10.0)
[2016-06-28] MEDS: APIXABAN 2.5 MG TABLET PO SCH ×4 (10:02→22:45)
[2016-06-28] MEDS: FUROSEMIDE 40 MG/4 ML INJECTABLE VIAL IVPUSH SCH ×3 (10:04→10:17)
[2016-06-28] MEDS: POTASSIUM CHLORIDE TABS 20 MEQ TABLET.ER (FP) PO SCH (10:04)
[2016-06-28] MEDS: TAMSULOSIN HCL 0.4 MG CAP.ER.24H (FP) PO SCH ×2 (10:04→12:51)
[2016-06-28] MEDS: MEGESTROL ACETATE 400 MG/10 ML UNIT DOSE CUP PO SCH ×2 (10:05→12:52)
[2016-06-28] MEDS: LISINOPRIL 5 MG TABLET (FP) PO SCH ×2 (10:05→12:51)
[2016-06-28] MEDS: POLYETHYLENE GLYCOL 3350 119 GM BTL PO SCH ×3 (10:05→10:17)
[2016-06-28] MEDS: CALCIUM (OYSTER SHELL) 500 MG TABLET (FP) PO SCH (10:05)
[2016-06-28] MEDS: CHOLECALCIFEROL (VITAMIN D3) 1,000 UNIT TABLET (FP) PO SCH (10:06)
[2016-06-28] MEDS: METOPROLOL SUCCINATE 25 MG TAB.SR.24H (FP) PO SCH (10:06)
[2016-06-28] MEDS: MULTIVITAMINS (DAILY MVI) TABLET (FP) PO SCH (10:06)
[2016-06-28] MEDS: PANTOPRAZOLE 40 MG TABLET (FP) PO SCH (10:06)
[2016-06-28] MEDS: LIDOCAINE 5% TOPICAL PATCH TP SCH (10:09)
[2016-06-28 10:11] LABS: ANION GAP 10 (8-16); BILIRUBIN,TOTAL 0.8 mg/dL (0.2-1.0); CALCIUM 7.4 mg/dL (8.5-10.1); CO2 26 mmol/L (21-32); CREATININE 0.6 mg/dL (0.7-1.3); GLUCOSE,RANDOM 162 mg/dL (74-106); MAGNESIUM 2.4 mg/dL (1.8-2.4); SGOT/AST 14 U/L (15-37); SGPT/ALT 13 U/L (12-78); TOT PROT 6.2 g/dl (6.4-8.2)
[2016-06-28 10:12] LABS: ALK PHOS 108 U/L (45-117)
[2016-06-28] MEDS ORDERED: PT OWN MED DRAWER 7, Y5N ONE ×4 (10:15→22:29)
[2016-06-28] MEDS ORDERED: morphine CARPU-JECT 2 MG/1 ML DISP.SYRIN IVPUSH ONE (12:30)
--- NOTE | 2016-06-28 13:15 | PN ---
Physical Exam: SUBJECTIVE: Patient seen and examined. Complaining of frequent, intermittent, spasmodic type abdominal pain. One episode of vomiting which he associated with pain. Diarrheal movement. OBJECTIVE: Vital Signs Period Temp Pulse Resp BP Sys/Sanchez Pulse Ox Last 24 Hr 97.9 F-98.6 F 73-80 18-20 116-140/52-67 93-99 GENERAL: The patient is awake, alert, and fully oriented, in moderate distress exhibited during intermittent pain episodes HEAD: Normal with no signs of trauma. EYES: PERRL, extraocular movements intact, sclera anicteric, conjunctiva clear. No ptosis. LUNGS: Breath sounds equal, clear to auscultation bilaterally, no wheezes, no crackles, no accessory muscle use. HEART: Regular rate and rhythm, S1, S2 without murmur, rub or gallop. ABDOMEN: No focal areas of tenderness with distraction; active bowel sounds no guarding, no rebounding EXTREMITIES: 2+ bilateral lower extremity edema NEUROLOGICAL: Cranial nerves II through XII grossly intact. Normal speech, gait not observed. Laboratory Results - last 24 hr 06/28/16 06/28/16 08:55 08:55 WBC 6.7 RBC 4.03 Hgb 10.1 L D Hct 32.4 L MCV 80.4 MCHC 31.1 L RDW 18.7 H Plt Count 122 L D MPV 10.2 Neutrophils % 83.6 H Lymphocytes % 7.5 L D Monocytes % 7.5 Eosinophils % 0.6 Basophils % 0.8 Sodium 138 Potassium 4.1 Chloride 102 Carbon Dioxide 26 Anion Gap 10 BUN 12 D Creatinine 0.6 L Creat Clearance w eGFR > 60 Random Glucose 162 H D Calcium 7.4 L Magnesium 2.4 Total Bilirubin 0.8 AST 14 L ALT 13 Alkaline Phosphatase 108 Total Protein 6.2 L Albumin 3.0 L Active Medications Generic Name Dose Route Start Last Admin Trade Name Freq PRN Reason Stop Dose Admin Albuterol Sulfate 1 amp 06/25/16 20:39 Ventolin 0.083% Nebulizer Soln - NEB Q4H PRN SHORT OF BREATH/WHEEZING Albuterol/Ipratropium 1 amp 06/25/16 22:00 06/28/16 13:04 Duoneb - NEB 1 amp TIDR THALIA Administration Apixaban 2.5 mg 06/26/16 22:00 06/28/16 10:17 Eliquis - PO 2.5 mg BID THALIA Administration Atorvastatin Calcium 20 mg 06/25/16 22:00 06/27/16 21:30 Lipitor - PO 20 mg HS THALIA Administration Fentanyl 1 patch 06/25/16 20:45 06/25/16 21:21 Duragesic 25mcg Patch - TD 1 patch Q72H THALIA Administration Furosemide 40 mg 06/27/16 10:00 06/28/16 10:17 Lasix Injection - IVPUSH 40 mg DAILY THALIA Administration Hyoscyamine Sulfate 0.375 mg 06/28/16 12:45 Levbid 0.375mg Er Tab PO BID THALIA Pantoprazole Sodium 40 mg/ 100 mls @ 200 mls/hr 06/28/16 13:15 Sodium Chloride IVPB BID THALIA Lidocaine 1 patch 06/26/16 10:00 06/28/16 10:09 Lidoderm Patch - TP 1 patch DAILY THALIA Administration Lisinopril 2.5 mg 06/26/16 10:00 06/28/16 12:51 Prinivil PO 2.5 mg DAILY THALIA Administration Lorazepam 0.5 mg 06/25/16 20:43 06/28/16 07:59 Ativan - PO 0.5 mg Q8H PRN Administration ANXIETY Megestrol Acetate 400 mg 06/26/16 10:00 06/28/16 12:52 Megace Oral Suspension - PO 400 mg DAILY THALIA Administration Metoprolol Succinate 25 mg 06/26/16 10:00 06/28/16 10:06 Toprol Xl - PO Not Given DAILY THALIA Miscellaneous 1 each 06/25/16 20:53 Duragesic Patch Waste TD PRN PRN Multivitamins/Minerals/Vitamin C 1 tab 06/26/16 10:00 06/28/16 10:06 Tab-A-Vit - PO Not Given DAILY THALIA Nystatin 1 applic 06/26/16 21:59 06/28/16 12:54 Mycostatin Cream - TP 1 applic Q6HPO THALIA Administration Piperacillin Sod/Tazobactam Sod 3.375 gm 06/28/16 18:00 Zosyn 3.375gm Ivpb (Pre-Docked) IVPB 06/29/16 17:59 Q8H-IV THALIA Protocol Polyethylene Glycol 17 gm 06/28/16 10:00 06/28/16 10:17 Miralax (For Daily Use) - PO 17 gm DAILY THALIA Administration Potassium Chloride 20 meq 06/26/16 10:00 06/28/16 10:04 K-Dur - PO Not Given DAILY THALIA Tamsulosin HCl 0.4 mg 06/26/16 10:00 06/28/16 12:51 Flomax - PO 0.4 mg DAILY THALIA Administration Trazodone HCl 50 mg 06/25/16 22:00 06/27/16 21:29 Desyrel - PO 50 mg HS THALIA Administration ASSESSMENT/PLAN 86 year-old man with a PMH of HTN, HLD, nonobstructive CAD, systolic heart failure, paroxysmal afib, compression fractures, prostate cancer s/p RT, colon cancer s/p colectomy. Admitted for bilateral lower extremity edema and pain managment. Acute on chronic systolic heart failure s/p PPM --persistent lower extremity edema --CT chest shows minimal pleural effusions --continue IV Lasix Paroxysmal afib --paced rhythm --continue Eliquis Nonobstructive CAD --two cardiac caths in past year, unobstructed coronaries --continue lisinopril, Toprol XL, Lipitor Gastritis --per records from [facility]---> --EGD performed and no bleeding found. Duodenitis with scattered erosions , gastritis, submucosal gastric nodules --Colonoscopy found mild diverticulosis, nonbleeding rectal AVM, and internal hemorrhoids --switch to IV protonix BID Abdominal pain Diarrhea --concerned for SBO/ileus; prior abdominal surgeries --KUB ordered --c.diff and stool studies ordered --start hycosamine BID for possible IBD Hypertension --BP well-controlled --continue lisinopril, Toprol XL, lasix Hyperlipidemia --continue Lipitor Prostate cancer Colon cancer --patient declines to take Enzalutamide as it causes severe GI distress --continue flomax Anxiety/agitation --low dose lorazepam PRN Degenerative disc disease/compression fractures Severe pain syndrome, improved --placed on duragesic patch 25mcg with good pain relief and without over- narcotizing effect --lidocaine patch PRN F/E/N Fluids: PO intake adequate Electrolytes: replete as indicated Nutrition: low sodium diet DVT prophylaxis: on Eliquis Dispo: continues to require inpatient care. Visit type - Emergency Visit Emergency Visit: Yes ED Registration Date: 06/25/16 Care time: The patient presented to the Emergency Department on the above date and was hospitalized for further evaluation of their emergent condition. - New Patient This patient is new to me today: No - Critical Care Critical Care patient: No
--- NOTE | 2016-06-28 15:07 | CONSULT ---
Consult Consult Specialty:: infectious diseases Reason for Consultation:: pneumonia - History of Present Illness Chief Complaint: abd pain and sob History of Present Illness: 86 yo M with significant PMHx s/p pacemaker implantation 06/16/16 at [facility] , who presents to the ED with back pain and BLE edema.and abd pain Patient cannot speak macedonian,his son in tethe room who gave the history according to the son patient had sever abd pain on sat which became better after he had a bowel movement and he als noticed that his dad had swelling of both legs and appeared to be sob and decided to bring him to the hospital also of note is that patient has scoliosis currently his main complaint is abd apin and as far as i understand from the history patient probably getting constipated from breathing point of view patient is doing well - History Source History Provided By: Family Member Limitations to Obtaining History: Language Barrier - Past Medical History Cardio/Vascular: Yes: Aortic Stenosis, CAD (minimal non-obstructive disease), CHF, HTN, Hyperlipdemia, Mitral Insufficiency, Pulmonary Hypertension Gastrointestinal: Yes: Cancer Renal/: Yes: Cancer - Past Surgical History Past Surgical History: Yes: Colectomy - Alcohol/Substance Use Hx Alcohol Use: No - Smoking History Smoking history: Never smoked Have you smoked in the past 12 months: No Aproximately how many cigarettes per day: 0 If you are a former smoker, when did you quit?: 20 years ago - Social History ADL: Independent History of Recent Travel: No Home Medications - Allergies Allergies/Adverse Reactions: Allergies Allergy/AdvReac Type Severity Reaction Status Date / Time No Known Allergies Allergy Verified 06/25/16 15:55 - Home Medications Home Medications: Ambulatory Orders Tamsulosin HCl [Flomax -] 0.4 mg PO DAILY 01/17/15 FENTANYL 25mcg PATCH [DURAGESIC 25mcg PATCH -] 1 patch TD Q72H patch.td72 MDD 25mcg 06/12/16 Lidocaine 5% Patch [Lidoderm -] 1 patch TP DAILY patch 06/12/16 Lisinopril [Prinivil] 2.5 mg PO DAILY tablet 06/12/16 Lorazepam [Ativan] 0.5 mg PO Q8H PRN #0 tablet MDD 1.5mg 06/12/16 Pantoprazole Sodium [Protonix -] 40 mg PO DAILY tablet.ec 06/12/16 Apixaban [Eliquis] 2.5 mg PO BID 06/25/16 Atorvastatin Ca [Lipitor] 20 mg PO HS 06/25/16 Calcium Carbonate [Calcium] 1,250 mg PO DAILY 06/25/16 Cholecalciferol (Vitamin D3) [D-2000] 2,000 unit PO DAILY 06/25/16 Furosemide [Lasix] 20 mg PO DAILY 06/25/16 Megestrol Acetate Oral Susp [Megace Liquid -] 400 mg PO DAILY 06/25/16 Metoprolol Succinate [Toprol Xl -] 25 mg PO DAILY 06/25/16 Multivitamins [Tab-A-Vit -] 1 tab PO DAILY 06/25/16 Potassium Chloride [Klor-Con] 20 meq PO DAILY 06/25/16 Trazodone HCl 50 mg PO HS 06/25/16 Review of Systems - Review of Systems Constitutional: reports: No Symptoms Eyes: reports: No Symptoms HENT: reports: No Symptoms Neck: reports: No Symptoms Cardiovascular: reports: No Symptoms Respiratory: reports: SOB, SOB on Exertion Gastrointestinal: reports: Abdominal Pain, Constipation Genitourinary: reports: No Symptoms Musculoskeletal: reports: No Symptoms Integumentary: reports: No Symptoms Neurological: reports: No Symptoms Endocrine: reports: No Symptoms Hematology/Lymphatic: reports: No Symptoms Psychiatric: reports: No Symptoms Physical Exam Vital Signs: Vital Signs Temperature 97.7 F 06/28/16 14:46 Pulse Rate 86 06/28/16 14:46 Respiratory Rate 22 06/28/16 14:46 Blood Pressure 129/60 06/28/16 14:46 O2 Sat by Pulse Oximetry (%) 96 06/28/16 13:03 Constitutional: Yes: No Distress, Calm, Thin Eyes: Yes: Conjunctiva Clear HENT: Yes: Atraumatic Neck: Yes: Supple, Trachea Midline Cardiovascular: Yes: Regular Rate and Rhythm, Murmur Respiratory: Yes: Regular, On Nasal O2, Poor Air Entry, Other (crackles at bases ) Gastrointestinal: Yes: Soft, Hypoactive Bowel Sounds Musculoskeletal: Yes: WNL Extremities: Yes: WNL Neurological: Yes: Alert, Oriented Psychiatric: Yes: Alert, Oriented Labs: CBC, BMP 06/28/16 08:55 06/28/16 08:55 Imaging - Results Chest X-ray: Report Reviewed, Image Reviewed Cat Scan: Report Reviewed, Image Reviewed Assessment/Plan after looking at the ct scan and xray i can see some infiltrates but i do not see any pneumonic process at this time patient does have pleural effusion on the rt side patient continues to have this abd problem Problem List - Problem (1) Acute on chronic systolic (congestive) heart failure (2) Chronic lower back pain (3) Bilateral lower extremity edema (4) Normocytic anemia (5) HTN (hypertension) (6) Hyperlipidemia 7 pleural effusion r/o pna plan will not start abx close monitoring patient having repeated abd pain await for xray of abd
[2016-06-28] MEDS: PANTOPRAZOLE SODIUM 40MG/100 ML IVPB SCH ×2 (15:40→22:46)
[2016-06-28] MEDS: HYOSCYAMINE SULFATE 0.375 MG TAB.ER.12H PO SCH ×2 (16:47→22:45)
[2016-06-28] MEDS ORDERED: PIPERACILLIN/TAZOB 3.375 GM/50 ML PRE-DOCKED IVPB SCH (18:00)
--- NOTE | 2016-06-28 18:26 | PROC ---
Procedure Note Procedure: NG Tube placement Pt. agrees to procedure. A 16 Fr catheter was used for ng tube placement. Nose to ear to xiphoid process measures to be 60 cm. Surgilube was placed on the tip of the catheter. The tube was then passed through his R nostril with no barriers , while the pt. swallowed water. The catheter was secured to the face at 60 cm. Gas bubbles were heard with aspiration. Waiting for CXR to confirm placement. Pt. tolerated procedure well.
[2016-06-28] MEDS: DEXTROSE 5%-NORMAL SALINE 1,000 ML IV SCH (18:53)
[2016-06-28] MEDS: fentaNYL 25mcg/hr PATCH.TD72 TD SCH (22:44)
[2016-06-28] MEDS: ATORVASTATIN CA 20 MG TABLET (FP) PO SCH (22:45)
[2016-06-28] MEDS: traZODone HCL 50 MG TABLET (FP) PO SCH (22:45)
[2016-06-29] MEDS: ALBUTEROL SO4 2.5/IPRATROPIUM 0.5 INH SOL 3 ML VIAL.NEB. NEB SCH ×3 (06:00→22:33)
[2016-06-29] MEDS: NYSTATIN 100,000 UNIT/GM TOPICAL CREAM 15 GM TUBE TP SCH ×4 (06:42→23:38)
[2016-06-29] MEDS: FENTANYL PATCH WASTE TD PRN (07:09)
[2016-06-29 07:43] LABS: BASOPHIL 1.1 % (0-2.0); EOSINOPHIL 2.2 % (0-4.5); MCH 25.6 pg (25.7-33.7); MCHC 31.7 g/dl (32.0-35.9); MEAN CELL VOLUME 80.7 fl (80-96); NEUTROPHILS 72.9 % (42.8-82.8); PLATELET COUNT 128 K/MM3 (134-434); RDW 18.6 % (11.9-15.9); WHITE BLOOD COUNT 4.4 K/mm3 (4.0-10.0)
[2016-06-29 07:59] LABS: ALBUMIN 2.8 g/dl (3.4-5.0); ANION GAP 8 (8-16); CALCIUM 7.4 mg/dL (8.5-10.1); CO2 28 mmol/L (21-32); CREATININE 0.5 mg/dL (0.7-1.3); GLUCOSE,RANDOM 112 mg/dL (74-106); MAGNESIUM 2.5 mg/dL (1.8-2.4); PHOSPHOROUS 1.7 mg/dL (2.5-4.9); SGPT/ALT 11 U/L (12-78)
[2016-06-29 08:02] LABS: ALK PHOS 97 U/L (45-117); BILIRUBIN,TOTAL 0.7 mg/dL (0.2-1.0); SGOT/AST 12 U/L (15-37); TOT PROT 5.8 g/dl (6.4-8.2)
[2016-06-29] MEDS: DEXTROSE 5%-NORMAL SALINE 1,000 ML IV SCH ×2 (08:30→17:29)
[2016-06-29] MEDS ORDERED: PT OWN MED DRAWER 7, Y5N ONE (09:54)
--- NOTE | 2016-06-29 10:13 | CONSULT ---
- Consultation REQUESTING PROVIDER: Fatoumata Rice CERTIFIED WELLNESS PROGRAM COORDINATOR CONSULT REQUEST: We have been asked to surgically evaluate this patient for possible sbo vs. ileus(specify). PCP:Radha Rice HISTORY OF PRESENT ILLNESS: CTSP for evaluation and management of possble ileus vs. sbo; patients hx. reviewed and case d/w referring provider; he is getting Fentanyl pathches for pain; he recently underwent PPM insertion; he states he is passing some gas and had this once before. PMHx: reviewed PSHx: partial colectomy # years ago Home Medications Medication Instructions Recorded Tamsulosin HCl [Flomax -] 0.4 mg PO DAILY 01/17/15 FENTANYL 25mcg PATCH [DURAGESIC 1 patch TD Q72H patch.td72 MDD 06/12/16 25mcg PATCH -] 25mcg Lidocaine 5% Patch [Lidoderm -] 1 patch TP DAILY patch 06/12/16 Lisinopril [Prinivil] 2.5 mg PO DAILY tablet 06/12/16 Lorazepam [Ativan] 0.5 mg PO Q8H PRN #0 tablet MDD 06/12/16 1.5mg Pantoprazole Sodium [Protonix -] 40 mg PO DAILY tablet.ec 06/12/16 Apixaban [Eliquis] 2.5 mg PO BID 06/25/16 Atorvastatin Ca [Lipitor] 20 mg PO HS 06/25/16 Calcium Carbonate [Calcium] 1,250 mg PO DAILY 06/25/16 Cholecalciferol (Vitamin D3) 2,000 unit PO DAILY 06/25/16 [D-2000] Furosemide [Lasix] 20 mg PO DAILY 06/25/16 Megestrol Acetate Oral Susp 400 mg PO DAILY 06/25/16 [Megace Liquid -] Metoprolol Succinate [Toprol Xl -] 25 mg PO DAILY 06/25/16 Multivitamins [Tab-A-Vit -] 1 tab PO DAILY 06/25/16 Potassium Chloride [Klor-Con] 20 meq PO DAILY 06/25/16 Trazodone HCl 50 mg PO HS 06/25/16 Allergies Allergy/AdvReac Type Severity Reaction Status Date / Time No Known Allergies Allergy Verified 06/25/16 15:55 REVIEW OF SYSTEMS: CONSTITUTIONAL: Absent: fever, chills, diaphoresis, generalized weakness, malaise, loss of appetite, weight change CARDIOVASCULAR: Absent: chest pain, syncope, palpitations, irregular heart rate, lightheadedness , peripheral edema RESPIRATORY: Absent: cough, shortness of breath, dyspnea with exertion, wheezing, stridor, hemoptysis GASTROINTESTINAL: Present: abdominal distension, nausea, i GENITOURINARY: Absent: dysuria, frequency, urgency, hesitancy, hematuria, flank pain, genital pain MUSCULOSKELETAL: Absent: myalgia, arthralgia, joint swelling, back pain, neck pain SKIN: Absent: rash, itching, pallor HEMATOLOGIC/IMMUNOLOGIC: Absent: easy bleeding, easy bruising, lymphadenopathy NEUROLOGIC: Absent: headache, focal weakness, paresthesias, dizziness, unsteady gait, seizure, mental status changes, bladder or bowel incontinence PSYCHIATRIC: Absent: anxiety, depression, suicidal or homicidal ideation, hallucinations. PHYSICAL EXAM: GENERAL: Awake, alert, and fully oriented, in no acute distress. HEAD: Normal with no signs of trauma. NECK: Normal ROM, supple without lymphadenopathy, JVD, or masses. LUNGS: Clear to auscultation bilat anteriorly. No wheezes, and no crackles. No accessory muscle use. HEART: Regular rate and rhythm. No murmurs ABDOMEN: Soft, nontender, distended, hypoactive bowel sounds, no guarding, no rebound, no masses. No organomegaly. Healed midline incision; no hernia MUSCULOSKELETAL: Normal ROM at all joints. No bony deformities or tenderness. No CVA tenderness. UPPER EXTREMITIES: 2+ pulses, warm, well-perfused. No cyanosis. Cap refill <2 seconds. No peripheral edema. LOWER EXTREMITIES: 2+ pulses, warm, well-perfused. No calf tenderness. No peripheral edema. NEUROLOGICAL: Normal speech, gait not observed. PSYCH: Cooperative. Good eye contact. Appropriate mood and affect. SKIN: Warm, dry, normal turgor, no rashes or lesions noted. Vital Signs Temperature 98.2 F 06/29/16 06:00 Pulse Rate 80 06/29/16 06:00 Respiratory Rate 20 06/29/16 06:00 Blood Pressure 121/58 06/29/16 06:00 O2 Sat by Pulse Oximetry (%) 98 06/28/16 21:00 Lab Results WBC 4.4 K/mm3 (4.0-10.0) D 06/29/16 06:40 RBC 3.66 M/mm3 (4.00-5.60) L 06/29/16 06:40 Hgb 9.4 GM/dL (11.7-16.9) L 06/29/16 06:40 Hct 29.6 % (35.4-49) L 06/29/16 06:40 MCV 80.7 fl (80-96) 06/29/16 06:40 MCHC 31.7 g/dl (32.0-35.9) L 06/29/16 06:40 RDW 18.6 % (11.9-15.9) H 06/29/16 06:40 Plt Count 128 K/MM3 (134-434) L 06/29/16 06:40 Sodium 139 mmol/L (136-145) 06/29/16 06:40 Potassium 4.0 mmol/L (3.5-5.1) 06/29/16 06:40 Chloride 103 mmol/L (98-107) 06/29/16 06:40 Carbon Dioxide 28 mmol/L (21-32) 06/29/16 06:40 Anion Gap 8 (8-16) 06/29/16 06:40 BUN 9 mg/dL (7-18) D 06/29/16 06:40 Creatinine 0.5 mg/dL (0.7-1.3) L 06/29/16 06:40 Random Glucose 112 mg/dL (74-106) H D 06/29/16 06:40 Calcium 7.4 mg/dL (8.5-10.1) L 06/29/16 06:40 INR 1.24 (0.82-1.09) H 06/25/16 17:44 radiology to date reviewed; todays study though limited by lack of an upright film appears slightly improved. IMP;ileus vs. partial sbo PLAN: Continue NPO?IVF/NGT; repeat obstructive series ( flat and upright abdominal films) 06/30/16; will f/u; d/w the referring provider. Gordon Coles MD FACS Visit type - Case Type Case Type: ED Admission - Emergency Emergency Visit: Yes ED Registration Date: 06/25/16 Care time: The patient presented to the Emergency Department on the above date and was hospitalized for further evaluation of their emergent condition. - New patient This patient is new to me today: Yes Date on this admission: 06/29/16 - Critical Care Critical Care patient: No
[2016-06-29] MEDS: LIDOCAINE 5% TOPICAL PATCH TP SCH (10:32)
[2016-06-29] MEDS: FUROSEMIDE 40 MG/4 ML INJECTABLE VIAL IVPUSH SCH (10:34)
[2016-06-29] MEDS: APIXABAN 2.5 MG TABLET PO SCH (10:35)
[2016-06-29] MEDS: HYOSCYAMINE SULFATE 0.375 MG TAB.ER.12H PO SCH ×2 (10:37→21:14)
[2016-06-29] MEDS: TAMSULOSIN HCL 0.4 MG CAP.ER.24H (FP) PO SCH (10:42)
[2016-06-29] MEDS: LORazepam 0.5 MG TABLET PO PRN (10:42)
[2016-06-29] MEDS: POTASSIUM CHLORIDE TABS 20 MEQ TABLET.ER (FP) PO SCH (10:43)
[2016-06-29] MEDS: LISINOPRIL 5 MG TABLET (FP) PO SCH (10:44)
[2016-06-29] MEDS: PANTOPRAZOLE SODIUM 40MG/100 ML IVPB SCH ×2 (10:44→21:15)
[2016-06-29] MEDS: METOPROLOL SUCCINATE 25 MG TAB.SR.24H (FP) PO SCH (10:45)
[2016-06-29] MEDS: POLYETHYLENE GLYCOL 3350 119 GM BTL PO SCH (10:49)
--- NOTE | 2016-06-29 12:59 | PN ---
Physical Exam: SUBJECTIVE: Patient seen and examined. States abdominal pain is gone. Complains of NGT discomfort. OBJECTIVE: Vital Signs Period Temp Pulse Resp BP Sys/Sanchez Pulse Ox Last 24 Hr 97.7 F-98.6 F 80-98 18-86 97-130/53-74 96-98 GENERAL: The patient is awake, alert, and fully oriented, in no apparent distress HEAD: Normal with no signs of trauma. EYES: PERRL, extraocular movements intact, sclera anicteric, conjunctiva clear. No ptosis. LUNGS: Breath sounds equal, clear to auscultation bilaterally, no wheezes, no crackles, no accessory muscle use. HEART: Regular rate and rhythm, S1, S2 without murmur, rub or gallop. ABDOMEN: No focal areas of tenderness with distraction; active bowel sounds no guarding, no rebounding EXTREMITIES: 2+ bilateral lower extremity edema NEUROLOGICAL: Cranial nerves II through XII grossly intact. Normal speech, gait not observed. Laboratory Results - last 24 hr 06/28/16 06/29/16 06/29/16 14:30 06:40 06:40 WBC 4.4 D RBC 3.66 L Hgb 9.4 L Hct 29.6 L MCV 80.7 MCHC 31.7 L RDW 18.6 H Plt Count 128 L MPV 10.0 Neutrophils % 72.9 Lymphocytes % 13.4 D Monocytes % 10.4 H Eosinophils % 2.2 D Basophils % 1.1 Sodium 139 Potassium 4.0 Chloride 103 Carbon Dioxide 28 Anion Gap 8 BUN 9 D Creatinine 0.5 L Creat Clearance w eGFR > 60 Random Glucose 112 H D Calcium 7.4 L Phosphorus 1.7 L D Magnesium 2.5 H Total Bilirubin 0.7 AST 12 L ALT 11 L Alkaline Phosphatase 97 Total Protein 5.8 L Albumin 2.8 L Stool Occult Blood Negative Active Medications Generic Name Dose Route Start Last Admin Trade Name Freq PRN Reason Stop Dose Admin Albuterol Sulfate 1 amp 06/25/16 20:39 Ventolin 0.083% Nebulizer Soln - NEB Q4H PRN SHORT OF BREATH/WHEEZING Albuterol/Ipratropium 1 amp 06/25/16 22:00 06/29/16 06:00 Duoneb - NEB 1 amp TIDR THALIA Administration Apixaban 2.5 mg 06/29/16 12:28 Eliquis - GT BID THALIA Atorvastatin Calcium 20 mg 06/29/16 12:29 Lipitor - NGT HS THALIA Fentanyl 1 patch 06/25/16 20:45 06/28/16 22:44 Duragesic 25mcg Patch - TD 1 patch Q72H THALIA Administration Furosemide 40 mg 06/27/16 10:00 06/29/16 10:34 Lasix Injection - IVPUSH 40 mg DAILY THALIA Administration Hyoscyamine Sulfate 0.375 mg 06/28/16 12:45 06/29/16 10:37 Levbid 0.375mg Er Tab PO 0.375 mg BID THALIA Administration Pantoprazole Sodium 100 mls @ 200 mls/hr 06/28/16 14:15 06/29/16 10:44 Protonix 40mg Ivpb (Pre-Docked) IVPB 200 mls/hr BID THALIA Administration Dextrose/Sodium Chloride 1,000 mls @ 75 mls/hr 06/28/16 17:15 06/29/16 08:30 D5-Ns - IV 75 mls/hr ASDIR THALIA Administration Lidocaine 1 patch 06/26/16 10:00 06/29/16 10:32 Lidoderm Patch - TP 1 patch DAILY THALIA Administration Lisinopril 2.5 mg 06/29/16 12:31 Prinivil NGT DAILY THALIA Lorazepam 0.5 mg 06/29/16 12:31 Ativan - NGT Q8H PRN ANXIETY Metoprolol Succinate 25 mg 06/26/16 10:00 06/29/16 10:45 Toprol Xl - PO 25 mg DAILY THALIA Administration Miscellaneous 1 each 06/25/16 20:53 06/29/16 07:09 Duragesic Patch Waste TD 1 each PRN PRN Administration Nystatin 1 applic 06/26/16 21:59 06/29/16 11:07 Mycostatin Cream - TP 1 applic Q6HPO THALIA Administration Potassium Chloride 20 meq 06/26/16 10:00 06/29/16 10:43 K-Dur - PO 20 meq DAILY THALIA Administration Tamsulosin HCl 0.4 mg 06/26/16 10:00 06/29/16 10:42 Flomax - PO 0.4 mg DAILY THALIA Administration Trazodone HCl 50 mg 06/29/16 12:36 Desyrel - NGT HS THALIA ASSESSMENT/PLAN 86 year-old man with a PMH of HTN, HLD, nonobstructive CAD, systolic heart failure, paroxysmal afib, compression fractures, prostate cancer s/p RT, colon cancer s/p colectomy. Admitted for bilateral lower extremity edema and pain management. Acute on chronic systolic heart failure s/p PPM --persistent lower extremity edema --CT chest shows minimal pleural effusions --continue IV Lasix, Cr is stable Paroxysmal afib --paced rhythm --continue Eliquis Nonobstructive CAD --two cardiac caths in past year, unobstructed coronaries --continue lisinopril, Toprol XL, Lipitor Gastritis --per records from [facility]---> --EGD performed and no bleeding found. Duodenitis with scattered erosions , gastritis, submucosal gastric nodules --Colonoscopy found mild diverticulosis, nonbleeding rectal AVM, and internal hemorrhoids --switch to IV protonix BID Partial SBO v. Ileus --KUB shows partial SBO v. ileus --NGT inserted yesterday with 25cc return --patient reports resolution of colicky abdominal pain --seen and evaluated by surgery Dr. Coles, will continue conservative management for now, repeat KUB flat and upright tomorrow --c.diff negative --continue hycosamine BID Hypertension --BP well-controlled --continue lisinopril, Toprol XL, lasix Hyperlipidemia --continue Lipitor Hypophosphatemia --repleted with IV sodium phosphate --recheck in am Prostate cancer Colon cancer --patient declines to take Enzalutamide as it causes severe GI distress --continue flomax Anxiety/agitation --low dose lorazepam PRN Degenerative disc disease/compression fractures Severe pain syndrome, improved --placed on duragesic patch 25mcg with good pain relief and without over- narcotizing effect --lidocaine patch PRN F/E/N Fluids: PO intake adequate Electrolytes: replete as indicated Nutrition: low sodium diet DVT prophylaxis: on Eliquis Dispo: continues to require inpatient care. Visit type - Emergency Visit Emergency Visit: Yes ED Registration Date: 06/25/16 Care time: The patient presented to the Emergency Department on the above date and was hospitalized for further evaluation of their emergent condition. - New Patient This patient is new to me today: No - Critical Care Critical Care patient: No
[2016-06-29] MEDS ORDERED: SODIUM PHOSPHATE - 30 MM in DEXTROSE 5%-WATER - 500 ML IVPB ONE (14:30)
[2016-06-29] MEDS ORDERED: HYOSCYAMINE SULFATE 0.125 MG *ODT PO PRN (16:31)
[2016-06-29] MEDS: POTASSIUM CHLORIDE 40 MEQ/30 ML UNIT DOSE CUP PO SCH (18:26)
[2016-06-29] MEDS: APIXABAN 2.5 MG TABLET GT SCH (21:13)
[2016-06-29] MEDS: traZODone HCL 50 MG TABLET (FP) NGT SCH (21:13)
[2016-06-29] MEDS: LORazepam 0.5 MG TABLET NGT PRN (21:14)
[2016-06-29] MEDS: ATORVASTATIN CA 20 MG TABLET (FP) NGT SCH (21:14)
--- NOTE | 2016-06-29 22:41 | HOSP ---
Subjective - Review of Symptoms Events since last encounter: Preston called for NG tube replacement, as this one is obstructed patient seen and examined Abd: non tender, no guarding, no rigidity, Bs +, midline scar present. chest b/l aier entry present cvs s1s2 noram NG tube out put in 24 hour 125 ml patient states he is passing flatus plan : remove NG tube, no need for replacment as present as patient is passing flatus, BS +, no vomiting and NG tube out put 125. Get X ray abdomen in morning IF patient vomits than consider reinserting NG tube. Physical Examination Vital Signs: Vital Signs Temperature 97.8 F 06/29/16 18:00 Pulse Rate 71 06/29/16 18:00 Respiratory Rate 18 06/29/16 18:00 Blood Pressure 106/50 06/29/16 18:00 O2 Sat by Pulse Oximetry (%) 92 L 06/29/16 09:00 Labs: CBC, BMP 06/29/16 06:40 06/29/16 06:40 Visit type - Emergency Visit Emergency Visit: Yes ED Registration Date: 06/25/16 Care time: The patient presented to the Emergency Department on the above date and was hospitalized for further evaluation of their emergent condition. - New Patient This patient is new to me today: Yes Date on this admission: 06/29/16 - Critical Care Critical Care patient: No
[2016-06-30] MEDS: ALBUTEROL SO4 2.5/IPRATROPIUM 0.5 INH SOL 3 ML VIAL.NEB. NEB SCH ×3 (05:07→21:41)
[2016-06-30] MEDS: NYSTATIN 100,000 UNIT/GM TOPICAL CREAM 15 GM TUBE TP SCH ×3 (06:08→18:44)
[2016-06-30] MEDS: DEXTROSE 5%-NORMAL SALINE 1,000 ML IV SCH ×2 (06:09→17:15)
[2016-06-30] MEDS ORDERED: PT OWN MED DRAWER 7, Y5N ONE ×3 (06:52→21:52)
[2016-06-30 07:49] LABS: BASOPHIL 1.3 % (0-2.0); EOSINOPHIL 1.6 % (0-4.5); MCH 25.4 pg (25.7-33.7); MCHC 31.6 g/dl (32.0-35.9); MEAN CELL VOLUME 80.4 fl (80-96); MEAN PLT VOLUME 9.4 fl (7.5-11.1); NEUTROPHILS 76.8 % (42.8-82.8); PLATELET COUNT 140 K/MM3 (134-434); RDW 19.2 % (11.9-15.9); WHITE BLOOD COUNT 4.7 K/mm3 (4.0-10.0)
[2016-06-30 08:23] LABS: ALBUMIN 2.8 g/dl (3.4-5.0); ANION GAP 9 (8-16); CALCIUM 7.6 mg/dL (8.5-10.1); CO2 26 mmol/L (21-32); GLUCOSE,RANDOM 110 mg/dL (74-106); MAGNESIUM 2.4 mg/dL (1.8-2.4)
[2016-06-30 08:26] LABS: ALK PHOS 89 U/L (45-117); BILIRUBIN,TOTAL 0.6 mg/dL (0.2-1.0); CREATININE 0.5 mg/dL (0.7-1.3); PHOSPHOROUS 2.5 mg/dL (2.5-4.9); SGOT/AST 14 U/L (15-37); SGPT/ALT 13 U/L (12-78); TOT PROT 5.6 g/dl (6.4-8.2)
--- NOTE | 2016-06-30 09:52 | PN ---
Progress Note (short form) - Note Progress Note: Attending Surgeon Seen in f/u; states he is passing flatus; NGT came out last night; there was minimal output; he has NOC. O/E VSS AF abdomen soft; slightly tympanitic minimally distended; o/w negative. FUAXR's done today show no a/f levels; there is colonic distention. IMP: ileus vs. resolving partial obstruction PLAN; trial of clear liquids; will f/u. Gordon Wells> Sanket MICHELE FACS
--- NOTE | 2016-06-30 10:15 | PN ---
Physical Exam: SUBJECTIVE: Patient seen and examined Pt denies cp, sob, palpitations, abdominal pain,nausea,reports,+ flatus, no BM yet. OBJECTIVE: Vital Signs Period Temp Pulse Resp BP Sys/Sanchez Pulse Ox Last 24 Hr 97.4 F-98.6 F 70-74 18-22 106-139/49-56 95 GENERAL: The patient is awake, alert, and fully oriented, in no acute distress. HEAD: Normal with no signs of trauma. EYES: PERRL, extraocular movements intact, sclera anicteric, conjunctiva clear. No ptosis. ENT: Ears normal, nares patent, oropharynx clear without exudates, moist mucous membranes. NECK: Trachea midline, full range of motion, supple. LUNGS: Breath sounds equal, clear to auscultation bilaterally, no wheezes, no crackles, no accessory muscle use. HEART: Regular rate and rhythm, S1, S2 without murmur, rub or gallop. ABDOMEN: Soft, nontender, nondistended, normoactive bowel sounds, no guarding, no rebound, no hepatosplenomegaly, no masses. EXTREMITIES: 2+ pulses, warm, well-perfused, no edema. NEUROLOGICAL: Cranial nerves II through XII grossly intact. Normal speech, gait not observed. PSYCH: Normal mood, normal affect. SKIN: Warm, dry, normal turgor, no rashes or lesions noted Laboratory Results - last 24 hr 06/30/16 06/30/16 06:30 06:30 WBC 4.7 RBC 3.70 L Hgb 9.4 L Hct 29.8 L MCV 80.4 MCHC 31.6 L RDW 19.2 H Plt Count 140 MPV 9.4 Neutrophils % 76.8 Lymphocytes % 10.2 D Monocytes % 10.1 Eosinophils % 1.6 Basophils % 1.3 Sodium 141 Potassium 3.9 Chloride 106 Carbon Dioxide 26 Anion Gap 9 BUN 10 Creatinine 0.5 L Creat Clearance w eGFR > 60 Random Glucose 110 H Calcium 7.6 L Phosphorus 2.5 D Magnesium 2.4 Total Bilirubin 0.6 AST 14 L ALT 13 Alkaline Phosphatase 89 Total Protein 5.6 L Albumin 2.8 L Active Medications Generic Name Dose Route Start Last Admin Trade Name Freq PRN Reason Stop Dose Admin Albuterol Sulfate 1 amp 06/25/16 20:39 Ventolin 0.083% Nebulizer Soln - NEB Q4H PRN SHORT OF BREATH/WHEEZING Albuterol/Ipratropium 1 amp 06/25/16 22:00 06/30/16 05:07 Duoneb - NEB 1 amp TIDR THALIA Administration Apixaban 2.5 mg 06/29/16 12:28 06/29/16 21:13 Eliquis - GT 2.5 mg BID THALIA Administration Atorvastatin Calcium 20 mg 06/29/16 12:29 06/29/16 21:14 Lipitor - NGT 20 mg HS THALIA Administration Doxazosin Mesylate 4 mg 06/30/16 10:00 Cardura - PO DAILY THALIA Fentanyl 1 patch 06/25/16 20:45 06/28/16 22:44 Duragesic 25mcg Patch - TD 1 patch Q72H THALIA Administration Furosemide 40 mg 06/27/16 10:00 06/29/16 10:34 Lasix Injection - IVPUSH 40 mg DAILY THALIA Administration Hyoscyamine Sulfate 0.375 mg 06/28/16 12:45 06/29/16 21:14 Levbid 0.375mg Er Tab PO 0.375 mg BID THALIA Administration Hyoscyamine Sulfate 0.125 mg 06/29/16 16:31 Levsin Odt - PO Q4H PRN PAIN LEVEL 1-5 Pantoprazole Sodium 100 mls @ 200 mls/hr 06/28/16 14:15 06/29/16 21:15 Protonix 40mg Ivpb (Pre-Docked) IVPB 200 mls/hr BID THALIA Administration Dextrose/Sodium Chloride 1,000 mls @ 75 mls/hr 06/28/16 17:15 06/30/16 06:09 D5-Ns - IV 75 mls/hr ASDIR THALIA Administration Lidocaine 1 patch 06/26/16 10:00 06/29/16 10:32 Lidoderm Patch - TP 1 patch DAILY THALIA Administration Lisinopril 2.5 mg 06/29/16 12:31 Prinivil NGT DAILY THALIA Lorazepam 0.5 mg 06/29/16 12:31 06/29/16 21:14 Ativan - NGT 0.5 mg Q8H PRN Administration ANXIETY Metoprolol Tartrate 25 mg 06/30/16 10:00 Lopressor - PO DAILY THALIA Miscellaneous 1 each 06/25/16 20:53 06/29/16 07:09 Duragesic Patch Waste TD 1 each PRN PRN Administration Nystatin 1 applic 06/26/16 21:59 06/30/16 06:08 Mycostatin Cream - TP 1 applic Q6HPO THALIA Administration Potassium Chloride 20 meq 06/29/16 16:30 06/29/16 18:26 Kcl Oral Solution - PO 20 meq DAILY THALIA Administration Trazodone HCl 50 mg 06/29/16 12:36 06/29/16 21:13 Desyrel - NGT 50 mg HS THALIA Administration ASSESSMENT/PLAN: This is an 86 year-old man with a PMH of HTN, HLD, nonobstructive CAD, systolic heart failure, paroxysmal afib, compression fractures, prostate cancer s/p RT, colon cancer s/p colectomy. Admitted for bilateral lower extremity edema and pain management. *Partial SBO v. Ileus- improving,asymptomatic - sx following, advanced diet to clears, will monitor - NGT out done -c.diff/stool studies negative -will continue Hycosamine BID - Sx following, started on clears - Repeat abdominal X'Ray: partial or incomplete small bowel obstruction *Acute on chronic systolic heart failure s/p PPM- stable -CT chest shows minimal pleural effusions -continue IV Lasix, Cr is stable - BNP 02394 *Hx of Paroxysmal afib,paced rhythm, HR controlled -continue Eliquis *Nonobstructive CAD -two cardiac caths in past year, unobstructed coronaries -will continue lisinopril, Toprol XL, Lipitor *Gastritis -per records from [facility]---> -EGD performed and no bleeding found. Duodenitis with scattered erosions, gastritis, submucosal gastric nodules -Colonoscopy found mild diverticulosis, nonbleeding rectal AVM, and internal hemorrhoids -will cont on IV protonix BID until PO sarath well *Hypertension-BP well-controlled -continue lisinopril, Toprol XL, lasix - will monitor BP closely *Hyperlipidemia -continue Lipitor *Hypophosphatemia- normalized - s/p replacement *Hx of Prostate cancer,Colon cancer patient declines to take Enzalutamide as it causes severe GI distress -continue flomax *Anxiety/agitation - will cont on low dose lorazepam PRN Degenerative disc disease/compression fractures Severe pain syndrome, improved --placed on duragesic patch 25mcg with good pain relief and without over- narcotizing effect --lidocaine patch PRN *F/E/N Fluids: PO intake adequate Electrolytes: replete as indicated Nutrition: low sodium diet DVT prophylaxis: on Eliquis/SCD Dispo: continues to require inpatient care. Visit type - Emergency Visit Emergency Visit: Yes ED Registration Date: 06/25/16 Care time: The patient presented to the Emergency Department on the above date and was hospitalized for further evaluation of their emergent condition. - New Patient This patient is new to me today: Yes Date on this admission: 06/30/16 - Critical Care Critical Care patient: No
[2016-06-30] MEDS: POTASSIUM CHLORIDE 40 MEQ/30 ML UNIT DOSE CUP PO SCH (10:26)
[2016-06-30] MEDS: LISINOPRIL 5 MG TABLET (FP) NGT SCH (10:26)
[2016-06-30] MEDS: METOPROLOL TARTRATE 25 MG TABLET (FP) PO SCH (10:27)
[2016-06-30] MEDS: FUROSEMIDE 40 MG/4 ML INJECTABLE VIAL IVPUSH SCH (10:28)
[2016-06-30] MEDS: APIXABAN 2.5 MG TABLET GT SCH ×2 (10:29→22:11)
[2016-06-30] MEDS: DOXAZOSIN MESYLATE 4 MG TABLET PO SCH (10:29)
[2016-06-30] MEDS: HYOSCYAMINE SULFATE 0.375 MG TAB.ER.12H PO SCH ×2 (10:29→22:11)
[2016-06-30] MEDS: PANTOPRAZOLE SODIUM 40MG/100 ML IVPB SCH ×2 (10:31→22:09)
[2016-06-30] MEDS: LIDOCAINE 5% TOPICAL PATCH TP SCH (10:31)
--- NOTE | 2016-06-30 16:05 | PN ---
Progress Note, Physician History of Present Illness: patient doing well had bowel movement passing gases - Current Medication List Current Medications: Active Medications Albuterol Sulfate (Ventolin 0.083% Nebulizer Soln -) 1 amp NEB Q4H PRN PRN Reason: SHORT OF BREATH/WHEEZING Albuterol/Ipratropium (Duoneb -) 1 amp NEB TIDR [facility] Last Admin: 06/30/16 14:06 Dose: 1 amp Apixaban (Eliquis -) 2.5 mg GT BID [facility] Last Admin: 06/30/16 10:29 Dose: 2.5 mg Atorvastatin Calcium (Lipitor -) 20 mg NGT HS [facility] Last Admin: 06/29/16 21:14 Dose: 20 mg Doxazosin Mesylate (Cardura -) 4 mg PO DAILY [facility] Last Admin: 06/30/16 10:29 Dose: 4 mg Fentanyl (Duragesic 25mcg Patch -) 1 patch TD Q72H [facility] Last Admin: 06/28/16 22:44 Dose: 1 patch Furosemide (Lasix Injection -) 40 mg IVPUSH DAILY [facility] Last Admin: 06/30/16 10:28 Dose: 40 mg Hyoscyamine Sulfate (Levbid 0.375mg Er Tab) 0.375 mg PO BID [facility] Last Admin: 06/30/16 10:29 Dose: 0.375 mg Hyoscyamine Sulfate (Levsin Odt -) 0.125 mg PO Q4H PRN PRN Reason: PAIN LEVEL 1-5 Pantoprazole Sodium (Protonix 40mg Ivpb (Pre-Docked)) 100 mls @ 200 mls/hr IVPB BID [facility] Last Admin: 06/30/16 10:31 Dose: 200 mls/hr Dextrose/Sodium Chloride (D5-Ns -) 1,000 mls @ 75 mls/hr IV ASDIR [facility] Last Admin: 06/30/16 06:09 Dose: 75 mls/hr Lidocaine (Lidoderm Patch -) 1 patch TP DAILY [facility] Last Admin: 06/30/16 10:31 Dose: 1 patch Lisinopril (Prinivil) 2.5 mg NGT DAILY [facility] Last Admin: 06/30/16 10:26 Dose: 2.5 mg Lorazepam (Ativan -) 0.5 mg NGT Q8H PRN PRN Reason: ANXIETY Last Admin: 06/29/16 21:14 Dose: 0.5 mg Metoprolol Tartrate (Lopressor -) 25 mg PO DAILY [facility] Last Admin: 06/30/16 10:27 Dose: 25 mg Miscellaneous (Duragesic Patch Waste) 1 each TD PRN PRN Last Admin: 06/29/16 07:09 Dose: 1 each Nystatin (Mycostatin Cream -) 1 applic TP Q6HPO [facility] Last Admin: 06/30/16 12:49 Dose: 1 applic Potassium Chloride (Kcl Oral Solution -) 20 meq PO DAILY [facility] Last Admin: 06/30/16 10:26 Dose: 20 meq Trazodone HCl (Desyrel -) 50 mg NGT HS [facility] Last Admin: 06/29/16 21:13 Dose: 50 mg - Objective Vital Signs: Vital Signs Temperature 97.3 F L 06/30/16 14:16 Pulse Rate 70 06/30/16 14:16 Respiratory Rate 22 06/30/16 14:16 Blood Pressure 114/51 06/30/16 14:16 O2 Sat by Pulse Oximetry (%) 96 06/30/16 11:00 Constitutional: Yes: No Distress, Calm Eyes: Yes: Conjunctiva Clear Cardiovascular: Yes: Regular Rate and Rhythm, Other Respiratory: Yes: Regular, Poor Air Entry Gastrointestinal: Yes: Normal Bowel Sounds, Soft Musculoskeletal: Yes: WNL Extremities: Yes: WNL Neurological: Yes: Alert, Oriented Psychiatric: Yes: Alert Labs: CBC, BMP 06/30/16 06:30 06/30/16 06:30 INR, PTT INR 1.24 (0.82-1.09) H 06/25/16 17:44 Assessment/Plan Problem List - Problem (1) Acute on chronic systolic (congestive) heart failure (2) Chronic lower back pain (3) Bilateral lower extremity edema (4) Normocytic anemia (5) HTN (hypertension) (6) Hyperlipidemia 7 pleural effusion r/o pna plan conitnue current mgmt abd xray noted
[2016-06-30] MEDS: ATORVASTATIN CA 20 MG TABLET (FP) NGT SCH (22:11)
[2016-06-30] MEDS: traZODone HCL 50 MG TABLET (FP) NGT SCH (22:11)
[2016-07-01] MEDS: NYSTATIN 100,000 UNIT/GM TOPICAL CREAM 15 GM TUBE TP SCH ×4 (00:32→18:06)
[2016-07-01] MEDS: ALBUTEROL SO4 2.5/IPRATROPIUM 0.5 INH SOL 3 ML VIAL.NEB. NEB SCH ×3 (06:43→22:35)
[2016-07-01 08:56] LABS: BASOPHIL 1.1 % (0-2.0); MCH 25.2 pg (25.7-33.7); MCHC 31.1 g/dl (32.0-35.9); MEAN CELL VOLUME 80.9 fl (80-96); MEAN PLT VOLUME 9.2 fl (7.5-11.1); NEUTROPHILS 76.9 % (42.8-82.8); PLATELET COUNT 138 K/MM3 (134-434); RDW 18.4 % (11.9-15.9); WHITE BLOOD COUNT 3.4 K/mm3 (4.0-10.0)
[2016-07-01 09:23] LABS: ALBUMIN 2.9 g/dl (3.4-5.0); ANION GAP 7 (8-16); CALCIUM 7.9 mg/dL (8.5-10.1); CO2 28 mmol/L (21-32); GLUCOSE,RANDOM 152 mg/dL (74-106)
[2016-07-01 09:27] LABS: ALK PHOS 90 U/L (45-117); BILIRUBIN,TOTAL 0.6 mg/dL (0.2-1.0); CREATININE 0.6 mg/dL (0.7-1.3); SGOT/AST 13 U/L (15-37); SGPT/ALT 14 U/L (12-78); TOT PROT 5.7 g/dl (6.4-8.2)
[2016-07-01] MEDS ORDERED: PT OWN MED DRAWER 7, Y5N ONE (09:31)
[2016-07-01] MEDS: METOPROLOL TARTRATE 25 MG TABLET (FP) PO SCH (10:07)
[2016-07-01] MEDS: LISINOPRIL 5 MG TABLET (FP) NGT SCH (10:07)
[2016-07-01] MEDS: POTASSIUM CHLORIDE 40 MEQ/30 ML UNIT DOSE CUP PO SCH ×2 (10:08→11:50)
[2016-07-01] MEDS: DOXAZOSIN MESYLATE 4 MG TABLET PO SCH (10:08)
[2016-07-01] MEDS: FUROSEMIDE 40 MG/4 ML INJECTABLE VIAL IVPUSH SCH (10:08)
[2016-07-01] MEDS: APIXABAN 2.5 MG TABLET GT SCH ×2 (10:09→21:02)
[2016-07-01] MEDS: HYOSCYAMINE SULFATE 0.375 MG TAB.ER.12H PO SCH ×2 (10:10→21:03)
--- NOTE | 2016-07-01 10:38 | PN ---
Physical Exam: SUBJECTIVE: Patient seen and examined. He states he is having some abdominal discomfort but is tolerating his diet. He stated to primary RN that he is having periods of dizziness, headaches. When I went to assess him, he states that he has periods of dizziness that began this morning. He denies any visual defect or any other discomfort and states that the dizziness is intermittent. Head CT ordered. Daughter in room, explained purpose of Head CT to both patient and daughter, pt refusing Head CT. He states he is passing flatus and moving bowels. OBJECTIVE: Vital Signs Period Temp Pulse Resp BP Sys/Sanchez Pulse Ox Last 24 Hr 97.3 F-98.7 F 68-71 16-22 110-121/51-59 96-96 GENERAL: The patient is awake, alert, and fully oriented, in no acute distress. HEAD: Normal with no signs of trauma. EYES: PERRL, extraocular movements intact, sclera anicteric, conjunctiva clear. No ptosis. ENT: Ears normal, nares patent, oropharynx clear without exudates, moist mucous membranes. NECK: Trachea midline, full range of motion, supple. LUNGS: Breath sounds equal, clear to auscultation bilaterally, no wheezes, no crackles, no accessory muscle use. HEART: Regular rate and rhythm, S1, S2 without murmur, rub or gallop. ABDOMEN: abdomen soft, non tender, + bowel sounds EXTREMITIES: 2+ pulses, warm, well-perfused, no edema. NEUROLOGICAL: Normal speech, gait not observed. PSYCH: Normal mood, normal affect. SKIN: Warm, dry, normal turgor, no rashes or lesions noted Laboratory Results - last 24 hr 07/01/16 07/01/16 08:40 08:40 WBC 3.4 L RBC 3.59 L Hgb 9.0 L Hct 29.0 L MCV 80.9 MCHC 31.1 L RDW 18.4 H Plt Count 138 MPV 9.2 Neutrophils % 76.9 Lymphocytes % 11.8 Monocytes % 9.2 Eosinophils % 1.0 Basophils % 1.1 Sodium 140 Potassium 3.9 Chloride 105 Carbon Dioxide 28 Anion Gap 7 L BUN 9 Creatinine 0.6 L Creat Clearance w eGFR > 60 Random Glucose 152 H D Calcium 7.9 L Total Bilirubin 0.6 AST 13 L ALT 14 Alkaline Phosphatase 90 Total Protein 5.7 L Albumin 2.9 L Active Medications Generic Name Dose Route Start Last Admin Trade Name Freq PRN Reason Stop Dose Admin Albuterol Sulfate 1 amp 06/25/16 20:39 Ventolin 0.083% Nebulizer Soln - NEB Q4H PRN SHORT OF BREATH/WHEEZING Albuterol/Ipratropium 1 amp 06/25/16 22:00 07/01/16 06:43 Duoneb - NEB 1 amp TIDR THALIA Administration Apixaban 2.5 mg 06/29/16 12:28 07/01/16 10:09 Eliquis - GT 2.5 mg BID THALIA Administration Atorvastatin Calcium 20 mg 06/29/16 12:29 06/30/16 22:11 Lipitor - NGT Not Given HS THALIA Doxazosin Mesylate 4 mg 06/30/16 10:00 07/01/16 10:08 Cardura - PO 4 mg DAILY THALIA Administration Fentanyl 1 patch 06/25/16 20:45 06/28/16 22:44 Duragesic 25mcg Patch - TD 1 patch Q72H THALIA Administration Furosemide 40 mg 06/27/16 10:00 07/01/16 10:08 Lasix Injection - IVPUSH 40 mg DAILY THALIA Administration Hyoscyamine Sulfate 0.375 mg 06/28/16 12:45 07/01/16 10:10 Levbid 0.375mg Er Tab PO 0.375 mg BID THALIA Administration Hyoscyamine Sulfate 0.125 mg 06/29/16 16:31 Levsin Odt - PO Q4H PRN PAIN LEVEL 1-5 Pantoprazole Sodium 100 mls @ 200 mls/hr 06/28/16 14:15 06/30/16 22:09 Protonix 40mg Ivpb (Pre-Docked) IVPB 200 mls/hr BID THALIA Administration Dextrose/Sodium Chloride 1,000 mls @ 75 mls/hr 06/28/16 17:15 06/30/16 17:15 D5-Ns - IV Not Given ASDIR THALIA Lidocaine 1 patch 06/26/16 10:00 06/30/16 10:31 Lidoderm Patch - TP 1 patch DAILY THALIA Administration Lisinopril 2.5 mg 06/29/16 12:31 07/01/16 10:07 Prinivil NGT 2.5 mg DAILY THALIA Administration Lorazepam 0.5 mg 06/29/16 12:31 06/29/16 21:14 Ativan - NGT 0.5 mg Q8H PRN Administration ANXIETY Metoprolol Tartrate 25 mg 06/30/16 10:00 07/01/16 10:07 Lopressor - PO 25 mg DAILY THALIA Administration Miscellaneous 1 each 06/25/16 20:53 06/29/16 07:09 Duragesic Patch Waste TD 1 each PRN PRN Administration Nystatin 1 applic 06/26/16 21:59 07/01/16 06:32 Mycostatin Cream - TP 1 applic Q6HPO THALIA Administration Potassium Chloride 20 meq 06/29/16 16:30 07/01/16 10:08 Kcl Oral Solution - PO 20 meq DAILY THALIA Administration Trazodone HCl 50 mg 06/29/16 12:36 06/30/16 22:11 Desyrel - NGT Not Given HS THALIA ASSESSMENT/PLAN: Patient is an 86 year old man with a significant past medical history of hypertension, HLD, non obstructive CAD, systolic heart failure, paroxysmal afib , compression fractures, prostate cancer s/p RT and colon cancer s/p colectomy. He was admitted on 06/25/2016 for bilateral lower extremity edema and pain management. On 06/28/2016 an NG tube was placed after patient began to complain of spasmodic abdominal pain and vomiting. On 06/30/2016 NGT became obstructed. Since there was little output on canister and pt was passing flatulus, no vomiting, NGT was not replaced. Imagin06/25/2016 chest xray - CHF, mild degen of pulm vascular congestion, bilateral pleural effusion 06/27/2016 chest xray - large heart, pacemaker, congestive changes, bilateral effusions 06/27/[address] - enlarged mediastinal lymph node - persistent bilateral pleural effusions 06/28/2106 abdominal xray - NGT confirmed placement 06/29/2016 abdominal xray - small bowel or partial SBO 06/30/2015 abdominal xray - dilated loops of bone, partial or incomplete SBO GI: Parial Small bowel obstruction - improving Assessment/Plan. Surgery following, diet advance to full liquids with good tolerance NGT dislodged on 06/30/2016 and not replaced since pt was passing flatulus, no vomiting Tolerating diet, abdomen soft, + bowel sounds on all 4 quadrants, no abdominal pain on exam No nausea/vomiting Gastritis - chronic Assessment/Plan - On IV protonix BID Cardiology: Acute on chronic systolic heart failure - stable Assessment/Plan. CT on 06/27/2016 shows persistent bilateral pleural effusions On IV lasix 40mg daily monitor weight, I&Os and Creatinine Paroxysmal afib - chronic Assessment/Plan - on Eliquis Nonobstructive CAD Assessment/Plan: on Lisinopril, Toprol, Lipitor Hypertension - chronic Assessment/Plan: On Toprol XL Monitor BP Hyperlipidemia - chronic Assessment/Plan: On Lipitor Oncology: History of Prostate cancer and Colon cancer Assessment/Plan: No active treatments currently Muscular/Skeletal Degenerative disc disease/compression fractures/severe pain - controlled Assessment/Plan: on duragesic patch 25mcg, Lidocaine patch Bowel regimen protocol initiated with colace TID, miralax F.E.N. Fluids: PO intake adequate Electrolytes:replete as indicated Nutrition: advance diet as tolerated - on full liquids DVT prophylaxis: on Eliquis, SCD GI: Protonix BID, colace, miralax Dispo: continues to require inpatient care. Full Code. Visit type - Emergency Visit Emergency Visit: Yes ED Registration Date: 06/25/16 Care time: The patient presented to the Emergency Department on the above date and was hospitalized for further evaluation of their emergent condition. - New Patient This patient is new to me today: Yes Date on this admission: 07/01/16 - Critical Care Critical Care patient: No - Discharge Referral Referred to [facility] Med P.C.: No
--- NOTE | 2016-07-01 11:17 | PN ---
Progress Note (short form) - Note Progress Note: Attending Surgeon No c/o; passing flatus and moving bowels on commode VSS AF Abdomen soft/NT flat and non tympanitic IMP:Clinically improved PLAN: Advance diet as tolerated Gordon Coles MD FACS
[2016-07-01] MEDS: PANTOPRAZOLE SODIUM 40MG/100 ML IVPB SCH ×2 (11:55→21:04)
[2016-07-01] MEDS: LIDOCAINE 5% TOPICAL PATCH TP SCH (11:55)
--- NOTE | 2016-07-01 15:02 | PN ---
Progress Note, Physician History of Present Illness: stable doing well abd pain improving - Current Medication List Current Medications: Active Medications Albuterol Sulfate (Ventolin 0.083% Nebulizer Soln -) 1 amp NEB Q4H PRN PRN Reason: SHORT OF BREATH/WHEEZING Albuterol/Ipratropium (Duoneb -) 1 amp NEB TIDR [facility] Last Admin: 07/01/16 14:12 Dose: 1 amp Apixaban (Eliquis -) 2.5 mg GT BID [facility] Last Admin: 07/01/16 10:09 Dose: 2.5 mg Atorvastatin Calcium (Lipitor -) 20 mg NGT HS [facility] Last Admin: 06/30/16 22:11 Dose: Not Given Doxazosin Mesylate (Cardura -) 4 mg PO DAILY [facility] Last Admin: 07/01/16 10:08 Dose: 4 mg Fentanyl (Duragesic 25mcg Patch -) 1 patch TD Q72H [facility] Last Admin: 06/28/16 22:44 Dose: 1 patch Furosemide (Lasix Injection -) 40 mg IVPUSH DAILY [facility] Last Admin: 07/01/16 10:08 Dose: 40 mg Hyoscyamine Sulfate (Levbid 0.375mg Er Tab) 0.375 mg PO BID [facility] Last Admin: 07/01/16 10:10 Dose: 0.375 mg Hyoscyamine Sulfate (Levsin Odt -) 0.125 mg PO Q4H PRN PRN Reason: PAIN LEVEL 1-5 Pantoprazole Sodium (Protonix 40mg Ivpb (Pre-Docked)) 100 mls @ 200 mls/hr IVPB BID [facility] Last Admin: 07/01/16 11:55 Dose: 200 mls/hr Dextrose/Sodium Chloride (D5-Ns -) 1,000 mls @ 75 mls/hr IV ASDIR [facility] Last Admin: 06/30/16 17:15 Dose: Not Given Lidocaine (Lidoderm Patch -) 1 patch TP DAILY [facility] Last Admin: 07/01/16 11:55 Dose: 1 patch Lisinopril (Prinivil) 2.5 mg NGT DAILY [facility] Last Admin: 07/01/16 10:07 Dose: 2.5 mg Lorazepam (Ativan -) 0.5 mg NGT Q8H PRN PRN Reason: ANXIETY Last Admin: 06/29/16 21:14 Dose: 0.5 mg Metoprolol Tartrate (Lopressor -) 25 mg PO DAILY [facility] Last Admin: 07/01/16 10:07 Dose: 25 mg Miscellaneous (Duragesic Patch Waste) 1 each TD PRN PRN Last Admin: 06/29/16 07:09 Dose: 1 each Nystatin (Mycostatin Cream -) 1 applic TP Q6HPO [facility] Last Admin: 07/01/16 11:55 Dose: 1 applic Potassium Chloride (Kcl Oral Solution -) 20 meq PO DAILY [facility] Last Admin: 07/01/16 11:50 Dose: Not Given Trazodone HCl (Desyrel -) 50 mg NGT HS [facility] Last Admin: 06/30/16 22:11 Dose: Not Given - Objective Vital Signs: Vital Signs Temperature 98.6 F 07/01/16 06:00 Pulse Rate 76 07/01/16 13:00 Respiratory Rate 20 07/01/16 13:00 Blood Pressure 114/50 07/01/16 13:00 O2 Sat by Pulse Oximetry (%) 100 07/01/16 09:00 Constitutional: Yes: No Distress, Calm Cardiovascular: Yes: Regular Rate and Rhythm Respiratory: Yes: Regular, CTA Bilaterally Gastrointestinal: Yes: Normal Bowel Sounds, Soft Musculoskeletal: Yes: WNL Extremities: Yes: WNL Neurological: Yes: Alert, Oriented Psychiatric: Yes: Alert Labs: CBC, BMP 07/01/16 08:40 07/01/16 08:40 INR, PTT INR 1.24 (0.82-1.09) H 06/25/16 17:44 Assessment/Plan Problem List - Problem (1) Acute on chronic systolic (congestive) heart failure (2) Chronic lower back pain (3) Bilateral lower extremity edema (4) Normocytic anemia (5) HTN (hypertension) (6) Hyperlipidemia 7 pleural effusion r/o pna plan conitnue current mgmt surgery note noted
[2016-07-01] MEDS: DEXTROSE 5%-NORMAL SALINE 1,000 ML IV SCH ×2 (15:12→17:15)
[2016-07-01] MEDS ORDERED: ARTIFICIAL TEARS (POLYVINYL ALCOHOL 1.4%) OPTH DROPS OU PRN (20:24)
[2016-07-01] MEDS: fentaNYL 25mcg/hr PATCH.TD72 TD SCH (21:01)
[2016-07-01] MEDS: DOCUSATE SODIUM 100 MG CAPSULE (FP) PO SCH (21:01)
[2016-07-01] MEDS: traZODone HCL 50 MG TABLET (FP) NGT SCH (21:02)
[2016-07-01] MEDS: ATORVASTATIN CA 20 MG TABLET (FP) NGT SCH (21:04)
[2016-07-01] MEDS: LORazepam 0.5 MG TABLET NGT PRN (21:06)
[2016-07-01] MEDS: FENTANYL PATCH WASTE TD PRN (23:23)
[2016-07-02] MEDS: NYSTATIN 100,000 UNIT/GM TOPICAL CREAM 15 GM TUBE TP SCH ×4 (00:26→18:53)
[2016-07-02] MEDS: SIMETHICONE 80 MG TAB.CHEW (FP) PO PRN ×2 (02:56→21:11)
[2016-07-02] MEDS: DOCUSATE SODIUM 100 MG CAPSULE (FP) PO SCH ×3 (06:18→21:10)
[2016-07-02] MEDS: ALBUTEROL SO4 2.5/IPRATROPIUM 0.5 INH SOL 3 ML VIAL.NEB. NEB SCH ×3 (06:45→22:25)
[2016-07-02] MEDS ORDERED: PT OWN MED DRAWER 7, Y5N ONE (09:52)
[2016-07-02] MEDS ORDERED: POLYETHYLENE GLYCOL 3350 119 GM BTL PO SCH (10:00)
[2016-07-02] MEDS: PANTOPRAZOLE SODIUM 40MG/100 ML IVPB SCH (10:00)
[2016-07-02] MEDS: APIXABAN 2.5 MG TABLET GT SCH ×2 (10:08→21:10)
[2016-07-02] MEDS: LISINOPRIL 5 MG TABLET (FP) NGT SCH (10:08)
[2016-07-02] MEDS: METOPROLOL TARTRATE 25 MG TABLET (FP) PO SCH (10:08)
[2016-07-02] MEDS: DOXAZOSIN MESYLATE 4 MG TABLET PO SCH (10:09)
[2016-07-02] MEDS: LIDOCAINE 5% TOPICAL PATCH TP SCH (10:10)
[2016-07-02] MEDS: HYOSCYAMINE SULFATE 0.375 MG TAB.ER.12H PO SCH ×2 (10:10→21:23)
[2016-07-02 10:18] LABS: BASOPHIL 0.7 % (0-2.0); EOSINOPHIL 1.3 % (0-4.5); MCH 25.5 pg (25.7-33.7); MCHC 31.6 g/dl (32.0-35.9); MEAN CELL VOLUME 80.7 fl (80-96); MEAN PLT VOLUME 9.8 fl (7.5-11.1); PLATELET COUNT 141 K/MM3 (134-434); RDW 18.9 % (11.9-15.9); WHITE BLOOD COUNT 3.9 K/mm3 (4.0-10.0)
[2016-07-02 10:30] LABS: ALBUMIN 2.8 g/dl (3.4-5.0); ANION GAP 9 (8-16); BILIRUBIN,TOTAL 0.5 mg/dL (0.2-1.0); CALCIUM 7.7 mg/dL (8.5-10.1); CO2 26 mmol/L (21-32); CREATININE 0.7 mg/dL (0.7-1.3); GLUCOSE,RANDOM 179 mg/dL (74-106); SGOT/AST 9 U/L (15-37); SGPT/ALT 14 U/L (12-78)
[2016-07-02 10:32] LABS: ALK PHOS 85 U/L (45-117); TOT PROT 5.8 g/dl (6.4-8.2)
[2016-07-02] MEDS: POTASSIUM CHLORIDE 40 MEQ/30 ML UNIT DOSE CUP PO SCH (11:00)
[2016-07-02] MEDS: FUROSEMIDE 40 MG/4 ML INJECTABLE VIAL IVPUSH SCH (12:01)
[2016-07-02] MEDS: POTASSIUM CHLORIDE TABS 10 MEQ TABLET.ER (FP) PO SCH ×2 (12:30→21:10)
--- NOTE | 2016-07-02 15:14 | PN ---
Physical Exam: SUBJECTIVE: Patient seen and examined oob to chair. OBJECTIVE: Vital Signs Period Temp Pulse Resp BP Sys/Sanchez Pulse Ox Last 24 Hr 98.4 F-98.5 F 68-77 18-20 117-128/46-54 99-100 GENERAL: The patient is awake, alert, and fully oriented, in no apparent distress HEAD: Normal with no signs of trauma. EYES: PERRL, extraocular movements intact, sclera anicteric, conjunctiva clear. No ptosis. LUNGS: Breath sounds equal, clear to auscultation bilaterally, no wheezes, no crackles, no accessory muscle use. HEART: Regular rate and rhythm, S1, S2 without murmur, rub or gallop. ABDOMEN: No focal areas of tenderness with distraction; active bowel sounds no guarding, no rebounding EXTREMITIES: 1+ bilateral lower extremity edema NEUROLOGICAL: Cranial nerves II through XII grossly intact. Normal speech, gait not observed. Laboratory Results - last 24 hr 07/02/16 07/02/16 09:30 09:30 WBC 3.9 L RBC 3.62 L Hgb 9.2 L Hct 29.2 L MCV 80.7 MCHC 31.6 L RDW 18.9 H Plt Count 141 MPV 9.8 Neutrophils % 82.0 Lymphocytes % 8.7 D Monocytes % 7.3 Eosinophils % 1.3 Basophils % 0.7 Sodium 139 Potassium 3.5 Chloride 104 Carbon Dioxide 26 Anion Gap 9 BUN 7 D Creatinine 0.7 Creat Clearance w eGFR > 60 Random Glucose 179 H Calcium 7.7 L Total Bilirubin 0.5 AST 9 L D ALT 14 Alkaline Phosphatase 85 Total Protein 5.8 L Albumin 2.8 L Active Medications Generic Name Dose Route Start Last Admin Trade Name Freq PRN Reason Stop Dose Admin Albuterol Sulfate 1 amp 06/25/16 20:39 Ventolin 0.083% Nebulizer Soln - NEB Q4H PRN SHORT OF BREATH/WHEEZING Albuterol/Ipratropium 1 amp 06/25/16 22:00 07/02/16 14:00 Duoneb - NEB 1 amp TIDR THALIA Administration Apixaban 2.5 mg 06/29/16 12:28 07/02/16 10:08 Eliquis - GT 2.5 mg BID THALIA Administration Artificial Tears 1 drop 07/01/16 20:24 07/01/16 21:09 Artificial Tears OU 1 drp BID PRN Administration DRY EYES Atorvastatin Calcium 20 mg 06/29/16 12:29 07/01/16 21:04 Lipitor - NGT 20 mg HS THALIA Administration Docusate Sodium 100 mg 07/01/16 22:00 07/02/16 13:17 Colace - PO 100 mg TID THALIA Administration Doxazosin Mesylate 4 mg 06/30/16 10:00 07/02/16 10:09 Cardura - PO 4 mg DAILY THALIA Administration Fentanyl 1 patch 06/25/16 20:45 07/01/16 21:01 Duragesic 25mcg Patch - TD 1 patch Q72H THALIA Administration Furosemide 40 mg 06/27/16 10:00 07/02/16 12:01 Lasix Injection - IVPUSH 40 mg DAILY THALIA Administration Hyoscyamine Sulfate 0.375 mg 06/28/16 12:45 07/02/16 10:10 Levbid 0.375mg Er Tab PO 0.375 mg BID THALIA Administration Hyoscyamine Sulfate 0.125 mg 06/29/16 16:31 Levsin Odt - PO Q4H PRN PAIN LEVEL 1-5 Pantoprazole Sodium 100 mls @ 200 mls/hr 06/28/16 14:15 07/02/16 10:00 Protonix 40mg Ivpb (Pre-Docked) IVPB 200 mls/hr BID THALIA Administration Dextrose/Sodium Chloride 1,000 mls @ 75 mls/hr 06/28/16 17:15 07/01/16 17:15 D5-Ns - IV Not Given ASDIR THALIA Lidocaine 1 patch 06/26/16 10:00 07/02/16 10:10 Lidoderm Patch - TP 1 patch DAILY THALIA Administration Lisinopril 2.5 mg 06/29/16 12:31 07/02/16 10:08 Prinivil NGT 2.5 mg DAILY THALIA Administration Lorazepam 0.5 mg 06/29/16 12:31 07/01/16 21:06 Ativan - NGT 0.5 mg Q8H PRN Administration ANXIETY Metoprolol Tartrate 25 mg 06/30/16 10:00 07/02/16 10:08 Lopressor - PO 25 mg DAILY THALIA Administration Miscellaneous 1 each 06/25/16 20:53 07/01/16 23:23 Duragesic Patch Waste TD 1 each PRN PRN Administration Nystatin 1 applic 06/26/16 21:59 07/02/16 12:02 Mycostatin Cream - TP 1 applic Q6HPO THALIA Administration Polyethylene Glycol 17 gm 07/02/16 10:00 07/02/16 10:15 Miralax (For Daily Use) - PO 17 gm DAILY THALIA Administration Potassium Chloride 10 meq 07/02/16 12:00 07/02/16 12:30 K-Dur - PO 10 meq BID THALIA Administration Simethicone 80 mg 07/02/16 02:53 07/02/16 02:56 Mylicon - PO 80 mg Q8H PRN Administration Trazodone HCl 50 mg 06/29/16 12:36 07/01/16 21:02 Desyrel - NGT 50 mg HS THALIA Administration ASSESSMENT/PLAN 86 year-old man with a PMH of HTN, HLD, nonobstructive CAD, systolic heart failure, paroxysmal afib, compression fractures, prostate cancer s/p RT, colon cancer s/p colectomy. Admitted for bilateral lower extremity edema and pain management. Acute on chronic systolic heart failure s/p PPM --persistent lower extremity edema --CT chest shows minimal pleural effusions --continue IV Lasix, Cr is stable Paroxysmal afib --paced rhythm --continue Eliquis Nonobstructive CAD --two cardiac caths in past year, unobstructed coronaries --continue lisinopril, Toprol XL, Lipitor Gastritis --per records from [facility]---> --EGD performed and no bleeding found. Duodenitis with scattered erosions , gastritis, submucosal gastric nodules --Colonoscopy found mild diverticulosis, nonbleeding rectal AVM, and internal hemorrhoids --switch to PO protonix Partial SBO v. Ileus --NGT out, tolerating full liquids --continue hycosamine Hypertension --BP well-controlled --continue lisinopril, Toprol XL, lasix Hyperlipidemia --continue Lipitor Prostate cancer Colon cancer --patient declines to take Enzalutamide as it causes severe GI distress --continue flomax Anxiety/agitation --low dose lorazepam PRN Degenerative disc disease/compression fractures Severe pain syndrome, improved --placed on duragesic patch 25mcg with good pain relief and without over- narcotizing effect --lidocaine patch PRN F/E/N Fluids: PO intake adequate Electrolytes: replete as indicated Nutrition: full liquids, advance as tolerated DVT prophylaxis: on Eliquis Dispo: Plan to discharge tomorrow. Continues to require inpatient care. Visit type - Emergency Visit Emergency Visit: Yes ED Registration Date: 06/25/16 Care time: The patient presented to the Emergency Department on the above date and was hospitalized for further evaluation of their emergent condition. - New Patient This patient is new to me today: No - Critical Care Critical Care patient: No
--- NOTE | 2016-07-02 15:25 | PN ---
Progress Note, Physician History of Present Illness: stable doing well no new events - Current Medication List Current Medications: Active Medications Albuterol Sulfate (Ventolin 0.083% Nebulizer Soln -) 1 amp NEB Q4H PRN PRN Reason: SHORT OF BREATH/WHEEZING Albuterol/Ipratropium (Duoneb -) 1 amp NEB TIDR [facility] Last Admin: 07/02/16 14:00 Dose: 1 amp Apixaban (Eliquis -) 2.5 mg GT BID [facility] Last Admin: 07/02/16 10:08 Dose: 2.5 mg Artificial Tears (Artificial Tears) 1 drop OU BID PRN PRN Reason: DRY EYES Last Admin: 07/01/16 21:09 Dose: 1 drp Atorvastatin Calcium (Lipitor -) 20 mg NGT HS [facility] Last Admin: 07/01/16 21:04 Dose: 20 mg Docusate Sodium (Colace -) 100 mg PO TID [facility] Last Admin: 07/02/16 13:17 Dose: 100 mg Doxazosin Mesylate (Cardura -) 4 mg PO DAILY [facility] Last Admin: 07/02/16 10:09 Dose: 4 mg Fentanyl (Duragesic 25mcg Patch -) 1 patch TD Q72H [facility] Last Admin: 07/01/16 21:01 Dose: 1 patch Furosemide (Lasix Injection -) 40 mg IVPUSH DAILY [facility] Last Admin: 07/02/16 12:01 Dose: 40 mg Hyoscyamine Sulfate (Levbid 0.375mg Er Tab) 0.375 mg PO BID [facility] Last Admin: 07/02/16 10:10 Dose: 0.375 mg Hyoscyamine Sulfate (Levsin Odt -) 0.125 mg PO Q4H PRN PRN Reason: PAIN LEVEL 1-5 Pantoprazole Sodium (Protonix 40mg Ivpb (Pre-Docked)) 100 mls @ 200 mls/hr IVPB BID [facility] Last Admin: 07/02/16 10:00 Dose: 200 mls/hr Dextrose/Sodium Chloride (D5-Ns -) 1,000 mls @ 75 mls/hr IV ASDIR [facility] Last Admin: 07/01/16 17:15 Dose: Not Given Lidocaine (Lidoderm Patch -) 1 patch TP DAILY [facility] Last Admin: 07/02/16 10:10 Dose: 1 patch Lisinopril (Prinivil) 2.5 mg NGT DAILY [facility] Last Admin: 07/02/16 10:08 Dose: 2.5 mg Lorazepam (Ativan -) 0.5 mg NGT Q8H PRN PRN Reason: ANXIETY Last Admin: 07/01/16 21:06 Dose: 0.5 mg Metoprolol Tartrate (Lopressor -) 25 mg PO DAILY [facility] Last Admin: 07/02/16 10:08 Dose: 25 mg Miscellaneous (Duragesic Patch Waste) 1 each TD PRN PRN Last Admin: 07/01/16 23:23 Dose: 1 each Nystatin (Mycostatin Cream -) 1 applic TP Q6HPO [facility] Last Admin: 07/02/16 12:02 Dose: 1 applic Polyethylene Glycol (Miralax (For Daily Use) -) 17 gm PO DAILY [facility] Last Admin: 07/02/16 10:15 Dose: 17 gm Potassium Chloride (K-Dur -) 10 meq PO BID [facility] Last Admin: 07/02/16 12:30 Dose: 10 meq Simethicone (Mylicon -) 80 mg PO Q8H PRN Last Admin: 07/02/16 02:56 Dose: 80 mg Trazodone HCl (Desyrel -) 50 mg NGT HS [facility] Last Admin: 07/01/16 21:02 Dose: 50 mg - Objective Vital Signs: Vital Signs Temperature 98.1 F 07/02/16 15:13 Pulse Rate 71 07/02/16 15:13 Respiratory Rate 20 07/02/16 15:13 Blood Pressure 116/51 07/02/16 15:13 O2 Sat by Pulse Oximetry (%) 100 07/02/16 11:14 Constitutional: Yes: No Distress, Calm HENT: Yes: Atraumatic Cardiovascular: Yes: Other Respiratory: Yes: Regular, CTA Bilaterally Gastrointestinal: Yes: Normal Bowel Sounds, Soft Musculoskeletal: Yes: WNL Extremities: Yes: WNL Neurological: Yes: Alert, Oriented Psychiatric: Yes: Alert Labs: CBC, BMP 07/02/16 09:30 07/02/16 09:30 INR, PTT INR 1.24 (0.82-1.09) H 06/25/16 17:44 Assessment/Plan Problem List - Problem (1) Acute on chronic systolic (congestive) heart failure (2) Chronic lower back pain (3) Bilateral lower extremity edema (4) Normocytic anemia (5) HTN (hypertension) (6) Hyperlipidemia 7 pleural effusion r/o pna plan conitnue current mgmt await for the final plan
[2016-07-02] MEDS: DEXTROSE 5%-NORMAL SALINE 1,000 ML IV SCH (19:58)
[2016-07-02] MEDS: traZODone HCL 50 MG TABLET (FP) NGT SCH (21:10)
[2016-07-02] MEDS: ATORVASTATIN CA 20 MG TABLET (FP) NGT SCH (21:11)
[2016-07-03] MEDS: NYSTATIN 100,000 UNIT/GM TOPICAL CREAM 15 GM TUBE TP SCH ×4 (00:41→17:41)
[2016-07-03] MEDS: LORazepam 0.5 MG TABLET NGT PRN (01:24)
[2016-07-03] MEDS ORDERED: morphine CARPU-JECT 2 MG/1 ML DISP.SYRIN IVPUSH ONE ×2 (01:38→05:08)
[2016-07-03] MEDS ORDERED: METOPROLOL TARTRATE 25 MG TABLET (FP) PO ONE (01:50)
--- NOTE | 2016-07-03 01:59 | HOSP ---
Subjective - Review of Symptoms Events since last encounter: Called by nurse pt heart rate in 140s. Pt seen. Pt reports c/o pain to both shoulders since 1130pm-12a. Reports waking up and having difficulty sleeping due to the pain. Also with some SOB. Denies increased pain with breathing or moving. Reports chest pain left upper chest; reports he has had this pain since his pacemaker was placed 2 weeks ago and the pain has not changed in quality. Pulmonary: Yes: Dyspnea Cardiovascular: Yes: Chest Pain Musculoskeletal: Yes: Back Pain, Other (bilat posterior shoulder pain) Physical Examination Vital Signs: Vital Signs Temperature 97.8 F 07/03/16 01:25 Pulse Rate 146 H 07/03/16 01:25 Respiratory Rate 22 07/03/16 01:25 Blood Pressure 105/61 07/03/16 01:25 O2 Sat by Pulse Oximetry (%) 100 07/02/16 21:00 Constitutional: Yes: Well Nourished, Anxious Cardiovascular: Yes: Tachycardia, Murmur, S1, S2, Other (irregular, left sided chest pain reproducible with palpation of PPM pocket and insertion site) Respiratory: Yes: Rales (1/2 way up) Gastrointestinal: Yes: WNL Musculoskeletal: Yes: Other (pain in shoulders not reproducible) Labs: CBC, BMP 07/02/16 09:30 07/02/16 09:30 ECG: atrial fibrillation with RVR, rate 145, LBBB, + ST/T changes, may be rate related. Hospitalist Encounter Assessment: Atrial fibrillation with RVR - metoprolol 25mg x 1 now po - repeat ECG when rate better controlled shoulder pain, chest pain, ECG changes r/o ACS - stat labs now - morphine 2mg IVP now Anxiety - ativan PRN dose given Addendum: 07/03/16 3am repeat ECG with atrial sensed ventriclar paced rhythm, rate 96, QTC 517, troponin 0.06 likely demand leak. cardiology consult in am. trend troponin transfer to tele when bed available
[2016-07-03 02:08] LABS: BASOPHIL 0.9 % (0-2.0); EOSINOPHIL 2.1 % (0-4.5); MCH 25.3 pg (25.7-33.7); MCHC 31.7 g/dl (32.0-35.9); MEAN PLT VOLUME 9.5 fl (7.5-11.1); NEUTROPHILS 78.3 % (42.8-82.8); PLATELET COUNT 137 K/MM3 (134-434); RDW 18.9 % (11.9-15.9); WHITE BLOOD COUNT 4.5 K/mm3 (4.0-10.0)
[2016-07-03 02:27] LABS: CALCIUM 8.7 mg/dL (8.5-10.1); CREATININE 0.7 mg/dL (0.7-1.3); MAGNESIUM 1.9 mg/dL (1.8-2.4); PHOSPHOROUS 2.8 mg/dL (2.5-4.9)
[2016-07-03 02:30] LABS: TROPONIN I 0.06 ng/ml (0.00-0.05)
--- NOTE | 2016-07-03 04:54 | CONSULT ---
Consult Consult Specialty:: Pulm/CC - History of Present Illness History of Present Illness: Pt is an 86yr old man with PMHx of HTN, HLD, CAD, CHF, recent PPM on 06/16 at [facility], prostate cancer s/p radiation therapy, colon cancer and degenerative disc disease with Fentanyl patch. He presented to the ER at [facility] on 06/25 with CC of BLE and back pain. He was initially on a med-surg unit for management of CHF exacerbation and pain management but had a run of afib with rvr to 140s and was transferred to the ICU for further management. Upon assessment pt denies headache/chest pain/n/v/headache, is very agitated and repeatedly asks when he will get food. 122/61, hr 70s sinus/irregular on tele 100% on 2LNC, RR18 afebrile. - History Source History Provided By: Patient, Medical Record Limitations to Obtaining History: Other (Hard of hearing, language barrier) - Past Medical History Cardio/Vascular: Yes: Aortic Stenosis, CAD (minimal non-obstructive disease), CHF, HTN, Hyperlipdemia, Mitral Insufficiency, Pulmonary Hypertension Gastrointestinal: Yes: Cancer Renal/: Yes: Cancer - Past Surgical History Past Surgical History: Yes: Colectomy - Alcohol/Substance Use Hx Alcohol Use: No - Smoking History Smoking history: Never smoked Have you smoked in the past 12 months: No Aproximately how many cigarettes per day: 0 If you are a former smoker, when did you quit?: 20 years ago - Social History ADL: Independent History of Recent Travel: No Home Medications - Allergies Allergies/Adverse Reactions: Allergies Allergy/AdvReac Type Severity Reaction Status Date / Time No Known Allergies Allergy Verified 06/25/16 15:55 - Home Medications Home Medications: Ambulatory Orders Tamsulosin HCl [Flomax -] 0.4 mg PO DAILY 01/17/15 FENTANYL 25mcg PATCH [DURAGESIC 25mcg PATCH -] 1 patch TD Q72H patch.td72 MDD 25mcg 06/12/16 Lidocaine 5% Patch [Lidoderm -] 1 patch TP DAILY patch 06/12/16 Lisinopril [Prinivil] 2.5 mg PO DAILY tablet 06/12/16 Lorazepam [Ativan] 0.5 mg PO Q8H PRN #0 tablet MDD 1.5mg 06/12/16 Pantoprazole Sodium [Protonix -] 40 mg PO DAILY tablet.ec 06/12/16 Apixaban [Eliquis] 2.5 mg PO BID 06/25/16 Atorvastatin Ca [Lipitor] 20 mg PO HS 06/25/16 Calcium Carbonate [Calcium] 1,250 mg PO DAILY 06/25/16 Cholecalciferol (Vitamin D3) [D-2000] 2,000 unit PO DAILY 06/25/16 Furosemide [Lasix] 20 mg PO DAILY 06/25/16 Megestrol Acetate Oral Susp [Megace Liquid -] 400 mg PO DAILY 06/25/16 Metoprolol Succinate [Toprol Xl -] 25 mg PO DAILY 06/25/16 Multivitamins [Tab-A-Vit -] 1 tab PO DAILY 06/25/16 Potassium Chloride [Klor-Con] 20 meq PO DAILY 06/25/16 Trazodone HCl 50 mg PO HS 06/25/16 Physical Exam Vital Signs: Vital Signs Period Temp Pulse Resp BP Sys/Sanchez Pulse Ox Last 24 Hr 97.5 F-98.5 F 68-700 18-22 92-138/46-70 100-100 Intake & Output 06/30/16 07/01/16 07/02/16 07/03/16 23:59 23:59 23:59 23:59 Intake Total 1865 3680 2915 Output Total 1500 2750 3250 Balance 365 930 -335 Weight 150 lb 0.3 oz 152 lb 0.3 oz 155 lb 0.5 oz Constitutional: Yes: Well Nourished, Anxious Eyes: Yes: WNL HENT: Yes: WNL Neck: Yes: WNL Cardiovascular: Yes: S1, S2 Respiratory: Yes: On Nasal O2. No: Rales, Rhonchi, SOB, Tachypnea, Wheezes Gastrointestinal: Yes: Normal Bowel Sounds, Soft, Distention. No: Tenderness ( diffuse) ...Rectal Exam: Yes: Deferred Renal/: Yes: Other (using urinal with yellow output) Musculoskeletal: Yes: Back Pain (relieved by morphine) Extremities: Yes: WNL Edema: Yes Edema: LLE: 1+, RLE: 1+ Peripheral Pulses WNL: Yes (+2 bilateral pedal pulses ) Integumentary: Yes: WNL Neurological: Yes: WNL Psychiatric: Yes: Agitated Labs: Abnormal Lab Results 07/02/16 07/02/16 07/03/16 09:30 09:30 01:50 WBC 3.9 L RBC 3.62 L 3.71 L Hgb 9.2 L 9.4 L Hct 29.2 L 29.7 L MCHC 31.6 L 31.7 L RDW 18.9 H 18.9 H Random Glucose 179 H Calcium 7.7 L AST 9 L D Creatine Kinase Troponin I Total Protein 5.8 L Albumin 2.8 L 07/03/16 01:50 WBC RBC Hgb Hct MCHC RDW Random Glucose 143 H D Calcium AST Creatine Kinase 38 L Troponin I 0.06 H D Total Protein Albumin Assessment/Plan Pt is an 86yr old man with PMHx of pulm HTN, HTN, HLD, CAD, CHF, recent PPM on 06/16 at [facility], prostate cancer s/p radiation therapy, colon cancer and degenerative disc disease with Fentanyl patch. Now in the ICU s/p run of a-fib with rvr. Pulm: -O2 support prn for sat >94% -Incentive spirometer -Nebulizers -f/u chest xray, rule out continued vascular congestion ID: -f/u cultures -Monitor off antibiotics for now Cardiac: -Consult -f/u repeat enzymes -f/u repeat ekg -Keep K between 4-5 and Mag goal of 2 -BP and rate control -Continue stat -a/c at primary/cardiology discretion Renal: -Continue to monitor BUN/Cr in setting of lasix -Replete electrolytes prn Neuro -Continue pain management Prophylactic -DVT -PPI
[2016-07-03] MEDS ORDERED: ARTIFICIAL TEARS (POLYVINYL ALCOHOL 1.4%) OPTH DROPS OU PRN (04:56)
[2016-07-03] MEDS ORDERED: LORazepam 0.5 MG TABLET PO PRN (04:56)
[2016-07-03] MEDS ORDERED: FENTANYL PATCH WASTE TD PRN ×2 (04:56)
[2016-07-03] MEDS ORDERED: HYOSCYAMINE SULFATE 0.125 MG *ODT PO PRN (04:56)
[2016-07-03] MEDS ORDERED: ALBUTEROL SO4 0.083% IH SOL 2.5 MG/3 ML VIAL.NEB. NEB PRN (04:56)
[2016-07-03] MEDS ORDERED: SIMETHICONE 80 MG TAB.CHEW (FP) PO PRN (04:56)
[2016-07-03] MEDS ORDERED: KCL 10 MEQ IVPB 100 ML IVPB SCH (05:15)
[2016-07-03] MEDS: DOCUSATE SODIUM 100 MG CAPSULE (FP) PO SCH ×3 (05:42→22:18)
[2016-07-03] MEDS ORDERED: ALBUTEROL SO4 2.5/IPRATROPIUM 0.5 INH SOL 3 ML VIAL.NEB. NEB SCH (06:00)
[2016-07-03 08:54] LABS: TROPONIN I 0.2 ng/ml (0.00-0.05)
[2016-07-03] MEDS ORDERED: PT OWN MED DRAWER 7, Y5N ONE (09:43)
[2016-07-03] MEDS ORDERED: ALBUTEROL SO4 0.083% IH SOL 2.5 MG/3 ML VIAL.NEB. NEB SCH (10:00)
[2016-07-03] MEDS ORDERED: FUROSEMIDE 40 MG/4 ML INJECTABLE VIAL IVPUSH SCH (10:00)
[2016-07-03] MEDS ORDERED: PANTOPRAZOLE 40 MG TABLET (FP) PO SCH (10:00)
[2016-07-03] MEDS: DOXAZOSIN MESYLATE 4 MG TABLET PO SCH (10:09)
[2016-07-03] MEDS: LIDOCAINE 5% TOPICAL PATCH TP SCH (10:10)
[2016-07-03] MEDS: METOPROLOL TARTRATE 25 MG TABLET (FP) PO SCH (10:10)
[2016-07-03] MEDS: APIXABAN 2.5 MG TABLET GT SCH ×2 (10:10→22:18)
[2016-07-03] MEDS: HYOSCYAMINE SULFATE 0.375 MG TAB.ER.12H PO SCH ×2 (10:11→22:19)
[2016-07-03] MEDS: LISINOPRIL 5 MG TABLET (FP) PO SCH (10:13)
[2016-07-03] MEDS: PANTOPRAZOLE 40 MG TABLET (FP) PO SCH (10:14)
[2016-07-03] MEDS: POLYETHYLENE GLYCOL 3350 119 GM BTL PO SCH (10:18)
--- NOTE | 2016-07-03 11:39 | PN ---
Teaching Attending Note Name of Resident: Mp Ernst ATTENDING PHYSICIAN STATEMENT I saw and evaluated the patient. I reviewed the resident's note and discussed the case with the resident. I agree with the resident's findings and plan as documented. SUBJECTIVE: Patient seen and examined in the ICU. Awake and alert. Mildly tachypneic at rest. Denies CP. Periods of Rapid AFib. Intake & Output 06/30/16 07/01/16 07/02/16 07/03/16 23:59 23:59 23:59 23:59 Intake Total 1865 3680 2915 350 Output Total 1500 2750 3250 Balance 365 930 -335 350 Weight 150 lb 0.3 oz 152 lb 0.3 oz 155 lb 0.5 oz 157 lb 6.561 oz Last Vital Signs Temp Pulse Resp BP Pulse Ox 97.5 F L 78 18 112/53 97 07/03/16 04:30 07/03/16 10:03 07/03/16 09:00 07/03/16 08:00 07/03/16 10:03 Active Medications Albuterol Sulfate (Ventolin 0.083% Nebulizer Soln -) 1 amp NEB Q4H PRN PRN Reason: SHORT OF BREATH/WHEEZING Apixaban (Eliquis -) 2.5 mg GT BID [facility] Last Admin: 07/03/16 10:10 Dose: 2.5 mg Artificial Tears (Artificial Tears) 1 drop OU BID PRN PRN Reason: DRY EYES Atorvastatin Calcium (Lipitor -) 20 mg PO HS [facility] Docusate Sodium (Colace -) 100 mg PO TID [facility] Last Admin: 07/03/16 05:42 Dose: 100 mg Doxazosin Mesylate (Cardura -) 4 mg PO DAILY [facility] Last Admin: 07/03/16 10:09 Dose: 4 mg Fentanyl (Duragesic 25mcg Patch -) 1 patch TD Q72H [facility] Furosemide (Lasix Injection -) 40 mg IVPUSH BIDLASIX [facility] Hyoscyamine Sulfate (Levbid 0.375mg Er Tab) 0.375 mg PO BID [facility] Last Admin: 07/03/16 10:11 Dose: 0.375 mg Lidocaine (Lidoderm Patch -) 1 patch TP DAILY [facility] Last Admin: 07/03/16 10:10 Dose: 1 patch Lisinopril (Prinivil) 2.5 mg PO DAILY [facility] Last Admin: 07/03/16 10:13 Dose: 2.5 mg Lorazepam (Ativan -) 0.5 mg PO Q8H PRN PRN Reason: ANXIETY Metoprolol Tartrate (Lopressor -) 25 mg PO DAILY [facility] Last Admin: 07/03/16 10:10 Dose: 25 mg Miscellaneous (Duragesic Patch Waste) 1 each TD PRN PRN Miscellaneous (Duragesic Patch Waste) 1 each TD PRN PRN PRN Reason: PAIN Nystatin (Mycostatin Cream -) 1 applic TP Q6HPO [facility] Last Admin: 07/03/16 10:13 Dose: 1 applic Pantoprazole Sodium (Protonix -) 40 mg PO DAILY [facility] Last Admin: 07/03/16 10:14 Dose: 40 mg Polyethylene Glycol (Miralax (For Daily Use) -) 17 gm PO DAILY [facility] Last Admin: 07/03/16 10:18 Dose: 17 grams Potassium Chloride (K-Dur -) 10 meq PO BID [facility] Simethicone (Mylicon -) 80 mg PO Q8H PRN Trazodone HCl (Desyrel -) 50 mg NGT HS [facility] Constitutional: Yes: Awake and alert, NAD Eyes: Yes: WNL HENT: Yes: WNL Neck: Yes: WNL Cardiovascular: Yes: S1, S2 Respiratory: Yes: On Nasal O2, bilateral Rales Gastrointestinal: Yes: Normal Bowel Sounds, Soft, Distention. No: Tenderness ( diffuse) ...Rectal Exam: Yes: Deferred Renal/: Yes: Other Musculoskeletal: Yes: Back Pain Extremities: Yes: WNL Edema: Yes Edema: LLE: 1+, RLE: 1+ Peripheral Pulses WNL: Yes (+2 bilateral pedal pulses ) Integumentary: Yes: WNL Neurological: Yes: WNL Psychiatric: Yes: Agitated Labs: Laboratory Results - last 24 hr 07/03/16 07/03/16 07/03/16 01:50 01:50 07:40 WBC 4.5 RBC 3.71 L Hgb 9.4 L Hct 29.7 L MCV 80.0 MCHC 31.7 L RDW 18.9 H Plt Count 137 MPV 9.5 Neutrophils % 78.3 Lymphocytes % 11.1 D Monocytes % 7.6 Eosinophils % 2.1 Basophils % 0.9 Sodium 141 Potassium 3.7 Chloride 102 Carbon Dioxide 29 Anion Gap 10 BUN 9 D Creatinine 0.7 Random Glucose 143 H D Calcium 8.7 Phosphorus 2.8 Magnesium 1.9 D Creatine Kinase 38 L 35 L Troponin I 0.06 H D 0.20 H D Assessment/Plan Acute CHF Rapid AFib Pulmonary HTN HLD CAD CHF Recent PPM on 06/16 at [facility] Prostate cancer S/P radiation therapy Colon cancer Degenerative disc disease Lasix BID O2 as needed Monitor lytes Daily weight Rate control Eliquis Telemetry monitoring Dr Muñoz [id number]"
[2016-07-03] MEDS: POTASSIUM CHLORIDE TABS 10 MEQ TABLET.ER (FP) PO SCH ×2 (11:48→22:19)
--- NOTE | 2016-07-03 12:04 | PN ---
Progress Note, Physician History of Present Illness: Pt admitted 06/25 for b/l LE edema. consult called today as pt developed Afib with RVR overnight. during this admission was treated for CHF and concerns for possible SBO. Pt. seen and examined today in nad. no overnight events. no new complaints. - Current Medication List Current Medications: Active Medications Albuterol Sulfate (Ventolin 0.083% Nebulizer Soln -) 1 amp NEB Q4H PRN PRN Reason: SHORT OF BREATH/WHEEZING Apixaban (Eliquis -) 2.5 mg GT BID [facility] Last Admin: 07/03/16 10:10 Dose: 2.5 mg Artificial Tears (Artificial Tears) 1 drop OU BID PRN PRN Reason: DRY EYES Atorvastatin Calcium (Lipitor -) 20 mg PO HS [facility] Docusate Sodium (Colace -) 100 mg PO TID [facility] Last Admin: 07/03/16 05:42 Dose: 100 mg Doxazosin Mesylate (Cardura -) 4 mg PO DAILY [facility] Last Admin: 07/03/16 10:09 Dose: 4 mg Fentanyl (Duragesic 25mcg Patch -) 1 patch TD Q72H [facility] Furosemide (Lasix Injection -) 40 mg IVPUSH BIDLASIX [facility] Hyoscyamine Sulfate (Levbid 0.375mg Er Tab) 0.375 mg PO BID [facility] Last Admin: 07/03/16 10:11 Dose: 0.375 mg Lidocaine (Lidoderm Patch -) 1 patch TP DAILY [facility] Last Admin: 07/03/16 10:10 Dose: 1 patch Lisinopril (Prinivil) 2.5 mg PO DAILY [facility] Last Admin: 07/03/16 10:13 Dose: 2.5 mg Lorazepam (Ativan -) 0.5 mg PO Q8H PRN PRN Reason: ANXIETY Metoprolol Tartrate (Lopressor -) 25 mg PO DAILY [facility] Last Admin: 07/03/16 10:10 Dose: 25 mg Miscellaneous (Duragesic Patch Waste) 1 each TD PRN PRN Miscellaneous (Duragesic Patch Waste) 1 each TD PRN PRN PRN Reason: PAIN Nystatin (Mycostatin Cream -) 1 applic TP Q6HPO [facility] Last Admin: 07/03/16 10:13 Dose: 1 applic Pantoprazole Sodium (Protonix -) 40 mg PO DAILY [facility] Last Admin: 07/03/16 10:14 Dose: 40 mg Polyethylene Glycol (Miralax (For Daily Use) -) 17 gm PO DAILY [facility] Last Admin: 07/03/16 10:18 Dose: 17 grams Potassium Chloride (K-Dur -) 10 meq PO BID [facility] Last Admin: 07/03/16 11:48 Dose: 10 meq Simethicone (Mylicon -) 80 mg PO Q8H PRN Trazodone HCl (Desyrel -) 50 mg NGT HS [facility] - Objective Vital Signs: Vital Signs Temperature 97.5 F L 07/03/16 04:30 Pulse Rate 78 07/03/16 10:03 Respiratory Rate 18 07/03/16 09:00 Blood Pressure 112/53 07/03/16 08:00 O2 Sat by Pulse Oximetry (%) 97 07/03/16 10:03 Constitutional: Yes: Well Nourished, No Distress, Calm Eyes: Yes: WNL, Conjunctiva Clear, EOM Intact, PERRL HENT: Yes: WNL, Atraumatic, Normocephalic Neck: Yes: WNL, Supple, Trachea Midline Cardiovascular: Yes: Pulse Irregular, Murmur, S1, S2. No: Bradycardia, Tachycardia, Bruit, JVD, Gallop, Rub, S3, S4, Varicosities Respiratory: Yes: Regular, Diminished. No: Rales, Rhonchi, SOB, Wheezes Gastrointestinal: Yes: Normal Bowel Sounds, Soft. No: Distention, Tenderness Musculoskeletal: Yes: Muscle Weakness Edema: Yes Edema: LLE: Trace, RLE: Trace Peripheral Pulses WNL: Yes Peripheral Pulses: Left Doralis Pedis: 2+, Right Dorsalis Pedis: 2+ Integumentary: Yes: WNL Neurological: Yes: Alert, Oriented Psychiatric: Yes: Alert, Oriented Labs: CBC, BMP 07/03/16 01:50 07/03/16 01:50 INR, PTT INR 1.24 (0.82-1.09) H 06/25/16 17:44 - ....Imaging Chest X-ray: Report Reviewed, Image Reviewed EKG: Report Reviewed, Image Reviewed Other: Report Reviewed, Image Reviewed (tele-Afib, biv paced) Assessment/Plan GI Bleed Anemia Acute onChronic systolic CHF, NICM Moderate / MR PAFib Chronic pain left flank, ribs REC: SOB/Edema-Acute on chronic CHF w/ LBBB, PAF, Non-obstructive CAD -volume overloaded -pt was given Lasix 40mg IV daily since admission until it was increased to bid starting today -I/Os reported as net positive throughout the admission -monitor response to bid dosing of lasix today, if not net negative today will need to increase dose -fluid restrict to <64 ounces x 24 hours Atrial fibrillation-chronic, RVR overnight -s/p [facility] biv ppm, appears to be functioning properly -cont lopressor 25mg, uptitrate to bid dosing if BP allows -if BP does not allow uptitration and further rate control needed can use Digoxin -cont eliquis, clarify why 2.5mg dose is being used -recent GI work up, monitor H/H -cont tele monitoring
--- NOTE | 2016-07-03 12:19 | EKG ---
Test Reason : Blood Pressure : / mmHG Vent. Rate : 096 BPM Atrial Rate : 096 BPM P-R Int : 194 ms QRS Dur : 156 ms QT Int : 410 ms P-R-T Axes : 043 191 026 degrees QTc Int : 517 ms Atrial-sensed ventricular-paced rhythm ABNORMAL ECG WHEN COMPARED WITH ECG OF 03-JUL-2016 01:26, ELECTRONIC VENTRICULAR PACEMAKER HAS REPLACED ATRIAL FIBRILLATION VENT. RATE HAS DECREASED BY 53 BPM Confirmed by SOTERO PAZ MD ([id number]) on 07/03/2016 12:18:50 PM Referred By: MAYDA PICKARD Confirmed By:SOTERO PAZ MD
--- NOTE | 2016-07-03 12:20 | EKG ---
Test Reason : Blood Pressure : / mmHG Vent. Rate : 149 BPM Atrial Rate : 138 BPM P-R Int : 000 ms QRS Dur : 146 ms QT Int : 344 ms P-R-T Axes : 000 -07 166 degrees QTc Int : 541 ms ATRIAL FIBRILLATION WITH RAPID VENTRICULAR RESPONSE ELECTRONIC VENTRICULAR PACEMAKER ABNORMAL ECG WHEN COMPARED WITH ECG OF 25-JUN-2016 18:30, ATRIAL FIBRILLATION WITH ABERRANT CONDUCTION IS NOW SEEN VENT. RATE HAS INCREASED BY 68 BPM Confirmed by SOTERO PAZ MD ([id number]) on 07/03/2016 12:20:12 PM Referred By: Confirmed By:SOTERO PAZ MD
--- NOTE | 2016-07-03 14:14 | PN ---
Physical Exam: SUBJECTIVE: Patient seen and examined at bedside in the ICU. He was upset about his current health condition and complained about being transferred around in the hospital. Patient otherwise stated that he's feeling slightly better. Denies fever, chills , sob, chest pain, urinary or bowel sx. OBJECTIVE: Vital Signs Period Temp Pulse Resp BP Sys/Sanchez Pulse Ox Last 24 Hr 97.5 F-98.1 F 70-700 17-22 92-138/51-70 97-100 GENERAL: On NC 3L and not in any acute respiratory distress EYE: pupils equal and reactive EARS, NOSE, THROAT: Ears normal, nares patent, oropharynx clear without exudates. Moist mucous membranes. LUNGS:bilateral fine crackles HEART: ejection murmur without rub or gallop. ABDOMEN: Soft, nontender, not distended, normoactive bowel sounds, no guarding, no rebound, no masses. No hepatomegaly or splenomegaly. LOWER EXTREMITIES: No calf tenderness. trace edema. SKIN: Warm, dry, normal turgor, no rashes or lesions noted. CBCD WBC 4.5 K/mm3 (4.0-10.0) 07/03/16 01:50 RBC 3.71 M/mm3 (4.00-5.60) L 07/03/16 01:50 Hgb 9.4 GM/dL (11.7-16.9) L 07/03/16 01:50 Hct 29.7 % (35.4-49) L 07/03/16 01:50 MCV 80.0 fl (80-96) 07/03/16 01:50 MCHC 31.7 g/dl (32.0-35.9) L 07/03/16 01:50 RDW 18.9 % (11.9-15.9) H 07/03/16 01:50 Plt Count 137 K/MM3 (134-434) 07/03/16 01:50 MPV 9.5 fl (7.5-11.1) 07/03/16 01:50 CMP Sodium 141 mmol/L (136-145) 07/03/16 01:50 Potassium 3.7 mmol/L (3.5-5.1) 07/03/16 01:50 Chloride 102 mmol/L (98-107) 07/03/16 01:50 Carbon Dioxide 29 mmol/L (21-32) 07/03/16 01:50 Anion Gap 10 (8-16) 07/03/16 01:50 BUN 9 mg/dL (7-18) D 07/03/16 01:50 Creatinine 0.7 mg/dL (0.7-1.3) 07/03/16 01:50 Creat Clearance w eGFR > 60 (>60) 07/02/16 09:30 Calcium 8.7 mg/dL (8.5-10.1) 07/03/16 01:50 Total Bilirubin 0.5 mg/dL (0.2-1.0) 07/02/16 09:30 AST 9 U/L (15-37) L D 07/02/16 09:30 ALT 14 U/L (12-78) 07/02/16 09:30 Alkaline Phosphatase 85 U/L (45-117) 07/02/16 09:30 Total Protein 5.8 g/dl (6.4-8.2) L 07/02/16 09:30 Albumin 2.8 g/dl (3.4-5.0) L 07/02/16 09:30 Intake & Output 06/30/16 07/01/16 07/02/16 07/03/16 23:59 23:59 23:59 23:59 Intake Total 1865 3680 2915 350 Output Total 1500 2750 3250 Balance 365 930 -335 350 Weight 68.047 kg 68.955 kg 70.321 kg 71.4 kg Active Medications Generic Name Dose Route Start Last Admin Trade Name Freq PRN Reason Stop Dose Admin Albuterol Sulfate 1 amp 07/03/16 04:56 Ventolin 0.083% Nebulizer Soln - NEB Q4H PRN SHORT OF BREATH/WHEEZING Apixaban 2.5 mg 07/03/16 10:00 07/03/16 10:10 Eliquis - GT 2.5 mg BID [facility] Administration Artificial Tears 1 drop 07/03/16 04:56 Artificial Tears OU BID PRN DRY EYES Atorvastatin Calcium 20 mg 07/03/16 22:00 Lipitor - PO HS [facility] Docusate Sodium 100 mg 07/03/16 06:00 07/03/16 05:42 Colace - PO 100 mg TID [facility] Administration Doxazosin Mesylate 4 mg 07/03/16 10:00 07/03/16 10:09 Cardura - PO 4 mg DAILY [facility] Administration Fentanyl 1 patch 07/04/16 20:45 Duragesic 25mcg Patch - TD Q72H [facility] Furosemide 40 mg 07/03/16 14:00 Lasix Injection - IVPUSH BIDLASIX [facility] Hyoscyamine Sulfate 0.375 mg 07/03/16 10:00 07/03/16 10:11 Levbid 0.375mg Er Tab PO 0.375 mg BID [facility] Administration Lidocaine 1 patch 07/03/16 10:00 07/03/16 10:10 Lidoderm Patch - TP 1 patch DAILY [facility] Administration Lisinopril 2.5 mg 07/03/16 10:00 07/03/16 10:13 Prinivil PO 2.5 mg DAILY [facility] Administration Lorazepam 0.5 mg 07/03/16 04:56 Ativan - PO Q8H PRN ANXIETY Metoprolol Tartrate 25 mg 07/03/16 10:00 07/03/16 10:10 Lopressor - PO 25 mg DAILY [facility] Administration Miscellaneous 1 each 07/03/16 04:56 Duragesic Patch Waste TD PRN PRN Miscellaneous 1 each 07/03/16 04:56 Duragesic Patch Waste TD PRN PRN PAIN Nystatin 1 applic 07/03/16 06:00 07/03/16 10:13 Mycostatin Cream - TP 1 applic Q6HPO [facility] Administration Pantoprazole Sodium 40 mg 07/03/16 10:00 07/03/16 10:14 Protonix - PO 40 mg DAILY [facility] Administration Polyethylene Glycol 17 gm 07/03/16 10:00 07/03/16 10:18 Miralax (For Daily Use) - PO 17 grams DAILY [facility] Administration Potassium Chloride 10 meq 07/03/16 10:00 07/03/16 11:48 K-Dur - PO 10 meq BID [facility] Administration Simethicone 80 mg 07/03/16 04:56 Mylicon - PO Q8H PRN Trazodone HCl 50 mg 07/03/16 22:00 Desyrel - NGT [facility] Microbiology 06/28/16 09:05 Blood - Peripheral Venous Blood Culture - Final NO GROWTH AFTER 5 DAYS INCUBATION 06/28/16 08:55 Blood - Peripheral Venous Blood Culture - Final NO GROWTH AFTER 5 DAYS INCUBATION 06/28/16 14:30 Stool Salmonella/Shigella Culture - Final NO GROWTH OF SALMONELLA OR SHIGELLA SPECIES OBTAINED 06/28/16 14:30 Stool Campylobacter Culture - Final NO GROWTH OF CAMPYLOBACTER SPECIES OBTAINED 06/28/16 14:30 Stool Yersinia Culture - Final NO GROWTH OF YERSINIA SPECIES OBTAINED 06/28/16 14:30 Stool Vibrio Culture - Final NO GROWTH OF VIBRIO SPECIES OBTAINED 06/28/16 14:30 Stool Escherichia coli 0157 Culture - Final NO GROWTH OF E COLI 0157 OBTAINED Imaging CXR on 07/03: b/l pneumonia and/or CHF ASSESSMENT/PLAN: 86 yo M w/ h/o Pt is an 86yr old man with PMHx of pulmonary HTN, HTN, HLD, CAD, CHF, PPM placement on 06/16, prostate cancer s/p radiation therapy, colon cancer admitted to the ICU for a run a rapid A-fib. Cardiac: Afib with RVR - [id number] = 4 on aliquis 2.5 mg BID - Cont Lopressor 25mg - consider digoxin if BP is too low to go up on lopressor per cardio - Clinically volume overloaded - Increased Lasix to BID - Strict I/O and daily weight Pulm: Acute respiratory distress 2/2 CHF exacerbation; Pneumonia -Supplemental O2 to maintain sat > 88% -Incentive spirometer -Nebulizers -Afrebile and normal WBC - observe off abx FEN - No IVF due to fluid overload - Normal electrolytes - Full liquid diet - Prophylaxis - DVT: heparin - GI: PPI Disposition - Transfer to telemetry Code status - Full code Visit type - Emergency Visit Emergency Visit: No - New Patient This patient is new to me today: Yes Date on this admission: 07/03/16 - Critical Care Critical Care patient: Yes Total Critical Care Time (in minutes): 35 Critical Care Statement: The care of this patient involved high complexity decision making to prevent further life threatening deterioration of the patient 's condition and/or to evalute & treat vital organ system(s) failure or risk of failure.
[2016-07-03] MEDS: FUROSEMIDE 40 MG/4 ML INJECTABLE VIAL IVPUSH SCH (14:17)
--- NOTE | 2016-07-03 14:37 | PN ---
Physical Exam: SUBJECTIVE: Patient seen and examined. OBJECTIVE: Vital Signs Period Temp Pulse Resp BP Sys/Sanchez Pulse Ox Last 24 Hr 97.5 F-98.1 F 70-700 17-22 92-138/51-70 97-100 GENERAL: The patient is awake, alert, and fully oriented, in no apparent distress HEAD: Normal with no signs of trauma. EYES: PERRL, extraocular movements intact, sclera anicteric, conjunctiva clear. No ptosis. LUNGS: Breath sounds equal, clear to auscultation bilaterally, no wheezes, no crackles, no accessory muscle use. HEART: Regular rate and rhythm, S1, S2 without murmur, rub or gallop. ABDOMEN: No focal areas of tenderness with distraction; active bowel sounds no guarding, no rebounding EXTREMITIES: 1+ bilateral lower extremity edema NEUROLOGICAL: Cranial nerves II through XII grossly intact. Normal speech, gait not observed. Laboratory Results - last 24 hr 07/03/16 07/03/16 07/03/16 01:50 01:50 07:40 WBC 4.5 RBC 3.71 L Hgb 9.4 L Hct 29.7 L MCV 80.0 MCHC 31.7 L RDW 18.9 H Plt Count 137 MPV 9.5 Neutrophils % 78.3 Lymphocytes % 11.1 D Monocytes % 7.6 Eosinophils % 2.1 Basophils % 0.9 Sodium 141 Potassium 3.7 Chloride 102 Carbon Dioxide 29 Anion Gap 10 BUN 9 D Creatinine 0.7 Random Glucose 143 H D Calcium 8.7 Phosphorus 2.8 Magnesium 1.9 D Creatine Kinase 38 L 35 L Troponin I 0.06 H D 0.20 H D Active Medications Generic Name Dose Route Start Last Admin Trade Name Freq PRN Reason Stop Dose Admin Albuterol Sulfate 1 amp 07/03/16 04:56 Ventolin 0.083% Nebulizer Soln - NEB Q4H PRN SHORT OF BREATH/WHEEZING Apixaban 2.5 mg 07/03/16 10:00 07/03/16 10:10 Eliquis - GT 2.5 mg BID [facility] Administration Artificial Tears 1 drop 07/03/16 04:56 Artificial Tears OU BID PRN DRY EYES Atorvastatin Calcium 20 mg 07/03/16 22:00 Lipitor - PO HS [facility] Docusate Sodium 100 mg 07/03/16 06:00 07/03/16 14:17 Colace - PO 100 mg TID [facility] Administration Doxazosin Mesylate 4 mg 07/03/16 10:00 07/03/16 10:09 Cardura - PO 4 mg DAILY [facility] Administration Fentanyl 1 patch 07/04/16 20:45 Duragesic 25mcg Patch - TD Q72H [facility] Furosemide 40 mg 07/03/16 14:00 07/03/16 14:17 Lasix Injection - IVPUSH 40 mg BIDLASIX [facility] Administration Hyoscyamine Sulfate 0.375 mg 07/03/16 10:00 07/03/16 10:11 Levbid 0.375mg Er Tab PO 0.375 mg BID [facility] Administration Lidocaine 1 patch 07/03/16 10:00 07/03/16 10:10 Lidoderm Patch - TP 1 patch DAILY [facility] Administration Lisinopril 2.5 mg 07/03/16 10:00 07/03/16 10:13 Prinivil PO 2.5 mg DAILY [facility] Administration Lorazepam 0.5 mg 07/03/16 04:56 Ativan - PO Q8H PRN ANXIETY Metoprolol Tartrate 25 mg 07/03/16 10:00 07/03/16 10:10 Lopressor - PO 25 mg DAILY [facility] Administration Miscellaneous 1 each 07/03/16 04:56 Duragesic Patch Waste TD PRN PRN Miscellaneous 1 each 07/03/16 04:56 Duragesic Patch Waste TD PRN PRN PAIN Nystatin 1 applic 07/03/16 06:00 07/03/16 14:15 Mycostatin Cream - TP Not Given Q6HPO [facility] Pantoprazole Sodium 40 mg 07/03/16 10:00 07/03/16 10:14 Protonix - PO 40 mg DAILY [facility] Administration Polyethylene Glycol 17 gm 07/03/16 10:00 07/03/16 10:18 Miralax (For Daily Use) - PO 17 grams DAILY [facility] Administration Potassium Chloride 10 meq 07/03/16 10:00 07/03/16 11:48 K-Dur - PO 10 meq BID [facility] Administration Simethicone 80 mg 07/03/16 04:56 Mylicon - PO Q8H PRN Trazodone HCl 50 mg 07/03/16 22:00 Desyrel - NGT HS [facility] ASSESSMENT/PLAN 86 year-old man with a PMH of HTN, HLD, nonobstructive CAD, systolic heart failure, paroxysmal afib, compression fractures, prostate cancer s/p RT, colon cancer s/p colectomy. Admitted for bilateral lower extremity edema and pain management. Acute on chronic systolic heart failure s/p PPM --persistent lower extremity edema --CT chest shows minimal pleural effusions --increase Lasix to BID; goal negative fluid balance --fluid restrict 1L Paroxysmal afib with RVR --overnight rate went to 140s --continue metoprolol; titrate if BP will allow --continue Eliquis; was discharged from [facility] on 2.5mg BID following PPM insertion; discussed with cardiology Nonobstructive CAD --two cardiac caths in past year, unobstructed coronaries --continue lisinopril, Toprol XL, Lipitor Gastritis --per records from [facility]---> --EGD performed and no bleeding found. Duodenitis with scattered erosions , gastritis, submucosal gastric nodules --Colonoscopy found mild diverticulosis, nonbleeding rectal AVM, and internal hemorrhoids --switch to PO protonix Partial SBO v. Ileus --NGT out, tolerating full liquids; advance diet --continue hycosamine Hypertension --BP well-controlled --continue lisinopril, Toprol XL, lasix Hyperlipidemia --continue Lipitor Prostate cancer Colon cancer --patient declines to take Enzalutamide as it causes severe GI distress --continue flomax Anxiety/agitation --low dose lorazepam PRN Degenerative disc disease/compression fractures Severe pain syndrome, improved --placed on duragesic patch 25mcg with good pain relief and without over- narcotizing effect --lidocaine patch PRN F/E/N Fluids: PO intake adequate Electrolytes: replete as indicated Nutrition: soft diet DVT prophylaxis: on Eliquis Dispo: Plan to discharge tomorrow. Continues to require inpatient care. Visit type - Emergency Visit Emergency Visit: Yes ED Registration Date: 06/25/16 Care time: The patient presented to the Emergency Department on the above date and was hospitalized for further evaluation of their emergent condition. - New Patient This patient is new to me today: No - Critical Care Critical Care patient: No
--- NOTE | 2016-07-03 15:56 | PN ---
Progress Note, Physician History of Present Illness: events noted from today patient heart rate changed icu to floor - Current Medication List Current Medications: Active Medications Albuterol Sulfate (Ventolin 0.083% Nebulizer Soln -) 1 amp NEB Q4H PRN PRN Reason: SHORT OF BREATH/WHEEZING Apixaban (Eliquis -) 2.5 mg GT BID [facility] Last Admin: 07/03/16 10:10 Dose: 2.5 mg Artificial Tears (Artificial Tears) 1 drop OU BID PRN PRN Reason: DRY EYES Atorvastatin Calcium (Lipitor -) 20 mg PO HS [facility] Docusate Sodium (Colace -) 100 mg PO TID [facility] Last Admin: 07/03/16 14:17 Dose: 100 mg Doxazosin Mesylate (Cardura -) 4 mg PO DAILY [facility] Last Admin: 07/03/16 10:09 Dose: 4 mg Fentanyl (Duragesic 25mcg Patch -) 1 patch TD Q72H [facility] Furosemide (Lasix Injection -) 40 mg IVPUSH BIDLASIX [facility] Last Admin: 07/03/16 14:17 Dose: 40 mg Hyoscyamine Sulfate (Levbid 0.375mg Er Tab) 0.375 mg PO BID [facility] Last Admin: 07/03/16 10:11 Dose: 0.375 mg Lidocaine (Lidoderm Patch -) 1 patch TP DAILY [facility] Last Admin: 07/03/16 10:10 Dose: 1 patch Lisinopril (Prinivil) 2.5 mg PO DAILY [facility] Last Admin: 07/03/16 10:13 Dose: 2.5 mg Lorazepam (Ativan -) 0.5 mg PO Q8H PRN PRN Reason: ANXIETY Metoprolol Tartrate (Lopressor -) 25 mg PO DAILY [facility] Last Admin: 07/03/16 10:10 Dose: 25 mg Miscellaneous (Duragesic Patch Waste) 1 each TD PRN PRN Miscellaneous (Duragesic Patch Waste) 1 each TD PRN PRN PRN Reason: PAIN Nystatin (Mycostatin Cream -) 1 applic TP Q6HPO [facility] Last Admin: 07/03/16 14:15 Dose: Not Given Pantoprazole Sodium (Protonix -) 40 mg PO DAILY [facility] Last Admin: 07/03/16 10:14 Dose: 40 mg Polyethylene Glycol (Miralax (For Daily Use) -) 17 gm PO DAILY [facility] Last Admin: 07/03/16 10:18 Dose: 17 grams Potassium Chloride (K-Dur -) 10 meq PO BID [facility] Last Admin: 07/03/16 11:48 Dose: 10 meq Simethicone (Mylicon -) 80 mg PO Q8H PRN Trazodone HCl (Desyrel -) 50 mg NGT HS [facility] - Objective Vital Signs: Vital Signs Temperature 97.8 F 07/03/16 15:36 Pulse Rate 78 07/03/16 15:36 Respiratory Rate 20 07/03/16 15:36 Blood Pressure 120/58 07/03/16 15:36 O2 Sat by Pulse Oximetry (%) 97 07/03/16 10:03 Constitutional: Yes: No Distress, Calm Cardiovascular: Yes: Regular Rate and Rhythm Respiratory: Yes: Regular, CTA Bilaterally Gastrointestinal: Yes: Normal Bowel Sounds, Soft Musculoskeletal: Yes: WNL Extremities: Yes: WNL Neurological: Yes: Alert, Oriented Labs: CBC, BMP 07/03/16 01:50 07/03/16 01:50 INR, PTT INR 1.24 (0.82-1.09) H 06/25/16 17:44 Assessment/Plan Problem List - Problem (1) Acute on chronic systolic (congestive) heart failure (2) Chronic lower back pain (3) Bilateral lower extremity edema (4) Normocytic anemia (5) HTN (hypertension) (6) Hyperlipidemia 7 pleural effusion r/o pna plan conitnue current mgmt await for the final plan eventys noted patient stable
[2016-07-03 16:35] LABS: TROPONIN I 0.17 ng/ml (0.00-0.05)
[2016-07-03] MEDS ORDERED: SODIUM CHLORIDE NASAL SPRAY 44 ML BOTTLE NS PRN (21:14)
[2016-07-03] MEDS ORDERED: traZODone HCL 50 MG TABLET (FP) NGT SCH (22:00)
[2016-07-03] MEDS ORDERED: ATORVASTATIN CA 20 MG TABLET (FP) PO SCH (22:00)
[2016-07-04] MEDS: NYSTATIN 100,000 UNIT/GM TOPICAL CREAM 15 GM TUBE TP SCH ×2 (00:30→13:00)
[2016-07-04] MEDS: FUROSEMIDE 40 MG/4 ML INJECTABLE VIAL IVPUSH SCH (06:30)
[2016-07-04] MEDS: DOCUSATE SODIUM 100 MG CAPSULE (FP) PO SCH ×2 (06:30→14:42)
[2016-07-04] MEDS: APIXABAN 2.5 MG TABLET GT SCH (09:23)
[2016-07-04] MEDS: PANTOPRAZOLE 40 MG TABLET (FP) PO SCH (09:23)
[2016-07-04] MEDS: LISINOPRIL 5 MG TABLET (FP) PO SCH (09:23)
[2016-07-04] MEDS: POTASSIUM CHLORIDE TABS 10 MEQ TABLET.ER (FP) PO SCH (09:24)
[2016-07-04] MEDS: METOPROLOL TARTRATE 25 MG TABLET (FP) PO SCH (09:27)
[2016-07-04] MEDS: LIDOCAINE 5% TOPICAL PATCH TP SCH (09:27)
[2016-07-04] MEDS: HYOSCYAMINE SULFATE 0.375 MG TAB.ER.12H PO SCH (09:32)
[2016-07-04] MEDS: DOXAZOSIN MESYLATE 4 MG TABLET PO SCH (09:33)
[2016-07-04] MEDS: POLYETHYLENE GLYCOL 3350 119 GM BTL PO SCH (09:37)
[2016-07-04] MEDS ORDERED: METOPROLOL TARTRATE 25 MG TABLET (FP) PO SCH (09:40)
--- NOTE | 2016-07-04 10:41 | PN ---
Progress Note, Physician History of Present Illness: seen and examined today in nad. feeling better. no overnight events. no new complaints. - Current Medication List Current Medications: Active Medications Albuterol Sulfate (Ventolin 0.083% Nebulizer Soln -) 1 amp NEB Q4H PRN PRN Reason: SHORT OF BREATH/WHEEZING Apixaban (Eliquis -) 2.5 mg GT BID [facility] Last Admin: 07/04/16 09:23 Dose: 2.5 mg Artificial Tears (Artificial Tears) 1 drop OU BID PRN PRN Reason: DRY EYES Atorvastatin Calcium (Lipitor -) 20 mg PO HS [facility] Last Admin: 07/03/16 22:19 Dose: 20 mg Docusate Sodium (Colace -) 100 mg PO TID [facility] Last Admin: 07/04/16 06:30 Dose: 100 mg Doxazosin Mesylate (Cardura -) 4 mg PO DAILY [facility] Last Admin: 07/04/16 09:33 Dose: 4 mg Fentanyl (Duragesic 25mcg Patch -) 1 patch TD Q72H [facility] Furosemide (Lasix Injection -) 40 mg IVPUSH BIDLASIX [facility] Last Admin: 07/04/16 06:30 Dose: 40 mg Hyoscyamine Sulfate (Levbid 0.375mg Er Tab) 0.375 mg PO BID [facility] Last Admin: 07/04/16 09:32 Dose: 0.375 mg Lidocaine (Lidoderm Patch -) 1 patch TP DAILY [facility] Last Admin: 07/04/16 09:27 Dose: 1 patch Lisinopril (Prinivil) 2.5 mg PO DAILY [facility] Last Admin: 07/04/16 09:23 Dose: 2.5 mg Lorazepam (Ativan -) 0.5 mg PO Q8H PRN PRN Reason: ANXIETY Metoprolol Tartrate (Lopressor -) 50 mg PO DAILY [facility] Miscellaneous (Duragesic Patch Waste) 1 each TD PRN PRN Miscellaneous (Duragesic Patch Waste) 1 each TD PRN PRN PRN Reason: PAIN Nystatin (Mycostatin Cream -) 1 applic TP Q6HPO [facility] Last Admin: 07/04/16 00:30 Dose: Not Given Pantoprazole Sodium (Protonix -) 40 mg PO DAILY [facility] Last Admin: 07/04/16 09:23 Dose: 40 mg Polyethylene Glycol (Miralax (For Daily Use) -) 17 gm PO DAILY [facility] Last Admin: 07/04/16 09:37 Dose: 17 grams Potassium Chloride (K-Dur -) 10 meq PO BID [facility] Last Admin: 07/04/16 09:24 Dose: 10 meq Simethicone (Mylicon -) 80 mg PO Q8H PRN Sodium Chloride ([place] Nasal [place] -) 2 spray NS BID PRN PRN Reason: NASAL CONGESTION Last Admin: 07/04/16 09:38 Dose: 2 spray Trazodone HCl (Desyrel -) 50 mg NGT HS [facility] Last Admin: 07/03/16 22:18 Dose: 50 mg - Objective Vital Signs: Vital Signs Temperature 97.6 F 07/04/16 07:51 Pulse Rate 77 07/04/16 07:51 Respiratory Rate 22 07/04/16 07:51 Blood Pressure 132/77 07/04/16 07:51 O2 Sat by Pulse Oximetry (%) 100 07/03/16 21:00 Constitutional: Yes: Well Nourished, No Distress, Calm Eyes: Yes: WNL, Conjunctiva Clear, EOM Intact, PERRL HENT: Yes: WNL, Atraumatic, Normocephalic Neck: Yes: WNL, Supple, Trachea Midline Cardiovascular: Yes: Regular Rate and Rhythm, Murmur, S1, S2. No: Bradycardia, Tachycardia, Pulse Irregular, Bruit, JVD, Gallop, Rub, S3, S4, Varicosities Respiratory: Yes: Regular. No: Rales, Rhonchi, Wheezes Gastrointestinal: Yes: WNL, Normal Bowel Sounds, Soft. No: Distention, Tenderness Musculoskeletal: Yes: WNL Extremities: Yes: WNL Edema: No Peripheral Pulses WNL: Yes Peripheral Pulses: Left Doralis Pedis: 2+, Right Dorsalis Pedis: 2+ Integumentary: Yes: WNL Neurological: Yes: Alert, Oriented Psychiatric: Yes: Alert, Oriented Labs: CBC, BMP 07/03/16 01:50 07/03/16 01:50 INR, PTT INR 1.24 (0.82-1.09) H 06/25/16 17:44 - ....Imaging Chest X-ray: Report Reviewed, Image Reviewed EKG: Report Reviewed, Image Reviewed Other: Report Reviewed, Image Reviewed (tele-AV paced, pvcs) Assessment/Plan GI Bleed Anemia Acute onChronic systolic CHF, NICM Moderate / MR PAFib Chronic pain left flank, ribs REC: SOB/Edema-Acute on chronic CHF w/ LBBB, PAF, Non-obstructive CAD -currently euvolemic -can transition to po Lasix change to 40mg po bid -fluid restrict to <64 ounces x 24 hours -ok for discharge from a cardiac standpoint with close outpatient follow up Atrial fibrillation-chronic, RVR overnight -s/p [facility] biv ppm, appears to be functioning properly -cont lopressor 25mg, uptitrate to bid dosing if BP allows -if BP does not allow uptitration and further rate control needed can use Digoxin -reviewed admission at [facility], eliquis was stopped and decision was made to take off full AC due to recent GI bleed -stop eliquis, start ASA 81mg daily -recent GI work up, monitor H/H -ok to dc tele
[2016-07-04] MEDS ORDERED: FUROSEMIDE 40 MG TABLET (FP) PO SCH (14:00)
--- NOTE | 2016-07-04 14:06 | PN ---
Progress Note, Physician History of Present Illness: stable no new events - Current Medication List Current Medications: Active Medications Albuterol Sulfate (Ventolin 0.083% Nebulizer Soln -) 1 amp NEB Q4H PRN PRN Reason: SHORT OF BREATH/WHEEZING Artificial Tears (Artificial Tears) 1 drop OU BID PRN PRN Reason: DRY EYES Aspirin (Asa -) 81 mg PO DAILY [facility] Atorvastatin Calcium (Lipitor -) 20 mg PO HS [facility] Last Admin: 07/03/16 22:19 Dose: 20 mg Docusate Sodium (Colace -) 100 mg PO TID [facility] Last Admin: 07/04/16 06:30 Dose: 100 mg Doxazosin Mesylate (Cardura -) 4 mg PO DAILY [facility] Last Admin: 07/04/16 09:33 Dose: 4 mg Fentanyl (Duragesic 25mcg Patch -) 1 patch TD Q72H [facility] Furosemide (Lasix -) 40 mg PO BID@0600,1400 [facility] Hyoscyamine Sulfate (Levbid 0.375mg Er Tab) 0.375 mg PO BID [facility] Last Admin: 07/04/16 09:32 Dose: 0.375 mg Lidocaine (Lidoderm Patch -) 1 patch TP DAILY [facility] Last Admin: 07/04/16 09:27 Dose: 1 patch Lisinopril (Prinivil) 2.5 mg PO DAILY [facility] Last Admin: 07/04/16 09:23 Dose: 2.5 mg Lorazepam (Ativan -) 0.5 mg PO Q8H PRN PRN Reason: ANXIETY Metoprolol Tartrate (Lopressor -) 50 mg PO DAILY [facility] Last Admin: 07/04/16 12:21 Dose: 25 mg Miscellaneous (Duragesic Patch Waste) 1 each TD PRN PRN Miscellaneous (Duragesic Patch Waste) 1 each TD PRN PRN PRN Reason: PAIN Nystatin (Mycostatin Cream -) 1 applic TP Q6HPO [facility] Last Admin: 07/04/16 00:30 Dose: Not Given Pantoprazole Sodium (Protonix -) 40 mg PO DAILY [facility] Last Admin: 07/04/16 09:23 Dose: 40 mg Polyethylene Glycol (Miralax (For Daily Use) -) 17 gm PO DAILY [facility] Last Admin: 07/04/16 09:37 Dose: 17 grams Potassium Chloride (K-Dur -) 10 meq PO BID [facility] Last Admin: 07/04/16 09:24 Dose: 10 meq Simethicone (Mylicon -) 80 mg PO Q8H PRN Sodium Chloride ([place] Nasal [place] -) 2 spray NS BID PRN PRN Reason: NASAL CONGESTION Last Admin: 07/04/16 09:38 Dose: 2 spray Trazodone HCl (Desyrel -) 50 mg NGT HS [facility] Last Admin: 07/03/16 22:18 Dose: 50 mg - Objective Vital Signs: Vital Signs Temperature 97.6 F 07/04/16 07:51 Pulse Rate 77 07/04/16 07:51 Respiratory Rate 22 07/04/16 08:00 Blood Pressure 132/77 07/04/16 07:51 O2 Sat by Pulse Oximetry (%) 92 L 07/04/16 08:00 Constitutional: Yes: No Distress, Calm Cardiovascular: Yes: Regular Rate and Rhythm Respiratory: Yes: Regular, CTA Bilaterally Gastrointestinal: Yes: Normal Bowel Sounds, Soft Musculoskeletal: Yes: WNL Extremities: Yes: WNL Neurological: Yes: Alert, Oriented Psychiatric: Yes: Alert Labs: CBC, BMP 07/03/16 01:50 07/03/16 01:50 INR, PTT INR 1.24 (0.82-1.09) H 06/25/16 17:44 Assessment/Plan Problem List - Problem (1) Acute on chronic systolic (congestive) heart failure (2) Chronic lower back pain (3) Bilateral lower extremity edema (4) Normocytic anemia (5) HTN (hypertension) (6) Hyperlipidemia 7 pleural effusion r/o pna plan conitnue current mgmt patient stable
--- NOTE | 2016-07-04 15:24 | EKG ---
Test Reason : Blood Pressure : / mmHG Vent. Rate : 080 BPM Atrial Rate : 080 BPM P-R Int : 208 ms QRS Dur : 106 ms QT Int : 372 ms P-R-T Axes : 052 117 -16 degrees QTc Int : 429 ms Atrial-sensed ventricular-paced rhythm ABNORMAL ECG WHEN COMPARED WITH ECG OF 03-JUL-2016 02:52, VENT. RATE HAS DECREASED BY 16 BPM Confirmed by TAMERA VALDOVINOS MD ([id number]) on 07/04/2016 3:24:06 PM Referred By: MARIEL JACINTO Confirmed By:TAMERA VALDOVINOS MD
[2016-07-04 16:06] VITALS: BP 130/63; PULSE 76; TEMP 97.7
[2016-07-04] MEDS ORDERED: fentaNYL 25mcg/hr PATCH.TD72 TD SCH (20:45)
[2016-07-05] MEDS ORDERED: ASPIRIN 81 MG CHEWABLE TABLETS PO SCH (10:00)
--- NOTE | 2016-09-05 15:21 | DS ---
Physical Exam: SUBJECTIVE: Patient seen and examined OBJECTIVE: Vital Signs Temperature 97.7 F 07/04/16 16:02 Pulse Rate 76 07/04/16 16:02 Respiratory Rate 22 07/04/16 16:02 Blood Pressure 130/63 07/04/16 16:02 O2 Sat by Pulse Oximetry (%) 92 L 07/04/16 08:00 PHYSICAL EXAM GENERAL: The patient is awake, alert, and fully oriented, in no apparent distress HEAD: Normal with no signs of trauma. EYES: PERRL, extraocular movements intact, sclera anicteric, conjunctiva clear. No ptosis. LUNGS: Breath sounds equal, clear to auscultation bilaterally, no wheezes, no crackles, no accessory muscle use. HEART: Regular rate and rhythm, S1, S2 without murmur, rub or gallop. ABDOMEN: No focal areas of tenderness with distraction; active bowel sounds no guarding, no rebounding EXTREMITIES: 1+ bilateral lower extremity edema NEUROLOGICAL: Cranial nerves II through XII grossly intact. Normal speech, gait not observed. LABS CBCD WBC 4.5 K/mm3 (4.0-10.0) 07/03/16 01:50 RBC 3.71 M/mm3 (4.00-5.60) L 07/03/16 01:50 Hgb 9.4 GM/dL (11.7-16.9) L 07/03/16 01:50 Hct 29.7 % (35.4-49) L 07/03/16 01:50 MCV 80.0 fl (80-96) 07/03/16 01:50 MCHC 31.7 g/dl (32.0-35.9) L 07/03/16 01:50 RDW 18.9 % (11.9-15.9) H 07/03/16 01:50 Plt Count 137 K/MM3 (134-434) 07/03/16 01:50 MPV 9.5 fl (7.5-11.1) 07/03/16 01:50 CMP Sodium 141 mmol/L (136-145) 07/03/16 01:50 Potassium 3.7 mmol/L (3.5-5.1) 07/03/16 01:50 Chloride 102 mmol/L (98-107) 07/03/16 01:50 Carbon Dioxide 29 mmol/L (21-32) 07/03/16 01:50 Anion Gap 10 (8-16) 07/03/16 01:50 BUN 9 mg/dL (7-18) D 07/03/16 01:50 Creatinine 0.7 mg/dL (0.7-1.3) 07/03/16 01:50 Creat Clearance w eGFR > 60 (>60) 07/02/16 09:30 Calcium 8.7 mg/dL (8.5-10.1) 07/03/16 01:50 Total Bilirubin 0.5 mg/dL (0.2-1.0) 07/02/16 09:30 AST 9 U/L (15-37) L D 07/02/16 09:30 ALT 14 U/L (12-78) 07/02/16 09:30 Alkaline Phosphatase 85 U/L (45-117) 07/02/16 09:30 Total Protein 5.8 g/dl (6.4-8.2) L 07/02/16 09:30 Albumin 2.8 g/dl (3.4-5.0) L 07/02/16 09:30 HOSPITAL COURSE: Date of Admission:06/25/16 Date of Discharge: 07/04/16 86 year-old man with a PMH of HTN, HLD, nonobstructive CAD, systolic heart failure, paroxysmal afib, compression fractures, prostate cancer s/p RT, colon cancer s/p colectomy. Admitted for bilateral lower extremity edema and pain management. Acute on chronic systolic heart failure s/p PPM --persistent lower extremity edema --CT chest showed minimal pleural effusions --increased Lasix to BID; goal negative fluid balance --fluid restricted 1L Paroxysmal afib with RVR --continued metoprolol --continue Eliquis; was discharged from [facility] on 2.5mg BID following PPM insertion; discussed with cardiology Nonobstructive CAD --two cardiac caths in past year, unobstructed coronaries --continued lisinopril, Toprol XL, Lipitor Gastritis --per records from [facility]---> --EGD performed and no bleeding found. Duodenitis with scattered erosions , gastritis, submucosal gastric nodules --Colonoscopy found mild diverticulosis, nonbleeding rectal AVM, and internal hemorrhoids --switched to PO protonix Partial SBO v. Ileus --NGT out, tolerating full liquids; advance diet --continued hycosamine Hypertension --BP well-controlled --continued lisinopril, Toprol XL, lasix Hyperlipidemia --continued Lipitor Prostate cancer Colon cancer --patient declines to take Enzalutamide as it causes severe GI distress --continued flomax Anxiety/agitation --low dose lorazepam PRN Degenerative disc disease/compression fractures Severe pain syndrome, improved --placed on duragesic patch 25mcg with good pain relief and without over- narcotizing effect --lidocaine patch PRN Minutes to complete discharge: 35 Discharge Summary Reason For Visit: OPIOD WITHDRAWAL / CONGESTIVE HEART FAILURE Current Active Problems Abdominal pain (Acute) Acute hypoxemic respiratory failure (Acute) Back pain (Acute) Bilateral pleural effusion (Acute) Chest pain (Acute) Chest pain at rest (Acute) Elevated troponin (Acute) Pneumonia (Acute) Shortness of breath (Acute) Shoulder blade pain (Acute) Condition: Improved - Instructions Diet, Activity, Other Instructions: Prescriptions have been sent to your pharmacy. Take these medications as directed. Be sure to follow up with Dr. Ford and Dr. Mishra within one week of your discharge. Referrals: Tyron Chavarria MD [Primary Care Provider] - 1 Week Rashel Mishra MD [Staff Physician] - 1 Week Disposition: HOME - Home Medications Comprehensive Discharge Medication List: Ambulatory Orders Tamsulosin HCl [Flomax -] 0.4 mg PO DAILY 01/17/15 FENTANYL 25mcg PATCH [DURAGESIC 25mcg PATCH -] 1 patch TD Q72H patch.td72 MDD 25mcg 06/12/16 Lidocaine 5% Patch [Lidoderm -] 1 patch TP DAILY patch 06/12/16 Lisinopril [Prinivil] 2.5 mg PO DAILY tablet 06/12/16 Lorazepam [Ativan] 0.5 mg PO Q8H PRN #0 tablet MDD 1.5mg 06/12/16 Pantoprazole Sodium [Protonix -] 40 mg PO DAILY tablet.ec 06/12/16 Apixaban [Eliquis] 2.5 mg PO BID 06/25/16 Atorvastatin Ca [Lipitor] 20 mg PO HS 06/25/16 Calcium Carbonate [Calcium] 1,250 mg PO DAILY 06/25/16 Cholecalciferol (Vitamin D3) [D3-2000] 2,000 unit PO DAILY 06/25/16 Metoprolol Succinate [Toprol XL -] 25 mg PO DAILY 06/25/16 Multivitamins [Multivit ([facility] Formulary)] 1 tab PO DAILY 06/25/16 Potassium Chloride [Klor-Con] 20 meq PO DAILY 06/25/16 Trazodone HCl 50 mg PO HS 06/25/16 Aspirin [ASA -] 81 mg PO DAILY tab.chew 07/04/16 Docusate Sodium [Colace -] 100 mg PO TID capsule 07/04/16 Fentanyl Patch Waste [Duragesic Patch Waste] 1 each TD PRN PRN #0 each 07/04/16 Furosemide [Lasix] 40 mg PO BID #60 tablet 07/04/16 Hyoscyamine Sulfate [Levbid] 0.375 mg PO BID #60 tab.er.12h 07/04/16 Polyethylene Glycol 3350 [Miralax 119 gm Btl -] 17 gm PO BID #1 bottle 07/04/16 Sodium Chloride Nasal [place] [[place] Nasal [place] -] 2 spray NS BID PRN #1 bottle 07/04/16 This patient is new to me today: No Emergency Visit: Yes ED Registration Date: 06/25/16 Care time: The patient presented to the Emergency Department on the above date and was hospitalized for further evaluation of their emergent condition. Critical Care patient: No - Discharge Referral Referred to [facility] Med P.C.: No
== END 2016-07-04 17:27 | disposition home or self-care (01) | DRG 292 ==
LOC: JER 15:49 → JERBED 18:52 → UNDOADMIN 19:10 → J5S 22:13 → JICU 07-03 04:39 → J4W 07-03 08:54 → JICU 07-03 09:27 → J4W 07-03 11:43
PROVIDERS: ADMIT Internal Medicine; ATTEND Nurse Practitioner Acute Care
PROC: 0D9670Z Drainage of Stomach with Drainage Device, Via Natural or Artificial Opening (ICD-10-PCS; principal; 2016-06-28)
DX: I11.0 Hypertensive heart disease with heart failure (principal); K56.69 Other intestinal obstruction; I50.23 Acute on chronic systolic (congestive) heart failure; I10 Essential (primary) hypertension; I48.0 Paroxysmal atrial fibrillation; M54.5 Low back pain; D64.9 Anemia, unspecified; E83.39 Other disorders of phosphorus metabolism; E78.5 Hyperlipidemia, unspecified; K57.30 Diverticulosis of large intestine without perforation or abscess without bleeding; Q27.33 Arteriovenous malformation of digestive system vessel; K29.60 Other gastritis without bleeding; F41.8 Other specified anxiety disorders; M51.37 Other intervertebral disc degeneration, lumbosacral region; I34.0 Nonrheumatic mitral (valve) insufficiency; I35.0 Nonrheumatic aortic (valve) stenosis; R45.1 Restlessness and agitation; I44.7 Left bundle-branch block, unspecified; Z85.038 Personal history of other malignant neoplasm of large intestine; Z85.46 Personal history of malignant neoplasm of prostate; Z95.0 Presence of cardiac pacemaker
CPT/HCPCS: 36415; 71010-TC; 71250-TC; 74000-TC; 74020-TC; 80048; 80053; 81003; 82272; 82550; 83735; 83880; 84100; 84484; 85025; 85610; 85730; 87040; 87045; 87046; 87086; 87186; 87324; 87449; 93005; 93010; 93970-TC; 94010; 94640; 94761; 97116-GP; 97161-GP; 99284-25

== ENCOUNTER 2017-10-20 16:12 | Inpatient (IN) | payer BC, OTHER ==
--- NOTE | 2017-10-20 16:45 | PDOC ---
History of Present Illness - General Chief Complaint: Shortness of Breath Stated Complaint: SHORTNESS OF BREATH Time Seen by Provider: 10/20/17 16:27 - History of Present Illness Initial Comments: 10/20/17 16:40 86 yo M h/o HTN, HLD, CAD, A-fib, systolic CHF, pacemaker implantation 06/16/[address] [facility], degenerative disc disease, prostate cancer s/p RT, and colon cancer s/p colectomy who p/w SOB. Patient reports 2 days of SOB and [place], with no identifiable triggers or alleviators. Patient also reports chronic, left sided, intractable back pain managed with Fentanyl patch. States that patch "needs to be changed". Endorses chronic left upper extremity arm "tightness" improved with stretching exercises, evaluated by Dr. Pascual as MSK related. No home O2 requirements or duoneb use. Denies F/C, N/V,orthopnea, PND, Palpitations, leg swelling/pain, CP, SOB, abdominal pain, diarrhea, constipation, urinary complaints, weakness, lightheadedness, sensory changes. PMHx: as noted above. Denies h/o PE/DVT, NM. Denies stent placement, CABG. Does not recall previous stress testing. Pacemaker interrogated 3 months ago. ROS: as noted above SHx: Denies Etoh, IVDA., Distant tobacco use, with smoking cessation age 49's. Allergies: NKDA PMD: Tyron Chavarria. Cardiology [place]. Past History - Past Medical History Allergies/Adverse Reactions: Allergies Allergy/AdvReac Type Severity Reaction Status Date / Time No Known Allergies Allergy Verified 10/20/17 16:17 Home Medications: Ambulatory Orders Tamsulosin HCl [Flomax -] 0.4 mg PO DAILY 01/17/15 FENTANYL 25mcg PATCH [DURAGESIC 25mcg PATCH -] 1 patch TD Q72H patch.td72 MDD 25mcg 06/12/16 LORazepam [Ativan] 0.5 mg PO Q8H PRN #0 tablet MDD 1.5mg 06/12/16 Lidocaine 5% Patch [Lidoderm -] 1 patch TP DAILY patch 06/12/16 Lisinopril [Prinivil] 2.5 mg PO DAILY tablet 06/12/16 Pantoprazole Sodium [Protonix -] 40 mg PO DAILY tablet.ec 06/12/16 Apixaban [Eliquis] 2.5 mg PO BID 06/25/16 Atorvastatin Ca [Lipitor] 20 mg PO HS 06/25/16 Calcium Carbonate [Calcium] 1,250 mg PO DAILY 06/25/16 Cholecalciferol (Vitamin D3) [D3-2000] 2,000 unit PO DAILY 06/25/16 Metoprolol Succinate [Toprol XL -] 25 mg PO DAILY 06/25/16 Multivitamins [Multivit ([facility] Formulary)] 1 tab PO DAILY 06/25/16 Potassium Chloride [Klor-Con] 20 meq PO DAILY 06/25/16 Trazodone HCl 50 mg PO HS 06/25/16 Aspirin [ASA -] 81 mg PO DAILY tab.chew 07/04/16 Docusate Sodium [Colace -] 100 mg PO TID capsule 07/04/16 Fentanyl Patch Waste [Duragesic Patch Waste] 1 each TD PRN PRN #0 each 07/04/16 Furosemide [Lasix] 40 mg PO BID #60 tablet 07/04/16 Hyoscyamine Sulfate [Levbid] 0.375 mg PO BID #60 tab.er.12h 07/04/16 Polyethylene Glycol 3350 [Miralax 119 gm Btl -] 17 gm PO BID #1 bottle 07/04/16 Sodium Chloride Nasal [place] [[place] Nasal [place] -] 2 spray NS BID PRN #1 bottle 07/04/16 Unobtainable 10/20/17 Anemia: Yes Asthma: No Cancer: Yes (colon , prostate) Cardiac Disorders: Yes (on eliquis ? why) CVA: No COPD: No CHF: No Dementia: No Diabetes: No GI Disorders: Yes (colon ca, colectomy) Disorders: No HTN: Yes Hypercholesterolemia: Yes Liver Disease: No Seizures: No Thyroid Disease: No - Surgical History Abdominal Surgery: Yes (colon resection) Appendectomy: No Cardiac Surgery: Yes (cath) Cholecystectomy: No Lung Surgery: No Neurologic Surgery: No Orthopedic Surgery: No - Immunization History Immunization Up to Date: Yes - Suicide/Smoking/Psychosocial Hx Smoking History: Never smoked Have you smoked in the past 12 months: No Number of Cigarettes Smoked Daily: 0 If you are a former smoker, when did you quit?: 20 years ago Hx Alcohol Use: No Drug/Substance Use Hx: No Substance Use Type: None Hx Substance Use Treatment: No Review of Systems - Review of Systems Comments:: 10/20/17 17:09 GENERAL/CONSTITUTIONAL: No fever or chills. No weakness. HEAD, EYES, EARS, NOSE AND THROAT: No change in vision. No ear pain or discharge. No sore throat. CARDIOVASCULAR:+SOB. No chest pain. RESPIRATORY: No cough, wheezing, or hemoptysis. GASTROINTESTINAL: No nausea, vomiting, diarrhea or constipation. GENITOURINARY: No dysuria, frequency, or change in urination. MUSCULOSKELETAL: No joint or muscle swelling or pain. No neck or back pain. SKIN: No rash NEUROLOGIC: No headache, vertigo, loss of consciousness, or change in strength/ sensation. ENDOCRINE: No increased thirst. No abnormal weight change HEMATOLOGIC/LYMPHATIC: No anemia, easy bleeding, or history of blood clots. ALLERGIC/IMMUNOLOGIC: No hives or skin allergy. *Physical Exam - Vital Signs Last Vital Signs Temp Pulse Resp BP Pulse Ox 98 F 76 18 128/66 99 10/20/17 16:14 10/20/17 16:14 10/20/17 16:14 10/20/17 16:14 10/20/17 16:14 - Physical Exam Comments: 10/20/17 17:09 GENERAL: Awake, alert, and fully oriented, in no acute distress HEAD: No signs of trauma, normocephalic, atraumatic EYES: PERRLA, EOMI, sclera anicteric, conjunctiva clear ENT: Hearing grossly normal, nares patent, oropharynx clear without exudates. Moist mucosa NECK: Normal ROM, supple, no lymphadenopathy, JVD, or masses LUNGS: No distress, speaks full sentences, clear to auscultation bilaterally HEART: Regular rate and rhythm, normal S1 and S2, no murmurs, rubs or gallops, peripheral pulses normal and equal bilaterally. ABDOMEN: Soft, nontender, normoactive bowel sounds. No guarding, no rebound. No masses EXTREMITIES : Normal inspection, Normal range of motion, no edema. No clubbing or cyanosis. SKIN: Warm, Dry, normal turgor, no rashes or lesions noted ED Treatment Course - LABORATORY CBC & Chemistry Diagram: 10/20/17 17:01 10/20/17 17:01 - RADIOLOGY Radiology Studies Ordered: Category Date Time Status CXRPORT [CHEST X-RAY PORTABLE*] [RAD] Stat Radiology 10/20/17 16:30 Ordered Medical Decision Making - Medical Decision Making 10/20/17 17:11 87 yo M h/o HTN, HLD, CAD, A-fib, systolic CHF, pacemaker implantation 06/16/[address] [facility], degenerative disc disease, prostate cancer s/p RT, and colon cancer s/p colectomy who p/w SOB. ACS/NM r/o. R/o PNA vs. COPD exaccerbation. Low risk PE Weils Criteria. Will also consider CHF exacerbation. Low suspicion AAA, Ao dissection, pancreatitis, pyelonephritis. ED Course: CBC, CMP, BNP, Cardiac Pr. EKG, CXR 10/20/17 17:16 EKG: AV dual paced rhythm with prolonged AV conduction. 10/20/17 18:46 BNP: [id number] Trop: Neg CBC: Unremarkable Answering service contacted for Dr. Garner. Dr. Gordon propagation manager. Awaiting call back. 10/20/17 18:[address] Damon patient should be placed on tele/obs and recs 40 IV Lasix. Patient accepted to tele/obs Dr. Calloway. *DC/Admit/Observation/Transfer Diagnosis at time of Disposition: Acute on chronic systolic (congestive) heart failure - Discharge Dispostion Decision to Admit order: Yes - Referrals Referrals: Tyron Chavarria MD [Primary Care Provider] - - Patient Instructions - Post Discharge Activity
[2017-10-20] MEDS ORDERED: IBUPROFEN 600 MG TABLET (FP) PO ONE ×2 (17:10→17:19)
[2017-10-20 17:13] LABS: BASO % 0.5 % (0-2.0); EOS % 0.4 % (0-4.5); HEMATOCRIT 34.6 % (35.4-49); HEMOGLOBIN 11.3 GM/dL (11.7-16.9); LYMPH % 10.7 % (8-40); MCH 27.6 pg (25.7-33.7); MCHC 32.7 g/dl (32.0-35.9); MEAN CELL VOLUME 84.4 fl (80-96); MEAN PLT VOLUME 10.4 fl (7.5-11.1); MONO % 7.9 % (3.8-10.2); NEUT % 80.5 % (42.8-82.8); PLATELET COUNT 170 K/MM3 (134-434); WHITE BLOOD COUNT 7.4 K/mm3 (4.0-10.0)
[2017-10-20 17:26] LABS: INR 1.19 (0.82-1.09); PROTHROMBIN TIME (PATIENT) 13.4 SEC (9.7-13.0)
[2017-10-20 17:40] LABS: ALBUMIN 3.7 g/dl (3.4-5.0); ANION GAP 6 (8-16); BILIRUBIN,TOTAL 0.7 mg/dL (0.2-1.0); BLOOD UREA NITROGEN 17 mg/dL (7-18); CHLORIDE 98 mmol/L (98-107); CO2 30 mmol/L (21-32); CREATININE 0.9 mg/dL (0.7-1.3); GLUCOSE,RANDOM 116 mg/dL (74-106); POTASSIUM 4.7 mmol/L (3.5-5.1); SGOT/AST 19 U/L (15-37); SGPT/ALT 21 U/L (12-78); SODIUM 134 mmol/L (136-145); TOT PROT 7.6 g/dl (6.4-8.2)
[2017-10-20 17:41] LABS: ALK PHOS 118 U/L (45-117)
[2017-10-20 17:45] LABS: N-TERMINAL BNP 15671.43 pg/ml (5-450)
[2017-10-20 17:59] LABS: URINE APPEARANCE CLEAR; URINE BILIRUBIN NEGATIVE (<2.0 mg/dL); URINE COLOR YELLOW; URINE GLUCOSE (UA) NEGATIVE (NEGATIVE); URINE KETONE NEGATIVE (NEGATIVE); URINE LEUK ESTERASE NEGATIVE (NEGATIVE); URINE NITRITE NEGATIVE (NEGATIVE); URINE PROTEIN NEGATIVE (NEGATIVE); URINE UROBILINOGEN NEGATIVE mg/dL (0.2-1.0)
--- NOTE | 2017-10-20 18:49 | CON.CARD ---
Consult Consult Specialty:: Cardiology for dr. Mishra - History of Present Illness Chief Complaint: sob History of Present Illness: 86 yo M h/o HTN, HLD, CAD, A-fib, systolic CHF, pacemaker implantation 06/16/16 at [facility], degenerative disc disease, prostate cancer s/p RT, and colon cancer s/p colectomy who p/w SOB. Patient reports 2 days of SOB and Hays, with no identifiable triggers or alleviators. Patient also reports chronic, left sided, intractable back pain managed with Fentanyl patch. States that patch "needs to be changed". Endorses chronic left upper extremity arm "tightness" improved with stretching exercises, evaluated by Dr. Pascual as MSK related. No home O2 requirements or duoneb use. Denies F/C, N/V,orthopnea, PND, Palpitations, leg swelling/pain, CP, SOB, abdominal pain, diarrhea, constipation, urinary complaints, weakness, lightheadedness, sensory changes. PMHx: as noted above. Denies h/o PE/DVT, PA. Denies stent placement, CABG. Does not recall previous stress testing. Pacemaker interrogated 3 months ago. ROS: as noted above SHx: Denies Etoh, IVDA., Distant tobacco use, with smoking cessation age 49's. Allergies: NKDA PMD: Tyron Chavarria. Cardiology Patsy. - History Source History Provided By: Patient, Medical Record - Past Medical History Cardio/Vascular: Yes: Aortic Stenosis, CAD (minimal non-obstructive disease), CHF, HTN, Hyperlipdemia, Mitral Insufficiency, Pulmonary Hypertension Gastrointestinal: Yes: Cancer Renal/: Yes: Cancer - Past Surgical History Past Surgical History: Yes: Colectomy - Alcohol/Substance Use Hx Alcohol Use: No - Smoking History Smoking history: Never smoked Have you smoked in the past 12 months: No Aproximately how many cigarettes per day: 0 If you are a former smoker, when did you quit?: 20 years ago - Social History ADL: Independent History of Recent Travel: No Home Medications - Allergies Allergies/Adverse Reactions: Allergies Allergy/AdvReac Type Severity Reaction Status Date / Time No Known Allergies Allergy Verified 10/20/17 16:17 - Home Medications Home Medications: Ambulatory Orders Tamsulosin HCl [Flomax -] 0.4 mg PO DAILY 01/17/15 FENTANYL 25mcg PATCH [DURAGESIC 25mcg PATCH -] 1 patch TD Q72H patch.td72 MDD 25mcg 06/12/16 LORazepam [Ativan] 0.5 mg PO Q8H PRN #0 tablet MDD 1.5mg 06/12/16 Lidocaine 5% Patch [Lidoderm -] 1 patch TP DAILY patch 06/12/16 Lisinopril [Prinivil] 2.5 mg PO DAILY tablet 06/12/16 Pantoprazole Sodium [Protonix -] 40 mg PO DAILY tablet.ec 06/12/16 Apixaban [Eliquis] 2.5 mg PO BID 06/25/16 Atorvastatin Ca [Lipitor] 20 mg PO HS 06/25/16 Calcium Carbonate [Calcium] 1,250 mg PO DAILY 06/25/16 Cholecalciferol (Vitamin D3) [D3-2000] 2,000 unit PO DAILY 06/25/16 Metoprolol Succinate [Toprol XL -] 25 mg PO DAILY 06/25/16 Multivitamins [Multivit ([facility] Formulary)] 1 tab PO DAILY 06/25/16 Potassium Chloride [Klor-Con] 20 meq PO DAILY 06/25/16 Trazodone HCl 50 mg PO HS 06/25/16 Aspirin [ASA -] 81 mg PO DAILY tab.chew 07/04/16 Docusate Sodium [Colace -] 100 mg PO TID capsule 07/04/16 Fentanyl Patch Waste [Duragesic Patch Waste] 1 each TD PRN PRN #0 each 07/04/16 Furosemide [Lasix] 40 mg PO BID #60 tablet 07/04/16 Hyoscyamine Sulfate [Levbid] 0.375 mg PO BID #60 tab.er.12h 07/04/16 Polyethylene Glycol 3350 [Miralax 119 gm Btl -] 17 gm PO BID #1 bottle 07/04/16 Sodium Chloride Nasal [place] [[place] Nasal [place] -] 2 spray NS BID PRN #1 bottle 07/04/16 Unobtainable 10/20/17 Review of Systems - Review of Systems Constitutional: reports: No Symptoms Eyes: reports: No Symptoms HENT: reports: No Symptoms Neck: reports: No Symptoms Cardiovascular: reports: Shortness of Breath Respiratory: reports: SOB on Exertion Gastrointestinal: reports: No Symptoms Genitourinary: reports: No Symptoms Breasts: reports: No Symptoms Reported Musculoskeletal: reports: No Symptoms Integumentary: reports: No Symptoms Neurological: reports: No Symptoms Endocrine: reports: No Symptoms Hematology/Lymphatic: reports: No Symptoms Psychiatric: reports: No Symptoms Vital Signs: Vital Signs Temperature 98 F 10/20/17 16:14 Pulse Rate 76 10/20/17 16:14 Respiratory Rate 18 10/20/17 16:14 Blood Pressure 128/66 10/20/17 16:14 O2 Sat by Pulse Oximetry (%) 99 10/20/17 16:14 Constitutional: Yes: Well Nourished, No Distress, Calm Eyes: Yes: WNL, Conjunctiva Clear, EOM Intact HENT: Yes: WNL, Atraumatic, Normocephalic Neck: Yes: WNL, Supple, Trachea Midline Respiratory: Yes: Diminished Gastrointestinal: Yes: WNL, Normal Bowel Sounds Renal/: Yes: WNL Cardiovascular: Yes: WNL, Regular Rate and Rhythm Heart Sounds: Yes: S1, S2 Murmur: Yes: Systolic Murmur Musculoskeletal: Yes: WNL Extremities: Yes: WNL Edema: Yes Integumentary: Yes: WNL Neurological: Yes: WNL, Alert, Oriented ...Motor Strength: WNL Psychiatric: Yes: WNL, Alert, Oriented - Other Data Labs, Other Data: CBC, BMP 10/20/17 17:01 10/20/17 17:01 INR, PTT INR 1.19 (0.82-1.09) H 10/20/17 17:01 Troponin, BNP 10/20/17 17:01 Troponin I 0.03 D B-Natriuretic Peptide 85438.43 H Troponin, BNP 10/20/17 17:01 Troponin I 0.03 D B-Natriuretic Peptide 90540.43 H Problem List - Problems (1) Acute on chronic systolic (congestive) heart failure Code(s): I50.23 - ACUTE ON CHRONIC SYSTOLIC (CONGESTIVE) HEART FAILURE (2) Abdominal pain Code(s): R10.9 - UNSPECIFIED ABDOMINAL PAIN Qualifiers: Abdominal location: generalized Qualified Code(s): R10.84 - Generalized abdominal pain (3) Abdominal wall contusion Code(s): S30.1XXA - CONTUSION OF ABDOMINAL WALL, INITIAL ENCOUNTER Qualifiers: Encounter type: initial encounter Qualified Code(s): S30.1XXA - Contusion of abdominal wall, initial encounter (4) Acute hypoxemic respiratory failure Code(s): J96.01 - ACUTE RESPIRATORY FAILURE WITH HYPOXIA (5) Back pain Code(s): M54.9 - DORSALGIA, UNSPECIFIED Qualifiers: Back pain location: thoracic back pain Chronicity: chronic Back pain laterality: left Qualified Code(s): M54.6 - Pain in thoracic spine; G89.29 - Other chronic pain (6) Bilateral lower extremity edema Code(s): R60.0 - LOCALIZED EDEMA (7) Bilateral pleural effusion Code(s): J90 - PLEURAL EFFUSION, NOT ELSEWHERE CLASSIFIED (8) CHF (congestive heart failure) Code(s): I50.9 - HEART FAILURE, UNSPECIFIED (9) Chest pain Code(s): R07.9 - CHEST PAIN, UNSPECIFIED Qualifiers: Chest pain type: unspecified Qualified Code(s): R07.9 - Chest pain, unspecified (10) Chest pain at rest Code(s): R07.9 - CHEST PAIN, UNSPECIFIED (11) Chest wall pain Code(s): R07.89 - OTHER CHEST PAIN (12) Chronic atrial fibrillation Code(s): I48.2 - CHRONIC ATRIAL FIBRILLATION (13) Chronic lower back pain Code(s): M54.5 - LOW BACK PAIN; G89.29 - OTHER CHRONIC PAIN Qualifiers: Back pain laterality: unspecified Sciatica presence: with sciatica presence unspecified (14) DVT prophylaxis Code(s): [id number] - (15) Elevated troponin Code(s): R79.89 - OTHER SPECIFIED ABNORMAL FINDINGS OF BLOOD CHEMISTRY (16) Melena Code(s): K92.1 - MELENA (17) Narcotic withdrawal 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 (18) Normocytic anemia Code(s): D64.9 - ANEMIA, UNSPECIFIED (19) Pneumonia Code(s): J18.9 - PNEUMONIA, UNSPECIFIED ORGANISM (20) Shortness of breath Code(s): R06.02 - SHORTNESS OF BREATH (21) Shoulder blade pain Code(s): M89.8X1 - OTHER SPECIFIED DISORDERS OF BONE, SHOULDER (22) Aortic stenosis Code(s): Q25.3 - SUPRAVALVULAR AORTIC STENOSIS (23) Hyperlipidemia Code(s): E78.5 - HYPERLIPIDEMIA, UNSPECIFIED (24) Mitral insufficiency Code(s): I34.0 - NONRHEUMATIC MITRAL (VALVE) INSUFFICIENCY (25) Mitral regurgitation and aortic stenosis Code(s): I08.0 - RHEUMATIC DISORDERS OF BOTH MITRAL AND AORTIC VALVES Assessment/Plan 86 yo M h/o HTN, HLD, CAD, A-fib, systolic CHF, pacemaker implantation 06/16/16 at [facility], degenerative disc disease, prostate cancer s/p RT, and colon cancer s/p colectomy who p/w SOB. Patient reports 2 days of SOB and Hays,and back pain. Plan iv lasix 40 BID pain control telemetry echo coverage dr. Mishra
[2017-10-20] MEDS ORDERED: FUROSEMIDE 40 MG/4 ML INJECTABLE VIAL IVPUSH ONE (18:50)
[2017-10-20] MEDS ORDERED: FUROSEMIDE 40 MG/4 ML INJECTABLE VIAL ONE (19:54)
--- NOTE | 2017-10-20 20:33 | PDOC ---
Attending Attestation - Resident Resident Name: Marlo Gupta - ED Attending Attestation I have performed the following: I have examined & evaluated the patient, The case was reviewed & discussed with the resident, I agree w/resident's findings & plan - HPI HPI: 10/20/17 20:28 87y/o M cardiac history p/w increasing VICTOR and work of breathing. - Physicial Exam PE: 10/20/17 20:31 VSS, O2 sat wnl bibasilar subtle crackles - Medical Decision Making 10/20/17 20:33 Patient seen and evaluated with the resident. I agree with the overall evaluation, assessment, and management with the following summary of visit: 87-year-old male with cardiac history presents with progressive dyspnea on exertion and difficulty breathing. EKG and chest x-ray at baseline, Labs are within normal limits Discussed with cardiology, will admit for diuresis and cardiac monitoring
--- NOTE | 2017-10-20 21:25 | HP ---
CHIEF COMPLAINT: SOB, VICTOR x 2 days PCP: Dr. Chavarria HISTORY OF PRESENT ILLNESS: 87 y/o M with PMH HTN, HLD, CAD, afib (d/c on eliquis 2.5mg PO BID), pacemaker [place], degenerative disc dz, prostate CA, s/p colectomy, skin CA, recent admission in August 2017 for CHF exacerbation (d/c on lasix BID), who presents to the ED c/o SOB and VICTOR for the past two days. As per patient, he has had these sx for two days, however since 4AM today, pt has been extremely SOB. Pt endorses sleeping on "multiple pillows," and states that yesterday when he took his first dose of lasix in the AM, his urinary void volume was lower than normal. During this time, pt also endorses intermittent episodes of diaphoresis, and MSK numbness in his LUE worse upon movement. However he is without chest pain or pressure. Denies OSCAR, fever, chills, chest pain or pressure , or changes in bowel function. Pt follows with Dr. Mishra. Denies stents, CABG, or previous stress tests. He has had two cardiac caths recently which revealed non obstructive CAD. His pacemaker was interrogated recently, a few months ago. He had an ECHO done as well 05/12/16 which revealed EF ~47, and moderately reduced LV systolic fnc, as well as mod-severe MR, TR, and elevation of RSVP. 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 smoked pipe frequently Alcohol: used to drink wine daily Drugs: denies Family History: father- in [place] from unknown cause at young age- 50. mother- lived until 99 Allergies No Known Allergies Allergy (Verified 10/20/17 16:17) HOME MEDICATIONS: Home Medications Medication Instructions Recorded Tamsulosin HCl [Flomax -] 0.4 mg PO DAILY 01/17/15 FENTANYL 25mcg PATCH [DURAGESIC 1 patch TD Q72H patch.td72 MDD 06/12/16 25mcg PATCH -] 25mcg LORazepam [Ativan] 0.5 mg PO Q8H PRN #0 tablet MDD 06/12/16 1.5mg Lidocaine 5% Patch [Lidoderm -] 1 patch TP DAILY patch 06/12/16 Lisinopril [Prinivil] 2.5 mg PO DAILY tablet 06/12/16 Pantoprazole Sodium [Protonix -] 40 mg PO DAILY tablet.ec 06/12/16 Apixaban [Eliquis] 2.5 mg PO BID 06/25/16 Atorvastatin Ca [Lipitor] 20 mg PO HS 06/25/16 Calcium Carbonate [Calcium] 1,250 mg PO DAILY 06/25/16 Cholecalciferol (Vitamin D3) 2,000 unit PO DAILY 06/25/16 [D3-2000] Metoprolol Succinate [Toprol XL -] 25 mg PO DAILY 06/25/16 Multivitamins [Multivit ([facility] 1 tab PO DAILY 06/25/16 Formulary)] Potassium Chloride [Klor-Con] 20 meq PO DAILY 06/25/16 Trazodone HCl 50 mg PO HS 06/25/16 Aspirin [ASA -] 81 mg PO DAILY tab.chew 07/04/16 Docusate Sodium [Colace -] 100 mg PO TID capsule 07/04/16 Fentanyl Patch Waste [Duragesic 1 each TD PRN PRN #0 each 07/04/16 Patch Waste] Furosemide [Lasix] 40 mg PO BID #60 tablet 07/04/16 Hyoscyamine Sulfate [Levbid] 0.375 mg PO BID #60 tab.er.12h 07/04/16 Polyethylene Glycol 3350 [Miralax 17 gm PO BID #1 bottle 07/04/16 119 gm Btl -] Sodium Chloride Nasal [place] [[place] 2 spray NS BID PRN #1 bottle 07/04/16 [place] Nasal [place] -] Unobtainable 10/20/17 medications must be verified when pharmacy open REVIEW OF SYSTEMS CONSTITUTIONAL: Absent: fever, chills, diaphoresis, generalized weakness, malaise, loss of appetite, weight change HEENT: Absent: rhinorrhea, nasal congestion, throat pain, throat swelling, difficulty swallowing, mouth swelling, ear pain, eye pain, visual changes CARDIOVASCULAR: Absent: chest pain, syncope, palpitations, irregular heart rate, lightheadedness , peripheral edema RESPIRATORY: +SOB, VICTOR Absent: cough, orthopnea, wheezing, stridor, hemoptysis GASTROINTESTINAL: Absent: abdominal pain, abdominal distension, nausea, vomiting, diarrhea, constipation, melena, hematochezia GENITOURINARY: Absent: dysuria, frequency, urgency, hesitancy, hematuria, flank pain, genital pain MUSCULOSKELETAL: Absent: myalgia, arthralgia, joint swelling, back pain, neck pain SKIN: Absent: rash, itching, pallor HEMATOLOGIC/IMMUNOLOGIC: Absent: easy bleeding, easy bruising, lymphadenopathy, frequent infections ENDOCRINE: Absent: unexplained weight gain, unexplained weight loss, heat intolerance, cold intolerance NEUROLOGIC: +L arm numbness Absent: headache, focal weakness or paresthesias, dizziness, unsteady gait, seizure, mental status changes, bladder or bowel incontinence PSYCHIATRIC: Absent: anxiety, depression, suicidal or homicidal ideation, hallucinations. PHYSICAL EXAMINATION Vital Signs - 24 hr 10/20/17 16:14 Temperature 98 F Pulse Rate 76 Respiratory 18 Rate Blood Pressure 128/66 O2 Sat by Pulse 99 Oximetry (%) GENERAL: Pleasant elderly gentleman. Awake, alert, and fully oriented, in no acute distress. HEAD: Normal with no signs of trauma. EYES: Pupils equal, round and reactive to light, extraocular movements intact, sclera anicteric, conjunctiva clear. EARS, NOSE, THROAT: Ears normal, +L nostril - with skin CA, patched. oropharynx clear without exudates. Moist mucous membranes. NECK: Normal range of motion, supple without lymphadenopathy LUNGS: Breath sounds equal, clear to auscultation bilaterally. No wheezes, and no crackles. No accessory muscle use. HEART: Paced rate and rhythm, normal S1 and S2 without murmur, rub or gallop. ABDOMEN: Soft, nontender, not distended, normoactive bowel sounds, no guarding, no rebound, no masses. UPPER EXTREMITIES: 2+ radial pulses, warm, well-perfused. No cyanosis. No clubbing. No peripheral edema. LOWER EXTREMITIES: 2+ dp pulses, warm, well-perfused. No calf tenderness. 2+ pitting edema MSK: +pain with abduction of LUE NEUROLOGICAL: Cranial nerves II-XII intact. Normal speech. Normal gait. PSYCHIATRIC: Cooperative. Good eye contact. Appropriate mood and affect. SKIN: Warm, dry, normal turgor, no rashes or lesions noted, normal capillary refill. Laboratory Results - last 24 hr 10/20/17 10/20/17 10/20/17 17:01 17:01 17:01 WBC 7.4 D RBC 4.10 Hgb 11.3 L D Hct 34.6 L D MCV 84.4 MCH 27.6 MCHC 32.7 RDW 15.0 D Plt Count 170 D MPV 10.4 Absolute Neuts (auto) 5.9 Neutrophils % 80.5 Lymphocytes % 10.7 Monocytes % 7.9 Eosinophils % 0.4 D Basophils % 0.5 Nucleated RBC % 0 PT with INR 13.40 H INR 1.19 H ALT Creatine Kinase 91 Troponin I 0.03 D B-Natriuretic Peptide 78680.43 H Total Protein 10/20/17 10/20/17 17:01 17:40 Hct Nucleated RBC % INR Sodium 134 L Potassium 4.7 D Chloride 98 Carbon Dioxide 30 Anion Gap 6 L BUN 17 D Creatinine 0.9 D Creat Clearance w eGFR > 60 Random Glucose 116 H Calcium 9.0 Total Bilirubin 0.7 D AST 19 D ALT 21 D Alkaline Phosphatase 118 H D Creatine Kinase B-Natriuretic Peptide Total Protein 7.6 D Albumin 3.7 D Urine Color Yellow Urine Appearance Clear Urine pH 6.0 Ur Specific [place] 1.008 Urine Protein Negative Urine Glucose (UA) Negative Urine Ketones Negative Urine Blood Negative Urine Nitrite Negative Urine Bilirubin Negative Urine Urobilinogen Negative Ur Leukocyte Esterase Negative TESTS 10/20/17: EKG: paced rhythm 10/20/17: CXR: blunting of L costophrenic angle sugg of effusion, with congestion. my read - official read pending ASSESSMENT/PLAN: 87 y/o M with PMH HTN, HLD, CAD, afib (d/c on eliquis 2.5mg PO BID), pacemaker [place], degenerative disc dz, prostate CA s/p colectomy, skin CA, recent admission in August 2017 for CHF exacerbation (d/c on lasix BID), who presents to the ED c/o SOB and VICTOR for the past two days. #Acute diastolic CHF exacerbation -Received Lasix 40mg IVP x 1 -clinically well, without significant congestion on exam. unknown what precipitated exac, no recent URI -Continued on lasix 40mg IVP qd -will hold home Kdur dose as K+ WNL 4.7 -initial trop (-) - without signs of demand ischemia -tele monitoring -strict i's and o's -daily weights -Na controlled/fluid restrict #afib, with pacemaker 06/16/16 [facility] -for a/c on eliquis 2.5mg PO bid last admission - need to verify with pharmacy when open -continue toprol XL 25mg PO qd rate #CAD -hx recent caths (2) without obstruction -as per pt, without stents -continue asa 81mg PO qd #HTN- controlled -continue toprol XL 25mg PO qd -lisinopril 2.5mg PO qd #HLD -continue lipitor 20mg PO qd #degenerative disc dz -continue lidocaine 5% patch #prostate CA -continue flomax 0.4 mg PO qd #hx gastritis -hx from [facility] - EGD without bleeding source. duodenitis with scattered erosions, gastritis, submucosal gastric nodules -colonoscopy with evidence mild diverticulosis, nonbleeding rectal AVM, internal hemorrhoids -continue protonix 40mg PO qd #F/E/N -no IVF rec at this time; CHF -continue to follow lytes -sodium controlled/fat free, cholest free diet #PPX -on eliquis #Dispo monitoring on tele obs meds will need verification from pharmacy in AM Visit type - Emergency Visit Emergency Visit: Yes ED Registration Date: 10/20/17 Care time: The patient presented to the Emergency Department on the above date and was hospitalized for further evaluation of their emergent condition. - New Patient This patient is new to me today: Yes Date on this admission: 10/21/17 - Critical Care Critical Care patient: No Hospitalist Screening - Colonoscopy Questionnaire Colonoscopy Questionnaire: Colonoscopy Questionnaire - Patient: 50 - 75 years old and never had a screening colonoscopy: Unknown History of colon or rectal polyps, or CA: Unknown History of IBD, Crohn's disease or UC: Unknown History of abdominal radiation therapy as a child: Unknown - Relative: 1 with colon or rectal CA, or polyps at age 60 or younger: Unknown Colon or rectal CA diagnosed at age 45 or younger: Unknown Multiple relatives with colon or rectal CA: Unknown - Outcome: Screening Result: Negative Screen
[2017-10-20] MEDS: APIXABAN 2.5 MG TABLET PO SCH (22:35)
[2017-10-20] MEDS: DOCUSATE SODIUM 100 MG CAPSULE (FP) PO SCH (22:35)
[2017-10-20] MEDS: ATORVASTATIN CA 20 MG TABLET (FP) PO SCH (22:35)
[2017-10-20] MEDS: PANTOPRAZOLE 40 MG TABLET (FP) PO SCH (22:35)
[2017-10-20] MEDS: POLYETHYLENE GLYCOL 3350 119 GM BTL PO SCH (22:35)
[2017-10-21 00:01] VITALS: BMI 26.1
--- NOTE | 2017-10-21 00:20 | PN ---
Teaching Attending Note Name of Resident: Diana Carreno ATTENDING PHYSICIAN STATEMENT I saw and evaluated the patient. Chart, data, imaging reviewed. I reviewed the resident's note and discussed the case with the resident. I agree with the resident's findings and plan as documented. SUBJECTIVE: 87 y/o man with HTN, HLD, CAD, afib (d/c on eliquis 2.5mg PO BID), pacemaker 02/20 [place], degenerative disc dz, prostate CA, colon ca s/p colectomy, skin CA, recent admission in 08/2017 for CHF exacerbation c/o SOB for 2 days, started sponteneously. Patient with + orthopnea, requiring several pillows when he sleeps. Decreased exercise tolerance. Denied chest pain. Circuit Design Engineer wealth management consultant was called from ER. Clinical improvement in dyspnea after receiving IV furosemide. Circuit Design Engineer it Dr. Hunt. ROS positive for review of shortness of breath and neck cramps OBJECTIVE: Last Vital Signs Temp Pulse Resp BP Pulse Ox 98.4 F 72 20 124/62 98 10/20/17 22:00 10/20/17 22:00 10/20/17 22:00 10/20/17 22:00 10/20/17 20:34 General - nad, appears comfortable, pleasant heent- atraumatic, normal sclera neck -supple, no jvd cv -s1+s2+rrr chest- b/l air entry sounds abdomen- midline vertical scar s/p colectomy, bs+, soft, nt skin- no rashes appreciated Ext- 1+ pedal edema b/l Abnormal Lab Results 10/20/17 10/20/17 10/20/17 17:01 17:01 17:01 Hgb 11.3 L D Hct 34.6 L D PT with INR 13.40 H INR 1.19 H Sodium Anion Gap Random Glucose Alkaline Phosphatase B-Natriuretic Peptide 49371.43 H 10/20/17 17:01 Hgb Hct PT with INR INR Sodium 134 L Anion Gap 6 L Random Glucose 116 H Alkaline Phosphatase 118 H D B-Natriuretic Peptide EKG reviewed- paced rhythm CXR- reviewed by me, b/l pulmonary edema and pulm vascular congestion. Pending official read ASSESSMENT AND PLAN: #87yo man with CHF exacerbation as evidenced by pedal edema, high BNP, CXR changes c/w CHF. Cardiology consulted- Dr. Barbour. -telemetry -i/o -daily weights -2g na restriction -furosemide 40mg IV daily -B-preethi -ACEi -trend troponin -cardiology evaluation - cardiac device interrogation, CHF med optimization -c/w eliquis for Hx of afib -ASA -statin #Lower neck pain- likely musculoskeletal, possible muscle spasticity -trial of flexeril and NSAIDs -resume regular home medications. -see resident note for details #DVT ppx- on eliquis
[2017-10-21] MEDS: DOCUSATE SODIUM 100 MG CAPSULE (FP) PO SCH ×3 (06:33→21:33)
[2017-10-21 07:37] LABS: BASO % 0.4 % (0-2.0); EOS % 1.8 % (0-4.5); HEMOGLOBIN 10.9 GM/dL (11.7-16.9); LYMPH % 10.9 % (8-40); MCH 27.9 pg (25.7-33.7); MCHC 33.2 g/dl (32.0-35.9); MEAN PLT VOLUME 10.5 fl (7.5-11.1); MONO % 9.6 % (3.8-10.2); NEUT % 77.3 % (42.8-82.8); PLATELET COUNT 145 K/MM3 (134-434); RBC 3.93 M/mm3 (4.00-5.60); RDW 14.6 % (11.9-15.9); WHITE BLOOD COUNT 5.7 K/mm3 (4.0-10.0)
[2017-10-21 07:51] LABS: INR 1.25 (0.82-1.09); PROTHROMBIN TIME (PATIENT) 14.1 SEC (9.7-13.0)
[2017-10-21 08:06] LABS: CHLORIDE 101 mmol/L (98-107); POTASSIUM 5.3 mmol/L (3.5-5.1); SODIUM 139 mmol/L (136-145)
--- NOTE | 2017-10-21 08:24 | EKG ---
Test Reason : Blood Pressure : / mmHG Vent. Rate : 070 BPM Atrial Rate : 070 BPM P-R Int : 306 ms QRS Dur : 142 ms QT Int : 418 ms P-R-T Axes : 046 211 034 degrees QTc Int : 451 ms AV dual-paced rhythm with prolonged AV conduction ABNORMAL ECG WHEN COMPARED WITH ECG OF 03-JUL-2016 08:33, VENT. RATE HAS DECREASED BY 10 BPM Confirmed by VIVIANA MICHELE, ROBERTA ([id number]) on 10/21/2017 8:24:04 AM Referred By: Confirmed By:ROBERTA MICHELLE MD
[2017-10-21 08:25] LABS: ANION GAP 6 (8-16); BLOOD UREA NITROGEN 18 mg/dL (7-18); CALCIUM 9.1 mg/dL (8.5-10.1); CO2 32 mmol/L (21-32); CREATININE 0.9 mg/dL (0.7-1.3); GLUCOSE,RANDOM 116 mg/dL (74-106); MAGNESIUM 2.5 mg/dL (1.8-2.4); PHOSPHOROUS 3.5 mg/dL (2.5-4.9)
--- NOTE | 2017-10-21 08:44 | PN ---
Progress Note, Physician History of Present Illness: 86 yo M h/o HTN, HLD, CAD, A-fib, systolic CHF, pacemaker implantation 06/16/16 at [facility], degenerative disc disease, prostate cancer s/p RT, and colon cancer s/p colectomy who p/w SOB. Patient reports 2 days of SOB and Hays, with no identifiable triggers or alleviators. Patient also reports chronic, left sided, intractable back pain managed with Fentanyl patch. States that patch "needs to be changed". Endorses chronic left upper extremity arm "tightness" improved with stretching exercises, evaluated by Dr. Pascual as MSK related. No home O2 requirements or duoneb use. Denies F/C, N/V,orthopnea, PND, Palpitations, leg swelling/pain, CP, SOB, abdominal pain, diarrhea, constipation, urinary complaints, weakness, lightheadedness, sensory changes. PMHx: as noted above. Denies h/o PE/DVT, CA. Denies stent placement, CABG. Does not recall previous stress testing. Pacemaker interrogated 3 months ago. ROS: as noted above SHx: Denies Etoh, IVDA., Distant tobacco use, with smoking cessation age 50's. Allergies: NKDA PMD: Tyron Chavarria. Cardiology Patsy. - Current Medication List Current Medications: Active Medications Apixaban (Eliquis -) 2.5 mg PO BID [facility] Last Admin: 10/20/17 22:35 Dose: 2.5 mg Aspirin (Asa -) 81 mg PO DAILY [facility] Atorvastatin Calcium (Lipitor -) 20 mg PO HS [facility] Last Admin: 10/20/17 22:35 Dose: 20 mg Docusate Sodium (Colace -) 100 mg PO TID [facility] Last Admin: 10/21/17 06:33 Dose: 100 mg Furosemide (Lasix Injection -) 40 mg IVPUSH BID@0600,1400 [facility] Lidocaine (Lidoderm Patch -) 1 patch TP DAILY [facility] Metoprolol Succinate (Toprol Xl -) 25 mg PO DAILY [facility] Pantoprazole Sodium (Protonix -) 40 mg PO DAILY [facility] Last Admin: 10/20/17 22:35 Dose: 40 mg Polyethylene Glycol (Miralax (For Daily Use) -) 17 gm PO BID [facility] Last Admin: 10/20/17 22:35 Dose: 17 gm Potassium Chloride (K-Dur -) 20 meq PO DAILY [facility] Tamsulosin HCl (Flomax -) 0.4 mg PO DAILY [facility] - Objective Vital Signs: Vital Signs Temperature 98.3 F 10/21/17 05:45 Pulse Rate 72 10/21/17 05:45 Respiratory Rate 20 10/21/17 05:45 Blood Pressure 115/57 10/21/17 05:45 O2 Sat by Pulse Oximetry (%) 99 10/20/17 22:00 Eyes: Yes: WNL, Conjunctiva Clear, EOM Intact HENT: Yes: WNL, Atraumatic, Normocephalic Neck: Yes: WNL, Supple, Trachea Midline Cardiovascular: Yes: Murmur, S1, S2 Respiratory: Yes: WNL, Regular, CTA Bilaterally Gastrointestinal: Yes: WNL, Normal Bowel Sounds Genitourinary: Yes: WNL Musculoskeletal: Yes: WNL Extremities: Yes: WNL Edema: Yes Integumentary: Yes: WNL Neurological: Yes: WNL, Alert, Oriented ...Motor Strength: WNL Psychiatric: Yes: WNL Labs: CBC, BMP 10/21/17 06:00 10/21/17 06:00 INR, PTT INR 1.25 (0.82-1.09) H 10/21/17 06:00 Laboratory Tests 10/20/17 10/20/17 10/20/17 17:01 17:01 17:01 WBC 7.4 D RBC 4.10 Hgb 11.3 L D Hct 34.6 L D MCV 84.4 MCH 27.6 MCHC 32.7 RDW 15.0 D Plt Count 170 D MPV 10.4 Absolute Neuts (auto) 5.9 Neutrophils % 80.5 Lymphocytes % 10.7 Monocytes % 7.9 Eosinophils % 0.4 D Basophils % 0.5 Nucleated RBC % 0 PT with INR 13.40 H INR 1.19 H Sodium Potassium Chloride Carbon Dioxide Anion Gap BUN Creatinine Creat Clearance w eGFR Random Glucose Calcium Phosphorus Magnesium Total Bilirubin AST ALT Alkaline Phosphatase Creatine Kinase 91 Troponin I 0.03 D B-Natriuretic Peptide 41935.43 H Total Protein Albumin Urine Color Urine Appearance Urine pH Ur Specific [place] Urine Protein Urine Glucose (UA) Urine Ketones Urine Blood Urine Nitrite Urine Bilirubin Urine Urobilinogen Ur Leukocyte Esterase 10/20/17 10/20/17 10/20/17 17:01 17:40 23:15 WBC RBC Hgb Hct MCV MCH MCHC RDW Plt Count MPV Absolute Neuts (auto) Neutrophils % Lymphocytes % Monocytes % Eosinophils % Basophils % Nucleated RBC % PT with INR INR Sodium 134 L Potassium 4.7 D Chloride 98 Carbon Dioxide 30 Anion Gap 6 L BUN 17 D Creatinine 0.9 D Creat Clearance w eGFR > 60 Random Glucose 116 H Calcium 9.0 Phosphorus Magnesium Total Bilirubin 0.7 D AST 19 D ALT 21 D Alkaline Phosphatase 118 H D Creatine Kinase 78 Troponin I 0.04 D B-Natriuretic Peptide Total Protein 7.6 D Albumin 3.7 D Urine Color Yellow Urine Appearance Clear Urine pH 6.0 Ur Specific [place] 1.008 Urine Protein Negative Urine Glucose (UA) Negative Urine Ketones Negative Urine Blood Negative Urine Nitrite Negative Urine Bilirubin Negative Urine Urobilinogen Negative Ur Leukocyte Esterase Negative 10/21/17 10/21/17 10/21/17 06:00 06:00 06:00 WBC 5.7 RBC 3.93 L Hgb 10.9 L Hct 33.0 L MCV 84.0 MCH 27.9 MCHC 33.2 RDW 14.6 Plt Count 145 MPV 10.5 Absolute Neuts (auto) 4.4 Neutrophils % 77.3 Lymphocytes % 10.9 Monocytes % 9.6 Eosinophils % 1.8 D Basophils % 0.4 Nucleated RBC % 0 PT with INR 14.10 H INR 1.25 H Sodium 139 Potassium 5.3 H Chloride 101 Carbon Dioxide 32 Anion Gap 6 L BUN 18 Creatinine 0.9 Creat Clearance w eGFR > 60 Random Glucose 116 H Calcium 9.1 Phosphorus 3.5 D Magnesium 2.5 H D Total Bilirubin AST ALT Alkaline Phosphatase Creatine Kinase Troponin I B-Natriuretic Peptide Total Protein Albumin Urine Color Urine Appearance Urine pH Ur Specific [place] Urine Protein Urine Glucose (UA) Urine Ketones Urine Blood Urine Nitrite Urine Bilirubin Urine Urobilinogen Ur Leukocyte Esterase Problem List - Problems (1) Acute on chronic systolic (congestive) heart failure Code(s): I50.23 - ACUTE ON CHRONIC SYSTOLIC (CONGESTIVE) HEART FAILURE (2) Abdominal pain Code(s): R10.9 - UNSPECIFIED ABDOMINAL PAIN Qualifiers: Abdominal location: generalized Qualified Code(s): R10.84 - Generalized abdominal pain (3) Abdominal wall contusion Code(s): S30.1XXA - CONTUSION OF ABDOMINAL WALL, INITIAL ENCOUNTER Qualifiers: Encounter type: initial encounter Qualified Code(s): S30.1XXA - Contusion of abdominal wall, initial encounter (4) Acute hypoxemic respiratory failure Code(s): J96.01 - ACUTE RESPIRATORY FAILURE WITH HYPOXIA (5) Back pain Code(s): M54.9 - DORSALGIA, UNSPECIFIED Qualifiers: Back pain location: thoracic back pain Chronicity: chronic Back pain laterality: left Qualified Code(s): M54.6 - Pain in thoracic spine; G89.29 - Other chronic pain (6) Bilateral lower extremity edema Code(s): R60.0 - LOCALIZED EDEMA (7) Bilateral pleural effusion Code(s): J90 - PLEURAL EFFUSION, NOT ELSEWHERE CLASSIFIED (8) CHF (congestive heart failure) Code(s): I50.9 - HEART FAILURE, UNSPECIFIED (9) Chest pain Code(s): R07.9 - CHEST PAIN, UNSPECIFIED Qualifiers: Chest pain type: unspecified Qualified Code(s): R07.9 - Chest pain, unspecified (10) Chest pain at rest Code(s): R07.9 - CHEST PAIN, UNSPECIFIED (11) Chest wall pain Code(s): R07.89 - OTHER CHEST PAIN (12) Chronic atrial fibrillation Code(s): I48.2 - CHRONIC ATRIAL FIBRILLATION (13) Chronic lower back pain Code(s): M54.5 - LOW BACK PAIN; G89.29 - OTHER CHRONIC PAIN Qualifiers: Back pain laterality: unspecified Sciatica presence: with sciatica presence unspecified (14) DVT prophylaxis Code(s): TMY7295 - (15) Elevated troponin Code(s): R79.89 - OTHER SPECIFIED ABNORMAL FINDINGS OF BLOOD CHEMISTRY (16) Melena Code(s): K92.1 - MELENA (17) Narcotic withdrawal 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 (18) Normocytic anemia Code(s): D64.9 - ANEMIA, UNSPECIFIED (19) Pneumonia Code(s): J18.9 - PNEUMONIA, UNSPECIFIED ORGANISM (20) Shortness of breath Code(s): R06.02 - SHORTNESS OF BREATH (21) Shoulder blade pain Code(s): M89.8X1 - OTHER SPECIFIED DISORDERS OF BONE, SHOULDER (22) Aortic stenosis Code(s): Q25.3 - SUPRAVALVULAR AORTIC STENOSIS (23) Hyperlipidemia Code(s): E78.5 - HYPERLIPIDEMIA, UNSPECIFIED (24) Mitral insufficiency Code(s): I34.0 - NONRHEUMATIC MITRAL (VALVE) INSUFFICIENCY (25) Mitral regurgitation and aortic stenosis Code(s): I08.0 - RHEUMATIC DISORDERS OF BOTH MITRAL AND AORTIC VALVES Assessment/Plan 86 yo M h/o HTN, HLD, CAD, A-fib, systolic CHF, pacemaker implantation 06/16/16 at [facility], degenerative disc disease, prostate cancer s/p RT, and colon cancer s/p colectomy who p/w SOB. Patient reports 2 days of SOB and Hays,and back pain. Plan iv lasix 40 BID pain control telemetry echo coverage dr. Mishra
[2017-10-21] MEDS: FUROSEMIDE 40 MG/4 ML INJECTABLE VIAL IVPUSH SCH ×2 (08:55→13:24)
[2017-10-21] MEDS: PANTOPRAZOLE 40 MG TABLET (FP) PO SCH (09:01)
[2017-10-21] MEDS: APIXABAN 2.5 MG TABLET PO SCH ×2 (09:01→21:33)
[2017-10-21] MEDS: TAMSULOSIN HCL 0.4 MG CAP.ER.24H (FP) PO SCH (09:01)
[2017-10-21] MEDS: metoPROLOL SUCCINATE 25 MG TAB.SR.24H (FP) PO SCH (09:01)
[2017-10-21] MEDS: LIDOCAINE 5% TOPICAL PATCH TP SCH (09:01)
[2017-10-21] MEDS: ASPIRIN 81 MG CHEWABLE TABLETS PO SCH (09:02)
[2017-10-21] MEDS: POLYETHYLENE GLYCOL 3350 119 GM BTL PO SCH ×2 (09:02→21:35)
[2017-10-21] MEDS ORDERED: PATIENT'S OWN MEDICATION (NON-FORMULARY) (Potassium Chloride [Klor-Con] 20 MEQ) PO SCH (10:00)
[2017-10-21] MEDS ORDERED: FUROSEMIDE 40 MG/4 ML INJECTABLE VIAL IVPUSH SCH (10:00)
[2017-10-21] MEDS ORDERED: FENTANYL PATCH WASTE MC PRN (11:04)
--- NOTE | 2017-10-21 11:11 | PN ---
Progress Note (short form) - Note Progress Note: Subjective: complains of posterior L sided CP . chronic . SOB. anxious friend snot answer al questions Objective: Vital Signs: Last Vital Signs Temp Pulse Resp BP Pulse Ox 98.3 F 72 20 115/57 99 10/21/17 05:45 10/21/17 05:45 10/21/17 05:45 10/21/17 05:45 10/20/17 22:00 Laboratory Results - last 24 hr 10/20/17 10/20/17 10/20/17 17:01 17:01 17:01 WBC 7.4 D RBC 4.10 Hgb 11.3 L D Hct 34.6 L D MCV 84.4 MCH 27.6 MCHC 32.7 RDW 15.0 D Plt Count 170 D MPV 10.4 Absolute Neuts (auto) 5.9 Neutrophils % 80.5 Lymphocytes % 10.7 Monocytes % 7.9 Eosinophils % 0.4 D Basophils % 0.5 Nucleated RBC % 0 PT with INR 13.40 H INR 1.19 H Sodium Potassium Chloride Carbon Dioxide Anion Gap BUN Creatinine Creat Clearance w eGFR Random Glucose Calcium Phosphorus Magnesium Total Bilirubin AST ALT Alkaline Phosphatase Creatine Kinase 91 Troponin I 0.03 D B-Natriuretic Peptide 86576.43 H Total Protein Albumin Urine Color Urine Appearance Urine pH Ur Specific [place] Urine Protein Urine Glucose (UA) Urine Ketones Urine Blood Urine Nitrite Urine Bilirubin Urine Urobilinogen Ur Leukocyte Esterase 10/20/17 10/20/17 10/20/17 17:01 17:40 23:15 WBC RBC Hgb Hct MCV MCH MCHC RDW Plt Count MPV Absolute Neuts (auto) Neutrophils % Lymphocytes % Monocytes % Eosinophils % Basophils % Nucleated RBC % PT with INR INR Sodium 134 L Potassium 4.7 D Chloride 98 Carbon Dioxide 30 Anion Gap 6 L BUN 17 D Creatinine 0.9 D Creat Clearance w eGFR > 60 Random Glucose 116 H Calcium 9.0 Phosphorus Magnesium Total Bilirubin 0.7 D AST 19 D ALT 21 D Alkaline Phosphatase 118 H D Creatine Kinase 78 Troponin I 0.04 D B-Natriuretic Peptide Total Protein 7.6 D Albumin 3.7 D Urine Color Yellow Urine Appearance Clear Urine pH 6.0 Ur Specific [place] 1.008 Urine Protein Negative Urine Glucose (UA) Negative Urine Ketones Negative Urine Blood Negative Urine Nitrite Negative Urine Bilirubin Negative Urine Urobilinogen Negative Ur Leukocyte Esterase Negative 10/21/17 10/21/17 10/21/17 06:00 06:00 06:00 WBC 5.7 RBC 3.93 L Hgb 10.9 L Hct 33.0 L MCV 84.0 MCH 27.9 MCHC 33.2 RDW 14.6 Plt Count 145 MPV 10.5 Absolute Neuts (auto) 4.4 Neutrophils % 77.3 Lymphocytes % 10.9 Monocytes % 9.6 Eosinophils % 1.8 D Basophils % 0.4 Nucleated RBC % 0 PT with INR 14.10 H INR 1.25 H Sodium 139 Potassium 5.3 H Chloride 101 Carbon Dioxide 32 Anion Gap 6 L BUN 18 Creatinine 0.9 Creat Clearance w eGFR > 60 Random Glucose 116 H Calcium 9.1 Phosphorus 3.5 D Magnesium 2.5 H D Total Bilirubin AST ALT Alkaline Phosphatase Creatine Kinase Troponin I B-Natriuretic Peptide Total Protein Albumin Urine Color Urine Appearance Urine pH Ur Specific [place] Urine Protein Urine Glucose (UA) Urine Ketones Urine Blood Urine Nitrite Urine Bilirubin Urine Urobilinogen Ur Leukocyte Esterase Physical Exam: NAD , Awake anxious . L nose lesion CV: RRR, 3/6 DM at the base, Lungs: CTAB ext: trace edema . no erythema . abd : soft, NT, ND, nl BS . surgical scar Assessment/Plan: 85 y/o gentleman with past medical history of aortic stenosis, severe MR, HTN, cardiac catheterization 01/2015 which showed no obstructive CAD , prostate cancer , and colectomy , A fib, on eliquis, PPM , chronic L upper posterior chest pain , who presents to the ED with SOB .He was found ot have acute CHF exacerbation 1- acute on chronic systolic CHF exacerbation - cont lasix 40 BID - add lisinopril . his home meds will need to be confirmed - cont BB - monitor I&O. - EKG reviewed. paced rhythm - last echo reviewed. mod dec EF. - repeat echo to eval valves and EF 2-HTN: BB . add lisinopril 3- chronic pain. MS in posterior left upper chest - will resume fentanyl patch - lidocaine patch 4- A fib: BB and eliquis dispo : HLOC Visit type - Emergency Visit Emergency Visit: Yes ED Registration Date: 10/20/17 Care time: The patient presented to the Emergency Department on the above date and was hospitalized for further evaluation of their emergent condition. - New Patient This patient is new to me today: Yes Date on this admission: 10/21/17 - Critical Care Critical Care patient: No
[2017-10-21] MEDS ORDERED: ACETAMINOPHEN 325 MG TABLET (FP) PO ONE (20:20)
[2017-10-21] MEDS: ATORVASTATIN CA 20 MG TABLET (FP) PO SCH (21:33)
[2017-10-21] MEDS: traZODone HCL 50 MG TABLET (FP) PO PRN (23:00)
[2017-10-21] MEDS ORDERED: IBUPROFEN 600 MG TABLET (FP) PO ONE (23:00)
[2017-10-22] MEDS: FUROSEMIDE 40 MG/4 ML INJECTABLE VIAL IVPUSH SCH ×2 (05:25→14:25)
[2017-10-22] MEDS: DOCUSATE SODIUM 100 MG CAPSULE (FP) PO SCH ×3 (05:31→21:18)
[2017-10-22 06:53] LABS: CHLORIDE 97 mmol/L (98-107); POTASSIUM 4.4 mmol/L (3.5-5.1); SODIUM 138 mmol/L (136-145)
[2017-10-22 07:01] LABS: ANION GAP 7 (8-16); BLOOD UREA NITROGEN 17 mg/dL (7-18); CALCIUM 8.5 mg/dL (8.5-10.1); CO2 34 mmol/L (21-32); CREATININE 0.8 mg/dL (0.7-1.3); GLUCOSE,RANDOM 112 mg/dL (74-106)
--- NOTE | 2017-10-22 08:28 | PN ---
Progress Note, Physician Chief Complaint: Well known to me from office Chronic left rib cage pain of unclear etiology- sees pain management TELE: A-V paced, artifact - Current Medication List Current Medications: Active Medications Apixaban (Eliquis -) 2.5 mg PO BID [facility] Last Admin: 10/21/17 21:33 Dose: 2.5 mg Aspirin (Asa -) 81 mg PO DAILY [facility] Last Admin: 10/21/17 09:02 Dose: 81 mg Atorvastatin Calcium (Lipitor -) 20 mg PO HS [facility] Last Admin: 10/21/17 21:33 Dose: 20 mg Docusate Sodium (Colace -) 100 mg PO TID [facility] Last Admin: 10/22/17 05:31 Dose: 100 mg Fentanyl (Duragesic 25mcg Patch -) 1 patch TD Q72H [facility] Stop: 10/28/17 11:05 Furosemide (Lasix Injection -) 40 mg IVPUSH BID@0600,1400 [facility] Last Admin: 10/22/17 05:25 Dose: 40 mg Lidocaine (Lidoderm Patch -) 1 patch TP DAILY [facility] Last Admin: 10/21/17 09:01 Dose: 1 patch Lisinopril (Prinivil) 2.5 mg PO DAILY [facility] Metoprolol Succinate (Toprol Xl -) 25 mg PO DAILY [facility] Last Admin: 10/21/17 09:01 Dose: 25 mg Miscellaneous (Duragesic Patch Waste) 1 each MC PRN PRN PRN Reason: PAIN Pantoprazole Sodium (Protonix -) 40 mg PO DAILY [facility] Last Admin: 10/21/17 09:01 Dose: 40 mg Polyethylene Glycol (Miralax (For Daily Use) -) 17 gm PO BID [facility] Last Admin: 10/21/17 21:35 Dose: 17 gm Potassium Chloride (K-Dur -) 20 meq PO DAILY [facility] Tamsulosin HCl (Flomax -) 0.4 mg PO DAILY [facility] Last Admin: 10/21/17 09:01 Dose: 0.4 mg Trazodone HCl (Desyrel -) 50 mg PO HS PRN PRN Reason: INSOMNIA Last Admin: 10/21/17 23:00 Dose: 50 mg - Objective Vital Signs: Vital Signs Temperature 97.5 F L 10/22/17 05:00 Pulse Rate 75 10/22/17 05:00 Respiratory Rate 20 10/22/17 05:00 Blood Pressure 140/60 10/22/17 05:00 O2 Sat by Pulse Oximetry (%) 100 10/21/17 21:00 Constitutional: Yes: No Distress Cardiovascular: Yes: Regular Rate and Rhythm Respiratory: Yes: CTA Bilaterally Gastrointestinal: Yes: Soft Edema: No Neurological: Yes: Alert ...Motor Strength: WNL Labs: CBC, BMP 10/21/17 06:00 10/22/17 05:30 INR, PTT INR 1.25 (0.82-1.09) H 10/21/17 06:00 - ....Imaging Chest X-ray: Image Reviewed EKG: Image Reviewed Assessment/Plan 86 yo M h/o HTN, HLD, Non- obstructive CAD, A-fib, systolic CHF, pacemaker implantation 06/16/[address] [facility], degenerative disc disease, prostate cancer s /p RT, and colon cancer s/p colectomy who p/w SOB. Patient reports 2 days of SOB and VICTOR and chronic left rib cage pain. REC: Would decrease Lasix to daily dosing. Repeat echo to reassess AR severity, previously moderate Continue AC for PAF. Patient has non-obstructive CAD: cont Beta preethi and statin. On ASA 81mg daily
[2017-10-22] MEDS ORDERED: fentaNYL 25mcg/hr PATCH.TD72 TD SCH (09:00)
--- NOTE | 2017-10-22 09:27 | CONSULT ---
Consult - text type - Consultation Consultation Note: Neurology History of Present Illness 86 yo M h/o HTN, HLD, CAD, A-fib, systolic CHF, pacemaker implantation 06/16/16 at [facility], degenerative disc disease, prostate cancer s/p RT, and colon cancer s/p colectomy who p/w SOB. Patient reported 2 days of SOB and Hays per notes prior to admission, with no identifiable triggers or alleviators. Patient also reported chronic, left sided, intractable back pain managed with Fentanyl patch. Stateed that patch "needs to be changed". Endorses chronic left upper extremity arm "tightness" as well. Dr Dubois consulted, covering for him, and patient seen at bedside. Discomfort is more left sided, subscapular muscle distribution, does have full mig welder strength. Past History - Past Medical History Allergies/Adverse Reactions: Allergies Allergy/AdvReac Type Severity Reaction Status Date / Time No Known Allergies Allergy Verified 10/20/17 16:17 Home Medications: Ambulatory Orders Tamsulosin HCl [Flomax -] 0.4 mg PO DAILY 01/17/15 FENTANYL 25mcg PATCH [DURAGESIC 25mcg PATCH -] 1 patch TD Q72H patch.td72 MDD 25mcg 06/12/16 LORazepam [Ativan] 0.5 mg PO Q8H PRN #0 tablet MDD 1.5mg 06/12/16 Lidocaine 5% Patch [Lidoderm -] 1 patch TP DAILY patch 06/12/16 Lisinopril [Prinivil] 2.5 mg PO DAILY tablet 06/12/16 Pantoprazole Sodium [Protonix -] 40 mg PO DAILY tablet.ec 06/12/16 Apixaban [Eliquis] 2.5 mg PO BID 06/25/16 Atorvastatin Ca [Lipitor] 20 mg PO HS 06/25/16 Calcium Carbonate [Calcium] 1,250 mg PO DAILY 06/25/16 Cholecalciferol (Vitamin D3) [D3-2000] 2,000 unit PO DAILY 06/25/16 Metoprolol Succinate [Toprol XL -] 25 mg PO DAILY 06/25/16 Multivitamins [Multivit ([facility] Formulary)] 1 tab PO DAILY 06/25/16 Potassium Chloride [Klor-Con] 20 meq PO DAILY 06/25/16 Trazodone HCl 50 mg PO HS 02/19/17 Aspirin [ASA -] 81 mg PO DAILY tab.chew 07/04/16 Docusate Sodium [Colace -] 100 mg PO TID capsule 07/04/16 Fentanyl Patch Waste [Duragesic Patch Waste] 1 each TD PRN PRN #0 each 07/04/16 Furosemide [Lasix] 40 mg PO BID #60 tablet 07/04/16 Hyoscyamine Sulfate [Levbid] 0.375 mg PO BID #60 tab.er.12h 07/04/16 Polyethylene Glycol 3350 [Miralax 119 gm Btl -] 17 gm PO BID #1 bottle 07/04/16 Sodium Chloride Nasal [place] [[place] Nasal [place] -] 2 spray NS BID PRN #1 bottle 07/04/16 Unobtainable 10/20/17 Anemia: Yes Asthma: No Cancer: Yes (colon , prostate) Cardiac Disorders: Yes (on eliquis ? why) CVA: No COPD: No CHF: No Dementia: No Diabetes: No GI Disorders: Yes (colon ca, colectomy) Disorders: No HTN: Yes Hypercholesterolemia: Yes Liver Disease: No Seizures: No Thyroid Disease: No - Surgical History Abdominal Surgery: Yes (colon resection) Appendectomy: No Cardiac Surgery: Yes (cath) Cholecystectomy: No Lung Surgery: No Neurologic Surgery: No Orthopedic Surgery: No - Immunization History Immunization Up to Date: Yes - Suicide/Smoking/Psychosocial Hx Smoking History: Never smoked Have you smoked in the past 12 months: No Number of Cigarettes Smoked Daily: 0 If you are a former smoker, when did you quit?: 20 years ago Hx Alcohol Use: No Drug/Substance Use Hx: No Substance Use Type: None Hx Substance Use Treatment: No Review of Systems - Review of Systems Comments:: 10/20/17 17:09 GENERAL/CONSTITUTIONAL: No fever or chills. No weakness. HEAD, EYES, EARS, NOSE AND THROAT: No change in vision. No ear pain or discharge. No sore throat. CARDIOVASCULAR:+SOB. No chest pain. RESPIRATORY: No cough, wheezing, or hemoptysis. GASTROINTESTINAL: No nausea, vomiting, diarrhea or constipation. GENITOURINARY: No dysuria, frequency, or change in urination. MUSCULOSKELETAL: No joint or muscle swelling or pain. No neck or back pain. SKIN: No rash NEUROLOGIC: No headache, vertigo, loss of consciousness, or change in strength/ sensation. ENDOCRINE: No increased thirst. No abnormal weight change HEMATOLOGIC/LYMPHATIC: No anemia, easy bleeding, or history of blood clots. ALLERGIC/IMMUNOLOGIC: No hives or skin allergy. *Physical Exam Vital Signs Temperature 97.5 F L 10/22/17 05:00 Pulse Rate 75 10/22/17 05:00 Respiratory Rate 20 10/22/17 05:00 Blood Pressure 140/60 10/22/17 05:00 O2 Sat by Pulse Oximetry (%) 100 10/21/17 21:00 GENERAL: Awake, alert, and fully oriented, in no acute distress HEAD: No signs of trauma, normocephalic, atraumatic EYES: PERRLA, EOMI, sclera anicteric, conjunctiva clear ENT: Hearing grossly normal, nares patent, oropharynx clear without exudates. Moist mucosa NECK: Normal ROM, supple, no lymphadenopathy, JVD, or masses LUNGS: No distress, speaks full sentences, clear to auscultation bilaterally HEART: Regular rate and rhythm, normal S1 and S2, no murmurs, rubs or gallops, peripheral pulses normal and equal bilaterally. ABDOMEN: Soft, nontender, normoactive bowel sounds. No guarding, no rebound. No masses EXTREMITIES : Normal inspection, Normal range of motion, no edema. No clubbing or cyanosis. SKIN: Warm, Dry, normal turgor, no rashes or lesions noted Neuro: CN intact, no facial droop, LUE 5-/5, RUE 5/5, LE 5-/5, sensory intact to LT and PP, gait deferred CBCD WBC 5.7 K/mm3 (4.0-10.0) 10/21/17 06:00 RBC 3.93 M/mm3 (4.00-5.60) L 10/21/17 06:00 Hgb 10.9 GM/dL (11.7-16.9) L 10/21/17 06:00 Hct 33.0 % (35.4-49) L 10/21/17 06:00 MCV 84.0 fl (80-96) 10/21/17 06:00 MCHC 33.2 g/dl (32.0-35.9) 10/21/17 06:00 RDW 14.6 % (11.9-15.9) 10/21/17 06:00 Plt Count 145 K/MM3 (134-434) 10/21/17 06:00 MPV 10.5 fl (7.5-11.1) 10/21/17 06:00 CMP Sodium 138 mmol/L (136-145) 10/22/17 05:30 Potassium 4.4 mmol/L (3.5-5.1) 10/22/17 05:30 Chloride 97 mmol/L (98-107) L 10/22/17 05:30 Carbon Dioxide 34 mmol/L (21-32) H 10/22/17 05:30 Anion Gap 7 (8-16) L 10/22/17 05:30 BUN 17 mg/dL (7-18) 10/22/17 05:30 Creatinine 0.8 mg/dL (0.7-1.3) 10/22/17 05:30 Creat Clearance w eGFR > 60 (>60) 10/22/17 05:30 Random Glucose 112 mg/dL (74-106) H 10/22/17 05:30 Calcium 8.5 mg/dL (8.5-10.1) 10/22/17 05:30 Total Bilirubin 0.7 mg/dL (0.2-1.0) D 10/20/17 17:01 AST 19 U/L (15-37) D 10/20/17 17:01 ALT 21 U/L (12-78) D 10/20/17 17:01 Alkaline Phosphatase 118 U/L (45-117) H D 10/20/17 17:01 Total Protein 7.6 g/dl (6.4-8.2) D 10/20/17 17:01 Albumin 3.7 g/dl (3.4-5.0) D 10/20/17 17:01 CARDIAC ENZYMES Creatine Kinase 78 IU/L (39-308) 10/20/17 23:15 Troponin I 0.04 ng/ml (0.00-0.05) D 10/20/17 23:15 Plan: 86 yo M h/o HTN, HLD, CAD, A-fib, systolic CHF, pacemaker implantation 06/16/16 at [facility], degenerative disc disease, prostate cancer s/p RT, and colon cancer s/p colectomy who p/w SOB. Patient reported 2 days of SOB and Hays per notes prior to admission, with no identifiable triggers or alleviators. Patient also reported chronic, left sided, intractable back pain managed with Fentanyl patch. Stateed that patch "needs to be changed". Endorses chronic left upper extremity arm "tightness" as well. Dr Dubois consulted, covering for him, and patient seen at bedside. Discomfort is more left sided, subscapular muscle distribution, does have full mig welder strength. An EMG/NCS can be helpful as outpatient work up. Already on pain medication as described above, would not add to this and discussed with him my concern for overmedication in elderly especially with him being on fentanly patch. Consider physical therapy, conservative care.
[2017-10-22] MEDS: SENNOSIDES 8.6MG TABLET (FP) PO SCH ×2 (09:30→21:18)
[2017-10-22] MEDS ORDERED: BISACODYL 10 MG SUPP.RECT RC ONE (09:30)
[2017-10-22] MEDS: LISINOPRIL 5 MG TABLET (FP) PO SCH (09:31)
[2017-10-22] MEDS: TAMSULOSIN HCL 0.4 MG CAP.ER.24H (FP) PO SCH (09:31)
[2017-10-22] MEDS: APIXABAN 2.5 MG TABLET PO SCH ×2 (09:31→21:18)
[2017-10-22] MEDS: PANTOPRAZOLE 40 MG TABLET (FP) PO SCH (09:31)
[2017-10-22] MEDS: metoPROLOL SUCCINATE 25 MG TAB.SR.24H (FP) PO SCH (09:31)
[2017-10-22] MEDS: ASPIRIN 81 MG CHEWABLE TABLETS PO SCH (09:31)
[2017-10-22] MEDS: LIDOCAINE 5% TOPICAL PATCH TP SCH (09:32)
[2017-10-22] MEDS: FLUTICASONE PROP 0.05% 16 GM NASAL SPRAY NS SCH ×2 (09:32→22:00)
[2017-10-22] MEDS: POLYETHYLENE GLYCOL 3350 119 GM BTL PO SCH ×3 (09:32→21:25)
--- NOTE | 2017-10-22 15:23 | PN ---
Teaching Attending Note Name of Resident: Diana Carreno ATTENDING PHYSICIAN STATEMENT I saw and evaluated the patient. I reviewed the resident's note and discussed the case with the resident. I agree with the resident's findings and plan as documented. SUBJECTIVE: No fever or chills . No abd . cont to have L upper back pain and has SOB due to the pain OBJECTIVE: NAD, Awake anxious . L nose lesion CV: RRR, 3/6 DM at the base, Lungs: CTAB Ext: trace edema. no erythema . abd : soft, TTP in suprapubic area, ND, nl BS. surgical scar Assessment/Plan: 85 y/o gentleman with past medical history of aortic stenosis, severe MR, HTN, cardiac catheterization 01/2015 which showed no obstructive CAD , prostate cancer , and colectomy , A fib, on eliquis, PPM , chronic L upper posterior chest pain , who presents to the ED with SOB .He was found ot have acute CHF exacerbation. 1- Acute on chronic systolic CHF exacerbation - cont lasix 40 BID - Cont lisinopril . - cont BB - monitor I&O. - Echo reviewed. worsening . will d/w card 2-HTN: BB. lisinopril 3- Chronic pain. MS in posterior left upper chest. ? thoracic radiculopathy. - cont fentanyl patch and lidocaine patch 4- A fib: BB and eliquis 5- L nose lesion : treated for skin cancer. f/u as out pt Dispo : HLOC
--- NOTE | 2017-10-22 16:30 | PN ---
Physical Exam: SUBJECTIVE: Patient seen and examined at bedside. No acute events overnight. Today, pt c/o increased back pain and requesting pain meds. Still also c/o SOB when off NC 02, however sat well into high 90's. Denies OSCAR, fever, chills, chest pain, or changes in urinary function. OBJECTIVE: Vital Signs Period Temp Pulse Resp BP Sys/Sanchez Pulse Ox Last 24 Hr 97.4 F-98.1 F 71-81 20-22 124-141/52-72 98-100 GENERAL: The patient is anxious, alert, and fully oriented, in no acute distress. HEAD: Normal with no signs of trauma. EYES: PERRL, extraocular movements intact, sclera anicteric, conjunctiva clear. ENT: Ears normal, nares patent, oropharynx clear without exudates. +L nostril - with ulceration NECK: Trachea midline, supple. LUNGS: Breath sounds equal, clear to auscultation bilaterally, no wheezes, no crackles, no accessory muscle use. HEART: Regular rate and rhythm, S1, S2 without murmur, rub or gallop. ABDOMEN: Soft, nontender, nondistended, normoactive bowel sounds, no guarding EXTREMITIES: 2+ pt pulses, warm, well-perfused, trace edema. NEUROLOGICAL: Cranial nerves II through XII grossly intact. PSYCH: Anxious mood, normal affect. SKIN: Warm, dry, normal turgor Laboratory Results - last 24 hr 10/21/17 10/22/17 17:35 05:30 Sodium 138 Potassium 4.5 4.4 Chloride 97 L Carbon Dioxide 34 H Anion Gap 7 L BUN 17 Creatinine 0.8 Creat Clearance w eGFR > 60 Random Glucose 112 H Calcium 8.5 Active Medications Generic Name Dose Route Start Last Admin Trade Name Freq PRN Reason Stop Dose Admin Apixaban 2.5 mg 10/20/17 22:00 10/22/17 09:31 Eliquis - PO 2.5 mg BID THALIA Administration Aspirin 81 mg 10/21/17 10:00 10/22/17 09:31 Asa - PO 81 mg DAILY THALIA Administration Atorvastatin Calcium 20 mg 10/20/17 22:00 10/21/17 21:33 Lipitor - PO 20 mg HS THALIA Administration Docusate Sodium 100 mg 10/20/17 22:00 10/22/17 14:25 Colace - PO 100 mg TID THALIA Administration Fentanyl 1 patch 10/22/17 09:00 10/22/17 09:31 Duragesic 25mcg Patch - TD 10/28/17 11:05 1 patch Q72H THALIA Administration Fluticasone Propionate 1 spray 10/22/17 10:00 10/22/17 09:32 Flonase - NS 1 spray BID THALIA Administration Furosemide 40 mg 10/21/17 08:45 10/22/17 14:25 Lasix Injection - IVPUSH 40 mg BID@0600,1400 THALIA Administration Lidocaine 1 patch 10/21/17 10:00 10/22/17 09:32 Lidoderm Patch - TP 1 patch DAILY THALIA Administration Lisinopril 2.5 mg 10/22/17 10:00 10/22/17 09:31 Prinivil PO 2.5 mg DAILY THALIA Administration Metoprolol Succinate 25 mg 10/21/17 10:00 10/22/17 09:31 Toprol Xl - PO 25 mg DAILY THALIA Administration Miscellaneous 1 each 10/21/17 11:04 Duragesic Patch Waste MC PRN PRN PAIN Pantoprazole Sodium 40 mg 10/20/17 21:15 10/22/17 09:31 Protonix - PO 40 mg DAILY THALIA Administration Polyethylene Glycol 17 gm 10/20/17 22:00 10/22/17 09:32 Miralax (For Daily Use) - PO 17 gm BID THALIA Administration Potassium Chloride 20 meq 10/21/17 10:00 K-Dur - PO DAILY THALIA Senna 1 tab 10/22/17 10:00 10/22/17 09:30 Senna - PO 1 tab BID THALIA Administration Tamsulosin HCl 0.4 mg 10/21/17 10:00 10/22/17 09:31 Flomax - PO 0.4 mg DAILY THALIA Administration Trazodone HCl 50 mg 10/21/17 22:55 10/21/17 23:00 Desyrel - PO 50 mg HS PRN Administration INSOMNIA TESTS 10/20/17: EKG: paced rhythm 10/20/17: CXR: improvement. decreased in congestive and infiltrative changes. large heart. pacemaker. pleural fluid. 10/22/17: ECHO: EF 40-45%, LV systolic fnc moderately reduced, global hypokinesis LV, LA severely dilated, RVSF normal, moderate MR, mild TR, there is moderate aortic valve thickening, severe valvular aortic stenosis ( compared to prior), mild AR, moderate pulm vasc regurg ASSESSMENT/PLAN: 87 y/o M with PMH HTN, HLD, CAD, afib (d/c on eliquis 2.5mg PO BID), pacemaker [facility], degenerative disc dz, prostate CA s/p colectomy, skin CA, recent admission in August 2017 for CHF exacerbation (d/c on lasix BID), who presents to the ED c/o SOB and VICTOR for the past two days. #Acute diastolic CHF exacerbation -clinically improved, with trace edema, w/o signs overload -Continued on lasix 40mg IVP BID -will hold home Kdur dose -tele monitoring -strict i's and o's -daily weights -Na controlled/fluid restrict #afib, with pacemaker 06/16/16 [facility] -for a/c on eliquis 2.5mg PO bid last admission -continue toprol XL 25mg PO qd rate #CAD -hx recent caths (2) without obstruction -as per pt, without stents -continue asa 81mg PO qd #HTN- controlled -continue toprol XL 25mg PO qd -lisinopril 2.5mg PO qd #HLD -continue lipitor 20mg PO qd #degenerative disc dz -continue lidocaine 5% patch -fentanyl patch -EMG as outpatient, physical therapy #prostate CA -continue flomax 0.4 mg PO qd #skin CA -L nostril - with lesion -outpt f/u on d/c #hx gastritis -hx from [facility] - EGD without bleeding source. duodenitis with scattered erosions, gastritis, submucosal gastric nodules -colonoscopy with evidence mild diverticulosis, nonbleeding rectal AVM, internal hemorrhoids -continue protonix 40mg PO qd #constipation -continue miralax 17 gm PO BID -senna 1 tab PO BID -colace 100mg PO TID -bisacodyl suppository x 1 #F/E/N -no IVF rec at this time; CHF -continue to follow lytes -sodium controlled/fat free, cholest free diet #PPX -on eliquis #Dispo monitoring on tele obs Visit type - Emergency Visit Emergency Visit: No - New Patient This patient is new to me today: No - Critical Care Critical Care patient: No
[2017-10-22] MEDS: traZODone HCL 50 MG TABLET (FP) PO PRN (21:18)
[2017-10-22] MEDS: ATORVASTATIN CA 20 MG TABLET (FP) PO SCH (21:18)
[2017-10-22] MEDS ORDERED: traZODone HCL 50 MG TABLET (FP) PO SCH (22:00)
[2017-10-23 06:44] LABS: ANION GAP 5 (8-16); BLOOD UREA NITROGEN 17 mg/dL (7-18); CALCIUM 9.1 mg/dL (8.5-10.1); CHLORIDE 97 mmol/L (98-107); CO2 36 mmol/L (21-32); CREATININE 0.8 mg/dL (0.7-1.3); GLUCOSE,RANDOM 116 mg/dL (74-106); SODIUM 138 mmol/L (136-145)
[2017-10-23] MEDS: DOCUSATE SODIUM 100 MG CAPSULE (FP) PO SCH ×3 (06:49→21:37)
[2017-10-23] MEDS: FUROSEMIDE 40 MG/4 ML INJECTABLE VIAL IVPUSH SCH (06:54)
--- NOTE | 2017-10-23 07:48 | PN ---
Progress Note, Physician Chief Complaint: Appreciate neuro input, patient had seen Dr. Dubois in past. Await pain management eval Echo noted-- moderate MR, PHTN, and now what appears to be progression of previous mild to moderate to severe. Will need to review echo - Current Medication List Current Medications: Active Medications Apixaban (Eliquis -) 2.5 mg PO BID [facility] Last Admin: 10/22/17 21:18 Dose: 2.5 mg Aspirin (Asa -) 81 mg PO DAILY [facility] Last Admin: 10/22/17 09:31 Dose: 81 mg Atorvastatin Calcium (Lipitor -) 20 mg PO HS [facility] Last Admin: 10/22/17 21:18 Dose: 20 mg Docusate Sodium (Colace -) 100 mg PO TID [facility] Last Admin: 10/23/17 06:49 Dose: Not Given Fentanyl (Duragesic 25mcg Patch -) 1 patch TD Q72H [facility] Stop: 10/28/17 11:05 Last Admin: 10/22/17 09:31 Dose: 1 patch Fluticasone Propionate (Flonase -) 1 spray NS BID [facility] Last Admin: 10/22/17 22:00 Dose: Not Given Furosemide (Lasix Injection -) 40 mg IVPUSH BID@0600,1400 [facility] Last Admin: 10/23/17 06:54 Dose: 40 mg Lidocaine (Lidoderm Patch -) 1 patch TP DAILY [facility] Last Admin: 10/22/17 09:32 Dose: 1 patch Lisinopril (Prinivil) 2.5 mg PO DAILY [facility] Last Admin: 10/22/17 09:31 Dose: 2.5 mg Metoprolol Succinate (Toprol Xl -) 25 mg PO DAILY [facility] Last Admin: 10/22/17 09:31 Dose: 25 mg Miscellaneous (Duragesic Patch Waste) 1 each MC PRN PRN PRN Reason: PAIN Pantoprazole Sodium (Protonix -) 40 mg PO DAILY [facility] Last Admin: 10/22/17 09:31 Dose: 40 mg Polyethylene Glycol (Miralax (For Daily Use) -) 17 gm PO BID [facility] Last Admin: 10/22/17 21:25 Dose: Not Given Potassium Chloride (K-Dur -) 20 meq PO DAILY [facility] Senna (Senna -) 1 tab PO BID [facility] Last Admin: 10/22/17 21:18 Dose: 1 tab Tamsulosin HCl (Flomax -) 0.4 mg PO DAILY [facility] Last Admin: 10/22/17 09:31 Dose: 0.4 mg Trazodone HCl (Desyrel -) 50 mg PO HS PRN PRN Reason: INSOMNIA Last Admin: 10/22/17 21:18 Dose: 50 mg - Objective Vital Signs: Vital Signs Temperature 97.7 F 10/23/17 02:00 Pulse Rate 73 10/23/17 06:00 Respiratory Rate 18 10/23/17 06:00 Blood Pressure 135/64 10/23/17 06:00 O2 Sat by Pulse Oximetry (%) 98 10/22/17 20:29 Constitutional: Yes: No Distress Cardiovascular: Yes: Regular Rate and Rhythm Respiratory: Yes: CTA Bilaterally Gastrointestinal: Yes: Soft Edema: No Neurological: Yes: Alert, Oriented ...Motor Strength: WNL Labs: CBC, BMP 10/21/17 06:00 10/23/17 05:30 INR, PTT INR 1.25 (0.82-1.09) H 10/21/17 06:00 - ....Imaging EKG: Image Reviewed Assessment/Plan Assessment/Plan 86 yo M h/o HTN, HLD, Non- obstructive CAD, A-fib, systolic CHF, pacemaker implantation 06/16/16 at [facility], degenerative disc disease, prostate cancer s /p RT, and colon cancer s/p colectomy who p/w SOB. Patient reports 2 days of SOB and VICTOR and chronic left rib cage pain. REC: Would decrease Lasix to daily dosing. Will review echo: previous moderate AR now "mild" and previous moderate now "Severe". Gradient obtained is not severe, but valve area and DI indicate severe. Continue AC for PAF. Patient has non-obstructive CAD: cont Beta preethi and statin. On ASA 81mg daily
[2017-10-23] MEDS ORDERED: FUROSEMIDE 40 MG/4 ML INJECTABLE VIAL IVPUSH SCH (10:00)
[2017-10-23] MEDS: POTASSIUM CHLORIDE TABS 20 MEQ TABLET.ER (FP) PO SCH (10:39)
[2017-10-23] MEDS: LISINOPRIL 5 MG TABLET (FP) PO SCH (10:39)
[2017-10-23] MEDS: ASPIRIN 81 MG CHEWABLE TABLETS PO SCH (10:41)
[2017-10-23] MEDS: SENNOSIDES 8.6MG TABLET (FP) PO SCH ×2 (10:41→21:38)
[2017-10-23] MEDS: TAMSULOSIN HCL 0.4 MG CAP.ER.24H (FP) PO SCH (10:41)
[2017-10-23] MEDS: PANTOPRAZOLE 40 MG TABLET (FP) PO SCH (10:41)
[2017-10-23] MEDS: APIXABAN 2.5 MG TABLET PO SCH ×2 (10:41→21:38)
[2017-10-23] MEDS: LIDOCAINE 5% TOPICAL PATCH TP SCH (10:41)
[2017-10-23] MEDS: POLYETHYLENE GLYCOL 3350 119 GM BTL PO SCH ×2 (10:42→21:38)
[2017-10-23] MEDS: metoPROLOL SUCCINATE 25 MG TAB.SR.24H (FP) PO SCH (10:45)
[2017-10-23] MEDS: FLUTICASONE PROP 0.05% 16 GM NASAL SPRAY NS SCH ×2 (10:46→21:42)
--- NOTE | 2017-10-23 15:50 | PN ---
Teaching Attending Note Name of Resident: Diana Carreno ATTENDING PHYSICIAN STATEMENT I saw and evaluated the patient. I reviewed the resident's note and discussed the case with the resident. I agree with the resident's findings and plan as documented. SUBJECTIVE: No feve ror hcills. no abd pain . feels better. no appetite, not sleeping well. depressed per daughter OBJECTIVE: NAD, Awake anxious . L nose lesion CV: RRR, 3/6 DM at the base, Lungs: CTAB Ext: no edema. no erythema . abd : soft, TTP in suprapubic area, ND, nl BS. surgical scar Assessment/Plan: 85 y/o gentleman with past medical history of aortic stenosis, severe MR, HTN, cardiac catheterization 01/2015 which showed no obstructive CAD , prostate cancer , and colectomy , A fib, on eliquis, PPM , chronic L upper posterior chest pain , who presents to the ED with SOB .He was found ot have acute CHF exacerbation. 1- Acute on chronic systolic CHF exacerbation - lasix cahnged to daily - Cont lisinopril . - cont BB - Echo with worsening . d/w card by team: to discuss TVAR with family tonight 2-HTN: BB. lisinopril 3- Chronic pain. MS in posterior left upper chest. ? thoracic radiculopathy. - cont fentanyl patch and lidocaine patch 4- A fib: BB and eliquis 5- L nose lesion : treated for skin cancer. f/u as out pt 6- depression , poor appetite and insomnia : add remaron Dispo : OC
--- NOTE | 2017-10-23 16:04 | PN ---
Physical Exam: SUBJECTIVE: Patient seen and examined at bedside. No acute events overnight. Today, pt c/o poor appetite, general malaise and continued pain in back. Denies OSCAR, fever, chills, SOB, or changes in urinary or bowel function. OBJECTIVE: Vital Signs Period Temp Pulse Resp BP Sys/Sanchez Pulse Ox Last 24 Hr 97.7 F-98.5 F 71-76 18-20 110-135/48-65 98-98 GENERAL: The patient is resting in bed. awake, alert, and fully oriented, in no acute distress. HEAD: Normal with no signs of trauma. EYES: PERRL, extraocular movements intact, sclera anicteric, conjunctiva clear. ENT: Ears normal, +L nostril - with lesion NECK: Trachea midline, supple. LUNGS: Breath sounds equal, clear to auscultation bilaterally, no wheezes, no crackles, no accessory muscle use. HEART: Regular rate and rhythm, S1, S2 without murmur, rub or gallop. ABDOMEN: Soft, nontender, nondistended, normoactive bowel sounds, no guarding EXTREMITIES: 2+ pt pulses, warm, well-perfused, trace pedal edema NEUROLOGICAL: interactive, moving upper and lower extremities. sensation intact. PSYCH: Normal mood, normal affect. SKIN: Warm, dry, normal turgor, no rashes or lesions noted Laboratory Results - last 24 hr 10/23/17 05:30 Sodium 138 Potassium 5.0 Chloride 97 L Carbon Dioxide 36 H Anion Gap 5 L BUN 17 Creatinine 0.8 Creat Clearance w eGFR > 60 Random Glucose 116 H Calcium 9.1 Active Medications Generic Name Dose Route Start Last Admin Trade Name Robin PRN Reason Stop Dose Admin Apixaban 2.5 mg 10/20/17 22:00 10/23/17 10:41 Eliquis - PO 2.5 mg BID THALIA Administration Aspirin 81 mg 10/24/17 10:00 Asa - PO DAILY THALIA Atorvastatin Calcium 20 mg 10/20/17 22:00 10/22/17 21:18 Lipitor - PO 20 mg HS THALIA Administration Docusate Sodium 100 mg 10/20/17 22:00 10/23/17 06:49 Colace - PO Not Given TID THALIA Fentanyl 1 patch 10/22/17 09:00 10/22/17 09:31 Duragesic 25mcg Patch - TD 10/28/17 11:05 1 patch Q72H THALIA Administration Fluticasone Propionate 1 spray 10/22/17 10:00 10/22/17 22:00 Flonase - NS Not Given BID THALIA Furosemide 40 mg 10/23/17 10:00 10/23/17 10:41 Lasix Injection - IVPUSH 40 mg DAILY THALIA Administration Lidocaine 1 patch 10/21/17 10:00 10/23/17 10:41 Lidoderm Patch - TP 1 patch DAILY THALIA Administration Lisinopril 2.5 mg 10/22/17 10:00 10/23/17 10:39 Prinivil PO 2.5 mg DAILY THALIA Administration Metoprolol Succinate 25 mg 10/21/17 10:00 10/23/17 10:45 Toprol Xl - PO 25 mg DAILY THALIA Administration Mirtazapine 7.5 mg 10/23/17 22:00 Remeron - PO HS [facility] Miscellaneous 1 each 10/21/17 11:04 Duragesic Patch Waste MC PRN PRN PAIN Pantoprazole Sodium 40 mg 10/20/17 21:15 10/23/17 10:41 Protonix - PO 40 mg DAILY THALIA Administration Polyethylene Glycol 17 gm 10/20/17 22:00 10/23/17 10:42 Miralax (For Daily Use) - PO Not Given BID [facility] Potassium Chloride 20 meq 10/21/17 10:00 10/23/17 10:39 K-Dur - PO 20 meq DAILY THALIA Administration Senna 1 tab 10/22/17 10:00 10/23/17 10:41 Senna - PO 1 tab BID [facility] Administration Tamsulosin HCl 0.4 mg 10/21/17 10:00 10/23/17 10:41 Flomax - PO 0.4 mg DAILY THALIA Administration Trazodone HCl 50 mg 10/21/17 22:55 10/22/17 21:18 Desyrel - PO 50 mg HS PRN Administration INSOMNIA TESTS 10/20/17: EKG: paced rhythm 10/20/17: CXR: improvement. decreased in congestive and infiltrative changes. large heart. pacemaker. pleural fluid. 10/22/17: ECHO: EF 40-45%, LV systolic fnc moderately reduced, global hypokinesis LV, LA severely dilated, RVSF normal, moderate MR, mild TR, there is moderate aortic valve thickening, severe valvular aortic stenosis ( compared to prior), mild AR, moderate pulm vasc regurg ASSESSMENT/PLAN: 87 y/o M with PMH HTN, HLD, CAD, afib (d/c on eliquis 2.5mg PO BID), pacemaker [facility], degenerative disc dz, prostate CA s/p colectomy, skin CA, recent admission in August 2017 for CHF exacerbation (d/c on lasix BID), who presents to the ED c/o SOB and VICTOR for the past two days. #Acute diastolic CHF exacerbation -has improved clinically; without signs of overload -lasix 40mg IVP BID changed to 40 mg IVP qd -will hold home Kdur dose -tele monitoring -strict i's and o's -daily weights -Na controlled/fluid restrict #worsening aortic stenosis -most recent ECHO with severe , was repeated -d/w cardio, will talk to family tonight about possibility of TAVR -Cardio: Dr. Mishra #afib, with pacemaker 06/16/16 [facility] -for a/c on eliquis 2.5mg PO bid -continue toprol XL 25mg PO qd rate control #CAD -hx recent caths (2) without obstruction -as per pt, without stents -continue asa 81mg PO qd -seen by cardio #HTN- controlled -continue toprol XL 25mg PO qd -lisinopril 2.5mg PO qd #HLD -continue lipitor 20mg PO qd #degenerative disc dz -continue lidocaine 5% patch -fentanyl patch -EMG as outpatient, physical therapy #prostate CA -continue flomax 0.4 mg PO qd #skin CA -L nostril - with lesion -outpt f/u on d/c #hx gastritis -hx from [facility] - EGD without bleeding source. duodenitis with scattered erosions, gastritis, submucosal gastric nodules -colonoscopy with evidence mild diverticulosis, nonbleeding rectal AVM, internal hemorrhoids -continue protonix 40mg PO qd #constipation- improving -continue miralax 17 gm PO BID -senna 1 tab PO BID -colace 100mg PO TID -bisacodyl suppository x 1 #poor appetite, depression -started on remeron 7.5mg PO qHS #F/E/N -no IVF rec at this time; CHF -continue to follow lytes -sodium controlled/fat free, cholest free diet. +ensure #PPX -on eliquis #Dispo monitoring on tele obs for d/c planning once cleared by cardio will need VNS Visit type - Emergency Visit Emergency Visit: No - New Patient This patient is new to me today: No - Critical Care Critical Care patient: No
[2017-10-23] MEDS: traZODone HCL 50 MG TABLET (FP) PO PRN (21:38)
[2017-10-23] MEDS: ATORVASTATIN CA 20 MG TABLET (FP) PO SCH (21:38)
[2017-10-23] MEDS ORDERED: MIRTAZAPINE 15 MG TABLET (FP) PO SCH (22:00)
[2017-10-24] MEDS: DOCUSATE SODIUM 100 MG CAPSULE (FP) PO SCH ×2 (06:11→14:31)
[2017-10-24 06:29] VITALS: PULSE 70
[2017-10-24 06:53] LABS: ANION GAP 5 (8-16); BLOOD UREA NITROGEN 19 mg/dL (7-18); CALCIUM 8.8 mg/dL (8.5-10.1); CHLORIDE 95 mmol/L (98-107); CO2 38 mmol/L (21-32); CREATININE 0.8 mg/dL (0.7-1.3); GLUCOSE,RANDOM 99 mg/dL (74-106); POTASSIUM 4.1 mmol/L (3.5-5.1); SODIUM 138 mmol/L (136-145)
--- NOTE | 2017-10-24 08:13 | PN ---
Progress Note, Physician Chief Complaint: Had echo repeated yesterday for purpose of trying to better assess . D/W Dr. Tamayo: valve area < 1cm2, gradients fall in moderate range, but doppler alignment was not perfectly aligned History of Present Illness: Patient c/o poor appetite; exertional SOB. TELE reviewed. Paced rhythm, no significant arrhythmias. - Current Medication List Current Medications: Active Medications Apixaban (Eliquis -) 2.5 mg PO BID [facility] Last Admin: 10/23/17 21:38 Dose: 2.5 mg Atorvastatin Calcium (Lipitor -) 20 mg PO HS [facility] Last Admin: 10/23/17 21:38 Dose: 20 mg Docusate Sodium (Colace -) 100 mg PO TID [facility] Last Admin: 10/24/17 06:11 Dose: Not Given Fentanyl (Duragesic 25mcg Patch -) 1 patch TD Q72H [facility] Stop: 10/28/17 11:05 Last Admin: 10/22/17 09:31 Dose: 1 patch Fluticasone Propionate (Flonase -) 1 spray NS BID [facility] Last Admin: 10/23/17 21:42 Dose: 1 spray Furosemide (Lasix Injection -) 40 mg IVPUSH DAILY [facility] Last Admin: 10/23/17 10:41 Dose: 40 mg Lidocaine (Lidoderm Patch -) 1 patch TP DAILY [facility] Last Admin: 10/23/17 10:41 Dose: 1 patch Lisinopril (Prinivil) 2.5 mg PO DAILY [facility] Last Admin: 10/23/17 10:39 Dose: 2.5 mg Metoprolol Succinate (Toprol Xl -) 25 mg PO DAILY [facility] Last Admin: 10/23/17 10:45 Dose: 25 mg Mirtazapine (Remeron -) 7.5 mg PO HS [facility] Last Admin: 10/23/17 21:37 Dose: 7.5 mg Miscellaneous (Duragesic Patch Waste) 1 each [facility] PRN PRN PRN Reason: PAIN Pantoprazole Sodium (Protonix -) 40 mg PO DAILY [facility] Last Admin: 10/23/17 10:41 Dose: 40 mg Polyethylene Glycol (Miralax (For Daily Use) -) 17 gm PO BID [facility] Last Admin: 10/23/17 21:38 Dose: Not Given Potassium Chloride (K-Dur -) 20 meq PO DAILY [facility] Last Admin: 10/23/17 10:39 Dose: 20 meq Senna (Senna -) 1 tab PO BID [facility] Last Admin: 10/23/17 21:38 Dose: Not Given Tamsulosin HCl (Flomax -) 0.4 mg PO DAILY [facility] Last Admin: 10/23/17 10:41 Dose: 0.4 mg Trazodone HCl (Desyrel -) 50 mg PO HS PRN PRN Reason: INSOMNIA Last Admin: 10/23/17 21:38 Dose: 50 mg - Objective Vital Signs: Vital Signs Temperature 98.3 F 10/24/17 02:00 Pulse Rate 70 10/24/17 06:00 Respiratory Rate 20 10/24/17 06:00 Blood Pressure 128/54 10/24/17 06:00 O2 Sat by Pulse Oximetry (%) 96 10/23/17 19:53 Constitutional: Yes: No Distress Eyes: Yes: Conjunctiva Clear Cardiovascular: Yes: Regular Rate and Rhythm, Murmur (2/6 ADELAIDA at [facility]) Respiratory: Yes: CTA Bilaterally Gastrointestinal: Yes: Soft Edema: No Neurological: Yes: Alert, Oriented ...Motor Strength: WNL Labs: CBC, BMP 10/21/17 06:00 10/24/17 05:30 INR, PTT INR 1.25 (0.82-1.09) H 10/21/17 06:00 - ....Imaging EKG: Image Reviewed Assessment/Plan IMP: Non-obstructive CAD PAF s/p PPM Non-ischemic CM Aortic stenosis: at least moderate to severe, possibly severe- seems to have progressed AR Acute on chronic systolic/valvular CHF Chronic pain H/o prostate CA REC: 1. Change Lasix to PO today 2. Continue ARB, B-Claudia, statin. Added benefit of ASA is marginal/unclear and likely increases bleeding risk in this age group. Patient is on NOAC for PAF. 3. Cont. Eliquis for PAF 4. severity seems to have progressed. It appears at least moderate to severe and possibly severe. Gradient may be underestimated due to decreased EF and suboptimal alignment of CW doppler. Given his symptoms of VICTOR and CHF, should be evaluated for TAVR. Discussed with patient, will discuss with family. If patient and family agreeable, will then arrange evaluation at tertiary care center.
--- NOTE | 2017-10-24 08:48 | PN ---
Teaching Attending Note Name of Resident: Diana Carreno ATTENDING PHYSICIAN STATEMENT I saw and evaluated the patient. I reviewed the resident's note and discussed the case with the resident. I agree with the resident's findings and plan as documented. SUBJECTIVE: Patient is feeling short of breath. OBJECTIVE: Vital Signs Temperature 98.3 F 10/24/17 02:00 Pulse Rate 70 10/24/17 06:00 Respiratory Rate 20 10/24/17 06:00 Blood Pressure 128/54 10/24/17 06:00 O2 Sat by Pulse Oximetry (%) 96 10/23/17 19:53 CBCD WBC 5.7 K/mm3 (4.0-10.0) 10/21/17 06:00 RBC 3.93 M/mm3 (4.00-5.60) L 10/21/17 06:00 Hgb 10.9 GM/dL (11.7-16.9) L 10/21/17 06:00 Hct 33.0 % (35.4-49) L 10/21/17 06:00 MCV 84.0 fl (80-96) 10/21/17 06:00 MCHC 33.2 g/dl (32.0-35.9) 10/21/17 06:00 RDW 14.6 % (11.9-15.9) 10/21/17 06:00 Plt Count 145 K/MM3 (134-434) 10/21/17 06:00 MPV 10.5 fl (7.5-11.1) 10/21/17 06:00 CMP Sodium 138 mmol/L (136-145) 10/24/17 05:30 Potassium 4.1 mmol/L (3.5-5.1) 10/24/17 05:30 Chloride 95 mmol/L (98-107) L 10/24/17 05:30 Carbon Dioxide 38 mmol/L (21-32) H 10/24/17 05:30 Anion Gap 5 (8-16) L 10/24/17 05:30 BUN 19 mg/dL (7-18) H 10/24/17 05:30 Creatinine 0.8 mg/dL (0.7-1.3) 10/24/17 05:30 Creat Clearance w eGFR > 60 (>60) 10/24/17 05:30 Random Glucose 99 mg/dL (74-106) 10/24/17 05:30 Calcium 8.8 mg/dL (8.5-10.1) 10/24/17 05:30 Total Bilirubin 0.7 mg/dL (0.2-1.0) D 10/20/17 17:01 AST 19 U/L (15-37) D 10/20/17 17:01 ALT 21 U/L (12-78) D 10/20/17 17:01 Alkaline Phosphatase 118 U/L (45-117) H D 10/20/17 17:01 Total Protein 7.6 g/dl (6.4-8.2) D 10/20/17 17:01 Albumin 3.7 g/dl (3.4-5.0) D 10/20/17 17:01 CARDIAC ENZYMES Creatine Kinase 78 IU/L (39-308) 10/20/17 23:15 Troponin I 0.04 ng/ml (0.00-0.05) D 10/20/17 23:15 Current Medications Generic Name Dose Route Start Last Admin Trade Name Robin PRN Reason Stop Dose Admin Apixaban 2.5 mg 10/20/17 22:00 10/23/17 21:38 Eliquis - PO 2.5 mg BID THALIA Administration Atorvastatin Calcium 20 mg 10/20/17 22:00 10/23/17 21:38 Lipitor - PO 20 mg HS THALIA Administration Docusate Sodium 100 mg 10/20/17 22:00 10/24/17 06:11 Colace - PO Not Given TID THALIA Fentanyl 1 patch 10/22/17 09:00 10/22/17 09:31 Duragesic 25mcg Patch - TD 10/28/17 11:05 1 patch Q72H THALIA Administration Fluticasone Propionate 1 spray 10/22/17 10:00 10/23/17 21:42 Flonase - NS 1 spray BID THALIA Administration Furosemide 40 mg 10/24/17 08:39 Lasix - PO BID@0600,1400 THALIA Lidocaine 1 patch 10/21/17 10:00 10/23/17 10:41 Lidoderm Patch - TP 1 patch DAILY THALIA Administration Lisinopril 2.5 mg 10/22/17 10:00 10/23/17 10:39 Prinivil PO 2.5 mg DAILY THALIA Administration Metoprolol Succinate 25 mg 10/21/17 10:00 10/23/17 10:45 Toprol Xl - PO 25 mg DAILY THALIA Administration Mirtazapine 7.5 mg 10/23/17 22:00 10/23/17 21:37 Remeron - PO 7.5 mg HS THALIA Administration Miscellaneous 1 each 10/21/17 11:04 Duragesic Patch Waste MC PRN PRN PAIN Pantoprazole Sodium 40 mg 10/20/17 21:15 10/23/17 10:41 Protonix - PO 40 mg DAILY THALIA Administration Polyethylene Glycol 17 gm 10/20/17 22:00 10/23/17 21:38 Miralax (For Daily Use) - PO Not Given BID THALIA Potassium Chloride 20 meq 10/21/17 10:00 10/23/17 10:39 K-Dur - PO 20 meq DAILY THALIA Administration Senna 1 tab 10/22/17 10:00 10/23/17 21:38 Senna - PO Not Given BID THALIA Tamsulosin HCl 0.4 mg 10/21/17 10:00 10/23/17 10:41 Flomax - PO 0.4 mg DAILY THALIA Administration Trazodone HCl 50 mg 10/21/17 22:55 10/23/17 21:38 Desyrel - PO 50 mg HS PRN Administration INSOMNIA Home Medications Medication Instructions Recorded Tamsulosin HCl [Flomax -] 0.4 mg PO DAILY 01/17/15 FENTANYL 25mcg PATCH [DURAGESIC 1 patch TD Q72H patch.td72 MDD 06/12/16 25mcg PATCH -] 25mcg LORazepam [Ativan] 0.5 mg PO Q8H PRN #0 tablet MDD 06/12/16 1.5mg Lidocaine 5% Patch [Lidoderm -] 1 patch TP DAILY patch 06/12/16 Lisinopril [Prinivil] 2.5 mg PO DAILY tablet 06/12/16 Apixaban [Eliquis] 2.5 mg PO BID 06/25/16 Atorvastatin Ca [Lipitor] 20 mg PO HS 06/25/16 Metoprolol Succinate [Toprol XL -] 25 mg PO DAILY 06/25/16 Multivitamins [Multivit ([facility] 1 tab PO DAILY 06/25/16 Formulary)] Potassium Chloride [Klor-Con] 20 meq PO DAILY 06/25/16 Trazodone HCl 50 mg PO HS 06/25/16 Docusate Sodium [Colace -] 100 mg PO TID capsule 07/04/16 Furosemide [Lasix] 40 mg PO DAILY 10/21/17 Gabapentin 300 tab PO TID 10/21/17 PE: per resident's note ASSESSMENT AND PLAN: 85 y/o gentleman with past medical history of aortic stenosis, severe MR, HTN, cardiac catheterization 01/2015 which showed no obstructive CAD , prostate cancer , and colectomy , A fib, on eliquis, PPM , chronic L upper posterior chest pain , who presents to the ED with SOB .He was found ot have acute CHF exacerbation. # Acute on chronic systolic CHF exacerbation :On lasix po now continue, Cont lisinopril and BB. Echo with worsening . patient is getting transferred to tertiary care facility by for possible TVAR #HTN: BB. lisinopril # Chronic pain. MS in posterior left upper chest. ? thoracic radiculopathy. cont fentanyl patch and lidocaine patch # A fib: BB and eliquis # L nose lesion : treated for skin cancer. f/u as out pt # depression , poor appetite and insomnia : added remeron DVT Px: Eliquis
[2017-10-24] MEDS ORDERED: ASPIRIN 81 MG CHEWABLE TABLETS PO SCH (10:00)
[2017-10-24] MEDS: APIXABAN 2.5 MG TABLET PO SCH (10:06)
[2017-10-24] MEDS: LISINOPRIL 5 MG TABLET (FP) PO SCH (10:06)
[2017-10-24] MEDS: POTASSIUM CHLORIDE TABS 20 MEQ TABLET.ER (FP) PO SCH (10:06)
[2017-10-24] MEDS: metoPROLOL SUCCINATE 25 MG TAB.SR.24H (FP) PO SCH (10:06)
[2017-10-24] MEDS: POLYETHYLENE GLYCOL 3350 119 GM BTL PO SCH (10:06)
[2017-10-24] MEDS: FUROSEMIDE 40 MG TABLET (FP) PO SCH ×2 (10:06→14:31)
[2017-10-24] MEDS: TAMSULOSIN HCL 0.4 MG CAP.ER.24H (FP) PO SCH (10:06)
[2017-10-24] MEDS: PANTOPRAZOLE 40 MG TABLET (FP) PO SCH (10:06)
[2017-10-24] MEDS: SENNOSIDES 8.6MG TABLET (FP) PO SCH (10:06)
[2017-10-24] MEDS: LIDOCAINE 5% TOPICAL PATCH TP SCH (10:06)
[2017-10-24] MEDS: FLUTICASONE PROP 0.05% 16 GM NASAL SPRAY NS SCH (10:07)
--- NOTE | 2017-10-24 15:40 | PN ---
Physical Exam: SUBJECTIVE: Patient seen and examined at bedside. No acute events overnight. Today, pt c/o continued lack of appetite. States that he wants to go home. Discussed case, TAVR with pt. Denies OSCAR, fever, chills, SOB, or changes in urinary or bowel function. OBJECTIVE: Vital Signs Period Temp Pulse Resp BP Sys/Sanchez Pulse Ox Last 24 Hr 98.2 F-98.4 F 70-73 16-20 111-146/46-68 96-96 GENERAL: The patient is awake, alert, and fully oriented, in no acute distress. HEAD: Normal with no signs of trauma. EYES: PERRL, extraocular movements intact, sclera anicteric, conjunctiva clear. ENT: Ears normal, nares patent, oropharynx clear without exudates. +L nostril - lesion NECK: Trachea midline, full range of motion, supple. LUNGS: Breath sounds equal, clear to auscultation bilaterally, no wheezes, no crackles, no accessory muscle use. HEART: Regular rate and rhythm, S1, S2 without murmur, rub or gallop. ABDOMEN: Soft, nontender, nondistended, normoactive bowel sounds, no guarding EXTREMITIES: 2+ pt pulses, warm, well-perfused, trace edema NEUROLOGICAL: Cranial nerves II through XII grossly intact. Normal speech PSYCH: Normal mood, normal affect. SKIN: Warm, dry, normal turgor, no rashes or lesions noted Laboratory Results - last 24 hr 10/24/17 05:30 Sodium 138 Potassium 4.1 Chloride 95 L Carbon Dioxide 38 H Anion Gap 5 L BUN 19 H Creatinine 0.8 Creat Clearance w eGFR > 60 Random Glucose 99 Calcium 8.8 Active Medications Generic Name Dose Route Start Last Admin Trade Name Freq PRN Reason Stop Dose Admin Apixaban 2.5 mg 10/20/17 22:00 10/24/17 10:06 Eliquis - PO 2.5 mg BID THALIA Administration Atorvastatin Calcium 20 mg 10/20/17 22:00 10/23/17 21:38 Lipitor - PO 20 mg HS THALIA Administration Docusate Sodium 100 mg 10/20/17 22:00 10/24/17 14:31 Colace - PO 100 mg TID THALIA Administration Fentanyl 1 patch 10/22/17 09:00 10/22/17 09:31 Duragesic 25mcg Patch - TD 10/28/17 11:05 1 patch Q72H THALIA Administration Fluticasone Propionate 1 spray 10/22/17 10:00 10/24/17 10:07 Flonase - NS 1 spray BID THALIA Administration Furosemide 40 mg 10/24/17 09:00 10/24/17 14:31 Lasix - PO 40 mg BID@0600,1400 THALIA Administration Lidocaine 1 patch 10/21/17 10:00 10/24/17 10:06 Lidoderm Patch - TP 1 patch DAILY THALIA Administration Lisinopril 2.5 mg 10/22/17 10:00 10/24/17 10:06 Prinivil PO 2.5 mg DAILY THALIA Administration Metoprolol Succinate 25 mg 10/21/17 10:00 10/24/17 10:06 Toprol Xl - PO 25 mg DAILY THALAI Administration Mirtazapine 7.5 mg 10/23/17 22:00 10/23/17 21:37 Remeron - PO 7.5 mg HS THALIA Administration Miscellaneous 1 each 10/21/17 11:04 Duragesic Patch Waste MC PRN PRN PAIN Pantoprazole Sodium 40 mg 10/20/17 21:15 10/24/17 10:06 Protonix - PO 40 mg DAILY THALIA Administration Polyethylene Glycol 17 gm 10/20/17 22:00 10/24/17 10:06 Miralax (For Daily Use) - PO Not Given BID THALIA Potassium Chloride 20 meq 10/21/17 10:00 10/24/17 10:06 K-Dur - PO 20 meq DAILY THALIA Administration Senna 1 tab 10/22/17 10:00 10/24/17 10:06 Senna - PO 1 tab BID THALIA Administration Tamsulosin HCl 0.4 mg 10/21/17 10:00 10/24/17 10:06 Flomax - PO 0.4 mg DAILY THALIA Administration Trazodone HCl 50 mg 10/21/17 22:55 10/23/17 21:38 Desyrel - PO 50 mg HS PRN Administration INSOMNIA TESTS 10/20/17: EKG: paced rhythm 10/20/17: CXR: improvement. decreased in congestive and infiltrative changes. large heart. pacemaker. pleural fluid. 10/22/17: ECHO: EF 40-45%, LV systolic fnc moderately reduced, global hypokinesis LV, LA severely dilated, RVSF normal, moderate MR, mild TR, there is moderate aortic valve thickening, severe valvular aortic stenosis ( compared to prior), mild AR, moderate pulm vasc regurg ASSESSMENT/PLAN: 87 y/o M with PMH HTN, HLD, CAD, afib (d/c on eliquis 2.5mg PO BID), pacemaker [facility], degenerative disc dz, prostate CA s/p colectomy, skin CA, recent admission in August 2017 for CHF exacerbation (d/c on lasix BID), who presents to the ED c/o SOB and VICTOR for the past two days. #Acute on chronic systolic CHF -has improved clinically; without signs of overload -on lasix 40mg PO BID -will hold home Kdur dose -tele monitoring -strict i's and o's -daily weights -F/u CXR -Na controlled/fluid restrict #worsening aortic stenosis -most recent ECHO with severe , was repeated -d/w cardio, will talk to family tonight about possibility of TAVR ; may need transfer -Cardio: Dr. Mishra #afib, with pacemaker 06/16/16 [facility] -for a/c on eliquis 2.5mg PO bid -continue toprol XL 25mg PO qd rate control #CAD -hx recent caths (2) without obstruction -as per pt, without stents -continue asa 81mg PO qd -seen by cardio #HTN- controlled -continue toprol XL 25mg PO qd -lisinopril 2.5mg PO qd #HLD -continue lipitor 20mg PO qd #degenerative disc dz -continue lidocaine 5% patch -fentanyl patch -EMG as outpatient, physical therapy #prostate CA -continue flomax 0.4 mg PO qd #skin CA -L nostril - with lesion -outpt f/u on d/c #hx gastritis -hx from [facility] - EGD without bleeding source. duodenitis with scattered erosions, gastritis, submucosal gastric nodules -colonoscopy with evidence mild diverticulosis, nonbleeding rectal AVM, internal hemorrhoids -continue protonix 40mg PO qd #constipation- improving -continue miralax 17 gm PO BID -senna 1 tab PO BID -colace 100mg PO TID #poor appetite, depression -started on remeron 7.5mg PO qHS #F/E/N -no IVF rec at this time; CHF -continue to follow lytes -sodium controlled/fat free, cholest free diet. +ensure #PPX -on eliquis #Dispo monitoring on tele obs for d/c planning once cleared by cardio . may need transfer for TAVR will need VNS Visit type - Emergency Visit Emergency Visit: No - New Patient This patient is new to me today: No - Critical Care Critical Care patient: No
[2017-10-24 15:42] VITALS: BP 138/80; TEMP 97.9
--- NOTE | 2017-10-24 17:21 | DS ---
Physical Exam: SUBJECTIVE: Patient seen and examined at bedside. No acute events overnight. Today, pt c/o continued lack of appetite. States that he wants to go home. Discussed case, TAVR with pt. Denies OSCAR, fever, chills, SOB, or changes in urinary or bowel function. Case d/w Dr. Mishra; pt has been transferred to [facility] for TAVR accepting physician: Dr. Gil Montalvo OBJECTIVE: Vital Signs Period Temp Pulse Resp BP Sys/Sanchez Pulse Ox Last 24 Hr 97.9 F-98.4 F 70-73 16-20 111-146/46-80 96-96 PHYSICAL EXAM GENERAL: The patient is awake, alert, and fully oriented, in no acute distress. HEAD: Normal with no signs of trauma. EYES: PERRL, extraocular movements intact, sclera anicteric, conjunctiva clear. ENT: Ears normal, nares patent, oropharynx clear without exudates. +L nostril - lesion NECK: Trachea midline, full range of motion, supple. LUNGS: Breath sounds equal, clear to auscultation bilaterally, no wheezes, no crackles, no accessory muscle use. HEART: Regular rate and rhythm, S1, S2 without murmur, rub or gallop. ABDOMEN: Soft, nontender, nondistended, normoactive bowel sounds, no guarding EXTREMITIES: 2+ pt pulses, warm, well-perfused, trace edema NEUROLOGICAL: Cranial nerves II through XII grossly intact. Normal speech PSYCH: Normal mood, normal affect. SKIN: Warm, dry, normal turgor, no rashes or lesions noted LABS Laboratory Results - last 24 hr 10/24/17 05:30 Sodium 138 Potassium 4.1 Chloride 95 L Carbon Dioxide 38 H Anion Gap 5 L BUN 19 H Creatinine 0.8 Creat Clearance w eGFR > 60 Random Glucose 99 Calcium 8.8 CBC Trend 10/20/17 10/21/17 17:01 06:00 WBC 7.4 D 5.7 Hgb 11.3 L D 10.9 L Hct 34.6 L D 33.0 L Plt Count 170 D 145 Coagulation 10/20/17 10/21/17 17:01 06:00 PT with INR 13.40 H 14.10 H INR 1.19 H 1.25 H Additional testing 10/20/17 10/20/17 17:01 23:15 Troponin I 0.03 D 0.04 D B-Natriuretic Peptide 57943.43 H TESTS 10/20/17: EKG: paced rhythm 10/20/17: CXR: improvement. decreased in congestive and infiltrative changes. large heart. pacemaker. pleural fluid. 10/22/17: ECHO: EF 40-45%, LV systolic fnc moderately reduced, global hypokinesis LV, LA severely dilated, RVSF normal, moderate MR, mild TR, there is moderate aortic valve thickening, severe valvular aortic stenosis ( compared to prior), mild AR, moderate pulm vasc regurg HOSPITAL COURSE: Date of Admission:10/22/17 Date of Discharge: 10/24/17 Admit diagnosis: acute on chronic systolic CHF exacerbation 87 y/o M with PMH HTN, HLD, CAD, afib (d/c on eliquis 2.5mg PO BID), pacemaker [place], degenerative disc dz, prostate CA, s/p colectomy, skin CA, recent admission in August 2017 for CHF exacerbation (d/c on lasix BID), who presented to the ED c/o SOB and VICTOR for the past two days. As per patient, he has had these sx for two days, however on day of admission, pt was extremely SOB. Pt endorsed sleeping on "multiple pillows," and stated that day prior to admission when he took his first dose of lasix in the AM, his urinary void volume was lower than normal. During this time, pt also endorsed intermittent episodes of diaphoresis, and MSK numbness in his LUE worse upon movement. However he was without chest pain or pressure. Denied OSCAR, fever, chills, chest pain or pressure, or changes in bowel function. Pt follows with Dr. Mishra. Denied stents, CABG, or previous stress tests. He has had two cardiac caths recently which revealed non obstructive CAD. His pacemaker was interrogated recently, a few months ago. He had an ECHO done as well 05/12/16 which revealed EF ~47, and moderately reduced LV systolic fnc, as well as mod- severe MR, TR, and elevation of RSVP. Pt admitted for acute on chronic systolic CHF exacerbation. While pt was on the floor, he was managed for the following: Acute on chronic systolic CHF pt was diuresed adequately with lasix 40mg IVP BID, and upon day of transfer, switched to 40mg PO BID. Pt clinically improved, showing sx improvement in edema and SOB. Pt performed well on his pre and post 02 test ; sat 96,98 respectively, showing he did not need nc 02 . Pt also maintained on daily weights, strict i's and o's, fluid restriction Worsening aortic stenosis During hospitalization, pt with ECHO: EF 40-45%, LV systolic fnc moderately reduced, global hypokinesis LV, LA severely dilated, RVSF normal, moderate MR, mild TR, there is moderate aortic valve thickening, severe valvular aortic stenosis (compared to prior), mild AR, moderate pulm vasc regurg. D/t worsening aortic stenosis, pt for TAVR at [facility]. Transferred today by Dr. Mishra afib with pacemaker 06/16/16 [facility] continued on a/c eliquis 2.5mg PO BID, on toprol XL 25mg PO qd for rate control CAD hx two recent catheterizations, without evidence of obstruction. pt asa 81mg PO qd was held during stay d/t bleeding risk in advanced age and as pt also on eliquis HTN continued on toprol XL 25mg PO qd, lisinopril 2.5mg PO qd HLD continue lipitor 20mg PO qd degenerative disc dz continue lidocaine, fentanyl patches, may do EMG as outpatient, physical therapy prostate CA continue flomax 0.4mg PO qd skin CA continue outpatient f/u hx gastritis contnue protonix 40mg PO qd constipation continue bowel regimen of senna and colace poor appetite and depression continue remeron 7.5mg PO qd any medication changes as per dr. mishra upon transfer to [facility]. accepting physician : Dr Adebayo Montalvo pt has already left building Minutes to complete discharge: 44 Discharge Summary Reason For Visit: ACUTE ON CHRONIC SYSTOLIC CONGESTIVE HEART FAILURE Condition: Stable - Instructions Diet, Activity, Other Instructions: Pt has been transferred to [facility] for TAVR by Dr. Mishra. Accepting physician: Dr. Gil Montalvo Referrals: Tyron Chavarria MD [Primary Care Provider] - 1 Week Rashel Mishra MD [Staff Physician] - 1 Week Disposition: TRANSFER ACUTE CARE/OTHER HOSP - Home Medications Comprehensive Discharge Medication List: Ambulatory Orders Tamsulosin HCl [Flomax -] 0.4 mg PO DAILY 01/17/15 FENTANYL 25mcg PATCH [DURAGESIC 25mcg PATCH -] 1 patch TD Q72H patch.td72 MDD 25mcg 06/12/16 Lidocaine 5% Patch [Lidoderm -] 1 patch TP DAILY patch 06/12/16 Apixaban [Eliquis] 2.5 mg PO BID 06/25/16 Atorvastatin Ca [Lipitor] 20 mg PO HS 06/25/16 Metoprolol Succinate [Toprol XL -] 25 mg PO DAILY 06/25/16 Multivitamins [Multivit ([facility] Formulary)] 1 tab PO DAILY 06/25/16 Potassium Chloride [Klor-Con] 20 meq PO DAILY 06/25/16 Trazodone HCl 50 mg PO HS 06/25/16 Docusate Sodium [Colace -] 100 mg PO TID capsule 07/04/16 Gabapentin 300 tab PO TID 10/21/17 Furosemide [Lasix -] 40 mg PO BID@0600,1400 tablet 10/24/17 Lisinopril [Prinivil] 2.5 mg PO DAILY tablet 10/24/17 Mirtazapine [Remeron -] 7.5 mg PO HS tablet 10/24/17 Pantoprazole Sodium [Protonix -] 40 mg PO DAILY tablet.ec 10/24/17 Sennosides [Senna -] 1 tab PO BID tablet 10/24/17 This patient is new to me today: No Emergency Visit: No Critical Care patient: No - Discharge Referral Referred to [facility] Med P.C.: No
== END 2017-10-24 16:28 | disposition short-term general hospital (02) | DRG 306 ==
LOC: JER 16:12 → JERBED 19:31 → J4W 22:01 → OBSVTOIN 10-22 15:45
PROVIDERS: ADMIT Internal Medicine; ATTEND Internal Medicine
DX: I35.0 Nonrheumatic aortic (valve) stenosis (principal); I50.23 Acute on chronic systolic (congestive) heart failure; I11.0 Hypertensive heart disease with heart failure; I42.8 Other cardiomyopathies; I25.10 Atherosclerotic heart disease of native coronary artery without angina pectoris; E78.5 Hyperlipidemia, unspecified; I27.20 Pulmonary hypertension, unspecified; I48.91 Unspecified atrial fibrillation; K29.70 Gastritis, unspecified, without bleeding; M54.2 Cervicalgia; G89.29 Other chronic pain; F32.9 Major depressive disorder, single episode, unspecified; K59.00 Constipation, unspecified; I34.0 Nonrheumatic mitral (valve) insufficiency; Z95.5 Presence of coronary angioplasty implant and graft; Z87.891 Personal history of nicotine dependence; Z85.038 Personal history of other malignant neoplasm of large intestine; Z85.46 Personal history of malignant neoplasm of prostate; Z95.0 Presence of cardiac pacemaker; Z85.828 Personal history of other malignant neoplasm of skin
CPT/HCPCS: 36415; 71045-TC-FY; 80048; 80053; 81003; 82550; 83735; 83880; 84100; 84132; 84484; 85025; 85610; 93005; 93010; 93306-TC; 94761; 97116-GP; 97162-GP; 99285-25; G0378